=== PATIENT | female | born 1975 | race Caucasian/White ===

== ENCOUNTER → 2023-09-02 17:21 | Outpatient (REF) | payer OTHER, SELFPAY | LOC: MRI 3T 17:21 | PROVIDERS: ATTENDING PHYSICIAN Family Medicine | DX: R16.0 Hepatomegaly, not elsewhere classified (principal) | CPT/HCPCS: 74183; A9575 ==

== ENCOUNTER 2023-12-29 06:34 | Day surgery (SDC) | payer OTHER, SELFPAY ==
[2023-12-29] VITALS (11 sets, daily range): BP systolic 84–157; BP diastolic 62–87; BMI 42.9
[2023-12-29] MEDS: ZOFRAN 4 MG IV (13:03)
== END 2023-12-29 14:19 | disposition home or self-care (01) ==
LOC: GI 06:34
PROVIDERS: ATTENDING PHYSICIAN Internal Medicine Gastroenterology
DX: K80.20 Calculus of gallbladder without cholecystitis without obstruction (principal); R93.3 Abnormal findings on diagnostic imaging of other parts of digestive tract; K86.9 Disease of pancreas, unspecified
CPT/HCPCS: 43262; 43264; 43237; 74330; 76000; C1769

== ENCOUNTER → 2024-06-01 16:21 | Outpatient (REF) | payer OTHER, SELFPAY | LOC: HWWDC 16:21 | PROVIDERS: ATTENDING PHYSICIAN Obstetrics & Gynecology; FAMILY PHYSICIAN Family Medicine | DX: Z12.31 Encounter for screening mammogram for malignant neoplasm of breast (principal) | CPT/HCPCS: 77063; 77067 ==

== ENCOUNTER 2024-07-09 07:56 | Inpatient (IN) | payer OTHER, SELFPAY ==
[2024-07-06 13:46] VITALS: BP 144/80
[2024-07-06 14:12] LABS: Hematocrit 26.4 % (37.0-47.0); Hemoglobin 8.5 g/dL (12.0-16.0); Mean Corp Hgb Conc. 32.2 g/dL (33.0-37.0); Mean Corpuscular Hgb 23.7 pg (27.0-31.0); Mean Corpuscular Volume 73.5 fL (81.0-99.0); Mean Platelet Volume 8.9 fL (7.4-10.4); Platelet Count 456 10^3/uL (130-400); Red Blood Cell Count 3.59 10^6/uL (4.20-5.40); Red Cell Dist. Width 17.1 % (11.5-14.5); White Blood Cell Count 10.7 10^3/uL (4.8-10.8)
[2024-07-06 14:39] LABS: % Basophils 0.4 % (0-2); % Eosinophils 0.3 % (0-6); % Immature Granulocytes 2.3 % (0-0.5); % Lymphocytes 11.4 % (20.5-51.1); % Monocytes 10.1 % (1.7-9.3); % Neutrophils 75.5 % (42.2-75.2); Absolute Immature Granulocytes 0.3 10^3/uL (0-0.05); Absolute Lymphocytes 1.2 10^3/uL (1.2-3.4); Absolute Monocytes 1.1 10^3/uL (0.1-0.6); Absolute Neutrophils 8.1 10^3/uL (1.4-6.5); Nucleated Red Blood Cells % 0 %
[2024-07-06 14:43] LABS: Troponin I < 0.012 ng/ml
[2024-07-06 14:49] LABS: ALT (SGPT) 77 U/L (0-35); AST (SGOT) 47 U/L (14-36); Albumin 3.8 g/dl (3.5-5.0); Alkaline Phosphatase 325 U/L (38-126); Blood Urea Nitrogen 32 mg/dl (7-17); Calcium 9.3 mg/dl (8.4-10.2); Carbon Dioxide 17 mmol/L (22-30); Chloride 97 mmol/L (98-107); Glucose 220 mg/dl (70-99); HCG, Serum Qualitative Screen Negative; Lipase 168 U/L (23-300); Potassium 4.9 mmol/L (3.5-5.1); Sodium 133 mmol/L (135-145); Total Bilirubin 1.3 mg/dl (0.2-1.3); Total Protein 7.6 g/dl (6.3-8.2); eGFR 39.05
--- NOTE | 2024-07-06 15:24 | ED.GENMED ---
History of Present Illness
General
Chief Complaint: Abdominal Pain
Source: patient and records
Time Seen by Provider: 07/06/24 15:04
History of Present Illness
History of Present Illness:
49-year-old female with past medical history of hypertension and known gallstones presenting to the emergency department for evaluation of right upper quadrant abdominal pain that has waxed and waned since June 17, worse last night into this
morning with diminished p.o. intake, nausea and vomiting prompting her to come to the ER today further evaluation. Patient reports that she had an MRI of her abdomen around a year or so ago, was supposed to have gallstone removed however patient
reports that the gallstone had passed and she never had any further procedures. Patient never followed up with general surgery afterwards. She denies any fevers, chills, rigors bowel changes or urinary symptoms. Patient states that the pain is
mainly to the right upper quadrant, will often times radiate towards her shoulder on the right and seems to be made worse by food consumption. She did not take anything for her symptoms prior to arrival today.
Past History
Past History
ED Past Medical History: HTN
ED Past Surgical History: Tonsilectomy
Social History
Tobacco: Non-smoker
Alcohol: None
Drug: None
Personal:
Living: with family
Review of Systems
Review of Systems
All Other Systems: ROS reviewed and negative except as documented in HPI and ROS
Phy Exam
Physical Exam
Physical Exam:
GENERAL: Alert , in no apparent distress
EYE: clear conjunctiva b/l
HEAD: NCAT
ENT: mmm.
CARDIAC: Regular rate and rhythm .
LUNGS: Clear breath sounds bilaterally, no acute respiratory distress, no wheezes/rales/rhonchi
ABDOMEN: Soft, mild right upper quadrant tenderness, no r/g, no cvat, negative Kenyon sign, no tenderness at McBurney's point
NEUROLOGICAL: Alert and oriented
SKIN: Warm and dry, skin intact.
MUSCULOSKELETAL: well perfused.
PSYCH: Normal and appropriate interaction.
Scores
Heart Failure Risk
Heart Failure Risk Score: Not Applicable
Heart Score for Chest Pain Patients
STEMI patient?: Not applicable
Withdrawal Assessment of Alcohol
Withdrawal Assessment Completed?: Not applicable
Course
Orders/Labs/Results
Orders:
Orders
07/06/24 13:50
EKG [Electrocardiogram (*1)] Urgent
Reason for Study: Abdominal Pain
07/06/24 13:51
EKG- Treatment ONCE
Test Result ONCE
07/06/24 14:03
Complete Blood Count/With Diff Urgent
Comprehensive Metabolic Panel Urgent
HCG, Serum Qualitative Screen Urgent
Lipase Urgent
Troponin I Urgent
07/06/24 15:21
0.9% Sodium Chloride 1000 ml [Nss] 1,000 ml IV BOLUS
Ondansetron Injectable [Zofran] 4 mg IV NOW STA
US Abdomen Complete/Upper Urgent
Comment:
Reason For Exam: RUQ pain, vomiting, known gallstones
07/06/24 18:03
Piperacillin/Tazo 3.375 Gram [Zosyn] 3.375 gram in 50 ml IV NOW
07/06/24 18:53
Admit/Transfer Patient As Directed
Co-Sign Provider:
Level of Care: Observation services
Assign to:: Medical/Surgical
Physician / Group: Cony Ayala
Diagnosis: cholecystitis
Reason for Hospitalization: cholecystitis
Expected length of stay greater than two midnights?: Yes
ELOS- Estimated Length of Stay in days: 3
I certify the patient meets the requirements for IP care: Yes
07/06/24 18:54
PRN Pain Medication Management As Directed
May give lesser potent ordered pain med per pt: Yes
preference::
Protocol:: Medication orders for pain may be administered in a
manner that supports deferring to patient preference
when the pt is:
- Requesting an ordered lesser potent pain medication.
Least to most potent pain medications are defined
as: acetaminophen < NSAID < tramadol < opioids
(morphine, oxycodone, hydromorphone).
- Requesting a lesser dose of the same medication IF
ORDERED.
- Requesting a less intrusive route of administration
if both routes are prescribed by the provider (PO <
IV).
07/06/24 18:55
Code Status As Directed
Resuscitation Status: Full Code
Abnormal Lab Results
07/06/24
14:03
RBC 3.59 L 10^6/uL
(4.20-5.40)
Hgb 8.5 L g/dL
(12.0-16.0)
Hct 26.4 L %
(37.0-47.0)
MCV 73.5 L fL
(81.0-99.0)
MCH 23.7 L pg
(27.0-31.0)
MCHC 32.2 L g/dL
(33.0-37.0)
RDW 17.1 H %
(11.5-14.5)
Plt Count 456 H 10^3/uL
(130-400)
Abs Immat Gran (auto) 0.3 H 10^3/uL
(0-0.05)
Absolute Neuts (auto) 8.1 H 10^3/uL
(1.4-6.5)
Absolute Monos (auto) 1.1 H 10^3/uL
(0.1-0.6)
Immature Gran % 2.3 H %
(0-0.5)
Neutrophils % 75.5 H %
(42.2-75.2)
Lymphocytes % 11.4 L %
(20.5-51.1)
Monocytes % 10.1 H %
(1.7-9.3)
Sodium 133 L mmol/L
(135-145)
Chloride 97 L mmol/L
(98-107)
Carbon Dioxide 17 L mmol/L
(22-30)
BUN 32 H mg/dl
(7-17)
Creatinine 1.6 H mg/dL
(0.6-1.0)
Glucose 220 H mg/dl
(70-99)
AST 47 H U/L
(14-36)
ALT 77 H U/L
(0-35)
Alkaline Phosphatase 325 H U/L
(38-126)
07/06/24 14:03
07/06/24 14:03
Vital Signs
Initial and Last Documented VS:
Initial Vital Signs
Temp Pulse Resp BP Pulse Ox
99.3 F 98 17 144/80 99
07/06/24 13:46 07/06/24 13:46 07/06/24 13:46 07/06/24 13:46 07/06/24 13:46
Last Documented Vital Signs
Temp Pulse Resp BP Pulse Ox
99.3 F 83 18 125/55 98
07/06/24 13:46 07/06/24 15:52 07/06/24 15:52 07/06/24 15:52 07/06/24 15:52
MDM/Problems Addressed
Differential Diagnosis Includes:
Symptomatic cholelithiasis, acute cholecystitis, choledocholithiasis, biliary colic, pancreatitis, less concern for acute appendicitis, GERD/gastritis, gastroenteritis
MDM/Problems Addressed:
49-year-old female presenting to the ER for evaluation of continued right upper quadrant abdominal pain, nausea, vomiting and diminished p.o. and has been continuous since June 17. Known history of gallstones and had a ERCP done previously but
stone had already passed, no further interventions after this. Patient states she never followed up with a general surgeon and reports she was never given information for a general surgeon. She is mildly tender within the right upper quadrant but
has a negative Kenyon sign on exam. She does not appear to be in any acute distress, hemodynamically stable. Labs were initiated on arrival which show a hemoglobin of 8.5, patient also has an acute kidney injury and mild uremia which is likely due
to dehydration from not being able to tolerate p.o. Mild LFT elevation. Will obtain ultrasound to further evaluate. Anticipating consulting with general surgery.
*Radiology
Radiology exam reviewed: radiology read reviewed
*Pulse Oximetry
Patient hypoxic: no
*Critical Care Note
Total Time (30-74mins, 75-104mins- exclusive of procedures): Not Applicable
Patient Management
Discussion with other providers: Hospitalist and Cell Feed Department Supervisor
Escalation/DeEscalation of care consider admission/obs:
Patient's ultrasound of the gallbladder was the following:
Abnormal gallbladder. Markedly abnormal. Severely distended 12 cm, with a large amount of heterogeneous echogenic intraluminal debris/complex fluid and cholelithiasis. Positive sonographic Kenyon's sign. 5 mm gallbladder wall. Pericholecystic fluid.
Consistent with cholecystitis.
I notified on-call general surgeon, Dr. Bernstein, who will see the patient in consult. Will admit to hospitalist service given patient's acute kidney injury. Will order Zosyn to cover for infectious etiology. Hospitalist team accepts for continued
evaluation and treatment.
ED Attending Note
-
Portions of this chart may have been created with voice recognition software.� Occasional wrong word or��sound alike� substitutions may have occurred due to the inherent limitations of voice recognition software.
Discharge Plan
Departure
Patient Disposition: Admit
Date of Disposition: 07/06/24
Time of Disposition: 18:09
Presentation/result/management discussed w/ accepting MD/DO: Hospitalist
Discharge Problem:
Acute cholecystitis, JO (acute kidney injury)
Interventions
Interventions:
*Risk Screen - Suicide Last Done: 07/06/24 13:50
*General Assessment Last Done: 07/06/24 13:50
*Neglect/Abuse Screening Last Done: 07/06/24 13:50
*ED COVID-19 Vaccine History Last Done: 07/06/24 13:50
RY-Larmuf-Ettilqlceh Assessment Last Done: 07/06/24 19:43
[2024-07-06] MEDS: ZOFRAN 4 MG IV ×2 (15:48→21:36)
[2024-07-06] MEDS: NSS 1000 IV ×2 (15:48→21:31)
[2024-07-06 15:50] VITALS: BMI 43.2
[2024-07-06 15:52] VITALS: BP 125/55
--- NOTE | 2024-07-06 18:13 | HPS.HSE ---
Family Physician
-
Family Physician: Long Valdovinos
Chief Complaint
-
right upper quadrant abdominal pain
History of Present Illness
Patient is a 49-year-old female with past medical history significant for essential hypertension, DM II and hx gall stones who presented to [facility] ED for evaluation of right upper quadrant abdominal pain with associated nausea and vomiting. Patient
reports symptoms have been present for 3 weeks, no real change today causing her to come in for evaluation. She reports when this happened before a few days went by and things improved, she had been hoping that would happen this time but has not had
any improvement. Patient reports chills and sweats but no recorded fevers.
Medical History
Past Medical History
Past Medical History: Reports Other
Additional Past Medical History:
essential hypertension
DM II
fatty liver
liver mass
hx gall stones
Past Surgical History: Reports Other
Additional Past Surgical History:
tonsillectomy
adenoidectomy
Social History
Tobacco: Non-smoker
Alcohol: None
Drug: None
Personal:
Living: With Family
Employment: Not Employed
Family History
Family History: Other (Mother: Alzheimer's, gallstones; Father: Pancreatic cancer; Brother: CAD w/ CABG )
Allergies / Home Medications
Allergies reflects when Allergies were last updated in [employer].
Home Medications with original date entered in [employer]
Allergy/Medication List:
Allergies
Allergy/AdvReac Type Severity Reaction Status Date / Time
No Known Allergies Allergy Unverified 07/06/24 13:47
Home Medications
metoprolol succinate 100 mg tablet,extended release 24 hr 50 mg PO DAILYPRN PRN high pulse 12/29/23
aspirin 81 mg tablet,delayed release 81 mg PO DAILY 07/06/24
cholecalciferol (vitamin D3) 125 mcg (5,000 unit) tablet (Vitamin D3) 125 mcg PO DAILY 07/06/24
losartan 100 mg-hydrochlorothiazide 25 mg tablet 1 tab PO DAILY 07/06/24
norethindrone acetate 5 mg tablet 5 mg PO DAILY 07/06/24
Review of Systems
-
History Source: Patient
Constitutional: Reports Night Sweats and Chills
EENT: Reports No Symptoms
Respiratory: Reports No Symptoms
Cardiac: Reports No Symptoms
Abdomen/GI: Reports Abdominal Pain, Nausea, Vomiting and Diarrhea
: Reports No Symptoms
Musculoskeletal: Reports No Symptoms
Skin: Reports No Symptoms
Neurological: Reports No Symptoms
Endocrine: Reports No Symptoms
Hematologic/Lymphatic: Reports No Symptoms
Psych: Reports No Symptoms
Physical Exam
Vital Signs
Vital Signs
Temp Pulse Resp BP Pulse Ox
99.3 F 83 18 125/55 98
07/06/24 13:46 07/06/24 15:52 07/06/24 15:52 07/06/24 15:52 07/06/24 15:52
Physical Exam
General: Well Developed, Well Nourished, No Apparent Distress, Conversant and Morbidly Obese
HEENT: NormoCephalic, Moist mucous membranes, Atraumatic, [place] Conjunctivae, Nose Appears Normal and Ears Appear Normal
Respiratory: Clear and Non Labored Respirations
Cardiac: S1/S2 and Regular Rhythm
Breast: Deferred by me
GI: Soft, Normal Bowel Sounds and Tender; No Organomegaly
Rectal: Deferred by Provider
Genito-urinary: Deferred by me
Musculoskeletal: No Clubbing, No Cyanosis and No Edema
Skin: Warm and IV/Catheter Site
Neuro: Awake, Alert, AO x 3 and Nonfocal/grossly intact
Psych: Calm and Intact Judgment/Insight
Laboratory Results
-
07/06/24 14:03
07/06/24 14:03
Laboratory Results
Total Bilirubin 1.3 mg/dl (0.2-1.3) 07/06/24 14:03
AST 47 U/L (14-36) H 07/06/24 14:03
ALT 77 U/L (0-35) H 07/06/24 14:03
Alkaline Phosphatase 325 U/L (38-126) H 07/06/24 14:03
Troponin I < 0.012 ng/ml 07/06/24 14:03
Lipase 168 U/L (23-300) 07/06/24 14:03
Data Reviewed
-
Ultrasound: Report Reviewed by me (Abd: Abnormal gallbladder. Markedly abnormal. Severely distended 12 cm, with a large amount of heterogeneous echogenic intraluminal debris/complex fluid and cholelithiasis. Positive sonographic Kenyon's sign. 5 mm
gallbladder wall. Pericholecystic fluid. Consistent with cholecystitis. No bile duct )
Medical Tests (Nuc Med, Echo, EKG etc): Report Reviewed by me (EKG: NORMAL SINUS RHYTHM)
Lab Data: Labs Reviewed by me (BUN 32, Creat 1.6, AST 47, ALT 77. Alk Phos 325)
Impression/Plan
-
IMPRESSION/PLAN:
#cholecystitis
#hx gall stones
AST 47, ALT 77, Alk Phos 325
Abd US: Abnormal gallbladder. Markedly abnormal. Severely distended 12 cm, with a large amount of heterogeneous echogenic intraluminal debris/complex fluid and cholelithiasis.
Positive sonographic Kenyon's sign. 5 mm gallbladder wall. Pericholecystic fluid. Consistent with cholecystitis.
No bile duct dilatation.
Hepatomegaly.
- Admit to med/surg
- IVF
- Consult Surgery
#acute kidney injury likely 2/2 nausea and vomiting
BUN 32, Creat 1.6
- IVF
- monitor BMP
#essential hypertension
- continue losartan with parameters
- hold HCTZ
#DM II
Code status: full code
DVT prophylaxis: SCDs
[2024-07-06] MEDS: ZOSYN 50 IV ×2 (18:39→23:49)
--- NOTE | 2024-07-06 19:25 | W.PN.UPDATE ---
Update Note
Progress Note Update
This is an addendum to H&P written by Abigail Estrada on 07/06/2024. Patient seen examined independently with [employer].
49-year-old female past medical history of hypertension, iron deficiency anemia, cholelithiasis, type 2 diabetes not on medication presenting with right upper quadrant abdominal pain, vomiting and chills since 3 weeks ago.
She stopped taking antihypertensive medications few days ago due to blood pressure 100 systolic.
Vital signs normal.
Hemoglobin 8.5.
Creatinine 1.6. Bicarb of 17.
Abdominal ultrasound shows abnormal gallbladder, severely distended 12 cm, with large amount of heterogeneous echogenic luminal debris/complex fluid and cholelithiasis, positive sonographic Kenyon sign, 5 mm gallbladder wall, pericholecystic fluid
consistent with cholecystitis.
Patient also with JO and acidosis.
N.p.o., IV fluids, Zosyn. Hold hydrochlorothiazide, restart losartan with parameters. General surgery consulted.
Check hemoglobin A1c, insulin sliding scale.
--- NOTE | 2024-07-06 20:24 | CON.GS ---
Consultation
-
Date/Time Consultation Requested: 07/06/24 @18:02
Date/Time Consultation Performed: 07/16/24 @18:20
Requesting Provider: Skip Elaine PA-C
Performing Provider: Vladimir Bernstein MD
Reason for Consultation: Acute cholecystitis
Medical History
-
Chief Complaint: Abdominal pain
History of Present Illness:
49-year-old female with know gallstones who presents to the ED with RUQ pain for the past 3 weeks. The pain is sharp and radiates to her right shoulder. Eating exacerbates the pain. The pain worsened last night and was associated with nausea and
vomiting. No fevers or chills. No prior abdominal surgery.
History of choledocholithiasis s/p ERCP with the removal of sludge by Dr. Holly on 12/29/23. She was advised to have her gallbladder removed but never followed-up.
Past Medical History
Past Medical History: HTN, NIDDM and Other (gallstones/choledocholithiasis)
Past Surgical History: Tonsilectomy
Social History
Tobacco: Non-Smoker
Alcohol: None
Drug: None
Personal:
Living: With Family
Employment: Not Employed
Family History
Family History: Reviewed & Not Pertinent
Allergies / Home Medications
Allergy/AdvReac Type Severity Reaction Status Date / Time
No Known Allergies Allergy Unverified 07/06/24 13:47
�Medication �Instructions �Recorded �Confirmed �Type
metoprolol succinate 100 mg 50 mg PO DAILYPRN PRN high pulse 12/29/23 07/06/24 History
tablet,extended release 24 hr
aspirin 81 mg tablet,delayed 81 mg PO DAILY 07/06/24 07/06/24 History
release
cholecalciferol (vitamin D3) 125 125 mcg PO DAILY 07/06/24 07/06/24 History
mcg (5,000 unit) tablet (Vitamin
D3)
losartan 100 1 tab PO DAILY 07/06/24 07/06/24 History
mg-hydrochlorothiazide 25 mg tablet
norethindrone acetate 5 mg tablet 5 mg PO DAILY 07/06/24 07/06/24 History
Review of Systems
-
History Source: Patient
All other systems: Negative unless noted
A 10 point review of systems was completed, and was negative except as per HPI.
Physical Exam
Vital Signs
Temp Pulse Resp BP Pulse Ox
99.3 F 83 18 125/55 98
07/06/24 13:46 07/06/24 15:52 07/06/24 15:52 07/06/24 15:52 07/06/24 15:52
07/05/24 07/06/24 07/07/24
06:59 06:59 06:59
Actual Weight 107 kg
Body Mass Index (BMI) 43.2
Lab Results
07/06/24 14:03
07/06/24 14:03
WBC 10.7 10^3/uL (4.8-10.8) 07/06/24 14:03
Hgb 8.5 g/dL (12.0-16.0) L 07/06/24 14:03
Hct 26.4 % (37.0-47.0) L 07/06/24 14:03
Plt Count 456 10^3/uL (130-400) H 07/06/24 14:03
Abs Immat Gran (auto) 0.3 10^3/uL (0-0.05) H 07/06/24 14:03
Neutrophils % 75.5 % (42.2-75.2) H 07/06/24 14:03
Physical Exam
General: Well Developed, Well Nourished and No Apparent Distress
HEENT: Anicteric
Respiratory: Clear
Cardiac: Regular Rhythm
GI: Soft, Tender (tender in RUQ; palpable gallbladder) and Obese
Musculoskeletal: No Edema
Neuro: Awake and Alert
Data Reviewed
-
Ultrasound: Image Personally Visualized and interpreted, Report Reviewed by me, Discussed with Patient and Discussed with Family
Labs: Labs Reviewed by me, Discussed with Patient and Discussed with Family
Assessment / Plan
-
Acute cholecystitis.
Afebrile, VSS. WBC normal. Hgb low at 8.5g/dL. LFT's with normal bilirubin and slightly elevated AST, ALT and alk phos. BUN 32, Creat 1.6, CO2 17.
Ultrasound with a distended gallbladder (12cm), 5mm gallbladder wall and pericholecystic fluid.
I reviewed the treatment options with the patient and her , including nonoperative management, cholecystectomy, or percutaneous tube decompression. We discussed the risks and benefits of each and she prefers to have the gallbladder removed.
We discussed open, laparoscopic and robotic surgery. Risks of surgery include, but are not limited to bleeding, infection, hernias, adhesions, injury to other structures, DVT, cardiopulmonary complications, and the risks of anesthesia. I also
explained that the symptoms can persist following surgery. I reviewed the typical recovery both in and out of the hospital, as well as the functional results. �I also discussed the differences in open, laparoscopic and robotic surgery.� All
questions answered. I clearly explained that her risks of surgery are higher to her the acute nature of her condition and he body habitus. The plan is for a minimally invasive cholecystectomy (robotic if available) tomorrow. She needs to be
hydrated. Antibiotics to be ordered and she will be kept NPO. �Her anemia will need to be worked up and it is possible she is transfused.
[2024-07-06 20:38] VITALS: BP 117/69
[2024-07-06 21:06] VITALS: BP 121/73; BMI 43.3
--- NOTE | 2024-07-06 21:56 | PTCARENOTE ---
20:50 pt rec'vd from ER, family at the bedside. Pt aaox3, able to ambulate to scale, IVF hung infusing via L ac as ordered, pt oriented to unit.
[2024-07-06] MEDS: MORPHINE SULFATE 2 MG IV (22:26)
[2024-07-06 23:24] VITALS: BP 106/51
[2024-07-07] VITALS (14 sets, daily range): BP systolic 100–129; BP diastolic 44–80
[2024-07-07 00:01] LABS: Glucose - Point of Care 145 mg/dl (70-99)
[2024-07-07] MEDS: ZOSYN 50 IV ×3 (05:56→18:01)
[2024-07-07] MEDS: MORPHINE SULFATE 2 MG IV (05:56)
[2024-07-07 06:18] LABS: Glucose - Point of Care 166 mg/dl (70-99)
[2024-07-07 07:40] LABS: Hematocrit 23.5 % (37.0-47.0); Hemoglobin 7.4 g/dL (12.0-16.0); Mean Corp Hgb Conc. 31.5 g/dL (33.0-37.0); Mean Corpuscular Hgb 23.8 pg (27.0-31.0); Mean Corpuscular Volume 75.6 fL (81.0-99.0); Mean Platelet Volume 9.5 fL (7.4-10.4); Platelet Count 417 10^3/uL (130-400); Red Blood Cell Count 3.11 10^6/uL (4.20-5.40); Red Cell Dist. Width 17.5 % (11.5-14.5); White Blood Cell Count 9.2 10^3/uL (4.8-10.8)
--- NOTE | 2024-07-07 07:50 | PTCARENOTE ---
pt transported to OR holding area at 0750 via bed. pt tearful and emotional this am. emotional support and reassurance provided. voided small amount prior to transfer. mesh pants and lo pad in place for current heavy menses. OR nurse aware.
[2024-07-07 08:01] LABS: Blood Urea Nitrogen 37 mg/dl (7-17); Calcium 8.6 mg/dl (8.4-10.2); Carbon Dioxide 19 mmol/L (22-30); Chloride 101 mmol/L (98-107); Estimated Creatinine Clearance 29 ml/min; Glucose 155 mg/dl (70-99); Potassium 4.7 mmol/L (3.5-5.1); Sodium 138 mmol/L (135-145); eGFR 20.84
[2024-07-07] MEDS: NOVOLOG FLEXPEN-LOW RESISTANCE SC ×2 (08:09→12:08)
--- NOTE | 2024-07-07 08:35 | W.PN.HOSP.TC ---
Today's Communication/Plan
-
see A/P
Assessment / Plan
Assessment / Plan
49-year-old female past medical history of hypertension, iron deficiency anemia, cholelithiasis, type 2 diabetes not on medication; presented with right upper quadrant abdominal pain, vomiting and chills for 3 weeks ago.
She stopped taking antihypertensive medications few days ago due to blood pressure 100 systolic.
Abdominal ultrasound shows abnormal gallbladder, severely distended 12 cm, with large amount of heterogeneous echogenic luminal debris/complex fluid and cholelithiasis, positive sonographic Kenyon sign, 5 mm gallbladder wall, pericholecystic fluid
consistent with cholecystitis.
A/P:
# Acute gallstone cholecystitis
# hx gall stones
# Elevated LFT due to above
Abd US report as above
GS on board, placed cholecystomy tube 07/07
per GS, one unit PRBC given during OR
NPO until lifted by surgery
Cont empiric Zosyn
Follow LFT
pt placed on 2L NC following OR, I do not think she has hypoxia, wean O2 as tolerated
# acute kidney injury likely prerenal 2/2 nausea and vomiting
Creat 1.6 -> 2.7, unknown baseline
Cont IVF
monitor BMP
# Essential hypertension
Holding losartan and HCTZ until SCr improves
use IV hydralazine PRN
# DM II
Check hemoglobin A1c,
insulin sliding scale.
Code status: full code
DVT prophylaxis: SCDs
DW GS
DW at bedside
total time 51 min
Anticipated Discharge: > 48 hours
Subjective/Interval History
-
Date of Service: July 07, 2024
Objective Data
-
Labs:
Laboratory Results
07/07/24
05:49
WBC 9.2
Hgb 7.4 L
Hct 23.5 L
Plt Count 417 H
Sodium 138
Potassium 4.7
Chloride 101
Carbon Dioxide 19 L
BUN 37 H
Creatinine 2.7 H
Glucose 155 H
Calcium 8.6
Vital Signs:
Vital Signs
Temp Pulse Resp BP Pulse Ox
37.9 C 92 18 102/44 97
07/07/24 07:39 07/07/24 07:39 07/07/24 07:39 07/07/24 07:39 07/07/24 07:40
I&O
07/06/24 07/07/24 07/08/24
06:59 06:59 06:59
Intake Total 1340 / 1340
Balance 1340 / 1340
Review of Systems
-
Unable to obtain full review of systems at this time due to: Acuity
Physical Exam
-
General: Well Developed, Well Nourished, Comfortable and Morbidly Obese
HEENT: Normocephalic, Atraumatic, Nose Appears Normal, Ears Appear Normal and Oxygen (2L NC)
Respiratory: Clear to Auscultation and Non Labored Respirations; Negative Accessory Resp Muscle Use
Cardiac: Regular Rhythm and S1/S2
GI: Soft, Nontender, Nondistended, Normal Bowel Sounds and Other (cholecystostomy tube )
Skin: Warm and Dry
Neuro: Awake and Alert
Psych: Calm
Data Reviewed
-
Ultrasound: Report Reviewed by me
Labs: Labs Reviewed by me
[2024-07-07 09:58] LABS: Glycohemoglobin (HgbA1c) 10.2 % (4.0-5.6)
--- NOTE | 2024-07-07 10:22 | CM ---
Reviewed the chart notes and spoke with the patient's spouse at the bedside. Patient in OR. The patient resides with her spouse in a two story home with two steps to enter. The spouse reports no DME/VN/SNF in the past. Spouse confirmed pharmacy
choice is the [facility]. CM continues to be available to patient/family and is monitoring medical plan for needs at discharge.
Plan: Discharge plans will depend on the patient's progress.
[2024-07-07 11:16] LABS: Glucose - Point of Care 221 mg/dl (70-99)
--- NOTE | 2024-07-07 11:16 | W.IMMPOSTOP ---
Addendum entered and electronically signed by Zaid Bernstein MD 07/07/24 11:24:
The gallbladder was not removed.
Original Note:
Surgical Immed Post Op Note
-
Primary Surgeon: Vladimir Bernstein MD
Badger Distiller Operator: BATSHEVA Paz
Pre-op Diagnosis: Acute cholecystitis
Post-op Diagnosis: Same
Procedure Performed: Robotic cholecystomy tube
Anesthesia Type: GET
Specimen / Cultures: Gallbladder cultures and gallbladder
Estimated Blood Loss: 20cc
Complications: None
Operative Findings: Severe cholecystitis precluding a safe resection
22 Fr Adler cholecystostomy tube
Purulent bile
Patient's updated.
[2024-07-07] MEDS: NOVOLOG vial 2 UNITS SC (11:26)
--- NOTE | 2024-07-07 12:11 | PTCARENOTE ---
pt arrived back to room 2109 from PACU at 1200 via bed. pt drowsy but arousable, family at bedside. RUQ biliary drain patent with bloody output to gravity drainage. dressing clean and dry at site. lap sites across abdomen X [employer] SERVICE TECHNICIAN w/surgical adhesive
present. lo pad in place, due to void. IVF restarted. VS: 97.7-98-14-128/71, 96% on 2L NC. ice chips at bedside. care ongoing.
[2024-07-07] MEDS: DILAUDID 0.5 MG IV (16:05)
[2024-07-07] MEDS: NSS 1000 IV (18:05)
[2024-07-07 18:07] LABS: Glucose - Point of Care 210 mg/dl (70-99)
[2024-07-07] MEDS: NOVOLOG FLEXPEN-LOW RESISTANCE 2 UNITS SC (18:17)
[2024-07-07] MEDS: MYLICON 80 MG PO (20:05)
[2024-07-07] MEDS: DILAUDID 1 MG IV (21:05)
[2024-07-07] MEDS: HEPARIN 5000 UNITS SC (21:06)
[2024-07-07] MEDS: NSS IV (21:52)
[2024-07-07] MEDS: VITAMIN D3 (cholecalciferol) PO (21:52)
[2024-07-07] MEDS: ASPIR LOW (ENTERIC COATED) PO (21:52)
[2024-07-08] MEDS: ZOSYN 50 IV ×4 (00:07→18:06)
[2024-07-08 00:28] LABS: Glucose - Point of Care 229 mg/dl (70-99)
[2024-07-08] MEDS: NSS 1000 IV ×2 (04:26→11:14)
[2024-07-08] MEDS: DILAUDID 1 MG IV (04:27)
[2024-07-08 04:31] VITALS: BP 132/72
[2024-07-08] MEDS: HEPARIN 5000 UNITS SC ×2 (05:38→16:18)
[2024-07-08 05:49] LABS: Glucose - Point of Care 180 mg/dl (70-99)
[2024-07-08 07:24] VITALS: BP 101/57
[2024-07-08 07:57] LABS: Hematocrit 28.4 % (37.0-47.0); Mean Corp Hgb Conc. 31.7 g/dL (33.0-37.0); Mean Corpuscular Hgb 24.7 pg (27.0-31.0); Mean Platelet Volume 9.2 fL (7.4-10.4); Platelet Count 416 10^3/uL (130-400); Red Blood Cell Count 3.64 10^6/uL (4.20-5.40); Red Cell Dist. Width 17.5 % (11.5-14.5); White Blood Cell Count 10.1 10^3/uL (4.8-10.8)
[2024-07-08 08:13] LABS: ALT (SGPT) 49 U/L (0-35); AST (SGOT) 26 U/L (14-36); Albumin 2.9 g/dl (3.5-5.0); Alkaline Phosphatase 310 U/L (38-126); Blood Urea Nitrogen 45 mg/dl (7-17); Calcium 7.9 mg/dl (8.4-10.2); Carbon Dioxide 15 mmol/L (22-30); Chloride 99 mmol/L (98-107); Estimated Creatinine Clearance 15 ml/min; Glucose 163 mg/dl (70-99); Magnesium 1.3 mg/dl (1.6-2.3); Potassium 5.2 mmol/L (3.5-5.1); Sodium 134 mmol/L (135-145); Total Bilirubin 2.2 mg/dl (0.2-1.3); Total Protein 6.1 g/dl (6.3-8.2); eGFR 9.49
[2024-07-08 08:19] LABS: Glucose - Point of Care 153 mg/dl (70-99)
[2024-07-08 08:57] VITALS: BP 122/51
[2024-07-08] MEDS: ASPIR LOW (ENTERIC COATED) 81 MG PO (09:03)
[2024-07-08] MEDS: VITAMIN D3 (cholecalciferol) 125 MCG PO (09:03)
[2024-07-08] MEDS: NOVOLOG FLEXPEN-LOW RESISTANCE 1 UNITS SC ×3 (09:04→18:06)
--- NOTE | 2024-07-08 09:11 | W.CON.NEPH ---
Consultation
-
Date/Time Consultation Requested: 07/08/242051
Date/Time Consultation Performed: 07/08/24 1145
Requesting Provider: Scarlett Camacho
Performing Provider: Marilu Florence
Reason for Consultation: JO
Medical History
-
Chief Complaint: abd pain
History of Present Illness:
49-year-old female with past medical history significant for essential hypertension on Losartan and HCTZ, DM II not on meds and hx gall stones who presented to ED for evaluation of right upper quadrant abdominal pain with associated nausea and
vomiting on 07/06. She noted to have acute cholecystitis and had cholecystostomy tube placement on 07/07 laparoscopically and unable to remove gallbladder due to severe inflammation and noted to have purulent bile. Her cr was at 1.6 on admit and
yesterday at 2.6 and today at 5.2(last cr 0.7, with UA alb3+ in 07/2023 - [facility]). Potassium at 5.2, worsening metabolic acidosis 15 on NS IVF. She currently on clear liquid diet.
No noted fever, c/o abd distension and pain, not passing flatus. No n/v. No CP or sob. She does notices decrease in UOP. No dysuria. Reports not aware of DM before.
Past Medical History
essential hypertension
DM II
fatty liver
hx gall stones, /choledocholithiasis ERCP 12/2023
Morbid obesity
Past Surgical History: Other (tonsillectomy adenoidectomy)
Social History
Tobacco: Non-Smoker
Alcohol: None
Drug: None
Personal:
Living: With Family
Employment: Not Employed
Family History
Mother: Alzheimer's, gallstones; Father: Pancreatic cancer; Brother: CAD w/ CABG
brother with kidney stone
Family History: Not Pertinent
Allergies / Home Medications
Allergy/AdvReac Type Severity Reaction Status Date / Time
No Known Allergies Allergy Unverified 07/06/24 13:47
�Medication �Instructions �Recorded �Confirmed �Type
metoprolol succinate 100 mg 50 mg PO DAILYPRN PRN high pulse 12/29/23 07/06/24 History
tablet,extended release 24 hr
aspirin 81 mg tablet,delayed 81 mg PO DAILY High Cholesterol 07/06/24 07/06/24 History
release
cholecalciferol (vitamin D3) 125 125 mcg PO DAILY Supplement 07/06/24 07/06/24 History
mcg (5,000 unit) tablet (Vitamin
D3)
losartan 100 1 tab PO DAILY Blood Pressure 07/06/24 07/06/24 History
mg-hydrochlorothiazide 25 mg tablet
norethindrone acetate 5 mg tablet 5 mg PO DAILY Hormonal Agent 07/06/24 07/06/24 History
Review of Systems
-
All other systems: Negative unless noted
Physical Exam
Vital Signs
Vital Signs
Temp Pulse Resp BP Pulse Ox
99.2 F 109 19 122/51 93
07/08/24 07:24 07/08/24 07:24 07/08/24 07:24 07/08/24 08:57 07/08/24 07:24
Lab Results
WBC 10.1 10^3/uL (4.8-10.8) 07/08/24 05:46
RBC 3.64 10^6/uL (4.20-5.40) L 07/08/24 05:46
Hgb 9.0 g/dL (12.0-16.0) L D 07/08/24 05:46
Hct 28.4 % (37.0-47.0) L 07/08/24 05:46
Plt Count 416 10^3/uL (130-400) H 07/08/24 05:46
Sodium 134 mmol/L (135-145) L 07/08/24 05:46
Potassium 5.2 mmol/L (3.5-5.1) H 07/08/24 05:46
Chloride 99 mmol/L (98-107) 07/08/24 05:46
Carbon Dioxide 15 mmol/L (22-30) L 07/08/24 05:46
BUN 45 mg/dl (7-17) H 07/08/24 05:46
Creatinine 5.2 mg/dL (0.6-1.0) H* 07/08/24 05:46
eGFR 9.49 07/08/24 05:46
Glucose 163 mg/dl (70-99) H 07/08/24 05:46
Calcium 7.9 mg/dl (8.4-10.2) L 07/08/24 05:46
Albumin 2.9 g/dl (3.5-5.0) L 07/08/24 05:46
Physical Exam
General: Awake, Alert, Oriented, AOx3, No Distress and Nontoxic
HEENT: Anicteric, Conjunctivae Clear, Ear/Nose Intact and Facial Symmetry
Respiratory: Clear, Normal Excursion and Nonlabored Respirations
Cardiac: S1/S2 and Regular Rate/Rhythm
Breast: Deferred by me
Abdomen: Other (distended, mild TTP gen)
Musculoskeletal: No Cyanosis and No Edema
Skin: No Rash
Neuro: Nonfocal/Grossly Intact
Psych: Mood/afflect pleasant, Insight/judgement good and Appropriate
Data Reviewed
-
Radiology: Report Reviewed by me, Discussed with Patient and Discussed with Family
Labs: Labs Reviewed by me, Discussed with Physician, Discussed with Nurse, Discussed with Patient and Discussed with Family
Assessment/Plan
-
IMP:
JO
Acute cholecystitis
hx gall stones prior ERCP for choledocholithiasis in 12/2023
Microcytic anemia
A gap met acidosis
mild hyperkalemia
hyponatremia
hypomagnesemia
essential hypertension
DM II
Plan:
A/w abd pain with acute cholecystitis s/p Michelle tube
JO-cr baseline 0.7 in 07/2023, cr up trending from 1.6 to 5.2 in 48hrs
UOP not recorded, place velazquez
check UA and U Fena, U PCR, renal US no hydro but mild dilation of left collecting system
BP stable no hypotension
a gap met acidosis -check L acid
change IVF to bicarb
expect k to improve with correction of acidosis
replace mg
follow h/h , prn transfusion
no emergent need of HD however likely need in next 24-48hrs if cont to have worsening renal function
avoid nephrotoxins , hold ARB and HCTZ
d/w pt and family
d/e primary and nursing
[2024-07-08] MEDS: NSS 500 IV (09:29)
[2024-07-08 11:17] VITALS: BP 142/74
--- NOTE | 2024-07-08 11:17 | W.PN.GS2 ---
Today's Communication / Plan
-
Clears for comfort
Continue cholecystostomy drain
Assessment / Plan
-
49 yo female presenting with severe cholecystitis
POD #1 Robotic placement of cholecystostomy drain, cholecystectomy unable to be performed safely due to the degree of inflammation/abscess
Low grade fever preop, but has been afebrile since. Mild tachycardia. BP stable
No leukocytosis
Anemia present on admission, suspect chronic d/t heavy menses but still undergoing outpatient work up. s/p one unit pRBC's preop with good response
JO preop now worsening today, low UO
Cholecystostomy drain with purulent bilious outputs, cx pending GNR and strep veridans on preliminary cx
Ileus present
--Ok for clears for comfort, hold on dietary advancement until passing flatus
--Nephrology consulted this AM given JO. Renal US pending
--C/W IVF
--C/W IV zosyn (renally dosed) and follow cx
--Analgesics/antiemetics as needed
--C/W cholecystostomy drain to gravity drainage, will remain in place on discharge. Anticipate surgery for cholecystectomy in 6-8 weeks once inflammation has improved/resolved
Subjective Data
-
Date of Service: July 08, 2024
Patient seen and examined at bedside with Dr. Bernstein. Denies n/v. Still with abdominal pain but holding off on narcotics. Feels she has a gas bubble in her upper abdomen. Not yet passing flatus/stools. No appetite. OOB to chair.
Objective Data
-
Intake and Output
07/07/24 07/08/24 07/09/24
06:59 06:59 06:59
Intake Total 1340 / 1340 1480 / 1480 980 / 980
Output Total 525 / 525 125 / 125
Balance 1340 / 1340 955 / 955 855 / 855
Intake:
Oral fluids 240 / 240 480 / 480 480 / 480
IV fluids (Total) 1000 / 1000 900 / 900 500 / 500
normosol 100 / 100
IV piggybacks 100 / 100 100 / 100
Output:
Drain Output (Total) 525 / 525
Right Upper Abdomen 525 / 525
Urine, Voided 125 / 125
Other:
Number of approximated SMALL 1
amounts of urine
Number of approximated MODERATE 2 1
amounts of urine
Vital Signs
Temp Pulse Resp BP Pulse Ox
99.2 F 109 19 122/51 93
07/08/24 07:24 07/08/24 07:24 07/08/24 07:24 07/08/24 08:57 07/08/24 07:24
Lab Results
07/08/24 05:46
07/08/24 05:46
Calcium 7.9 mg/dl (8.4-10.2) L 07/08/24 05:46
Magnesium 1.3 mg/dl (1.6-2.3) L 07/08/24 05:46
Total Bilirubin 2.2 mg/dl (0.2-1.3) H D 07/08/24 05:46
AST 26 U/L (14-36) 07/08/24 05:46
ALT 49 U/L (0-35) H 07/08/24 05:46
Alkaline Phosphatase 310 U/L (38-126) H 07/08/24 05:46
Total Protein 6.1 g/dl (6.3-8.2) L 07/08/24 05:46
Albumin 2.9 g/dl (3.5-5.0) L 07/08/24 05:46
Physical Exam
-
NAD
ABD softly distended, mild generalized tenderness, LOSS CLAIM CLERK
Biliary drain with purulent bilious drainage
--- NOTE | 2024-07-08 11:59 | W.PN.HOSP.TC ---
Today's Communication/Plan
-
see A/P
Assessment / Plan
Assessment / Plan
49-year-old female past medical history of hypertension, iron deficiency anemia, cholelithiasis, type 2 diabetes not on medication; presented with right upper quadrant abdominal pain, vomiting and chills for 3 weeks ago.
She stopped taking antihypertensive medications few days ago due to blood pressure 100 systolic.
Abdominal ultrasound shows abnormal gallbladder, severely distended 12 cm, with large amount of heterogeneous echogenic luminal debris/complex fluid and cholelithiasis, positive sonographic Kenyon sign, 5 mm gallbladder wall, pericholecystic fluid
consistent with cholecystitis.
A/P:
# Acute gallstone cholecystitis
# hx gall stones
# Elevated LFT due to above
Abd US report as above
GS on board, placed cholecystomy tube 07/07. One unit PRBC given during OR
started clears per GI
Follow LFT
OF note, wound culture positive for Viridans strep
Cont empiric Zosyn
# acute kidney injury
Creat 1.6 -> 5.1, unknown baseline
Cont IVF
monitor BMP
Kidney bladder US not significant, noted Mild dilatation of the left renal collecting system without overt hydronephrosis.
Adler placed for close I/O per renal
Renal on board
# Essential hypertension
Holding losartan and HCTZ until SCr improves
use IV hydralazine PRN
# DM II
A1c 10%- informed pt and family that this is diabetic range
insulin sliding scale.
Code status: full code
DVT prophylaxis: SCDs
DW Renal
DW , son and daughter at bedside
total time 51 min
Anticipated Discharge: > 48 hours
Subjective/Interval History
-
Date of Service: July 08, 2024
Objective Data
-
Labs:
Laboratory Results
07/08/24
05:46
WBC 10.1
Hgb 9.0 L D
Hct 28.4 L
Plt Count 416 H
Sodium 134 L
Potassium 5.2 H
Chloride 99
Carbon Dioxide 15 L
BUN 45 H
Creatinine 5.2 H*
Glucose 163 H
Calcium 7.9 L
Total Bilirubin 2.2 H D
AST 26
ALT 49 H
Alkaline Phosphatase 310 H
Vital Signs:
Vital Signs
Temp Pulse Resp BP Pulse Ox
36.8 C 107 16 142/74 95
07/08/24 11:17 07/08/24 11:17 07/08/24 11:17 07/08/24 11:17 07/08/24 11:17
I&O
07/07/24 07/08/24 07/09/24
06:59 06:59 06:59
Intake Total 1340 / 1340 1480 / 1480 980 / 980
Output Total 525 / 525 125 / 125
Balance 1340 / 1340 955 / 955 855 / 855
Review of Systems
-
History Source: Patient
All other systems: Reviewed and negative
Physical Exam
-
General: Well Developed, Well Nourished, Comfortable and Morbidly Obese
HEENT: Normocephalic, Atraumatic, Nose Appears Normal and Ears Appear Normal; Negative Oxygen
Respiratory: Clear to Auscultation and Non Labored Respirations; Negative Accessory Resp Muscle Use
Cardiac: Regular Rhythm and S1/S2
GI: Soft, Nontender, Nondistended, Normal Bowel Sounds and Other (cholecystostomy tube )
Genito-urinary: Adler
Skin: Warm and Dry
Neuro: Awake and Alert
Psych: Calm and Intact Judgement/Insight
Data Reviewed
-
Ultrasound: Report Reviewed by me and Discussed with Patient
Labs: Labs Reviewed by me
[2024-07-08 12:05] LABS: Urine Albumin 3+ (Neg - Trace); Urine Bilirubin Negative (Negative); Urine Character Clear (Clear); Urine Color Yellow; Urine Glucose Negative (Negative); Urine Ketone Negative (Negative); Urine Leukocyte 1+ (Negative); Urine Nitrite Negative (Negative); Urine Occult Blood 4+ (Negative); Urine Specific Gravity 1.015 (<1.030); Urine Urobilinogen 1+ (Neg - 1+)
[2024-07-08 12:18] LABS: Lactic Acid 1.2 mmol/L (0.7-2.0)
[2024-07-08] MEDS: MAGNESIUM SULFATE 100 IV (12:30)
[2024-07-08 12:34] LABS: Urine Squamous Cell 16-20 /LPF (Few)
[2024-07-08 12:35] LABS: Urine Bacteria Moderate (Negative)
[2024-07-08 12:40] LABS: Glucose - Point of Care 181 mg/dl (70-99)
[2024-07-08 13:48] LABS: Protein/creatinine Ratio 0.9; Urine Protein 90 mg/dl; Urine Sodium 55 mmol/L (30-90)
[2024-07-08] MEDS: SODIUM BICARBONATE 1075 MEQ IV (16:16)
--- NOTE | 2024-07-08 17:30 | PTCARENOTE ---
patient only had 70 ml output in velazquez catheter since being placed at 1050. Dr. Bauer and Dr. Chiang made aware.
[2024-07-08 17:33] LABS: Glucose - Point of Care 188 mg/dl (70-99)
[2024-07-08 21:55] LABS: Glucose - Point of Care 159 mg/dl (70-99)
[2024-07-08 23:20] VITALS: BP 125/73
[2024-07-09] MEDS: ZOSYN 50 IV ×3 (00:08→12:39)
[2024-07-09] MEDS: HEPARIN 5000 UNITS SC ×3 (00:08→16:41)
[2024-07-09] MEDS: SODIUM BICARBONATE 1075 MEQ IV (05:04)
[2024-07-09 06:00] VITALS: BMI 42.7
[2024-07-09 07:21] LABS: Hematocrit 27.6 % (37.0-47.0); Hemoglobin 8.9 g/dL (12.0-16.0); Mean Corp Hgb Conc. 32.2 g/dL (33.0-37.0); Mean Corpuscular Hgb 24.9 pg (27.0-31.0); Mean Corpuscular Volume 77.3 fL (81.0-99.0); Mean Platelet Volume 9.4 fL (7.4-10.4); Platelet Count 413 10^3/uL (130-400); Red Blood Cell Count 3.57 10^6/uL (4.20-5.40); Red Cell Dist. Width 17.8 % (11.5-14.5); White Blood Cell Count 13.3 10^3/uL (4.8-10.8)
[2024-07-09 07:35] VITALS: BP 132/76
[2024-07-09 08:27] LABS: ALT (SGPT) 30 U/L (0-35); AST (SGOT) 17 U/L (14-36); Albumin 2.7 g/dl (3.5-5.0); Alkaline Phosphatase 233 U/L (38-126); Blood Urea Nitrogen 50 mg/dl (7-17); Calcium 8.3 mg/dl (8.4-10.2); Carbon Dioxide 14 mmol/L (22-30); Chloride 99 mmol/L (98-107); Estimated Creatinine Clearance 11 ml/min; Glucose 135 mg/dl (70-99); Magnesium 2.5 mg/dl (1.6-2.3); Potassium 4.7 mmol/L (3.5-5.1); Sodium 134 mmol/L (135-145); Total Bilirubin 2.3 mg/dl (0.2-1.3); Total Protein 5.7 g/dl (6.3-8.2); eGFR 6.53
[2024-07-09 08:43] LABS: Glucose - Point of Care 149 mg/dl (70-99)
--- NOTE | 2024-07-09 09:06 | W.PN.CRS1 ---
Today's Communication / Plan
-
As below
Assessment/Plan
-
Patient is a 49-year-old female with PMH of HTN, FLD, elevated BMI, DM, gallstones s/p ERCP 12/2023 (underwent sphincterotomy and sludge was swept from the CBD; lost to follow-up) presents for RUQ abdominal pain for 3 weeks. The pain worsened 1 day
prior to admission and she started vomiting. WBC 10.7. CR 1.6. T. bili 1.3 alk phos 325. RUQ ultrasound showed distended gallbladder with sludge and cholelithiasis, positive Kenyon sign with gallbladder wall thickening and pericholecystic fluid,
consistent with acute cholecystitis.
POD 2 robotic cholecystostomy tube (severe inflammation precluded safe cholecystectomy)
AF VSS
WBC 13.3 from 10.1, Hb 8.9 from 9.0, Cr 7.1 from 5.2, UOP 480
� Severe cholecystitis s/p cholecystostomy tube
�Continue clears and IV fluids
�Pain control with Tylenol and Dilaudid as needed
�JAI drain to bulb suction
�Continue IV Zosyn
�JO, appreciate renal
� Recommend PT/OT; OOB, encourage IS
� Continue DVT PPx with subQ heparin
� Appreciate hospitalist
Subjective Data
Subjective Data
Date of Service: July 09, 2024
Denies nausea or vomiting. Tolerating clears, but states she has no appetite. She states her pain is controlled but her states that her patient is not controlled. Nurse says that patient was offered pain medicine this morning and declined.
No flatus or BMs. + Adler
Patient is not out of bed, requires nursing assistance to move.
Objective Data
-
Vital Signs
Temp Pulse Resp BP Pulse Ox
98.4 F 102 20 132/76 95
07/09/24 07:35 07/09/24 07:35 07/09/24 07:35 07/09/24 07:35 07/09/24 07:35
Intake & Output
07/08/24 07/09/24 07/10/24
06:59 06:59 06:59
Intake Total 1480 / 1480 4200 / 4200
Output Total 525 / 525 570 / 570
Balance 955 / 955 3630 / 3630
Intake:
Oral fluids 480 / 480 1620 / 1620
IV fluids (Total) 900 / 900 2380 / 2380
normosol 100 / 100
IV piggybacks 100 / 100 200 / 200
Output:
Drain Output (Total) 525 / 525 125 / 125
Right Upper Abdomen 525 / 525 125 / 125
Urine, Adler 320 / 320
Urine, Voided 125 / 125
Other:
Number of approximated SMALL 1
amounts of urine
Number of approximated MODERATE 1 1
amounts of urine
Lab Results
07/09/24 06:16
07/09/24 06:16
Physical Exam
-
General: No Acute Distress and AOx3
Abdomen: Soft, Distended (Protuberant, not tympanitic), Tender (Moderately tender in the RUQ, no rebound or guarding) and Other (Operative drain with thick julien fluid in the tubing)
Skin: Warm and Dry
Wound: No Signs of Infection and No Skin Erythema
[2024-07-09] MEDS: NOVOLOG FLEXPEN-LOW RESISTANCE SC ×2 (09:07→12:00)
[2024-07-09] MEDS: VITAMIN D3 (cholecalciferol) PO ×2 (09:08)
[2024-07-09] MEDS: ASPIR LOW (ENTERIC COATED) 81 MG PO (09:08)
--- NOTE | 2024-07-09 10:03 | W.PN.NEPH.PH ---
Today's Communication / Plan
-
HD today
Assessment/Plan
-
IMP:
JO
Acute cholecystitis
hx gall stones prior ERCP for choledocholithiasis in 12/2023
Microcytic anemia
A gap met acidosis
mild hyperkalemia
hyponatremia
hypomagnesemia
essential hypertension
DM II
Morbid obesity
Plan:
A/w abd pain with acute cholecystitis s/p Michelle tube
JO-cr baseline 0.7 in 07/2023, cr up trending 7.1, oliguric
UA UTI sample, U PCR 900mg g/ of cr, Fena >2
renal US no hydro but mild dilation of left collecting system
BP stable no hypotension
a gap met acidosis -normal L acid
no clear etiology of JO , serologies sent
may need K biopsy when stabilized, hold ASA if possible
she is now with mild sob, will stop IVF
give one amp of bicarb
detailed discussion with pt and at bedside
will start on HD , both agreed
IR consulted to place temp HD catheter
follow h/h , prn transfusion
avoid nephrotoxins , hold ARB and HCTZ
d/w pt and family
d/w primary and nursing
-
-
Date of Service: July 09, 2024
CC / HPI / ROS
-
Chief Complaint:
JO
History of Present Illness:
cr up at 7.1, oliguric with velazquez
no fever, hb stable 8.9
k normal, bicarb low still at 14 despite bicarb IVF
Review of Systems:
no BM
feels sob, no cp
abd pain same
Labs
-
Labs:
WBC 13.3 10^3/uL (4.8-10.8) H 04/21/25 06:16
RBC 3.57 10^6/uL (4.20-5.40) L 07/09/24 06:16
Hgb 8.9 g/dL (12.0-16.0) L 07/09/24 06:16
Hct 27.6 % (37.0-47.0) L 07/09/24 06:16
Plt Count 413 10^3/uL (130-400) H 07/09/24 06:16
Sodium 134 mmol/L (135-145) L 07/09/24 06:16
Potassium 4.7 mmol/L (3.5-5.1) 07/09/24 06:16
Chloride 99 mmol/L (98-107) 07/09/24 06:16
Carbon Dioxide 14 mmol/L (22-30) L* 07/09/24 06:16
BUN 50 mg/dl (7-17) H 07/09/24 06:16
Creatinine 7.1 mg/dL (0.6-1.0) H* 07/09/24 06:16
eGFR 6.53 07/09/24 06:16
Glucose 135 mg/dl (70-99) H 07/09/24 06:16
Calcium 8.3 mg/dl (8.4-10.2) L 07/09/24 06:16
Albumin 2.7 g/dl (3.5-5.0) L 07/09/24 06:16
Physical Exam
-
Vital Signs:
Vital Signs
Temp Pulse Resp BP Pulse Ox
98.4 F 102 20 132/76 95
07/09/24 07:35 07/09/24 07:35 07/09/24 07:35 07/09/24 07:35 07/09/24 07:35
Cardiovascular:: Regular rate and rhythm
Respiratory:: Bilateral: Coarse
Lung Excursion:: Normal
Abdomen:: Distended, Soft and Tender
Bowel Sounds:: None
Extremity Edema:: None: Bilateral: (trace)
Velazquez Catheter: Yes
[2024-07-09 11:03] LABS: Creatine Phosphokinase 22 U/L (30-135)
[2024-07-09] MEDS: SODIUM BICARBONATE 50 MEQ IV (11:15)
[2024-07-09 11:57] LABS: Glucose - Point of Care 129 mg/dl (70-99)
--- NOTE | 2024-07-09 12:36 | CM ---
CM reviewed medical records. Plan for discharge to home with no needs.
PLAN: Home no needs.
[2024-07-09] MEDS: DILAUDID 0.5 MG IV (12:43)
--- NOTE | 2024-07-09 12:46 | W.PN.HOSP.TC ---
Today's Communication/Plan
-
see A/P
Assessment / Plan
Assessment / Plan
49-year-old female past medical history of hypertension, iron deficiency anemia, cholelithiasis, type 2 diabetes not on medication; presented with right upper quadrant abdominal pain, vomiting and chills for 3 weeks ago.
She stopped taking antihypertensive medications few days ago due to blood pressure 100 systolic.
Abdominal ultrasound shows abnormal gallbladder, severely distended 12 cm, with large amount of heterogeneous echogenic luminal debris/complex fluid and cholelithiasis, positive sonographic Kenyon sign, 5 mm gallbladder wall, pericholecystic fluid
consistent with cholecystitis.
A/P:
# Acute gallstone cholecystitis
# hx gall stones
# Elevated LFT due to above, resolved
Abd US report as above
GS on board, placed cholecystomy tube 07/07. One unit PRBC given during OR
started clears per GI
LFT normalized
OF note, wound culture growing Viridans strep
Cont empiric Zosyn
ID CS to follow along
# acute kidney injury and kidney failure
Creat 1.6 -> 7.1, unknown baseline
Holding further IVF as pt becoming oliguric
monitor BMP
Kidney bladder US not significant, noted Mild dilatation of the left renal collecting system without overt hydronephrosis.
Adler placed for close I/O per renal
Renal on board , plan to start HD 07/09
# Essential hypertension
Holding losartan and HCTZ
use IV hydralazine PRN
# DM II
A1c 10%- informed pt and family that this is diabetic range
insulin sliding scale.
Code status: full code
DVT prophylaxis: SCDs
DW Renal
DW
total time 51 min
Anticipated Discharge: > 48 hours
Subjective/Interval History
-
Date of Service: July 09, 2024
Objective Data
-
Labs:
Laboratory Results
07/09/24
06:16
WBC 13.3 H
Hgb 8.9 L
Hct 27.6 L
Plt Count 413 H
Sodium 134 L
Potassium 4.7
Chloride 99
Carbon Dioxide 14 L*
BUN 50 H
Creatinine 7.1 H*
Glucose 135 H
Calcium 8.3 L
Total Bilirubin 2.3 H
AST 17
ALT 30
Alkaline Phosphatase 233 H
Vital Signs:
Vital Signs
Temp Pulse Resp BP Pulse Ox
36.9 C 102 20 132/76 95
07/09/24 07:35 07/09/24 07:35 07/09/24 07:35 07/09/24 07:35 07/09/24 07:35
I&O
07/08/24 07/09/24 07/10/24
06:59 06:59 06:59
Intake Total 1480 / 1480 4200 / 4200
Output Total 525 / 525 570 / 570
Balance 955 / 955 3630 / 3630
Review of Systems
-
History Source: Patient
All other systems: Reviewed and negative
Physical Exam
-
General: Well Developed, Well Nourished, Comfortable and Morbidly Obese
HEENT: Normocephalic, Atraumatic, Nose Appears Normal and Ears Appear Normal; Negative Oxygen
Respiratory: Clear to Auscultation and Non Labored Respirations; Negative Accessory Resp Muscle Use
Cardiac: Regular Rhythm and S1/S2
GI: Soft, Nontender, Nondistended, Normal Bowel Sounds and Other (cholecystostomy tube )
Genito-urinary: Adler
Skin: Warm and Dry
Neuro: Awake and Alert
Psych: Calm and Intact Judgement/Insight
Data Reviewed
-
Ultrasound: Report Reviewed by me and Discussed with Patient
Labs: Labs Reviewed by me
--- NOTE | 2024-07-09 13:05 | CON.ID ---
Consultation
-
Date/Time Consultation Requested: July 09, 2024 1250
Date/Time Consultation Performed: July 09, 2024 1300
Requesting Provider: Dr. Tri Bauer
Performing Provider: Dr. Samanta Landers
Reason for Consultation: Cholecystitis
Chief Complaint / Past History
Chief Complaint
Abdominal pain
History of Present Illness
49 year old female with hx HTN, cholelithiasis, choledocholithiasis/ERCP 12/2023 who presented to the hospital on 07/06/24 for abdominal pain, weakness. She initially developed RUQ pain x 4 days, followed by persistent weakness, poor appetite, low
BP. + chills, no fever. She then developed intractable N/V and therefore came to ED. Pt in JO, LFT's elevated. Admission US showed severely distended GB with stones, debris, cholecystitis. On 07/07 she was taken to OR for robotic lap michelle which
was aborted due to findings of severely inflamed and distended GB, unsafe to remove. Instead she underwent robotic cholecystostomy tube placement with purulent bile output. She is currently on Zosyn. In the meantime, JO continues to worsen, will
start HD today. Today, has nausea. No BM yet. Continues to have abd tenderness post-op. No history of renal issues.
Past History
Additional Past Medical History:
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
HTN
HLD
GERD
Fatty liver
Hepatosplenomegaly
Anal fissure
Choledocholithiasis s/p ERCP (12/2023)
Class III obesity
Additional Past Surgical History:
Tonsillectomy/adenoidectomy
Allergy History:
No Known Allergies Allergy (Unverified 07/06/24 13:47)
Medications Reviewed: Yes
Current Antibiotics:
Zosyn d4
Social History
Tobacco: Non-Smoker
Alcohol: None
Drug: None
Personal:
Living: With Family
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
Family History
Family History: Not Pertinent
Review of Systems
Review of Systems
General: Chills and Change in Appetite; Negative Fever
HEENT: Negative Sinus Problems, Headache or Pharyngitis
Cardiovascular: Negative Chest Pain or Dyspnea
Respiratory: Negative Dyspnea or Cough
Gasteroenterology: Nausea; Negative Diarrhea
Genital / Urological: Negative Dysuria or Flank Pain
Endocrine: Weakness
Skin / Hair / Nails: Negative Rash
All systems: All other systems were reviewed and were negative
Vital Signs
Temp Pulse Resp BP Pulse Ox
98.4 F 102 20 132/76 95
07/09/24 07:35 07/09/24 07:35 07/09/24 07:35 07/09/24 07:35 07/09/24 07:35
Physical Exam
Physical Exam
Constitutional: Acutely Ill
Eyes: No Conjunctival Hemorrhage and Sclera Anicteric
Cardiovascular: Regular Rate and S1/S2
Pulmonary: Clear
Gastrointestinal: Soft, Tender (mild), Decreased Bowel Sounds and Other (Michelle tube with black bile)
Genito-Urinary: Negative CVA Tenderness
Extremities: Negative Edema
Neurological: AO x 3
Lines: HD Cath (RCW no erythema)
Lab / Diagnostic Study Results
07/09/24 06:16
07/09/24 06:16
Abs Immat Gran (auto) 0.3 10^3/uL (0-0.05) H 07/06/24 14:03
Absolute Neuts (auto) 8.1 10^3/uL (1.4-6.5) H 07/06/24 14:03
Absolute Lymphs (auto) 1.2 10^3/uL (1.2-3.4) 07/06/24 14:03
Absolute Monos (auto) 1.1 10^3/uL (0.1-0.6) H 07/06/24 14:03
Absolute Basos (auto) 0.0 10^3/uL (0-0.2) 07/06/24 14:03
Immature Gran % 2.3 % (0-0.5) H 07/06/24 14:03
Neutrophils % 75.5 % (42.2-75.2) H 07/06/24 14:03
Lymphocytes % 11.4 % (20.5-51.1) L 07/06/24 14:03
Monocytes % 10.1 % (1.7-9.3) H 07/06/24 14:03
Eosinophils % 0.3 % (0-6) 07/06/24 14:03
Basophils % 0.4 % (0-2) 07/06/24 14:03
Lactic Acid 1.2 mmol/L (0.7-2.0) 07/08/24 11:50
Urine WBC 11-15 /HPF (0-5) A 07/08/24 11:45
Ur Squamous Epith Cells 16-20 /LPF (Few) 07/08/24 11:45
Microbiology Results
Micro:
07/07/24 09:40 Wound Culture - Preliminary
Gallbladder Viridans Streptococcus Group
Gram Stain - Preliminary
07/07/24 09:40 Anaerobic Culture - Preliminary
Gallbladder Culture pending. Anaerobic cultures are examined after 3
days incubation. Additional information to follow.
07/08/24 Renal US: Mild dilatation of the left renal collecting system without overt hydronephrosis.
07/06/24 Abd US: Abnormal gallbladder. Markedly abnormal. Severely distended 12 cm, with a large amount of heterogeneous echogenic intraluminal debris/complex fluid and cholelithiasis. Positive sonographic Kenyon's sign. 5 mm gallbladder wall.
Pericholecystic fluid. Consistent with cholecystitis. No bile duct dilatation.
Assessment / Plan
# Severe cholecystitis
# Leukocytosis
# JO continues to progress, for HD
- 07/07 s/p robotic cholecystostomy tube placement as michelle deemed unsafe
- Bile gram stain, many GNR, Few GPC; Cx Viridans streptococcus
- DC Zosyn
-Deescalate to ceftriaxone 1gIV q24 and metronidazole 500mg q8.
- Trend wbc.
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
HTN
HLD
GERD
Fatty liver
Hepatosplenomegaly
Anal fissure
Choledocholithiasis s/p ERCP (12/2023)
Class III obesity
[2024-07-09 13:10] VITALS: BP 155/90; BP_SYST 96
[2024-07-09 13:57] VITALS: BP 156/89
[2024-07-09 15:59] VITALS: BP 159/80
[2024-07-09 16:39] LABS: Complement C3 153 mg/dl (88-165)
[2024-07-09] MEDS: STERILE WATER FOR INJECTION 10 ML IV (16:41)
[2024-07-09] MEDS: ROCEPHIN 1000 MG IV (16:42)
[2024-07-09] MEDS: HEPARIN 500 UNITS IV ×2 (17:23→18:48)
[2024-07-09] MEDS: MANNITOL 25% 12.5 GRAMS IV ×2 (17:23→18:49)
[2024-07-09 17:25] LABS: Glucose - Point of Care 152 mg/dl (70-99)
[2024-07-09 17:53] LABS: Body Fluid for Eosinophils No Eosinophils seen
--- NOTE | 2024-07-09 18:01 | W.PN.NEPH.HD ---
Assessment
-
pt seen during HD
vitals stable
CVC functions fine
limited UF
remains NPO, start gentle IVF with d5NS
HD again tomorrow
Progress Note - Hemodialysis
-
Date of Service: July 09, 2024
Duration: 2 hours
Potassium Bath: 3
Calcium Bath: 2.5
Opti-Dialyzer: 160
Ultrafiltration: EDW (0.5kg)
Blood Flow: 200
Dialysate Flow: 600
Heparin: yesx2
EPO: no
[2024-07-09] MEDS: HEPARIN 2000 UNITS INTRACATH (19:15)
[2024-07-09] MEDS: NOVOLOG FLEXPEN-LOW RESISTANCE 1 UNITS SC (19:40)
[2024-07-09] MEDS: D5/0.9% SODIUM CHLORIDE 1000 IV (20:06)
[2024-07-09 20:23] LABS: Hepatitis B Surface Antigen Negative (Negative)
[2024-07-09 20:52] LABS: Hepatitis B Surface Antibody Negative; Hepatitis C Antibody Negative (Negative)
[2024-07-09] MEDS: FLAGYL 500 MG 100 IV (22:05)
[2024-07-09 23:15] VITALS: BP 153/88
[2024-07-10] MEDS: HEPARIN 5000 UNITS SC ×3 (00:24→16:57)
[2024-07-10] MEDS: DILAUDID 0.5 MG IV ×2 (00:24→17:07)
[2024-07-10 00:34] LABS: Glucose - Point of Care 144 mg/dl (70-99)
[2024-07-10 06:00] VITALS: BMI 44.1
[2024-07-10] MEDS: FLAGYL 500 MG 100 IV ×3 (06:12→21:55)
[2024-07-10 07:15] LABS: Glucose - Point of Care 140 mg/dl (70-99)
[2024-07-10 07:20] VITALS: BP 197/96
[2024-07-10 07:23] LABS: Hematocrit 27.2 % (37.0-47.0); Hemoglobin 8.7 g/dL (12.0-16.0); Mean Corpuscular Hgb 24.6 pg (27.0-31.0); Mean Corpuscular Volume 76.8 fL (81.0-99.0); Mean Platelet Volume 9.3 fL (7.4-10.4); Platelet Count 438 10^3/uL (130-400); Red Blood Cell Count 3.54 10^6/uL (4.20-5.40); Red Cell Dist. Width 17.9 % (11.5-14.5); White Blood Cell Count 15.7 10^3/uL (4.8-10.8)
[2024-07-10 07:25] LABS: Blood Urea Nitrogen 42 mg/dl (7-17); Calcium 8.5 mg/dl (8.4-10.2); Carbon Dioxide 22 mmol/L (22-30); Chloride 98 mmol/L (98-107); Estimated Creatinine Clearance 14 ml/min; Glucose 146 mg/dl (70-99); Iron 53 ug/dl (37-170); Magnesium 2.2 mg/dl (1.6-2.3); Potassium 4.5 mmol/L (3.5-5.1); Sodium 135 mmol/L (135-145); eGFR 8.87
[2024-07-10 07:32] LABS: Percent Saturation 31 % (20-50); Total Iron Binding Capacity 170 ug/dl (265-497)
[2024-07-10 08:25] LABS: Absolute Neutrophils -Man Diff 10.9 10^3/uL (1.4-6.5); Band Neutrophils 6 % (0-3); Lymphocytes 23 % (20-51); Monocytes 2 % (2-9); Myelocytes 5 % (-); Segmented Neutrophils 64 % (42-75)
[2024-07-10 08:26] LABS: Normal RBC Morphology Yes; Platelets Checked Yes; Total Cells Counted 100
--- NOTE | 2024-07-10 08:34 | W.PN.NEPH.HD ---
Assessment
-
Patient seen on HD
sbp 170
u/f set to even: patient is non oliguric
serologies pending
HD via temp catheter
HD again tomorrow
patient with clears but intake poor
Progress Note - Hemodialysis
-
Date of Service: July 10, 2024
Duration: 45 minutes and 2 hours
Potassium Bath: 3
Calcium Bath: 2.5
Opti-Dialyzer: 160
Ultrafiltration: Other (even)
Blood Flow: 400
Dialysate Flow: 600
Heparin: 500 times two
EPO: none
[2024-07-10] MEDS: VITAMIN D3 (cholecalciferol) 125 MCG PO (08:35)
[2024-07-10] MEDS: NOVOLOG FLEXPEN-LOW RESISTANCE SC ×3 (08:41→18:03)
[2024-07-10] MEDS: HEPARIN 500 UNITS IV ×2 (09:19→09:20)
[2024-07-10] MEDS: MANNITOL 25% 12.5 GRAMS IV (09:19)
--- NOTE | 2024-07-10 10:17 | W.PN.CRS1 ---
Today's Communication / Plan
-
continue jr tube
abdominal xrays
Assessment/Plan
-
Patient is a 49-year-old female with PMH of HTN, FLD, elevated BMI, DM, gallstones s/p ERCP 12/2023 (underwent sphincterotomy and sludge was swept from the CBD; lost to follow-up) presents for RUQ abdominal pain for 3 weeks. The pain worsened 1 day
prior to admission and she started vomiting. WBC 10.7. CR 1.6. T. bili 1.3 alk phos 325. RUQ ultrasound showed distended gallbladder with sludge and cholelithiasis, positive Kenyon sign with gallbladder wall thickening and pericholecystic fluid,
consistent with acute cholecystitis.
POD 3 robotic cholecystostomy tube (severe inflammation precluded safe cholecystectomy)
AF VSS
WBC 15.7 (13.3), Hb 8.7 from 8.9, Cr 5.5 (7.1)
07/09- HD started
� Severe cholecystitis s/p cholecystostomy tube
�Continue clears and IV fluids
�Pain control with Tylenol and Dilaudid as needed
�JAI drain to bulb suction
�Continue IV abx. ID following.
-Abdominal xrays
�JO, appreciate renal. Getting dialysis again today.
� Recommend PT/OT; OOB, encourage IS
� Continue DVT PPx with subQ heparin
� Appreciate hospitalist
Subjective Data
Procedure
07/07/24- Robotic cholecystomy tube
Subjective Data
Date of Service: July 10, 2024
Patient states she is not eating that much. She has been burping quite a lot. She is less distended than yesterday and her pain is better controlled.
Objective Data
-
Vital Signs
Temp Pulse Resp BP Pulse Ox
98.4 F 98 16 197/96 94
07/10/24 07:20 07/10/24 07:20 07/10/24 07:20 07/10/24 07:20 07/10/24 07:20
Intake & Output
07/09/24 07/10/24 07/11/24
06:59 06:59 06:59
Intake Total 4200 / 4200 1520 / 1520
Output Total 570 / 570 950 / 950
Balance 3630 / 3630 570 / 570
Intake:
Oral fluids 1620 / 1620 600 / 600
IV fluids (Total) 2380 / 2380 720 / 720
IV piggybacks 200 / 200 200 / 200
Output:
Drain Output (Total) 125 / 125 250 / 250
Right Upper Abdomen 125 / 125 250 / 250
Urine, Adler 320 / 320
Urine, Voided 125 / 125 700 / 700
Other:
Number of approximated MODERATE 1
amounts of urine
Lab Results
07/10/24 05:46
07/10/24 05:46
Physical Exam
-
General: No Acute Distress and AOx3
Abdomen: Distended (improved), Non Tender and Other (jr tube in place with bilious output)
Skin: Warm and Dry
[2024-07-10] MEDS: HEPARIN 2000 UNITS INTRACATH (10:34)
[2024-07-10] MEDS: MANNITOL 25% IV (10:34)
--- NOTE | 2024-07-10 11:09 | W.PN.HOSP.TC ---
Today's Communication/Plan
-
see A/P
Assessment / Plan
Assessment / Plan
49-year-old female past medical history of hypertension, iron deficiency anemia, cholelithiasis, type 2 diabetes not on medication; presented with right upper quadrant abdominal pain, vomiting and chills for 3 weeks ago.
She stopped taking antihypertensive medications few days ago due to blood pressure 100 systolic.
Abdominal ultrasound shows abnormal gallbladder, severely distended 12 cm, with large amount of heterogeneous echogenic luminal debris/complex fluid and cholelithiasis, positive sonographic Kenyon sign, 5 mm gallbladder wall, pericholecystic fluid
consistent with cholecystitis.
A/P:
# Acute gallstone cholecystitis, Severe cholecystitis
# hx gall stones
# Elevated LFT due to above, resolved
Abd US report as above
GS on board, placed cholecystomy tube 07/07. One unit PRBC given during OR
Clears per GI
Pt c/o N/V 07/10, Check AXR 07/10
Of note, LFT normalized
Of note, wound culture growing Viridans strep
Zosyn -> ceftriaxone/Flagyl
appreciate ID input
# acute kidney injury and kidney failure
Creat 1.6 -> 7.1, unknown baseline.
Pt was started with HD 07/09
monitor BMP
Of note, Kidney bladder US not significant, noted Mild dilatation of the left renal collecting system without overt hydronephrosis.
Adler placed for close I/O per renal
Renal on board
# Essential hypertension
Holding losartan and HCTZ
use IV hydralazine PRN for SBP > 160
# DM II
A1c 10%- informed pt and family that this is diabetic range
insulin sliding scale.
Code status: full code
DVT prophylaxis: SCDs
Anticipated Discharge: > 48 hours
Subjective/Interval History
-
Date of Service: July 10, 2024
Objective Data
-
Labs:
Laboratory Results
07/10/24
05:46
WBC 15.7 H
Hgb 8.7 L
Hct 27.2 L
Plt Count 438 H
Sodium 135
Potassium 4.5
Chloride 98
Carbon Dioxide 22
BUN 42 H
Creatinine 5.5 H*
Glucose 146 H
Calcium 8.5
Vital Signs:
Vital Signs
Temp Pulse Resp BP Pulse Ox
36.9 C 98 16 197/96 94
07/10/24 07:20 07/10/24 07:20 07/10/24 07:20 07/10/24 07:20 07/10/24 07:20
I&O
07/09/24 07/10/24 07/11/24
06:59 06:59 06:59
Intake Total 4200 / 4200 1520 / 1520
Output Total 570 / 570 950 / 950
Balance 3630 / 3630 570 / 570
Review of Systems
-
History Source: Patient
All other systems: Reviewed and negative
Physical Exam
-
General: Well Developed, Well Nourished, Comfortable, Appears Chronically Ill and Morbidly Obese
HEENT: Normocephalic, Atraumatic, Nose Appears Normal and Ears Appear Normal; Negative Oxygen
Respiratory: Clear to Auscultation and Non Labored Respirations; Negative Accessory Resp Muscle Use
Cardiac: Regular Rhythm and S1/S2
GI: Soft, Nontender, Nondistended, Normal Bowel Sounds and Other (cholecystostomy tube )
Genito-urinary: Adler
Skin: Warm and Dry
Neuro: Awake and Alert
Psych: Calm and Intact Judgement/Insight
Data Reviewed
-
Ultrasound: Report Reviewed by me and Discussed with Patient
Labs: Labs Reviewed by me
[2024-07-10 11:47] LABS: Glucose - Point of Care 152 mg/dl (70-99)
--- NOTE | 2024-07-10 12:15 | CM ---
CM following re: discharge planning.
Pt's is POD 3 robotic cholecystostomy tube (severe inflammation precluded safe cholecystectomy), continue supportive care.
Reviewed pt's chart, met with pt during HD treatment session. Per plastic technician, today is day 2 of HD. Pt went to tears responding to a possibility she might need HD treatment. Emotional support offered and provided. Per plastic technician there is no
confirmation yet whether or not pt will need permanent HD treatment.
D/C plan: uncertain at this time and will depend on pt's progress.
CM will follow with discharge plan updates as hospitalization progresses
--- NOTE | 2024-07-10 13:31 | W.PN.ID1 ---
Date of Service
Date of Service: July 10, 2024
Today's Communication
Continue ceftriaxone, metronidazole.
Assessment / Plan
# Severe cholecystitis
# Leukocytosis - trended up
# JO, HD started 07/09
- 07/07 s/p robotic cholecystostomy tube placement as jr deemed unsafe
- Bile gram stain, many GNR, few GPC; Cx Viridans streptococcus
- Continue ceftriaxone 1gIV q24 and metronidazole 500mg q8.
- Trend wbc.
- For AXR, per colrectal
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
HTN
HLD
GERD
Fatty liver
Hepatosplenomegaly
Anal fissure
Choledocholithiasis s/p ERCP (12/2023)
Class III obesity
Chief Complaint
-: Leukocytosis and Other (Cholecystitis)
Subjective / Review of Systems
+ nausea, emesis x 1
Abd pain slightly better.
No BM yet.
Feels weak.
Vital Signs / Physical Exam
Vital Signs
Vital Signs
Temp Pulse Resp BP Pulse Ox
98.4 F 98 16 197/96 94
07/10/24 07:20 07/10/24 07:20 07/10/24 07:20 07/10/24 07:20 07/10/24 07:20
Physical Exam
Constitutional: Acutely Ill
Eyes: Sclera Anicteric
Cardiovascular: Regular Rate and S1/S2
Pulmonary: Clear (anteriorly)
Gastrointestinal: Soft, Non Tender, Distended and Decreased Bowel Sounds
Genito-Urinary: Adler and Clear Urine (dark)
Extremities: Negative Edema
Neurological: AO x 3
Objective Data
Lab Data
Lab Results
07/10/24 05:46
07/10/24 05:46
Estimated Creat Clear 14 ml/min 07/10/24 05:46
Lactic Acid 1.2 mmol/L (0.7-2.0) 07/08/24 11:50
Total Bilirubin 2.3 mg/dl (0.2-1.3) H 07/09/24 06:16
AST 17 U/L (14-36) 07/09/24 06:16
ALT 30 U/L (0-35) 07/09/24 06:16
Alkaline Phosphatase 233 U/L (38-126) H 07/09/24 06:16
Most recent labs reviewed.
Micro Results:
07/07/24 09:40 Wound Culture - Preliminary
Gallbladder Viridans Streptococcus Group
Gram Stain - Preliminary
07/07/24 09:40 Anaerobic Culture - Preliminary
Gallbladder Culture pending. Anaerobic cultures are examined after 3
days incubation. Additional information to follow.
07/08/24 Renal US: Mild dilatation of the left renal collecting system without overt hydronephrosis.
07/06/24 Abd US: Abnormal gallbladder. Markedly abnormal. Severely distended 12 cm, with a large amount of heterogeneous echogenic intraluminal debris/complex fluid and cholelithiasis. Positive sonographic Kenyon's sign. 5 mm gallbladder wall.
Pericholecystic fluid. Consistent with cholecystitis. No bile duct dilatation.
--- NOTE | 2024-07-10 14:42 | W.PN.UPDATE ---
Update Note
Progress Note Update
Abdominal xrays shows 'SEVERE DIFFUSE SMALL BOWEL DISTENTION which is most likely an adynamic ileus. A distal small bowel obstruction is a less likely alternative diagnostic possibility.' Given this finding, as well as distention. I communicated
this with RN, who informed me that the patient vomited twice, about an hour prior to this note. Will place NGT.
[2024-07-10 15:20] VITALS: BP 160/97
[2024-07-10] MEDS: ROCEPHIN 1000 MG IV (16:58)
[2024-07-10] MEDS: STERILE WATER FOR INJECTION 10 ML IV (16:58)
[2024-07-10 17:12] LABS: Glucose - Point of Care 205 mg/dl (70-99)
[2024-07-10] MEDS: D5/0.9% SODIUM CHLORIDE 1000 IV (17:15)
[2024-07-10 21:46] LABS: Glucose - Point of Care 151 mg/dl (70-99)
[2024-07-10 23:34] VITALS: BP 157/93
[2024-07-11] MEDS: HEPARIN 5000 UNITS SC ×4 (00:21→23:09)
[2024-07-11] MEDS: FLAGYL 500 MG 100 IV ×3 (05:14→23:08)
--- NOTE | 2024-07-11 06:01 | PTCARENOTE ---
pt has indwelling velazquez to be pulled today at 6a however this will be her third day of Dialysis and her creat is still elevated at 5.5 with output of 250ml josé, would you like me to leave velazquez cath in for accurate I&O ? SBAR Dr Chiang maintain
velazquez in place to follow up with am instrumentation fitter.
[2024-07-11 06:46] LABS: Hematocrit 28.4 % (37.0-47.0); Hemoglobin 8.9 g/dL (12.0-16.0); Mean Corp Hgb Conc. 31.3 g/dL (33.0-37.0); Mean Corpuscular Hgb 24.3 pg (27.0-31.0); Mean Corpuscular Volume 77.4 fL (81.0-99.0); Mean Platelet Volume 8.7 fL (7.4-10.4); Platelet Count 357 10^3/uL (130-400); Red Blood Cell Count 3.67 10^6/uL (4.20-5.40); Red Cell Dist. Width 17.9 % (11.5-14.5); White Blood Cell Count 12.4 10^3/uL (4.8-10.8)
[2024-07-11 06:49] LABS: Blood Urea Nitrogen 37 mg/dl (7-17); Calcium 8.4 mg/dl (8.4-10.2); Carbon Dioxide 26 mmol/L (22-30); Chloride 101 mmol/L (98-107); Estimated Creatinine Clearance 22 ml/min; Glucose 161 mg/dl (70-99); Magnesium 1.9 mg/dl (1.6-2.3); Potassium 4.2 mmol/L (3.5-5.1); Sodium 138 mmol/L (135-145); eGFR 14.76
--- NOTE | 2024-07-11 07:16 | PTCARENOTE ---
pt refuse wt
[2024-07-11] MEDS: VITAMIN D3 (cholecalciferol) PO (07:27)
[2024-07-11 07:30] VITALS: BP 165/93
[2024-07-11 07:57] LABS: Absolute Neutrophils -Man Diff 9.4 10^3/uL (1.4-6.5); Band Neutrophils 2 % (0-3); Lymphocytes 15 % (20-51); Metamyelocytes 4 % (-); Monocytes 1 % (2-9); Myelocytes 4 % (-); Platelets Checked Yes; Segmented Neutrophils 74 % (42-75)
[2024-07-11 07:58] LABS: Anisocytosis Slight; Hypochromasia Slight; Normal RBC Morphology No; Total Cells Counted 100
--- NOTE | 2024-07-11 08:56 | W.PN.CRS1 ---
Today's Communication / Plan
-
As below
Assessment/Plan
-
49-year-old female with PMH of HTN, FLD, elevated BMI, DM, gallstones s/p ERCP 12/2023 (underwent sphincterotomy and sludge was swept from the CBD; lost to follow-up) presents for RUQ abdominal pain for 3 weeks. The pain worsened 1 day prior to
admission and she started vomiting. WBC 10.7. CR 1.6. T. bili 1.3 alk phos 325. RUQ ultrasound showed distended gallbladder with sludge and cholelithiasis, positive Kenyon sign with gallbladder wall thickening and pericholecystic fluid,
consistent with acute cholecystitis.
POD 4 robotic cholecystostomy tube (severe inflammation precluded safe cholecystectomy)
AF VSS
WBC 12.4 from 15.7, Hb stable, Cr 3.6 (s/p HD), UOP 700 for 24 hours
� Severe cholecystitis s/p cholecystostomy tube
�Continue n.p.o. with NGT; Cepacol as needed for throat irritation; follow-up KUB for NGT placement
�Pain control with Tylenol and Dilaudid as needed
�JAI drain to bulb suction
�Continue IV ceftriaxone/Flagyl, appreciate ID
�JO, appreciate renal; s/p HD
� Recommend PT/OT; OOB, encourage IS
� Continue DVT PPx with subQ heparin
� Appreciate hospitalist
Subjective Data
Procedure
07/07/24- Robotic cholecystomy tube
Subjective Data
Date of Service: July 11, 2024
Yesterday, patient vomited and NGT placed. Denies nausea this a.m. States that she started passing flatus last night. No BMs yet.
Pain has improved somewhat and is controlled.
+ Adler
Objective Data
-
Vital Signs
Temp Pulse Resp BP Pulse Ox
98.2 F 99 22 165/93 95
07/11/24 07:30 07/11/24 07:30 07/11/24 07:30 07/11/24 07:30 07/11/24 07:30
Intake & Output
07/10/24 07/11/24 07/12/24
06:59 06:59 06:59
Intake Total 1520 / 1520 920 / 920 90 / 90
Output Total 950 / 950 1100 / 1100 110 / 110
Balance 570 / 570 -180 / -180 -20 / -20
Intake:
Oral fluids 600 / 600 0 / 0
IV fluids (Total) 720 / 720 720 / 720
IV piggybacks 200 / 200 200 / 200
Amount instilled into GI Tube (
Total)
[place] Sump 90 /
Output:
Drain Output (Total) 250 / 250 400 / 400
Right Upper Abdomen 250 / 250 400 / 400
Gastrointestinal tube output ( 110 / 110
Total)
[place] Sump 110 / 110
Urine, Adler 700 / 700
Urine, Voided 700 / 700
Lab Results
07/11/24 05:41
07/11/24 05:41
Physical Exam
-
General: No Acute Distress and AOx3
Abdomen: Soft, Distended (Mildly distended with tympany), Tender (Mildly tender in the RUQ, improved from 1 day), No Guarding, No Rebound and Other (RUQ drain-400 mL bilious)
Skin: Warm and Dry
[2024-07-11 10:08] LABS: Glucose - Point of Care 147 mg/dl (70-99)
[2024-07-11] MEDS: NOVOLOG FLEXPEN-LOW RESISTANCE SC ×3 (10:20→18:02)
[2024-07-11] MEDS: D5/0.9% SODIUM CHLORIDE 1000 IV (12:17)
--- NOTE | 2024-07-11 13:21 | W.PN.HOSP.TC ---
Today's Communication/Plan
-
see A/P
Assessment / Plan
Assessment / Plan
49-year-old female past medical history of hypertension, iron deficiency anemia, cholelithiasis, type 2 diabetes not on medication; presented with right upper quadrant abdominal pain, vomiting and chills for 3 weeks ago.
She stopped taking antihypertensive medications few days ago due to blood pressure 100 systolic.
Abdominal ultrasound shows abnormal gallbladder, severely distended 12 cm, with large amount of heterogeneous echogenic luminal debris/complex fluid and cholelithiasis, positive sonographic Kenyon sign, 5 mm gallbladder wall, pericholecystic fluid
consistent with cholecystitis.
A/P:
# Acute gallstone cholecystitis, Severe cholecystitis
# hx gall stones
# Elevated LFT due to above, resolved
Abd US report as above
GS on board, placed cholecystomy tube 07/07. One unit PRBC given during OR
Clears per GI
Pt c/o N/V 07/10, AXR 07/10 showed persistent gaseous distended loops of bowel throughout the abdomen, overall similar appearance to prior and which may represent adynamic ileus.
Made NPO and NGT placed 07/10 by surgery. NGT management per surgery.
Of note, LFT normalized
Of note, wound culture growing Viridans strep
Zosyn -> ceftriaxone/Flagyl per ID
appreciate ID input
# acute kidney injury and kidney failure
Creat 1.6 -> peaked at 7.1, unknown baseline and pt was started with HD 07/09
monitor BMP
Of note, Kidney bladder US not significant, noted Mild dilatation of the left renal collecting system without overt hydronephrosis.
Adler placed for close I/O per renal
Renal on board
# Essential hypertension
Holding losartan and HCTZ
use IV hydralazine PRN for SBP > 160
# DM II
A1c 10%- informed pt and family that this is diabetic range
insulin sliding scale.
Code status: full code
DVT prophylaxis: SCDs
DW RN
Anticipated Discharge: > 48 hours
Subjective/Interval History
-
Date of Service: July 11, 2024
Objective Data
-
Labs:
Laboratory Results
07/11/24
05:41
WBC 12.4 H
Hgb 8.9 L
Hct 28.4 L
Plt Count 357
Sodium 138
Potassium 4.2
Chloride 101
Carbon Dioxide 26
BUN 37 H
Creatinine 3.6 H
Glucose 161 H
Calcium 8.4
Vital Signs:
Vital Signs
Temp Pulse Resp BP Pulse Ox
36.8 C 99 22 165/93 95
07/11/24 07:30 07/11/24 07:30 07/11/24 07:30 07/11/24 07:30 07/11/24 07:30
I&O
07/10/24 07/11/24 07/12/24
06:59 06:59 06:59
Intake Total 1520 / 1520 920 / 920 90 / 90
Output Total 950 / 950 1100 / 1100 110 / 110
Balance 570 / 570 -180 / -180 -20 / -20
Review of Systems
-
History Source: Patient
All other systems: Reviewed and negative
Physical Exam
-
General: Well Developed, Well Nourished, Comfortable, Appears Chronically Ill and Morbidly Obese
HEENT: Normocephalic, Atraumatic, Nose Appears Normal and Ears Appear Normal; Negative Oxygen
Respiratory: Clear to Auscultation and Non Labored Respirations; Negative Accessory Resp Muscle Use
Cardiac: Regular Rhythm and S1/S2
GI: Soft, Nontender, Nondistended, Normal Bowel Sounds and Other (cholecystostomy tube , NGT placed )
Genito-urinary: Adler
Skin: Warm and Dry
Neuro: Awake and Alert
Psych: Calm and Intact Judgement/Insight
Data Reviewed
-
Ultrasound: Report Reviewed by me and Discussed with Patient
Labs: Labs Reviewed by me
[2024-07-11 13:42] LABS: Glucose - Point of Care 180 mg/dl (70-99)
--- NOTE | 2024-07-11 14:11 | W.PN.ID1 ---
Date of Service
Date of Service: July 11, 2024
Today's Communication
Continue ceftriaxone and metrondiazole.
Assessment / Plan
# Severe cholecystitis
# Leukocytosis - trending down
# JO, HD started 07/09
# Acute Ileus
- 07/07 s/p robotic cholecystostomy tube placement as jr deemed unsafe
- Bile gram stain, many GNR, few GPC; Cx Viridans streptococcus
- Continue ceftriaxone 1gIV q24 and metronidazole 500mg q8 (d5 abx)
- Trend wbc.
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
HTN
HLD
GERD
Fatty liver
Hepatosplenomegaly
Anal fissure
Choledocholithiasis s/p ERCP (12/2023)
Class III obesity
Chief Complaint
-: Leukocytosis and Other (Cholecystitis)
Subjective / Review of Systems
Vomited last night. NGT place. Nausea better.
No BM yet.
Vital Signs / Physical Exam
Vital Signs
Vital Signs
Temp Pulse Resp BP Pulse Ox
98.2 F 99 22 165/93 95
07/11/24 07:30 07/11/24 07:30 07/11/24 07:30 07/11/24 07:30 07/11/24 07:30
Physical Exam
Constitutional: Acutely Ill
Eyes: Sclera Anicteric
Cardiovascular: Regular Rate and S1/S2
Pulmonary: Clear (anteriorly)
Gastrointestinal: Soft, Non Tender, Distended, Decreased Bowel Sounds and Other (Jr tube draining bile.)
Genito-Urinary: Adler and Clear Urine (dark)
Extremities: Negative Edema
Neurological: AO x 3
Objective Data
Lab Data
Lab Results
07/11/24 05:41
07/11/24 05:41
Estimated Creat Clear 22 ml/min 07/11/24 05:41
Lactic Acid 1.2 mmol/L (0.7-2.0) 07/08/24 11:50
Total Bilirubin 2.3 mg/dl (0.2-1.3) H 07/09/24 06:16
AST 17 U/L (14-36) 07/09/24 06:16
ALT 30 U/L (0-35) 07/09/24 06:16
Alkaline Phosphatase 233 U/L (38-126) H 07/09/24 06:16
Most recent labs reviewed.
Micro Results:
07/07/24 09:40 Anaerobic Culture - Preliminary
Gallbladder Culture pending. Anaerobic cultures are examined after 3
days incubation. Additional information to follow.
07/07/24 09:40 Wound Culture - Preliminary
Gallbladder Viridans Streptococcus Group
Gram Stain - Preliminary
07/11/24 AXR: There is persistent gaseous distended loops of bowel throughout the abdomen, overall similar appearance to prior and which may represent adynamic ileus.
07/08/24 Renal US: Mild dilatation of the left renal collecting system without overt hydronephrosis.
07/06/24 Abd US: Abnormal gallbladder. Markedly abnormal. Severely distended 12 cm, with a large amount of heterogeneous echogenic intraluminal debris/complex fluid and cholelithiasis. Positive sonographic Kenyon's sign. 5 mm gallbladder wall.
Pericholecystic fluid. Consistent with cholecystitis. No bile duct dilatation.
--- NOTE | 2024-07-11 15:00 | W.PN.NEPH.PH ---
Today's Communication / Plan
-
Dialysis tomorrow
Assessment/Plan
-
IMP:
JO
Acute cholecystitis
hx gall stones prior ERCP for choledocholithiasis in 12/2023
Microcytic anemia
A gap met acidosis
mild hyperkalemia
hyponatremia
hypomagnesemia
essential hypertension
DM II
Morbid obesity
Plan:
A/w abd pain with acute cholecystitis s/p Michelle tube
JO-cr baseline 0.7 in 07/2023, cr up trending 7.1, oliguric
UA UTI sample, U PCR 900mg g/ of cr, Fena >2
renal US no hydro but mild dilation of left collecting system
BP stable no hypotension
no clear etiology of JO , serologies sent
may need K biopsy when stabilized, hold ASA if possible
Dialysis initiated 07/09 with second treatment 07/10
temp HD catheter placed 07/09
hold ARB and HCTZ
Patient is nonoliguric with Velazquez catheter
Third dialysis treatment tomorrow/see orders
Monitoring for recovery
d/w pt and family
-
-
Date of Service: July 11, 2024
CC / HPI / ROS
-
Chief Complaint:
JO
History of Present Illness:
Severe cholecystitis
cr up at 7.1 peaked, nonoliguric with velazquez
Review of Systems:
no BM
no cp
abd pain same
Labs
-
Labs:
WBC 12.4 10^3/uL (4.8-10.8) H 07/11/24 05:41
RBC 3.67 10^6/uL (4.20-5.40) L 07/11/24 05:41
Hgb 8.9 g/dL (12.0-16.0) L 07/11/24 05:41
Hct 28.4 % (37.0-47.0) L 07/11/24 05:41
Plt Count 357 10^3/uL (130-400) 07/11/24 05:41
Sodium 138 mmol/L (135-145) 07/11/24 05:41
Potassium 4.2 mmol/L (3.5-5.1) 07/11/24 05:41
Chloride 101 mmol/L (98-107) 07/11/24 05:41
Carbon Dioxide 26 mmol/L (22-30) 07/11/24 05:41
BUN 37 mg/dl (7-17) H 07/11/24 05:41
Creatinine 3.6 mg/dL (0.6-1.0) H 07/11/24 05:41
eGFR 14.76 07/11/24 05:41
Glucose 161 mg/dl (70-99) H 07/11/24 05:41
Calcium 8.4 mg/dl (8.4-10.2) 07/11/24 05:41
Albumin 2.7 g/dl (3.5-5.0) L 07/09/24 06:16
Physical Exam
-
Vital Signs:
Vital Signs
Temp Pulse Resp BP Pulse Ox
98.2 F 99 22 165/93 95
07/11/24 07:30 07/11/24 07:30 07/11/24 07:30 07/11/24 07:30 07/11/24 07:30
Cardiovascular:: Regular rate and rhythm
Respiratory:: Bilateral: Coarse
Lung Excursion:: Normal
Abdomen:: Distended, Soft and Tender
Bowel Sounds:: None
Extremity Edema:: None: Bilateral: (trace)
Velazquez Catheter: Yes
[2024-07-11 15:30] VITALS: BP 160/95
--- NOTE | 2024-07-11 16:09 | CM ---
Patient chart reviewed
Pt's is POD 3 robotic cholecystostomy tube (severe inflammation precluded safe cholecystectomy)
CM attempted to visit-sleepling
NGT placed 07/10
Third dialysis treatment tomorrow
Monitoring for recovery
PLAN: uncertain at this time and will depend on pt's progress.
CM will follow with discharge plan updates as hospitalization progresses
[2024-07-11] MEDS: STERILE WATER FOR INJECTION 10 ML IV (16:55)
[2024-07-11] MEDS: ROCEPHIN 1000 MG IV (16:55)
[2024-07-11] MEDS: ANESTHETIC LOZENGE 1 LOZENGE PO (17:23)
[2024-07-11 18:01] LABS: Glucose - Point of Care 141 mg/dl (70-99)
[2024-07-11 20:04] LABS: ANA, IgG Reflex to HEp-2 None Detected (None Detected)
[2024-07-11 22:00] LABS: Glucose - Point of Care 158 mg/dl (70-99)
[2024-07-11 23:00] VITALS: BP 178/108
[2024-07-11] MEDS: APRESOLINE 10 MG IV (23:07)
[2024-07-12 01:25] VITALS: BP 152/88
[2024-07-12 01:41] LABS: Myeloperoxidase Antibody 0 AU/mL (0-19); Serine Protease-3, IgG 0 AU/mL (0-19)
--- NOTE | 2024-07-12 03:30 | DOWNTIME ---
There was a [facility] Client Laminating Machine Feeder Downtime on 07/12/2024 from 0200 to 07/13/2023 at 0318 . Downtime documentation of patient's care, including medication administrations, has been reconciled in the electronic record per guidelines. Refer to the
patient's paper chart under the miscellaneous tab to see printed paper medication records and downtime forms.
[2024-07-12 06:00] VITALS: BMI 44.0
[2024-07-12] MEDS: FLAGYL 500 MG 100 IV ×3 (06:14→22:03)
[2024-07-12 07:13] LABS: Glucose - Point of Care 133 mg/dl (70-99)
[2024-07-12 07:15] VITALS: BP 152/88
[2024-07-12 07:48] VITALS: BMI 44.0
[2024-07-12] MEDS: NOVOLOG FLEXPEN-LOW RESISTANCE SC ×3 (08:31→17:22)
[2024-07-12 08:34] LABS: Hemoglobin 8.4 g/dL (12.0-16.0); Mean Corp Hgb Conc. 31.1 g/dL (33.0-37.0); Mean Corpuscular Hgb 24.3 pg (27.0-31.0); Platelet Count 315 10^3/uL (130-400); Red Blood Cell Count 3.46 10^6/uL (4.20-5.40); Red Cell Dist. Width 17.9 % (11.5-14.5); White Blood Cell Count 12.8 10^3/uL (4.8-10.8)
[2024-07-12] MEDS: RETACRIT 10000 UNITS IV (08:39)
[2024-07-12 09:50] LABS: Absolute Neutrophils -Man Diff 9.3 10^3/uL (1.4-6.5); Anisocytosis Slight; Band Neutrophils 4 % (0-3); Hypochromasia 1+; Lymphocytes 17 % (20-51); Metamyelocytes 3 % (-); Monocytes 2 % (2-9); Myelocytes 5 % (-); Normal RBC Morphology No; Platelets Checked Yes; Segmented Neutrophils 69 % (42-75); Total Cells Counted 100
[2024-07-12 10:20] LABS: Blood Urea Nitrogen 43 mg/dl (7-17); Calcium 8.9 mg/dl (8.4-10.2); Carbon Dioxide 26 mmol/L (22-30); Chloride 105 mmol/L (98-107); Estimated Creatinine Clearance 26 ml/min; Glucose 153 mg/dl (70-99); Magnesium 1.7 mg/dl (1.6-2.3); Potassium 3.7 mmol/L (3.5-5.1); Sodium 142 mmol/L (135-145); eGFR 18.36
--- NOTE | 2024-07-12 10:25 | CM ---
Reviewed the chart notes and spoke with the patient and her daughter at the bedside. The patient is with NGT and is currently on third HD treatment at bedside. CM continues to be available to patient/family and is monitoring medical plan for needs
at discharge.
Plan: Discharge plans will depend on the patient's progress.
[2024-07-12] MEDS: HEPARIN 5000 UNITS SC ×2 (11:31→20:33)
[2024-07-12] MEDS: VITAMIN D3 (cholecalciferol) PO (11:34)
--- NOTE | 2024-07-12 12:10 | W.PN.CRS1 ---
Today's Communication / Plan
-
NG tube clamping trial
Assessment/Plan
-
49-year-old female with PMH of HTN, FLD, elevated BMI, DM, gallstones s/p ERCP 12/2023 (underwent sphincterotomy and sludge was swept from the CBD; lost to follow-up) presents for RUQ abdominal pain for 3 weeks. The pain worsened 1 day prior to
admission and she started vomiting. WBC 10.7. CR 1.6. T. bili 1.3 alk phos 325. RUQ ultrasound showed distended gallbladder with sludge and cholelithiasis, positive Kenyon sign with gallbladder wall thickening and pericholecystic fluid,
consistent with acute cholecystitis.
POD 5 robotic cholecystostomy tube (severe inflammation precluded safe cholecystectomy)
AF VSS
WBC 12. 8 from 12.4, Hb 8.4 Cr 3.6 (s/p HD), UOP 700 for 24 hours
� Severe cholecystitis s/p cholecystostomy tube
� NG tube clamping trial. Of discontinued remain NPO with chips and sips.
�Pain control with Tylenol and Dilaudid as needed
�JAI drain to bulb suction
�Continue IV ceftriaxone/Flagyl, appreciate ID
�JO, appreciate renal; s/p HD
� Recommend PT/OT; OOB, encourage IS
� Continue DVT PPx with subQ heparin
� Appreciate hospitalist
Subjective Data
Procedure
07/07/24- Robotic cholecystomy tube
Subjective Data
Date of Service: July 12, 2024
Patient states she is feeling better today. She has less distention. She has no pain. She is having bowel movements overnight now. She has not had flatus today. She overall states she feels a lot better. The NG tube is bothering her.
Objective Data
-
Vital Signs
Temp Pulse Resp BP Pulse Ox
98.1 F 81 17 152/88 94
07/12/24 07:15 07/12/24 07:15 07/12/24 07:15 07/12/24 07:15 07/12/24 07:15
Intake & Output
07/11/24 07/12/24 07/13/24
06:59 06:59 06:59
Intake Total 920 / 920 150 / 150
Output Total 1100 / 1100 2850 / 2850
Balance -180 / -180 -2700 / -2700
Intake:
Oral fluids 0 / 0
IV fluids (Total) 720 / 720
IV piggybacks 200 / 200
Amount instilled into GI Tube ( 150 / 150
Total)
[place] Sump 150 / 150
Output:
Drain Output (Total) 400 / 400 650 / 650
Right Upper Abdomen 400 / 400 650 / 650
Gastrointestinal tube output ( 150 / 150
Total)
[place] Sump 150 / 150
Urine, Adler 700 / 700 2049
Lab Results
07/12/24 07:43
07/12/24 07:43
Physical Exam
-
General: No Acute Distress and AOx3
Abdomen: Soft, Distended (Improved, mild), Non Tender and Other (Ricardo drain with bilious output)
Skin: Warm and Dry
--- NOTE | 2024-07-12 12:20 | W.PN.NEPH.HD ---
Assessment
-
Tolerated hemodialysis ultrafiltration 1 L.
Showing signs of recovery
Anticipate that she will not need dialysis through the weekend
Progress Note - Hemodialysis
-
Date of Service: July 12, 2024
Duration: 45 minutes and 2 hours
Potassium Bath: 3
Calcium Bath: 2.5
Opti-Dialyzer: 160
Ultrafiltration: Other (even)
Blood Flow: 400
Dialysate Flow: 600
Heparin: 500 times two
EPO: none
--- NOTE | 2024-07-12 13:09 | W.PN.HOSP.TC ---
Today's Communication/Plan
-
see A/P
HD today
Assessment / Plan
Assessment / Plan
49-year-old female past medical history of hypertension, iron deficiency anemia, cholelithiasis, type 2 diabetes not on medication; presented with right upper quadrant abdominal pain, vomiting and chills for 3 weeks ago.
She stopped taking antihypertensive medications few days ago due to blood pressure 100 systolic.
Abdominal ultrasound shows abnormal gallbladder, severely distended 12 cm, with large amount of heterogeneous echogenic luminal debris/complex fluid and cholelithiasis, positive sonographic Kenyon sign, 5 mm gallbladder wall, pericholecystic fluid
consistent with cholecystitis.
A/P:
# Acute gallstone cholecystitis, Severe cholecystitis
# hx gall stones
# Elevated LFT due to above, resolved
Abd US report as above
GS on board, placed cholecystomy tube 07/07. One unit PRBC given during OR
Clears per GI
Pt c/o N/V 07/10, AXR 07/10 showed persistent gaseous distended loops of bowel throughout the abdomen, overall similar appearance to prior and which may represent adynamic ileus.
s/p NGT, removed 07/12
Of note, LFT normalized
Of note, wound culture growing Viridans strep
Zosyn -> ceftriaxone/Flagyl per ID
appreciate ID input
# acute kidney injury and kidney failure
Creat 1.6 -> peaked at 7.1, unknown baseline and pt was started with HD 07/09
monitor BMP
Of note, Kidney bladder US not significant, noted Mild dilatation of the left renal collecting system without overt hydronephrosis.
Adler placed for close I/O per renal
Renal on board
# Essential hypertension
Holding losartan and HCTZ
use IV hydralazine PRN for SBP > 160
# DM II
A1c 10%- informed pt and family that this is diabetic range
insulin sliding scale.
Code status: full code
DVT prophylaxis: SCDs
DW and daughter at bedside
Anticipated Discharge: > 48 hours
Subjective/Interval History
-
Date of Service: July 12, 2024
Objective Data
-
Labs:
Laboratory Results
07/12/24
07:43
WBC 12.8 H
Hgb 8.4 L
Hct 27.0 L
Plt Count 315
Sodium 142
Potassium 3.7
Chloride 105
Carbon Dioxide 26
BUN 43 H
Creatinine 3.0 H
Glucose 153 H
Calcium 8.9
Vital Signs:
Vital Signs
Temp Pulse Resp BP Pulse Ox
36.7 C 81 17 152/88 94
07/12/24 07:15 07/12/24 07:15 07/12/24 07:15 07/12/24 07:15 07/12/24 07:15
I&O
07/11/24 07/12/24 07/13/24
06:59 06:59 06:59
Intake Total 920 / 920 150 / 150
Output Total 1100 / 1100 2850 / 2850
Balance -180 / -180 -2700 / -2700
Review of Systems
-
History Source: Patient
All other systems: Reviewed and negative
Physical Exam
-
General: Well Developed, Well Nourished, Comfortable, Appears Chronically Ill and Morbidly Obese
HEENT: Normocephalic, Atraumatic, Nose Appears Normal and Ears Appear Normal; Negative Oxygen
Respiratory: Clear to Auscultation and Non Labored Respirations; Negative Accessory Resp Muscle Use
Cardiac: Regular Rhythm and S1/S2
GI: Soft, Nontender, Nondistended, Normal Bowel Sounds and Other (cholecystostomy tube )
Genito-urinary: Adler
Skin: Warm and Dry
Neuro: Awake and Alert
Psych: Calm and Intact Judgement/Insight
Data Reviewed
-
Ultrasound: Report Reviewed by me and Discussed with Patient
Labs: Labs Reviewed by me
[2024-07-12 13:25] LABS: Glucose - Point of Care 132 mg/dl (70-99)
--- NOTE | 2024-07-12 15:10 | W.PN.ID1 ---
Date of Service
Date of Service: July 12, 2024
Today's Communication
Continue ceftriaxone and metronidazole.
Assessment / Plan
# Severe cholecystitis
# Leukocytosis - trending down
# JO, HD started 07/09
# Acute Ileus
- 07/07 s/p robotic cholecystostomy tube placement as jr deemed unsafe
- Bile gram stain, many GNR, few GPC; Cx Viridans streptococcus, Prevotella
- Continue ceftriaxone 1gIV q24 and metronidazole 500mg q8 (d6 abx)
- Trend wbc.
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
HTN
HLD
GERD
Fatty liver
Hepatosplenomegaly
Anal fissure
Choledocholithiasis s/p ERCP (12/2023)
Class III obesity
Chief Complaint
-: Leukocytosis and Other (Cholecystitis)
Subjective / Review of Systems
Abd discomfort better.
Vital Signs / Physical Exam
Vital Signs
Vital Signs
Temp Pulse Resp BP Pulse Ox
98.1 F 81 17 152/88 94
07/12/24 07:15 07/12/24 07:15 07/12/24 07:15 07/12/24 07:15 07/12/24 07:15
Physical Exam
Constitutional: Comfortable
Head: Other (NGT in place)
Eyes: Sclera Anicteric
Cardiovascular: Regular Rate and S1/S2
Pulmonary: Clear (anteriorly)
Gastrointestinal: Soft, Non Tender, Distended, Decreased Bowel Sounds and Other (Jr tube draining bile.)
Genito-Urinary: Adler and Clear Urine (dark)
Extremities: Negative Edema
Neurological: AO x 3
Objective Data
Lab Data
Lab Results
07/12/24 07:43
07/12/24 07:43
Estimated Creat Clear 26 ml/min 07/12/24 07:43
Lactic Acid 1.2 mmol/L (0.7-2.0) 07/08/24 11:50
Total Bilirubin 2.3 mg/dl (0.2-1.3) H 07/09/24 06:16
AST 17 U/L (14-36) 07/09/24 06:16
ALT 30 U/L (0-35) 07/09/24 06:16
Alkaline Phosphatase 233 U/L (38-126) H 07/09/24 06:16
Most recent labs reviewed.
Micro Results:
07/07/24 09:40 Wound Culture - Final
Gallbladder Viridans Streptococcus Group
Gram Stain - Final
07/07/24 09:40 Anaerobic Culture - Final
Gallbladder Prevotella species
07/11/24 AXR: There is persistent gaseous distended loops of bowel throughout the abdomen, overall similar appearance to prior and which may represent adynamic ileus.
07/08/24 Renal US: Mild dilatation of the left renal collecting system without overt hydronephrosis.
07/06/24 Abd US: Abnormal gallbladder. Markedly abnormal. Severely distended 12 cm, with a large amount of heterogeneous echogenic intraluminal debris/complex fluid and cholelithiasis. Positive sonographic Kenyon's sign. 5 mm gallbladder wall.
Pericholecystic fluid. Consistent with cholecystitis. No bile duct dilatation.
[2024-07-12 15:47] VITALS: BP 172/91
[2024-07-12] MEDS: APRESOLINE 10 MG IV (15:50)
[2024-07-12 17:00] VITALS: BP 158/86
[2024-07-12] MEDS: TYLENOL 650 MG PO (17:10)
[2024-07-12] MEDS: STERILE WATER FOR INJECTION 10 ML IV (17:11)
[2024-07-12] MEDS: ROCEPHIN 1000 MG IV (17:14)
[2024-07-12 17:18] LABS: Glucose - Point of Care 149 mg/dl (70-99)
[2024-07-12] MEDS: ZOFRAN 4 MG IV (20:33)
[2024-07-12 21:50] LABS: Glucose - Point of Care 149 mg/dl (70-99)
[2024-07-12 23:15] VITALS: BP 169/93
[2024-07-13] MEDS: HEPARIN 5000 UNITS SC ×3 (04:57→21:31)
[2024-07-13 06:00] VITALS: BMI 45.1
[2024-07-13] MEDS: FLAGYL 500 MG 100 IV ×3 (06:15→21:30)
[2024-07-13 07:05] LABS: Glucose - Point of Care 107 mg/dl (70-99)
[2024-07-13 07:22] VITALS: BP 172/90
[2024-07-13 08:02] LABS: Blood Urea Nitrogen 22 mg/dl (7-17); Calcium 8.3 mg/dl (8.4-10.2); Carbon Dioxide 27 mmol/L (22-30); Chloride 103 mmol/L (98-107); Estimated Creatinine Clearance 50 ml/min; Glucose 111 mg/dl (70-99); Potassium 3.9 mmol/L (3.5-5.1); Sodium 138 mmol/L (135-145); eGFR 39.05
[2024-07-13 08:06] LABS: Hematocrit 28.4 % (37.0-47.0); Hemoglobin 8.8 g/dL (12.0-16.0); Mean Corpuscular Hgb 24.4 pg (27.0-31.0); Mean Corpuscular Volume 78.9 fL (81.0-99.0); Mean Platelet Volume 9.3 fL (7.4-10.4); Platelet Count 276 10^3/uL (130-400); Red Cell Dist. Width 17.8 % (11.5-14.5); White Blood Cell Count 13.1 10^3/uL (4.8-10.8)
[2024-07-13 08:24] LABS: Absolute Neutrophils -Man Diff 9.1 10^3/uL (1.4-6.5); Band Neutrophils 3 % (0-3); Eosinophils 1 % (0-6); Lymphocytes 22 % (20-51); Monocytes 3 % (2-9); Segmented Neutrophils 67 % (42-75)
[2024-07-13 08:25] LABS: Anisocytosis 1+; Hypochromasia Slight; Metamyelocytes 3 % (-); Myelocytes 1 % (-); Normal RBC Morphology No; Platelets Checked Yes; Total Cells Counted 100
--- NOTE | 2024-07-13 08:57 | W.PN.NEPH.PH ---
Today's Communication / Plan
-
follow bmp
Evaluate for dialysis tomorrow based on creatinine results obtained
Assessment/Plan
-
IMP:
JO
Acute cholecystitis
hx gall stones prior ERCP for choledocholithiasis in 12/2023
Microcytic anemia
A gap met acidosis
mild hyperkalemia
hyponatremia
hypomagnesemia
essential hypertension
DM II
Morbid obesity
Plan:
A/w abd pain with acute cholecystitis s/p Michelle tube
JO-cr baseline 0.7 in 07/2023, cr up trending 7.1, oliguric
UA UTI sample, U PCR 900mg g/ of cr, Fena >2
renal US no hydro but mild dilation of left collecting system
BP stable no hypotension
no clear etiology of JO , serologies sent
may need K biopsy when stabilized, hold ASA if possible
Dialysis initiated 07/09 with second treatment 07/10
Creatinine down to 1.6 today after dialysis yesterday
We will follow-up with basic metabolic panel in a.m. and evaluate for dialysis or possible withdrawal of dialysis if kidney function continues to improve
-
-
Date of Service: July 13, 2024
CC / HPI / ROS
-
Chief Complaint:
JO
History of Present Illness:
Severe cholecystitis
cr up at 7.1 peaked, nonoliguric with velazquez
Creatinine down to 1.6 following second dialysis treatment yesterday
Review of Systems:
no cp
abd pain same
Nonoliguric via Velazquez
Labs
-
Labs:
WBC 13.1 10^3/uL (4.8-10.8) H 07/13/24 07:13
RBC 3.60 10^6/uL (4.20-5.40) L 07/13/24 07:13
Hgb 8.8 g/dL (12.0-16.0) L 07/13/24 07:13
Hct 28.4 % (37.0-47.0) L 07/13/24 07:13
Plt Count 276 10^3/uL (130-400) 07/13/24 07:13
Sodium 138 mmol/L (135-145) 07/13/24 07:13
Potassium 3.9 mmol/L (3.5-5.1) 07/13/24 07:13
Chloride 103 mmol/L (98-107) 07/13/24 07:13
Carbon Dioxide 27 mmol/L (22-30) 07/13/24 07:13
BUN 22 mg/dl (7-17) H 07/13/24 07:13
Creatinine 1.6 mg/dL (0.6-1.0) H 07/13/24 07:13
eGFR 39.05 07/13/24 07:13
Glucose 111 mg/dl (70-99) H 07/13/24 07:13
Calcium 8.3 mg/dl (8.4-10.2) L 07/13/24 07:13
Albumin 2.7 g/dl (3.5-5.0) L 07/09/24 06:16
Physical Exam
-
Vital Signs:
Vital Signs
Temp Pulse Resp BP Pulse Ox
98.3 F 80 16 172/90 96
07/13/24 07:22 07/13/24 07:22 07/13/24 07:22 07/13/24 07:22 07/13/24 07:22
Cardiovascular:: Regular rate and rhythm
Respiratory:: Bilateral: Coarse
Lung Excursion:: Normal
Abdomen:: Distended, Soft and Tender
Bowel Sounds:: None
Extremity Edema:: None: Bilateral: (trace)
Velazquez Catheter: Yes
[2024-07-13] MEDS: NOVOLOG FLEXPEN-LOW RESISTANCE SC ×3 (09:01→17:27)
[2024-07-13] MEDS: VITAMIN D3 (cholecalciferol) 125 MCG PO (09:51)
[2024-07-13] MEDS: APRESOLINE 10 MG IV ×2 (09:52→23:27)
--- NOTE | 2024-07-13 11:31 | W.PN.CRS1 ---
Today's Communication / Plan
-
as below
Assessment/Plan
-
49-year-old female with PMH of HTN, FLD, elevated BMI, DM, gallstones s/p ERCP 12/2023 (underwent sphincterotomy and sludge was swept from the CBD; lost to follow-up) presents for RUQ abdominal pain for 3 weeks. The pain worsened 1 day prior to
admission and she started vomiting. WBC 10.7. CR 1.6. T. bili 1.3 alk phos 325. RUQ ultrasound showed distended gallbladder with sludge and cholelithiasis, positive Kenyon sign with gallbladder wall thickening and pericholecystic fluid,
consistent with acute cholecystitis.
POD 6 robotic cholecystostomy tube (severe inflammation precluded safe cholecystectomy)
AF VSS
WBC 13.1 from 12.8, Hb 8.8 from 8.4, Cr 1.6 from 3.0
� Severe cholecystitis s/p cholecystostomy tube
� Advance to clears
�Pain control with Tylenol and Dilaudid as needed
�JAI drain to bulb suction
�Continue IV ceftriaxone/Flagyl, appreciate ID
�JO, appreciate renal; s/p HD, kidney function seems to be improving
� Recommend PT/OT; OOB, encourage IS
� Continue DVT PPx with subQ heparin
� Appreciate hospitalist
Subjective Data
Procedure
07/07/24- Robotic cholecystomy tube
Subjective Data
Date of Service: July 13, 2024
Objective Data
-
Vital Signs
Temp Pulse Resp BP Pulse Ox
98.3 F 80 16 172/90 96
07/13/24 07:22 07/13/24 09:52 07/13/24 07:22 07/13/24 09:52 07/13/24 07:22
Intake & Output
07/12/24 07/13/24 07/14/24
06:59 06:59 06:59
Intake Total 150 / 150 820 / 820
Output Total 2850 / 2850 525 / 525 1000 / 1000
Balance -2700 / -2700 295 / 295 -1000 / -1000
Intake:
IV fluids (Total) 720 / 720
IV piggybacks 100 / 100
Amount instilled into GI Tube ( 150 / 150
Total)
[place] Sump 150 / 150
Output:
Drain Output (Total) 650 / 650 125 / 125 200 / 200
Right Upper Abdomen 650 / 650 125 / 125 200 / 200
Gastrointestinal tube output ( 150 / 150 225 / 225
Total)
[place] Sump 150 / 150 225 / 225
Urine, Adler 2049 175 / 175 800 / 800
Other:
Number of unmeasured liquid
stools
Rectum 1
Lab Results
07/13/24 07:13
07/13/24 07:13
--- NOTE | 2024-07-13 11:33 | CM ---
Reviewed the chart notes and spoke with the patient and her daughter at the bedside. CM continues to be available to patient/family and is monitoring medical plan for needs at discharge.
Plan: Discharge plans will depend on the patient's progress.
[2024-07-13 11:45] LABS: Glucose - Point of Care 112 mg/dl (70-99)
--- NOTE | 2024-07-13 13:25 | W.PN.HOSP.TC ---
Addendum entered and electronically signed by Long Olson MD 07/13/24 13:36:
Pt having GERD symptoms, will add oral Protonix
Original Note:
Today's Communication/Plan
-
follow labs
cautiously advance diet
Assessment / Plan
Assessment / Plan
49-year-old female past medical history of hypertension, iron deficiency anemia, cholelithiasis, type 2 diabetes not on medication; presented with right upper quadrant abdominal pain, vomiting and chills for 3 weeks ago.
She stopped taking antihypertensive medications few days ago due to blood pressure 100 systolic.
Abdominal ultrasound shows abnormal gallbladder, severely distended 12 cm, with large amount of heterogeneous echogenic luminal debris/complex fluid and cholelithiasis, positive sonographic Kenyon sign, 5 mm gallbladder wall, pericholecystic fluid
consistent with cholecystitis.
A/P:
# Acute gallstone cholecystitis, Severe cholecystitis
# hx gall stones
# Elevated LFT due to above, resolved
Abd US report as above
GS on board, placed cholecystomy tube 07/07. One unit PRBC given during OR
Clears per GI, started 07/13
Pt c/o N/V 07/10, AXR 07/10 showed persistent gaseous distended loops of bowel throughout the abdomen, overall similar appearance to prior and which may represent adynamic ileus.
s/p NGT, removed 07/12
Of note, LFT normalized
Of note, wound culture growing Viridans strep
Zosyn -> ceftriaxone/Flagyl per ID
appreciate ID input
# acute kidney injury and kidney failure
Creat 1.6 -> peaked at 7.1, unknown baseline and pt was started with HD 07/09 -->5.5-->3.0-->1.6
monitor BMP
Of note, Kidney bladder US not significant, noted Mild dilatation of the left renal collecting system without overt hydronephrosis.
Adler placed for close I/O per renal
Renal on board
# Essential hypertension
Holding losartan and HCTZ
use IV hydralazine PRN for SBP > 160
# DM II
A1c 10.2%- informed pt and family that this is diabetic range
insulin sliding scale.
Code status: full code
DVT prophylaxis: SCDs
Anticipated Discharge: > 48 hours
Subjective/Interval History
-
Date of Service: July 13, 2024
In good spirits
Objective Data
-
Labs:
Laboratory Results
07/13/24
07:13
WBC 13.1 H
Hgb 8.8 L
Hct 28.4 L
Plt Count 276
Sodium 138
Potassium 3.9
Chloride 103
Carbon Dioxide 27
BUN 22 H
Creatinine 1.6 H
Glucose 111 H
Calcium 8.3 L
Vital Signs:
Vital Signs
Temp Pulse Resp BP Pulse Ox
98.3 F 80 16 172/90 96
07/13/24 07:22 07/13/24 09:52 07/13/24 07:22 07/13/24 09:52 07/13/24 07:22
I&O
07/12/24 07/13/24 07/14/24
06:59 06:59 06:59
Intake Total 150 / 150 820 / 820
Output Total 2850 / 2850 525 / 525 1000 / 1000
Balance -2700 / -2700 295 / 295 -1000 / -1000
Review of Systems
-
History Source: Patient and Coordinated Provider
Constitutional: Denies Fever
EENT: Reports No Symptoms Reported
Respiratory: Reports No Symptoms
Cardiac: Reports No Symptoms
Abdomen/GI: Reports Abdominal Pain (significantly reduced)
Musculoskeletal: Reports No Symptoms
Physical Exam
-
General: Well Developed, Well Nourished and No Apparent Distress
HEENT: Normocephalic, Atraumatic and Moist Mucous Membranes
Respiratory: Clear to Auscultation; Negative Wheezes, Rales or Rhonchi
Cardiac: Regular Rhythm and S1/S2
GI: Soft, Nontender, Nondistended, Normal Bowel Sounds and Other (cholecystostomy tube )
Musculoskeletal: No Clubbing, No Cyanosis and No Edema
Skin: Warm and Dry
Neuro: Awake, Alert and Oriented
[2024-07-13] MEDS: TUMS EX (EXTRA STRENGTH) CHEWABLE TABLET 600 MG PO (13:34)
[2024-07-13] MEDS: PROTONIX 40 MG PO (14:29)
--- NOTE | 2024-07-13 15:08 | W.PN.ID1 ---
Date of Service
Date of Service: July 13, 2024
Today's Communication
Continue abx's.
Assessment / Plan
# Severe cholecystitis
# Leukocytosis - stable
# JO, HD started 07/09
# Acute Ileus
- 07/07 s/p robotic cholecystostomy tube placement as jr deemed unsafe
- Bile gram stain, many GNR, few GPC; Cx Viridans streptococcus, Prevotella
- Continue ceftriaxone 1gIV q24 and metronidazole 500mg q8 (d7 abx)
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
HTN
HLD
GERD
Fatty liver
Hepatosplenomegaly
Anal fissure
Choledocholithiasis s/p ERCP (12/2023)
Class III obesity
Chief Complaint
-: Leukocytosis and Other (Cholecystitis)
Subjective / Review of Systems
NGT out. No new complaints.
Vital Signs / Physical Exam
Vital Signs
Vital Signs
Temp Pulse Resp BP Pulse Ox
98.3 F 80 16 172/90 96
07/13/24 07:22 07/13/24 09:52 07/13/24 07:22 07/13/24 09:52 07/13/24 07:22
Physical Exam
Constitutional: Comfortable
Eyes: Sclera Anicteric
Cardiovascular: Regular Rate and S1/S2
Pulmonary: Clear (anteriorly)
Gastrointestinal: Soft, Non Tender, Non Distended and Other (Jr tube draining bile.)
Genito-Urinary: Adler and Clear Urine (dark)
Extremities: Negative Edema
Neurological: AO x 3
Objective Data
Lab Data
Lab Results
07/13/24 07:13
07/13/24 07:13
Estimated Creat Clear 50 ml/min 07/13/24 07:13
Lactic Acid 1.2 mmol/L (0.7-2.0) 07/08/24 11:50
Total Bilirubin 2.3 mg/dl (0.2-1.3) H 07/09/24 06:16
AST 17 U/L (14-36) 07/09/24 06:16
ALT 30 U/L (0-35) 07/09/24 06:16
Alkaline Phosphatase 233 U/L (38-126) H 07/09/24 06:16
Most recent labs reviewed.
Micro Results:
07/07/24 09:40 Wound Culture - Final
Gallbladder Viridans Streptococcus Group
Gram Stain - Final
07/07/24 09:40 Anaerobic Culture - Final
Gallbladder Prevotella species
07/11/24 AXR: There is persistent gaseous distended loops of bowel throughout the abdomen, overall similar appearance to prior and which may represent adynamic ileus.
07/08/24 Renal US: Mild dilatation of the left renal collecting system without overt hydronephrosis.
07/06/24 Abd US: Abnormal gallbladder. Markedly abnormal. Severely distended 12 cm, with a large amount of heterogeneous echogenic intraluminal debris/complex fluid and cholelithiasis. Positive sonographic Kenyon's sign. 5 mm gallbladder wall.
Pericholecystic fluid. Consistent with cholecystitis. No bile duct dilatation.
--- NOTE | 2024-07-13 15:11 | VATNOTE ---
Dependent swelling noted in pt's R hand, hand elevated and heat applied. Pt states IV in wrist is sore, removed. Will continue to monitor.
[2024-07-13 15:15] VITALS: BP 160/80
[2024-07-13 17:25] LABS: Glucose - Point of Care 98 mg/dl (70-99)
[2024-07-13] MEDS: STERILE WATER FOR INJECTION 10 ML IV (18:26)
[2024-07-13] MEDS: ROCEPHIN 1000 MG IV (18:26)
[2024-07-13 21:52] LABS: Glucose - Point of Care 106 mg/dl (70-99)
[2024-07-13] MEDS: ZOFRAN 4 MG IV (23:25)
[2024-07-13 23:26] VITALS: BP 167/84
[2024-07-14 00:45] VITALS: BP 157/73
[2024-07-14] MEDS: HEPARIN 5000 UNITS SC ×3 (04:59→21:00)
[2024-07-14 06:00] VITALS: BMI 42.6
[2024-07-14] MEDS: FLAGYL 500 MG 100 IV (06:13)
[2024-07-14 06:17] LABS: Hematocrit 28.1 % (37.0-47.0); Mean Corpuscular Hgb 24.7 pg (27.0-31.0); Mean Corpuscular Volume 77.2 fL (81.0-99.0); Mean Platelet Volume 9.1 fL (7.4-10.4); Platelet Count 279 10^3/uL (130-400); Red Blood Cell Count 3.64 10^6/uL (4.20-5.40); Red Cell Dist. Width 17.6 % (11.5-14.5); White Blood Cell Count 11.3 10^3/uL (4.8-10.8)
[2024-07-14 06:32] LABS: ALT (SGPT) 29 U/L (0-35); AST (SGOT) 36 U/L (14-36); Alkaline Phosphatase 339 U/L (38-126); Blood Urea Nitrogen 24 mg/dl (7-17); Calcium 8.7 mg/dl (8.4-10.2); Carbon Dioxide 24 mmol/L (22-30); Chloride 102 mmol/L (98-107); Direct Bilirubin 0.5 mg/dl (0.0-0.4); Estimated Creatinine Clearance 51 ml/min; Glucose 110 mg/dl (70-99); Potassium 3.6 mmol/L (3.5-5.1); Sodium 139 mmol/L (135-145); Total Bilirubin 0.8 mg/dl (0.2-1.3); Total Protein 6.1 g/dl (6.3-8.2); eGFR 42.19
[2024-07-14 07:29] LABS: Absolute Neutrophils -Man Diff 8.4 10^3/uL (1.4-6.5); Anisocytosis Slight; Band Neutrophils 4 % (0-3); Lymphocytes 21 % (20-51); Metamyelocytes 3 % (-); Myelocytes 1 % (-); Normal RBC Morphology No; Platelets Checked Yes; Segmented Neutrophils 71 % (42-75)
[2024-07-14 07:30] LABS: Total Cells Counted 100
[2024-07-14 07:55] VITALS: BP 177/88
[2024-07-14 08:19] LABS: Glucose - Point of Care 104 mg/dl (70-99)
[2024-07-14] MEDS: PROTONIX 40 MG PO (08:20)
[2024-07-14] MEDS: NOVOLOG FLEXPEN-LOW RESISTANCE SC ×3 (08:21→18:09)
[2024-07-14] MEDS: VITAMIN D3 (cholecalciferol) 125 MCG PO (08:21)
[2024-07-14] MEDS: APRESOLINE 10 MG IV (08:22)
--- NOTE | 2024-07-14 10:09 | W.PN.GS2 ---
Addendum entered and electronically signed by Jin Hooper MD 07/14/24 11:57:
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
Patient's at bedside.
Tolerating clear liquid diet. States her appetite is returning.
Mild residual incisional pain.
Ambulating easier.
Past some loose stools yesterday, passing flatus
AFVSS
NAD AAO x 3 sitting in chair at bedside
ABD: Soft, obese, mild tenderness to palpation in incision sites which have glue dressings.
Percutaneous cholecystostomy tube with bilious output
Velazquez catheter in place
A/P: POD #7 status post RAL abandon cholecystectomy with subsequent intraoperative placement of cholecystostomy drain
Ileus symptoms improving
Start full liquid diet
Maintain cholecystostomy tube until interval cholecystectomy which would likely be deferred on for some time given severity of operative findings
Antibiotics per ID recommendations
Original Note:
Today's Communication / Plan
-
Full liquids as tolerated
Assessment / Plan
-
49 yo female presenting with severe cholecystitis
POD #7 Robotic placement of cholecystostomy drain, cholecystectomy unable to be performed safely due to the degree of inflammation/abscess
ARF being followed by nephrology, HD started this admission. Oliguric initially but now with good UO. Cr improved after HD.
Ileus now resolving, passing stools/flatus
Leukocytosis trending down, h/h stable (s/p one unit preop, h/o chronic iron deficiency anemia)
--Advance to FLD
--Analgesics as needed
--Continue with cholecystostomy tube to gravity drain. Will remain in place upon d/c.
--ABX as per ID
--Velazquez as per nephrology
--VTE ppx with sq heparin and scds
Subjective Data
-
Date of Service: July 14, 2024
Patient seen and examined at bedside with Dr. Hooper. Denies n/v. Feeling much better overall. Some pain to drain site but otherwise no pain. OOB to chair. Passed some stools yesterday. Passing flatus today. Tolerating clears.
Objective Data
-
Intake and Output
07/13/24 07/14/24 07/15/24
06:59 06:59 06:59
Intake Total 820 / 820
Output Total 525 / 525 4000 / 4000
Balance 295 / 295 -4000 / -4000
Intake:
IV fluids (Total) 720 / 720
IV piggybacks 100 / 100
Output:
Emesis 100 / 100
Drain Output (Total) 125 / 125 700 / 700
Right Upper Abdomen 125 / 125 700 / 700
Gastrointestinal tube output ( 225 / 225
Total)
[place] Sump 225 / 225
Urine, Velazquez 175 / 175 3200 / 3200
Other:
Number of unmeasured liquid
stools
Rectum 1
Vital Signs
Temp Pulse Resp BP Pulse Ox
98.5 F 75 16 177/88 94
07/14/24 07:55 07/14/24 07:55 07/14/24 07:55 07/14/24 08:22 07/14/24 08:32
Lab Results
07/14/24 05:38
07/14/24 05:38
Calcium 8.7 mg/dl (8.4-10.2) 07/14/24 05:38
Magnesium 1.7 mg/dl (1.6-2.3) 07/12/24 07:43
Total Bilirubin 0.8 mg/dl (0.2-1.3) 07/14/24 05:38
Direct Bilirubin 0.5 mg/dl (0.0-0.4) H 07/14/24 05:38
AST 36 U/L (14-36) 07/14/24 05:38
ALT 29 U/L (0-35) 07/14/24 05:38
Alkaline Phosphatase 339 U/L (38-126) H 07/14/24 05:38
Total Protein 6.1 g/dl (6.3-8.2) L 07/14/24 05:38
Albumin 3.0 g/dl (3.5-5.0) L 07/14/24 05:38
Physical Exam
-
NAD
ABD soft, obese, nd, expected incisional tenderness
Cholecystostomy drain with bilious output
Velazquez with light josé urine
Patient has a velazquez catheter: Yes
--- NOTE | 2024-07-14 11:12 | W.PN.NEPH.PH ---
Today's Communication / Plan
-
Acute kidney injury continues to improve
No dialysis today
Follow-up BMP in a.m.
Assessment/Plan
-
IMP:
JO
Acute cholecystitis
hx gall stones prior ERCP for choledocholithiasis in 12/2023
Microcytic anemia
A gap met acidosis
mild hyperkalemia
hyponatremia
hypomagnesemia
essential hypertension
DM II
Morbid obesity
Plan:
A/w abd pain with acute cholecystitis s/p Michelle tube
JO-cr baseline 0.7 in 07/2023, cr up trending 7.1, oliguric
UA UTI sample, U PCR 900mg g/ of cr, Fena >2
renal US no hydro but mild dilation of left collecting system
BP stable no hypotension
no clear etiology of JO , serologies sent
may need K biopsy when stabilized, hold ASA if possible
Dialysis initiated 07/09 with second treatment 07/10
Creatinine down to 1.5 today after dialysis
We will follow-up with basic metabolic panel in a.m. and evaluate for dialysis or possible withdrawal of dialysis if kidney function continues to improve
-
-
Date of Service: July 14, 2024
CC / HPI / ROS
-
Chief Complaint:
JO
History of Present Illness:
Severe cholecystitis
cr up at 7.1 peaked, nonoliguric with velazquez
Creatinine down to 1.5 following second dialysis treatment
Review of Systems:
Full liquid diet advanced
no cp
abd pain less
Nonoliguric via Velazquez
Labs
-
Labs:
WBC 11.3 10^3/uL (4.8-10.8) H 07/14/24 05:38
RBC 3.64 10^6/uL (4.20-5.40) L 07/14/24 05:38
Hgb 9.0 g/dL (12.0-16.0) L 07/14/24 05:38
Hct 28.1 % (37.0-47.0) L 07/14/24 05:38
Plt Count 279 10^3/uL (130-400) 07/14/24 05:38
Sodium 139 mmol/L (135-145) 07/14/24 05:38
Potassium 3.6 mmol/L (3.5-5.1) 07/14/24 05:38
Chloride 102 mmol/L (98-107) 07/14/24 05:38
Carbon Dioxide 24 mmol/L (22-30) 07/14/24 05:38
BUN 24 mg/dl (7-17) H 07/14/24 05:38
Creatinine 1.5 mg/dL (0.6-1.0) H 07/14/24 05:38
eGFR 42.19 07/14/24 05:38
Glucose 110 mg/dl (70-99) H 07/14/24 05:38
Calcium 8.7 mg/dl (8.4-10.2) 07/14/24 05:38
Albumin 3.0 g/dl (3.5-5.0) L 07/14/24 05:38
Physical Exam
-
Vital Signs:
Vital Signs
Temp Pulse Resp BP Pulse Ox
98.5 F 75 16 177/88 94
07/14/24 07:55 07/14/24 07:55 07/14/24 07:55 07/14/24 08:22 07/14/24 08:32
Cardiovascular:: Regular rate and rhythm
Respiratory:: Bilateral: Coarse
Lung Excursion:: Normal
Abdomen:: Distended, Soft and Tender
Bowel Sounds:: None
Extremity Edema:: None: Bilateral: (trace)
Velazquez Catheter: Yes
--- NOTE | 2024-07-14 11:30 | W.PN.ID1 ---
Date of Service
Date of Service: July 14, 2024
Today's Communication
Transition ceftriaxone 1gIV q24 and metronidazole 500mg q8 (d8 abx) to Augmentin 875mg po bid till 07/20.
Assessment / Plan
# Severe cholecystitis
# Leukocytosis - stable
# JO -improving.
# Acute Ileus - resolving
- 07/07 s/p robotic cholecystostomy tube placement as jr deemed unsafe
- Bile gram stain, many GNR, few GPC; Cx Viridans streptococcus, Prevotella
- Transition ceftriaxone 1gIV q24 and metronidazole 500mg q8 (d8 abx) to Augmentin 875mg po bid till 07/20.
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
HTN
HLD
GERD
Fatty liver
Hepatosplenomegaly
Anal fissure
Choledocholithiasis s/p ERCP (12/2023)
Class III obesity
Chief Complaint
-: Leukocytosis and Other (Cholecystitis)
Subjective / Review of Systems
Tolerated jell-o.
Vital Signs / Physical Exam
Vital Signs
Vital Signs
Temp Pulse Resp BP Pulse Ox
98.5 F 75 16 177/88 94
07/14/24 07:55 07/14/24 07:55 07/14/24 07:55 07/14/24 08:22 07/14/24 08:32
Physical Exam
Constitutional: Comfortable
Eyes: Sclera Anicteric
Cardiovascular: Regular Rate and S1/S2
Pulmonary: Clear (anteriorly)
Gastrointestinal: Soft, Non Tender, Non Distended and Other (Jr tube draining bile.)
Genito-Urinary: Adler and Clear Urine (dark)
Extremities: Negative Edema
Neurological: AO x 3
Objective Data
Lab Data
Lab Results
07/14/24 05:38
07/14/24 05:38
Estimated Creat Clear 51 ml/min 07/14/24 05:38
Lactic Acid 1.2 mmol/L (0.7-2.0) 07/08/24 11:50
Total Bilirubin 0.8 mg/dl (0.2-1.3) 07/14/24 05:38
AST 36 U/L (14-36) 07/14/24 05:38
ALT 29 U/L (0-35) 07/14/24 05:38
Alkaline Phosphatase 339 U/L (38-126) H 07/14/24 05:38
Most recent labs reviewed.
Micro Results:
07/07/24 09:40 Wound Culture - Final
Gallbladder Viridans Streptococcus Group
Gram Stain - Final
07/07/24 09:40 Anaerobic Culture - Final
Gallbladder Prevotella species
07/11/24 AXR: There is persistent gaseous distended loops of bowel throughout the abdomen, overall similar appearance to prior and which may represent adynamic ileus.
07/08/24 Renal US: Mild dilatation of the left renal collecting system without overt hydronephrosis.
07/06/24 Abd US: Abnormal gallbladder. Markedly abnormal. Severely distended 12 cm, with a large amount of heterogeneous echogenic intraluminal debris/complex fluid and cholelithiasis. Positive sonographic Kenyon's sign. 5 mm gallbladder wall.
Pericholecystic fluid. Consistent with cholecystitis. No bile duct dilatation.
--- NOTE | 2024-07-14 11:38 | W.PN.HOSP.TC ---
Today's Communication/Plan
-
start Procardia now
Assessment / Plan
Assessment / Plan
49-year-old female past medical history of hypertension, iron deficiency anemia, cholelithiasis, type 2 diabetes not on medication; presented with right upper quadrant abdominal pain, vomiting and chills for 3 weeks ago.
She stopped taking antihypertensive medications few days ago due to blood pressure 100 systolic. BP now 177/88, discussed with Dr. Larios, he does not want pt to resume Losartan, prefers Procardia XL 30 bid, will order
Reviewed situation with , dgt, son in room
Abdominal ultrasound shows abnormal gallbladder, severely distended 12 cm, with large amount of heterogeneous echogenic luminal debris/complex fluid and cholelithiasis, positive sonographic Kenyon sign, 5 mm gallbladder wall, pericholecystic fluid
consistent with cholecystitis.
A/P:
# Acute gallstone cholecystitis, Severe cholecystitis
# hx gall stones
# Elevated LFT due to above, resolved
Abd US report as above
GS on board, placed cholecystomy tube 07/07. One unit PRBC given during OR
Clears per GI, started 07/13, now Full Liquids, advance as per Surgery
Pt c/o N/V 07/10, AXR 07/10 showed persistent gaseous distended loops of bowel throughout the abdomen, overall similar appearance to prior and which may represent adynamic ileus.
s/p NGT, removed 07/12
Of note, LFT normalized
Of note, wound culture growing Viridans strep
Zosyn -> ceftriaxone/Flagyl-->Augmentin 875 bid until 07/20 as per ID
appreciate ID input
# acute kidney injury and kidney failure
Creat 1.6 -> peaked at 7.1, unknown baseline and pt was started with HD 07/09 -->5.5-->3.0-->1.6-->1.5
monitor BMP
Of note, Kidney bladder US not significant, noted Mild dilatation of the left renal collecting system without overt hydronephrosis.
Adler placed for close I/O per renal
Renal on board
# Essential hypertension
Holding losartan and HCTZ
use IV hydralazine PRN for SBP > 160
add Procardia XL 30 mg bid, call placed and discussed with nursing, she is not to resume Losartan at this time
# DM II
A1c 10.2%- informed pt and family that this is diabetic range
insulin sliding scale.
Code status: full code
DVT prophylaxis: SCDs
Anticipated Discharge: > 48 hours
Subjective/Interval History
-
Date of Service: July 14, 2024
Generally feeling better, passing some flatus, but not yet passing stool
Objective Data
-
Labs:
Laboratory Results
07/14/24
05:38
WBC 11.3 H
Hgb 9.0 L
Hct 28.1 L
Plt Count 279
Sodium 139
Potassium 3.6
Chloride 102
Carbon Dioxide 24
BUN 24 H
Creatinine 1.5 H
Glucose 110 H
Calcium 8.7
Total Bilirubin 0.8
AST 36
ALT 29
Alkaline Phosphatase 339 H
Vital Signs:
Vital Signs
Temp Pulse Resp BP Pulse Ox
98.5 F 75 16 177/88 94
07/14/24 07:55 07/14/24 07:55 07/14/24 07:55 07/14/24 08:22 07/14/24 08:32
I&O
07/13/24 07/14/24 07/15/24
06:59 06:59 06:59
Intake Total 820 / 820
Output Total 525 / 525 4000 / 4000
Balance 295 / 295 -4000 / -4000
Review of Systems
-
History Source: Patient, Family ( and 2 children present) and Coordinated Provider
Constitutional: Denies Fever
EENT: Reports No Symptoms Reported
Respiratory: Reports No Symptoms
Cardiac: Reports No Symptoms
Abdomen/GI: Reports Abdominal Pain (significantly reduced)
Musculoskeletal: Reports No Symptoms
Physical Exam
-
General: Well Developed, Well Nourished and No Apparent Distress
HEENT: Normocephalic, Atraumatic and Moist Mucous Membranes
Respiratory: Clear to Auscultation; Negative Wheezes, Rales or Rhonchi
Cardiac: Regular Rhythm and S1/S2
GI: Soft, Nontender, Nondistended, Normal Bowel Sounds (present but slightly diminished) and Other (cholecystostomy tube )
Musculoskeletal: No Clubbing, No Cyanosis and No Edema
Skin: Warm and Dry
Neuro: Awake, Alert and Oriented
[2024-07-14 12:24] LABS: Glucose - Point of Care 111 mg/dl (70-99)
[2024-07-14] MEDS: AUGMENTIN 875 MG/125 MG 1 TABLET PO ×2 (12:35→21:00)
[2024-07-14] MEDS: PROCARDIA XL (EXTENDED RELEASE) 30 MG PO ×2 (12:35→21:00)
--- NOTE | 2024-07-14 12:45 | VATNOTE ---
Per pt, R hand swelling and pain improved. Will continue to monitor.
[2024-07-14 15:05] VITALS: BP 141/82
[2024-07-14 17:37] LABS: Glucose - Point of Care 108 mg/dl (70-99)
[2024-07-14 21:48] LABS: Glucose - Point of Care 159 mg/dl (70-99)
[2024-07-14 23:53] VITALS: BP 131/66
[2024-07-15] MEDS: HEPARIN 5000 UNITS SC ×3 (04:51→21:04)
[2024-07-15 05:06] VITALS: BMI 42.2
[2024-07-15 06:37] LABS: Hematocrit 31.2 % (37.0-47.0); Mean Corp Hgb Conc. 32.1 g/dL (33.0-37.0); Mean Corpuscular Hgb 24.8 pg (27.0-31.0); Mean Corpuscular Volume 77.2 fL (81.0-99.0); Mean Platelet Volume 9.5 fL (7.4-10.4); Platelet Count 287 10^3/uL (130-400); Red Blood Cell Count 4.04 10^6/uL (4.20-5.40); Red Cell Dist. Width 18.5 % (11.5-14.5); White Blood Cell Count 14.4 10^3/uL (4.8-10.8)
[2024-07-15 07:15] VITALS: BP 151/86
[2024-07-15 07:15] LABS: ALT (SGPT) 23 U/L (0-35); AST (SGOT) 26 U/L (14-36); Alkaline Phosphatase 305 U/L (38-126); Blood Urea Nitrogen 21 mg/dl (7-17); Calcium 8.5 mg/dl (8.4-10.2); Carbon Dioxide 22 mmol/L (22-30); Chloride 101 mmol/L (98-107); Estimated Creatinine Clearance 59 ml/min; Glucose 120 mg/dl (70-99); Potassium 3.8 mmol/L (3.5-5.1); Sodium 137 mmol/L (135-145); Total Protein 6.1 g/dl (6.3-8.2)
[2024-07-15 08:04] LABS: Glucose - Point of Care 102 mg/dl (70-99)
[2024-07-15] MEDS: NOVOLOG FLEXPEN-LOW RESISTANCE SC ×3 (08:06→17:25)
[2024-07-15] MEDS: PROCARDIA XL (EXTENDED RELEASE) 30 MG PO ×2 (08:06→21:00)
[2024-07-15] MEDS: AUGMENTIN 875 MG/125 MG 1 TABLET PO ×2 (08:07→21:04)
[2024-07-15] MEDS: VITAMIN D3 (cholecalciferol) PO (08:08)
[2024-07-15] MEDS: PROTONIX PO (08:08)
--- NOTE | 2024-07-15 09:03 | VATNOTE ---
VAT rounds: swelling in R hand has resolved. Pt without complaints.
--- NOTE | 2024-07-15 10:03 | W.PN.NEPH.PH ---
Today's Communication / Plan
-
Remove dialysis catheter
BMP in morning
Maintain Velazquez catheter
diet advancing
Assessment/Plan
-
IMP:
OJ
Acute cholecystitis
hx gall stones prior ERCP for choledocholithiasis in 12/2023
Microcytic anemia
A gap met acidosis
mild hyperkalemia
hyponatremia
hypomagnesemia
essential hypertension
DM II
Morbid obesity
Plan:
A/w abd pain with acute cholecystitis s/p Michelle tube
JO-cr baseline 0.7 in 07/2023, cr up trending 7.1, oliguric
UA UTI sample, U PCR 900mg g/ of cr, Fena >2
renal US no hydro but mild dilation of left collecting system
BP stable no hypotension
no clear etiology of JO in setting of choleycystitis
Dialysis initiated 07/09 with second treatment 07/10
Creatinine down to 1.3 today after last dialysis on
I will discontinue temporary dialysis catheter today
I would like to keep Velazquez catheter 1 more day which was discussed with surgery
-
-
Date of Service: July 15, 2024
CC / HPI / ROS
-
Chief Complaint:
JO
History of Present Illness:
Severe cholecystitis
cr up at 7.1 peaked, nonoliguric with velazquez
Creatinine down to 1.3 following second dialysis treatment
Review of Systems:
Diet advanced
no cp
abd pain less
Nonoliguric via Velazquez
Labs
-
Labs:
WBC 14.4 10^3/uL (4.8-10.8) H 07/15/24 05:21
RBC 4.04 10^6/uL (4.20-5.40) L 07/15/24 05:21
Hgb 10.0 g/dL (12.0-16.0) L 07/15/24 05:21
Hct 31.2 % (37.0-47.0) L 07/15/24 05:21
Plt Count 287 10^3/uL (130-400) 07/15/24 05:21
Sodium 137 mmol/L (135-145) 07/15/24 05:21
Potassium 3.8 mmol/L (3.5-5.1) 07/15/24 05:21
Chloride 101 mmol/L (98-107) 07/15/24 05:21
Carbon Dioxide 22 mmol/L (22-30) 07/15/24 05:21
BUN 21 mg/dl (7-17) H 07/15/24 05:21
Creatinine 1.3 mg/dL (0.6-1.0) H 07/15/24 05:21
eGFR 50.10 07/15/24 05:21
Glucose 120 mg/dl (70-99) H 07/15/24 05:21
Calcium 8.5 mg/dl (8.4-10.2) 07/15/24 05:21
Albumin 3.0 g/dl (3.5-5.0) L 07/15/24 05:21
Physical Exam
-
Vital Signs:
Vital Signs
Temp Pulse Resp BP Pulse Ox
98.4 F 87 18 157/86 96
07/15/24 07:15 07/15/24 07:15 07/15/24 07:15 07/15/24 08:06 07/15/24 07:15
--- NOTE | 2024-07-15 10:22 | W.PN.ID1 ---
Date of Service
Date of Service: July 15, 2024
Today's Communication
- Continue Augmentin 875mg po bid till 07/20.
Assessment / Plan
# Severe cholecystitis
# Leukocytosis - stable
# JO -improving.
# Acute Ileus - resolving
- 07/07 s/p robotic cholecystostomy tube placement as jr deemed unsafe
- Bile gram stain, many GNR, few GPC; Cx Viridans streptococcus, Prevotella
- s/p ceftriaxone 1gIV q24 and metronidazole 500mg q8 x 7d
- Continue Augmentin 875mg po bid till 07/20.
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
HTN
HLD
GERD
Fatty liver
Hepatosplenomegaly
Anal fissure
Choledocholithiasis s/p ERCP (12/2023)
Class III obesity
Chief Complaint
-: Leukocytosis and Other (Cholecystitis)
Subjective / Review of Systems
Tolerating Augmentin.
Vital Signs / Physical Exam
Vital Signs
Vital Signs
Temp Pulse Resp BP Pulse Ox
98.4 F 87 18 157/86 96
07/15/24 07:15 07/15/24 07:15 07/15/24 07:15 07/15/24 08:06 07/15/24 07:15
Physical Exam
Constitutional: No Acute Distress and Comfortable
Cardiovascular: Regular Rate and S1/S2
Pulmonary: Clear
Gastrointestinal: Soft, Non Tender, Non Distended and Other (jr tube with bile)
Genito-Urinary: Adler and Clear Urine
Neurological: AO x 3
Objective Data
Lab Data
Lab Results
07/15/24 05:21
07/15/24 05:21
Estimated Creat Clear 59 ml/min 07/15/24 05:21
Lactic Acid 1.2 mmol/L (0.7-2.0) 07/08/24 11:50
Total Bilirubin 1.0 mg/dl (0.2-1.3) 07/15/24 05:21
AST 26 U/L (14-36) 07/15/24 05:21
ALT 23 U/L (0-35) 07/15/24 05:21
Alkaline Phosphatase 305 U/L (38-126) H 07/15/24 05:21
Most recent labs reviewed.
Micro Results:
07/07/24 09:40 Wound Culture - Final
Gallbladder Viridans Streptococcus Group
Gram Stain - Final
07/07/24 09:40 Anaerobic Culture - Final
Gallbladder Prevotella species
07/11/24 AXR: There is persistent gaseous distended loops of bowel throughout the abdomen, overall similar appearance to prior and which may represent adynamic ileus.
07/08/24 Renal US: Mild dilatation of the left renal collecting system without overt hydronephrosis.
07/06/24 Abd US: Abnormal gallbladder. Markedly abnormal. Severely distended 12 cm, with a large amount of heterogeneous echogenic intraluminal debris/complex fluid and cholelithiasis. Positive sonographic Kenyon's sign. 5 mm gallbladder wall.
Pericholecystic fluid. Consistent with cholecystitis. No bile duct dilatation.
--- NOTE | 2024-07-15 10:26 | W.PN.GS2 ---
Addendum entered and electronically signed by Jin Hooper MD 07/15/24 10:51:
Patient seen and examined with surgical CORRESPONDENCE REPRESENTATIVE.
Patient reports continued significant clinical improvement. Tolerated full liquids well. Occasional cramps of right sided abdominal pain overnight but they promptly subsided.
No nausea or vomiting and appetite returning.
AFVSS
NAD AAO x 3
ABD: Soft, obese, mild tenderness palpation around percutaneous drain site.
A/P: POD #8 status post RAL cholecystostomy tube placement for severe cholecystitis prohibiting cholecystectomy
Overall appears to be doing well with returning GI function
Given operative findings, mild persistent leukocytosis would recommend obtaining a postoperative CT abdomen/pelvis imaging to assess anatomy postoperatively prior to discharge -ordered for tomorrow a.m.
Cholecystostomy tube to remain in place for the foreseeable future anticipating interval cholecystectomy will likely be deferred on for a few months to allow for healing surgical/medical optimization.
Original Note:
Today's Communication / Plan
-
Advance to LFD
CT in AM
Assessment / Plan
-
49 yo female presenting with severe cholecystitis
POD #8 Robotic placement of cholecystostomy drain, cholecystectomy unable to be performed safely due to the degree of inflammation/abscess
Renal function continues to improve, last HD was on 07/12
New dx DM this admit with A1c of 10.2
Ileus resolving, passing stools/flatus
WBC is trending up, h/h stable, Bili nl
--Advance to LFD
--Analgesics as needed
--Continue with cholecystostomy tube to gravity drain. Will remain in place upon d/c for minimum of 6-8 weeks
--ABX as per ID
--Velazquez as per nephrology
--Appreciate hospitalist
--Will plan CT imaging in AM or abd/pelvis
--VTE ppx with sq heparin and scds
General surgery to follow
Subjective Data
-
Date of Service: July 15, 2024
Patient seen and examined at bedside with Dr. Hooper. Denies n/v. Tolerating liquids. Passing flatus. Denies pain.
Objective Data
-
Intake and Output
07/14/24 07/15/24 07/16/24
06:59 06:59 06:59
Intake Total 2019
Output Total 4000 / 4000 2200 / 2200
Balance -4000 / -4000 -180 / -180
Intake:
Oral fluids 2019
Output:
Emesis 100 / 100
Drain Output (Total) 700 / 700 300 / 300
Right Upper Abdomen 700 / 700 300 / 300
Urine, Velazquez 3200 / 3200 1900 / 1900
Vital Signs
Temp Pulse Resp BP Pulse Ox
98.4 F 87 18 157/86 96
07/15/24 07:15 07/15/24 07:15 07/15/24 07:15 07/15/24 08:06 07/15/24 07:15
Lab Results
07/15/24 05:21
07/15/24 05:21
Calcium 8.5 mg/dl (8.4-10.2) 07/15/24 05:21
Magnesium 1.7 mg/dl (1.6-2.3) 07/12/24 07:43
Total Bilirubin 1.0 mg/dl (0.2-1.3) 07/15/24 05:21
Direct Bilirubin 0.5 mg/dl (0.0-0.4) H 07/14/24 05:38
AST 26 U/L (14-36) 07/15/24 05:21
ALT 23 U/L (0-35) 07/15/24 05:21
Alkaline Phosphatase 305 U/L (38-126) H 07/15/24 05:21
Total Protein 6.1 g/dl (6.3-8.2) L 07/15/24 05:21
Albumin 3.0 g/dl (3.5-5.0) L 07/15/24 05:21
Physical Exam
-
NAD
ABD soft, obese, nd, expected incisional tenderness
Cholecystostomy drain with bilious output
Velazquez with light straw colored urine
Patient has a velazquez catheter: Yes
Patient has a central line: Yes (for HD)
[2024-07-15 12:05] LABS: Glucose - Point of Care 174 mg/dl (70-99)
[2024-07-15] MEDS: NON-FORMULARY ITEM 1 UNIT PO (13:51)
--- NOTE | 2024-07-15 15:24 | W.PN.HOSP.TC ---
Today's Communication/Plan
-
CT scan of abd/pelvis in AM
potential DC Adler tomorrow
Follow WBC
Assessment / Plan
Assessment / Plan
49-year-old female past medical history of hypertension, iron deficiency anemia, cholelithiasis, type 2 diabetes not on medication; presented with right upper quadrant abdominal pain, vomiting and chills for 3 weeks ago.
She stopped taking antihypertensive medications few days ago due to blood pressure 100 systolic. BP now 177/88, discussed with Dr. Larios, he does not want pt to resume Losartan, prefers Procardia XL 30 bid, will order
Reviewed situation with , dgt, son in room
Abdominal ultrasound shows abnormal gallbladder, severely distended 12 cm, with large amount of heterogeneous echogenic luminal debris/complex fluid and cholelithiasis, positive sonographic Kenyon sign, 5 mm gallbladder wall, pericholecystic fluid
consistent with cholecystitis.
A/P:
# Acute gallstone cholecystitis, Severe cholecystitis
# hx gall stones
# Elevated LFT due to above, resolved
Abd US report as above
GS on board, placed cholecystomy tube 07/07. One unit PRBC given during OR
Clears per GI, started 07/13, then Full Liquids, just started on low fat 07/15 and is tolerating
Pt c/o N/V 07/10, AXR 07/10 showed persistent gaseous distended loops of bowel throughout the abdomen, overall similar appearance to prior and which may represent adynamic ileus.
s/p NGT, removed 07/12
Of note, LFT normalized
Of note, wound culture growing Viridans strep
Zosyn -> ceftriaxone/Flagyl-->Augmentin 875 bid until 07/20 as per ID
appreciate ID input
WBC 12.8-->13.1-->11.3-->14.4
# acute kidney injury and kidney failure
Creat 1.6 -> peaked at 7.1, unknown baseline and pt was started with HD 07/09 -->5.5-->3.0-->1.6-->1.5-->1.3
dialysis catheter just removed
monitor BMP
Of note, Kidney bladder US not significant, noted Mild dilatation of the left renal collecting system without overt hydronephrosis.
Adler placed for close I/O per renal, potentially to be dc tomorrow
Renal on board
# Essential hypertension
Holding losartan and HCTZ
use IV hydralazine PRN for SBP > 160
add Procardia XL 30 mg bid, call placed and discussed with nursing, she is not to resume Losartan at this time
157 currently
# DM II
A1c 10.2%- informed pt and family that this is diabetic range
insulin sliding scale. Glu well controlled with sugars in the 108-159 range
Code status: full code
DVT prophylaxis: SCDs
Anticipated Discharge: 24 - 48 hours
Subjective/Interval History
-
Date of Service: July 15, 2024
Generally feeling better, tolerating diet, which is to be advanced as of tomorrow
Objective Data
-
Labs:
Laboratory Results
07/15/24
05:21
WBC 14.4 H
Hgb 10.0 L
Hct 31.2 L
Plt Count 287
Sodium 137
Potassium 3.8
Chloride 101
Carbon Dioxide 22
BUN 21 H
Creatinine 1.3 H
Glucose 120 H
Calcium 8.5
Total Bilirubin 1.0
AST 26
ALT 23
Alkaline Phosphatase 305 H
Vital Signs:
Vital Signs
Temp Pulse Resp BP Pulse Ox
98.4 F 87 18 157/86 96
07/15/24 07:15 07/15/24 07:15 07/15/24 07:15 07/15/24 08:06 07/15/24 07:15
I&O
07/14/24 07/15/24 07/16/24
06:59 06:59 06:59
Intake Total 2019
Output Total 4000 / 4000 2200 / 2200
Balance -4000 / -4000 -180 / -180
Review of Systems
-
History Source: Patient and Family ( at bedside)
Constitutional: Denies Fever
EENT: Reports No Symptoms Reported
Respiratory: Reports No Symptoms
Cardiac: Reports No Symptoms
Abdomen/GI: Reports Abdominal Pain (better)
Neuro: Reports No Symptoms
Physical Exam
-
General: Well Developed, Well Nourished and No Apparent Distress
HEENT: Normocephalic, Atraumatic and Moist Mucous Membranes
Respiratory: Clear to Auscultation; Negative Wheezes, Rales or Rhonchi
Cardiac: Regular Rhythm and S1/S2
GI: Soft, Nontender, Nondistended, Normal Bowel Sounds (significantly more active) and Other (cholecystostomy tube )
Musculoskeletal: No Clubbing, No Cyanosis and No Edema
Skin: Warm and Dry
Neuro: Awake, Alert and Oriented
[2024-07-15 15:25] VITALS: BP 138/64
[2024-07-15 17:17] LABS: Glucose - Point of Care 158 mg/dl (70-99)
[2024-07-15 22:38] LABS: Glucose - Point of Care 134 mg/dl (70-99)
[2024-07-15 23:08] VITALS: BP 165/96
[2024-07-15] MEDS: APRESOLINE 10 MG IV (23:22)
[2024-07-16 00:30] VITALS: BP 141/73
[2024-07-16] MEDS: HEPARIN 5000 UNITS SC ×3 (05:00→20:06)
[2024-07-16] MEDS: OMNIPAQUE 50 ML PO (05:59)
[2024-07-16 06:00] VITALS: BMI 41.9
--- NOTE | 2024-07-16 07:35 | W.PN.HOSP.TC ---
Today's Communication/Plan
-
CT scan of abd/pel with oral contrast
telehealth nurse educator consult
Assessment / Plan
Assessment / Plan
49-year-old female past medical history of hypertension, iron deficiency anemia, cholelithiasis, type 2 diabetes not on medication; presented with right upper quadrant abdominal pain, vomiting and chills for 3 weeks ago.
She stopped taking antihypertensive medications few days ago due to blood pressure 100 systolic. BP now 177/88, discussed with Dr. Larios, he does not want pt to resume Losartan, prefers Procardia XL 30 bid, will order
Reviewed situation with , dgt, son in room
Abdominal ultrasound shows abnormal gallbladder, severely distended 12 cm, with large amount of heterogeneous echogenic luminal debris/complex fluid and cholelithiasis, positive sonographic Kenyon sign, 5 mm gallbladder wall, pericholecystic fluid
consistent with cholecystitis.
A/P:
# Acute gallstone cholecystitis, Severe cholecystitis
# hx gall stones
# Elevated LFT due to above, resolved
Abd US report as above
GS on board, placed cholecystomy tube 07/07. One unit PRBC given during OR
Clears per GI, started 07/13, then Full Liquids, just started on low fat 07/15 and is tolerating
Pt c/o N/V 07/10, AXR 07/10 showed persistent gaseous distended loops of bowel throughout the abdomen, overall similar appearance to prior and which may represent adynamic ileus.
s/p NGT, removed 07/12
Of note, LFT normalized
Of note, wound culture growing Viridans strep
Zosyn -> ceftriaxone/Flagyl-->Augmentin 875 bid until 07/20 as per ID
appreciate ID input
WBC 12.8-->13.1-->11.3-->14.[address] scan with oral contrast today
labs today pending
passing flatus, no stool
# acute kidney injury and kidney failure
Creat 1.6 -> peaked at 7.1, unknown baseline and pt was started with HD 07/09 -->5.5-->3.0-->1.6-->1.5-->1.3
dialysis catheter removed
monitor BMP
Of note, Kidney bladder US not significant, noted Mild dilatation of the left renal collecting system without overt hydronephrosis.
Adler placed for close I/O per renal, potentially to be dc in near future
Renal on board
# Essential hypertension
Holding losartan and HCTZ
use IV hydralazine PRN for SBP > 160
add Procardia XL 30 mg bid, as per Dr. Larios
141 currently
# DM II
A1c 10.2%- informed pt and family that this is diabetic range
insulin sliding scale. Glu well controlled with sugars in the 108-159 range
Will request input from diabetic WRITER [employer], Shelly Somers. Pt prefers not starting insulin, would avoid Metformin due to GI issues, consider Bebeto, but would like input from MANAGER BUSINESS INFORMATION and will need close follow up
Code status: full code
DVT prophylaxis: SCDs
Anticipated Discharge: 24 - 48 hours
Subjective/Interval History
-
Date of Service: July 16, 2024
Minimal abd pain, remains tender, passing flatus, no stool
Objective Data
-
Labs:
Laboratory Results
07/16/24
06:00
WBC Pending
Hgb Pending
Hct Pending
Plt Count Pending
Sodium Pending
Potassium Pending
Chloride Pending
Carbon Dioxide Pending
BUN Pending
Creatinine Pending
Glucose Pending
Calcium Pending
Vital Signs:
Vital Signs
Temp Pulse Resp BP Pulse Ox
99.6 F 89 16 141/73 95
07/15/24 23:08 07/15/24 23:22 07/15/24 23:08 07/16/24 00:30 07/15/24 23:08
I&O
07/15/24 07/16/24 07/17/24
06:59 06:59 06:59
Intake Total 2019 880 / 880
Output Total 2199 1625 / 1625
Balance -180 / -180 -745 / -745
Review of Systems
-
History Source: Patient and Family ( at bedside)
Constitutional: Denies Fever
EENT: Reports No Symptoms Reported
Respiratory: Reports No Symptoms
Cardiac: Reports No Symptoms
Abdomen/GI: Reports Abdominal Pain (better) and Constipated (only passing flatus)
Neuro: Reports No Symptoms
Physical Exam
-
General: Well Developed, Well Nourished and No Apparent Distress
HEENT: Normocephalic, Atraumatic and Moist Mucous Membranes
Respiratory: Clear to Auscultation; Negative Wheezes, Rales or Rhonchi
Cardiac: Regular Rhythm and S1/S2
GI: Soft, Normal Bowel Sounds (active), Tender (minimally), Distended (slightly distended) and Other (cholecystostomy tube )
Musculoskeletal: No Clubbing, No Cyanosis and No Edema
Skin: Warm and Dry
Neuro: Awake, Alert and Oriented
--- NOTE | 2024-07-16 07:52 | W.PN.GS2 ---
Addendum entered and electronically signed by Warner Casillas MD 07/16/24 10:19:
I saw and examined the patient independently.
The resident's documentation was reviewed and I agree with the note, assessment and plan except where noted below.
Comment: This is a 49-year-old female who presented with acute cholecystitis now POD #9 status post robotic cholecystotomy and placement of a cholecystostomy tube. Clinically stable, however white count still rising. JO improving. CT scan
reviewed, some residual fat stranding/inflammation noted around the gallbladder but no undrained collection. Interestingly there is also some inflammation in the left paracolic gutter but no evidence of diverticulitis and the patient is not tender
on exam there.
No acute surgical intervention warranted at this time. Continue biliary drain to gravity, will plan for outpatient follow-up in 3 weeks and surgery in 2 to 3 months.
Drain teaching.
General surgery will follow peripherally, please call with any questions or concerns.
Original Note:
Today's Communication / Plan
-
Cont. LRD
PO augment
F/u with general surgery as OP
Primary team appreciated
Assessment / Plan
-
49 yo female presenting with severe cholecystitis s/p robotic placement of cholecystostomy drain, cholecystectomy unable to be performed safely due to the degree of inflammation/abscess POD#9
AFVSS
Renal function continues to improve, last HD was on 07/12
New dx DM this admit with A1c of 10.2
Ileus resolving, passing stools/flatus
WBC is trending up, h/h stable
Plan:
--Doing well on LRD
--Analgesics as needed
--Continue with cholecystostomy tube to gravity drain. Will remain in place upon d/c for minimum of 6-8 weeks
--Transitioned to PO Augmentin day 3
--Velazquez as per nephrology
--Appreciate hospitalist
--CT from this am looks good with no abscess formation, still significant inflammation around drain, but properly placed
--F/u outpatient with Dr. Hooper and Dr. Casillas
--VTE ppx with sq heparin and scds
Subjective Data
-
Date of Service: July 16, 2024
Feeling overall well. No N/V on low residue diet and continued to pass gas/have bowel movement. Does complain of 2 episodes of sharp left sided ab pain that subsided quickly.
Objective Data
-
Intake and Output
07/15/24 07/16/24 07/17/24
06:59 06:59 06:59
Intake Total 2019 880 / 880
Output Total 2200 / 2200 1625 / 1625
Balance -180 / -180 -745 / -745
Intake:
Oral fluids 2019 880 / 880
Output:
Drain Output (Total) 300 / 300 125 / 125
Right Upper Abdomen 300 / 300 125 / 125
Urine, Velazquez 1900 / 1900 1500 / 1500
Vital Signs
Temp Pulse Resp BP Pulse Ox
99.6 F 89 16 141/73 95
07/15/24 23:08 07/15/24 23:22 07/15/24 23:08 07/16/24 00:30 07/15/24 23:08
Calcium 8.5 mg/dl (8.4-10.2) 07/15/24 05:21
Magnesium 1.7 mg/dl (1.6-2.3) 07/12/24 07:43
Total Bilirubin 1.0 mg/dl (0.2-1.3) 07/15/24 05:21
Direct Bilirubin 0.5 mg/dl (0.0-0.4) H 07/14/24 05:38
AST 26 U/L (14-36) 07/15/24 05:21
ALT 23 U/L (0-35) 07/15/24 05:21
Alkaline Phosphatase 305 U/L (38-126) H 07/15/24 05:21
Total Protein 6.1 g/dl (6.3-8.2) L 07/15/24 05:21
Albumin 3.0 g/dl (3.5-5.0) L 07/15/24 05:21
Physical Exam
-
NAD
Ab obese, soft, distended, but nontender
No signs of infx around percutaneous drain
200 ml non-purulent bilious drainage
Patient has a velazquez catheter: Yes
--- NOTE | 2024-07-16 08:41 | PN.DE.MGMTRT ---
Insulin Management
- -
07/16/2024: Diabetes Management Consult
49 year old female admitted 07/06 for RUQ abdominal pain, vomiting and chills for 3 weeks ago due to Acute gallstone cholecystitis.
PMH: HTN, PANTERA, cholelithiasis, T2DM, not on medication.
Pt awake, alert, oriented, resting in bed, offers no complaints, and dtr at bedside. states he is diabetic as well.
Pt states that her elevated blood glucose is due to being acutely ill and that she does not have diabetes.
Discussed current A1C of 10.2% and correlation of long standing T2DM that appears to be uncontrolled regardless of the acute illness with acute jr.
Reviewed target A1C of <6.5% and target blood sugar range of 80 to 130 for optimal glucose control to promote healing.
Also discussed limited options with oral diabetes agents due to JO. Cr is 1.3, eGFR 50.10
Pt has been started on a low fat diet, tho has no appetite and is not eating much.
Her current blood glucose is in range premeal 102 to 174, HS was 134, FBG 108 tis AM.
Notified pt that her blood sugar will likely trend up once her appetite improves and her food intake is at baseline.
Will cont low corrective insulin for now. Will cont to follow and adjust regimen if necessary.
Will order Diabetes Education. Diabetes RN Educator will see pt for monitor and insulin instructions
Diabetes History
- -
Type of Diabetes: 2 requiring insulin
Pre-Admission Diabetes Regimen
Lab Results
Hemoglobin A1c 10.2 % (4.0-5.6) H 07/07/24 05:49
Insulin Pump Settings
IP Diabetes Regimen
07/15/24 07/15/24 07/15/24
12:04 17:16 22:34
POC Glucose 174 H 158 H 134 H
Meal type: Dinner
Meal type: Lunch
Meal type: Breakfast
Amount consumed: 90%
Amount consumed: 85%
Amount consumed: 100%
Patient Education
[2024-07-16] MEDS: NON-FORMULARY ITEM 1 UNIT PO (08:56)
[2024-07-16] MEDS: AUGMENTIN 875 MG/125 MG 1 TABLET PO (08:56)
[2024-07-16] MEDS: PROCARDIA XL (EXTENDED RELEASE) 30 MG PO ×2 (08:56→20:06)
[2024-07-16] MEDS: VITAMIN D3 (cholecalciferol) PO (08:56)
[2024-07-16 09:05] LABS: Hematocrit 31.9 % (37.0-47.0); Hemoglobin 10.5 g/dL (12.0-16.0); Mean Corp Hgb Conc. 32.9 g/dL (33.0-37.0); Mean Corpuscular Hgb 24.9 pg (27.0-31.0); Mean Corpuscular Volume 75.6 fL (81.0-99.0); Mean Platelet Volume 9.2 fL (7.4-10.4); Platelet Count 279 10^3/uL (130-400); Red Blood Cell Count 4.22 10^6/uL (4.20-5.40); Red Cell Dist. Width 18.8 % (11.5-14.5); White Blood Cell Count 17.3 10^3/uL (4.8-10.8)
[2024-07-16 09:05] LABS: Glucose - Point of Care 108 mg/dl (70-99)
[2024-07-16] MEDS: NOVOLOG FLEXPEN-LOW RESISTANCE SC ×2 (09:05→13:08)
[2024-07-16 10:00] VITALS: BP 161/89
[2024-07-16 10:51] LABS: Estimated Creatinine Clearance 69 ml/min; eGFR > 60.00
[2024-07-16 11:02] LABS: Blood Urea Nitrogen 15 mg/dl (7-17); Calcium 8.4 mg/dl (8.4-10.2); Carbon Dioxide 21 mmol/L (22-30); Chloride 100 mmol/L (98-107); Glucose 135 mg/dl (70-99); Potassium 3.6 mmol/L (3.5-5.1); Sodium 133 mmol/L (135-145)
--- NOTE | 2024-07-16 11:08 | W.PN.ID1 ---
Date of Service
Date of Service: July 16, 2024
Today's Communication
replace Augmentin with cefdinir 300mg po bid and metronidazole 500mg po bid.
Assessment / Plan
# Severe cholecystitis
# Leukocytosis - trending up
# JO -resolving
# Acute Ileus - resolving
- 07/07 s/p robotic cholecystostomy tube placement as jr deemed unsafe
- Bile gram stain, many GNR, few GPC; Cx Viridans streptococcus, Prevotella
- 07/[address] a/p result pending
- s/p ceftriaxone 1gIV q24 and metronidazole 500mg q8 x 7d
- replace Augmentin with cefdinir 300mg po bid and metronidazole 500mg po bid.
# Conditions [facility]
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
HTN
HLD
GERD
Fatty liver
Hepatosplenomegaly
Anal fissure
Choledocholithiasis s/p ERCP (12/2023)
Class III obesity
Chief Complaint
-: Leukocytosis and Other (Cholecystitis)
Subjective / Review of Systems
Tolerating diet. + BM once a day. No abd pain.
Vital Signs / Physical Exam
Vital Signs
Vital Signs
Temp Pulse Resp BP Pulse Ox
99.2 F 96 18 161/89 94
07/16/24 10:00 07/16/24 10:00 07/16/24 10:00 07/16/24 10:00 07/16/24 10:00
Physical Exam
Constitutional: No Acute Distress and Comfortable
Cardiovascular: Regular Rate and S1/S2
Pulmonary: Clear
Gastrointestinal: Soft, Non Tender, Non Distended and Decreased Bowel Sounds
Genito-Urinary: Adler and Clear Urine
Neurological: AO x 3
Objective Data
Lab Data
Lab Results
07/16/24 08:51
07/16/24 10:11
Estimated Creat Clear 69 ml/min 07/16/24 10:11
Lactic Acid 1.2 mmol/L (0.7-2.0) 07/08/24 11:50
Total Bilirubin 1.0 mg/dl (0.2-1.3) 07/15/24 05:21
AST 26 U/L (14-36) 07/15/24 05:21
ALT 23 U/L (0-35) 07/15/24 05:21
Alkaline Phosphatase 305 U/L (38-126) H 07/15/24 05:21
Most recent labs reviewed.
Micro Results:
07/07/24 09:40 Wound Culture - Final
Gallbladder Viridans Streptococcus Group
Gram Stain - Final
07/07/24 09:40 Anaerobic Culture - Final
Gallbladder Prevotella species
07/11/24 AXR: There is persistent gaseous distended loops of bowel throughout the abdomen, overall similar appearance to prior and which may represent adynamic ileus.
07/08/24 Renal US: Mild dilatation of the left renal collecting system without overt hydronephrosis.
07/06/24 Abd US: Abnormal gallbladder. Markedly abnormal. Severely distended 12 cm, with a large amount of heterogeneous echogenic intraluminal debris/complex fluid and cholelithiasis. Positive sonographic Kenyon's sign. 5 mm gallbladder wall.
Pericholecystic fluid. Consistent with cholecystitis. No bile duct dilatation.
[2024-07-16] MEDS: FLAGYL 500 MG PO ×2 (11:23→20:03)
[2024-07-16] MEDS: OMNICEF 300 MG PO ×2 (11:23→20:03)
--- NOTE | 2024-07-16 12:00 | W.PN.NEPH.PH ---
Today's Communication / Plan
-
follow BMP
Assessment/Plan
-
IMP:
JO
Acute cholecystitis
hx gall stones prior ERCP for choledocholithiasis in 12/2023
Microcytic anemia
A gap met acidosis
mild hyperkalemia
hyponatremia
hypomagnesemia
essential hypertension
DM II
Morbid obesity
hyponatremia
Plan:
A/w abd pain with acute cholecystitis s/p Michelle tube
follow BMP
hyponatremia likely from increased po liquids on liquid diet restarted yesterday
-
-
Date of Service: July 16, 2024
CC / HPI / ROS
-
Chief Complaint:
JO
History of Present Illness:
Severe cholecystitis
cr up at 7.1 peaked, nonoliguric with velazquez
Creatinine down to 1.1
Na 133 lower
Review of Systems:
Diet advanced
no cp
Nonoliguric via Velazquez
Labs
-
Labs:
WBC 17.3 10^3/uL (4.8-10.8) H 07/16/24 08:51
RBC 4.22 10^6/uL (4.20-5.40) 07/16/24 08:51
Hgb 10.5 g/dL (12.0-16.0) L 07/16/24 08:51
Hct 31.9 % (37.0-47.0) L 07/16/24 08:51
Plt Count 279 10^3/uL (130-400) 07/16/24 08:51
Sodium 133 mmol/L (135-145) L 07/16/24 10:11
Potassium 3.6 mmol/L (3.5-5.1) 07/16/24 10:11
Chloride 100 mmol/L (98-107) 04/28/25 10:11
Carbon Dioxide 21 mmol/L (22-30) L 07/16/24 10:11
BUN 15 mg/dl (7-17) 07/16/24 10:11
Creatinine 1.1 mg/dL (0.6-1.0) H 07/16/24 10:11
eGFR > 60.00 07/16/24 10:11
Glucose 135 mg/dl (70-99) H 07/16/24 10:11
Calcium 8.4 mg/dl (8.4-10.2) 07/16/24 10:11
Albumin 3.0 g/dl (3.5-5.0) L 07/15/24 05:21
Physical Exam
-
Vital Signs:
Vital Signs
Temp Pulse Resp BP Pulse Ox
99.2 F 96 18 161/89 94
07/16/24 10:00 07/16/24 10:00 07/16/24 10:00 07/16/24 10:00 07/16/24 10:00
Cardiovascular:: Regular rate and rhythm
Respiratory:: Bilateral: CTA
Lung Excursion:: Normal
Abdomen:: Nontender and Soft
Bowel Sounds:: Normal
Extremity Edema:: None: Bilateral:
[2024-07-16 12:46] LABS: Glucose - Point of Care 107 mg/dl (70-99)
--- NOTE | 2024-07-16 12:47 | CM ---
CM reviewed medical records. Plan for discharge to home when medically ready. CM will continue to follow as needed.
PLAN: home no needs
--- NOTE | 2024-07-16 13:07 | PTCARENOTE ---
07/16/2024 DIABETES EDUCATION
I met with Ebony, her and daughter to review diabetes management. She states she is newly diagnosed with diabetes and that 2 years ago her PCP told her she was pre-diabetic. I educated her that in 10/2022 her HbA1c was 8.6% which is
diagnostic of Diabetes. She states that she was not on any medications but her PCP prescribed Rybelsus for weight loss. Due to lack of insurance coverage, this medication was denied and she never took it.
I educated on physiology of T2D, its progressive nature and potential for end organ damage; It's important to manage with medications, monitoring BG, nutrition, activity, and sleep. Discussed normal target glucose ranges and a monitoring schedule
preprandial AM and 2 hours postprandial any meal.
I reinforced signs of hyperglycemia, hypoglycemia and hypoglycemia protocol, DKA and sick day plan. She denies any symptoms of hypoglycemia but has intermittent neuropathy in hands and feet. BS parameters and recommended HbA1c goals, written
material provided.
I educated and demonstrated use of the Contour Next glucometer. She declined glucometer repeat test, started tearing up stating she has been through so much and the hospital saved her life. Her provided repeat demonstration of glucometer,
random BS 134 mg/dL. We reviewed her glucose since being in patient, majority between 100-135 mg/dL. Provided her with a Contour Next sample kit and told her we will order test strips and lancets.
Encouraged patient to follow up with his PCP for post d/c appointment and to monitor medication and blood glucose levels. Provided list of endocrinologists if desired, to contact insurance company to verify in network status. Requested
prescription sent to pharmacy for test strips and lancets for back up SMBG. Information provided on the outpatient DSME program. Patient verbalized understanding.
[2024-07-16 15:30] VITALS: BP 141/73
[2024-07-16 17:51] LABS: Glucose - Point of Care 161 mg/dl (70-99)
[2024-07-16] MEDS: NOVOLOG FLEXPEN-LOW RESISTANCE 1 UNITS SC (17:58)
[2024-07-16] MEDS: TYLENOL 650 MG PO (20:06)
[2024-07-16 23:18] LABS: Glucose - Point of Care 128 mg/dl (70-99)
[2024-07-16 23:25] VITALS: BP 162/80
[2024-07-16 23:30] VITALS: BP 154/74
[2024-07-17] MEDS: HEPARIN 5000 UNITS SC ×3 (05:29→21:00)
[2024-07-17 06:00] VITALS: BMI 41.8
[2024-07-17 07:15] VITALS: BP 139/66
--- NOTE | 2024-07-17 07:26 | PN.DE.MGMTRT ---
Insulin Management
- -
07/17/2024: Diabetes Management Follow up
49 year old female admitted 07/06 for RUQ abdominal pain, vomiting and chills for 3 weeks ago due to Acute gallstone cholecystitis.
PMH: HTN, PANTREA, cholelithiasis, T2DM, not on medication. Pt states that her elevated blood glucose is due to being acutely ill and that she does not have diabetes. Discussed current A1C of 10.2% and correlation of long standing T2DM that appears to
be uncontrolled regardless of the acute illness with acute jr. Reviewed target A1C of <6.5% and target blood sugar range of 80 to 130 for optimal glucose control to promote healing.
Pt awake, alert, oriented, resting in bed, offers no complaints, and dtr at bedside, very supportive.
Now POD#10 s/p robotic placement of cholecystostomy drain, cholecystectomy unable to be performed safely due to the degree of inflammation/abscess.
Pt was started on a low fat diet and is tolerating well. JO resolved. Cr 1.3-->1.1, eGFR>60 today.
Her current blood glucose is stable and in range, 07/16 premeal was 107 to 161, HS 128, FBG 129 this AM.
Will start Januvia 50 mg daily. Notified pt that her blood sugar will likely trend up once her appetite improves and her food intake is at baseline.
Will cont low corrective insulin and adjust regimen if necessary.
digital performance analyst will see pt today for monitor instructions.
Diabetes History
- -
Type of Diabetes: 2
Pre-Admission Diabetes Regimen
07/16/24 07/16/24
08:51 10:11
Creatinine Cancelled 1.1 H
Lab Results
Hemoglobin A1c 10.2 % (4.0-5.6) H 07/07/24 05:49
Insulin Pump Settings
IP Diabetes Regimen
07/16/24 07/16/24 07/16/24
08:51 09:03 10:11
Glucose Cancelled 135 H
POC Glucose 108 H
07/16/24 07/16/24 07/16/24
12:42 17:50 23:16
Glucose
POC Glucose 107 H 161 H 128 H
Meal type: Dinner
Meal type: Lunch
Amount consumed: 80%
Amount consumed: 50%
Patient Education
[2024-07-17 07:33] LABS: % Basophils 0.3 % (0-2); % Eosinophils 0.6 % (0-6); % Lymphocytes 13.3 % (20.5-51.1); % Monocytes 5.5 % (1.7-9.3); % Neutrophils 76.3 % (42.2-75.2); Absolute Basophils 0.1 10^3/uL (0-0.2); Absolute Eosinophils 0.1 10^3/uL (0-0.7); Absolute Immature Granulocytes 0.6 10^3/uL (0-0.05); Absolute Lymphocytes 2.1 10^3/uL (1.2-3.4); Absolute Monocytes 0.9 10^3/uL (0.1-0.6); Absolute Neutrophils 12.1 10^3/uL (1.4-6.5); Hematocrit 29.8 % (37.0-47.0); Hemoglobin 9.6 g/dL (12.0-16.0); Mean Corp Hgb Conc. 32.2 g/dL (33.0-37.0); Mean Corpuscular Hgb 24.8 pg (27.0-31.0); Mean Platelet Volume 9.6 fL (7.4-10.4); Nucleated Red Blood Cells % 0.1 %; Platelet Count 257 10^3/uL (130-400); Red Blood Cell Count 3.87 10^6/uL (4.20-5.40); Red Cell Dist. Width 18.7 % (11.5-14.5); White Blood Cell Count 15.8 10^3/uL (4.8-10.8)
[2024-07-17 07:52] LABS: Glucose - Point of Care 122 mg/dl (70-99)
[2024-07-17 08:04] LABS: ALT (SGPT) 17 U/L (0-35); AST (SGOT) 20 U/L (14-36); Alkaline Phosphatase 274 U/L (38-126); Blood Urea Nitrogen 15 mg/dl (7-17); Calcium 8.7 mg/dl (8.4-10.2); Carbon Dioxide 22 mmol/L (22-30); Chloride 103 mmol/L (98-107); Estimated Creatinine Clearance 69 ml/min; Glucose 129 mg/dl (70-99); Potassium 3.9 mmol/L (3.5-5.1); Sodium 135 mmol/L (135-145); Total Bilirubin 0.7 mg/dl (0.2-1.3); Total Protein 6.1 g/dl (6.3-8.2); eGFR > 60.00
[2024-07-17] MEDS: PROCARDIA XL (EXTENDED RELEASE) 30 MG PO ×2 (08:44→21:00)
[2024-07-17] MEDS: NON-FORMULARY ITEM 1 UNIT PO ×2 (08:44→15:06)
[2024-07-17] MEDS: OMNICEF 300 MG PO ×2 (08:44→21:00)
[2024-07-17] MEDS: FLAGYL 500 MG PO ×2 (08:44→21:00)
[2024-07-17] MEDS: VITAMIN D3 (cholecalciferol) 125 MCG PO (08:44)
--- NOTE | 2024-07-17 08:46 | W.PN.GS2 ---
Today's Communication / Plan
-
-- No changes from surgical perspective
Assessment / Plan
-
49 yo female presenting with cholecystitis
POD#10 s/p robotic placement of cholecystostomy drain, cholecystectomy unable to be performed safely due to the degree of inflammation/abscess
CT Abd/Pelvis (07/16/2024): Continued mild inflammation around the GB, no clear abscess formation (though Radiologist questions small hepatic component), still significant inflammation around drain, but properly placed, mild paracolic fluid
AFVSS
Renal function continues to improve, last HD was on 07/12
New dx DM this admit with A1c of 10.2
Ileus resolving, passing stools/flatus
WBC no trending down, h/h stable
Fluctuating WBC likely related to continued inflammation/infection around her gallbladder with possible intermittent leakage around entry site. CT scan imaging does not demonstrate any undrained fluid collections that would be amenable to IR
intervention. No role for surgical intervention at this time as this would be particularly difficult 10 days out from her most recent operation. Recommend continued medical management with antibiotics. UA ordered given persistent Velazquez and to
rule out alterative causes for her WBC. Further CT scan imaging pending the trend in her WBC. Clinically she appears well.
Plan:
--LRD
--Continue with cholecystostomy tube to gravity drain. Will remain in place upon d/c for minimum of 6-8 weeks
--Abx: ID on board: transitioned back to IV Cefepime and Flagyl
--Velazquez as per Nephrology
--Appreciate Hospitalist
--F/u outpatient with Dr. Hooper and Dr. Casillas
--DVT: SQH, SCDs
Subjective Data
-
Date of Service: July 17, 2024
No complaints. Denies worsening abdominal pain. No nausea or vomiting. No fevers.
Objective Data
-
Intake and Output
07/16/24 07/17/24 07/18/24
06:59 06:59 06:59
Intake Total 880 / 880 560 / 560
Output Total 1625 / 1625 2049
Balance -745 / -745 -1490 / -1490
Intake:
Oral fluids 880 / 880 560 / 560
Output:
Drain Output (Total) 125 / 125 450 / 450
Right Upper Abdomen 125 / 125 450 / 450
Urine, Velazquez 1500 / 1500 1600 / 1600
Vital Signs
Temp Pulse Resp BP Pulse Ox
99.8 F 89 15 139/66 95
07/17/24 07:15 07/17/24 07:15 07/17/24 07:15 07/17/24 07:15 07/17/24 07:15
Lab Results
07/17/24 07:07
07/17/24 07:07
Calcium 8.7 mg/dl (8.4-10.2) 07/17/24 07:07
Magnesium 1.7 mg/dl (1.6-2.3) 07/12/24 07:43
Total Bilirubin 0.7 mg/dl (0.2-1.3) 07/17/24 07:07
Direct Bilirubin 0.5 mg/dl (0.0-0.4) H 07/14/24 05:38
AST 20 U/L (14-36) 07/17/24 07:07
ALT 17 U/L (0-35) 07/17/24 07:07
Alkaline Phosphatase 274 U/L (38-126) H 07/17/24 07:07
Total Protein 6.1 g/dl (6.3-8.2) L 07/17/24 07:07
Albumin 3.0 g/dl (3.5-5.0) L 07/17/24 07:07
Physical Exam
-
Gen: NAD
Abd: soft, obese, minimal tenderness around jr tube, ND, no diffuse peritonitis, jr tube draining bile
Patient has a velazquez catheter: Yes
Patient has a central line: No
[2024-07-17] MEDS: NOVOLOG FLEXPEN-LOW RESISTANCE SC ×3 (08:47→17:39)
--- NOTE | 2024-07-17 09:54 | W.PN.NEPH.PH ---
Today's Communication / Plan
-
voiding trial
Assessment/Plan
-
IMP:
JO
Acute cholecystitis
hx gall stones prior ERCP for choledocholithiasis in 12/2023
Microcytic anemia
A gap met acidosis
mild hyperkalemia
hyponatremia
hypomagnesemia
essential hypertension
DM II
Morbid obesity
hyponatremia
Plan:
Voiding trial
Follow BMP
-
-
Date of Service: July 17, 2024
CC / HPI / ROS
-
Chief Complaint:
JO
History of Present Illness:
Severe cholecystitis
JO/Cr down to 1.1
Na up to 135
Hgb lower 9.6
BP stable
Review of Systems:
Diet advanced, tolerated regular
no cp
Nonoliguric via Adler
Labs
-
Labs:
WBC 15.8 10^3/uL (4.8-10.8) H 07/17/24 07:07
RBC 3.87 10^6/uL (4.20-5.40) L 07/17/24 07:07
Hgb 9.6 g/dL (12.0-16.0) L 07/17/24 07:07
Hct 29.8 % (37.0-47.0) L 07/17/24 07:07
Plt Count 257 10^3/uL (130-400) 07/17/24 07:07
Sodium 135 mmol/L (135-145) 07/17/24 07:07
Potassium 3.9 mmol/L (3.5-5.1) 07/17/24 07:07
Chloride 103 mmol/L (98-107) 07/17/24 07:07
Carbon Dioxide 22 mmol/L (22-30) 07/17/24 07:07
BUN 15 mg/dl (7-17) 07/17/24 07:07
Creatinine 1.1 mg/dL (0.6-1.0) H 07/17/24 07:07
eGFR > 60.00 07/17/24 07:07
Glucose 129 mg/dl (70-99) H 07/17/24 07:07
Calcium 8.7 mg/dl (8.4-10.2) 07/17/24 07:07
Albumin 3.0 g/dl (3.5-5.0) L 07/17/24 07:07
Physical Exam
-
Vital Signs:
Vital Signs
Temp Pulse Resp BP Pulse Ox
99.8 F 89 15 139/66 95
07/17/24 07:15 07/17/24 07:15 07/17/24 07:15 07/17/24 07:15 07/17/24 07:15
Cardiovascular:: Regular rate and rhythm
Respiratory:: Bilateral: CTA
Lung Excursion:: Normal
Abdomen:: Nontender and Soft
Bowel Sounds:: Normal
Extremity Edema:: None: Bilateral:
[2024-07-17] MEDS: JANUVIA 50 MG PO (11:56)
--- NOTE | 2024-07-17 11:58 | W.PN.ID1 ---
Date of Service
Date of Service: July 17, 2024
Today's Communication
- Continue cefdinir 300mg po bid and metronidazole 500mg po bid through 07/22/24.
Assessment / Plan
# Severe cholecystitis
# Leukocytosis - improved today
# JO -resolving
# Acute Ileus - resolving
- 07/07 s/p robotic cholecystostomy tube placement as jr deemed unsafe
- Bile gram stain, many GNR, few GPC; Cx Viridans streptococcus, Prevotella
- s/p ceftriaxone 1gIV q24 and metronidazole 500mg q8 x 7d
- Continue cefdinir 300mg po bid and metronidazole 500mg po bid through 07/22/24.
# Conditions [employer]
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
HTN
HLD
GERD
Fatty liver
Hepatosplenomegaly
Anal fissure
Choledocholithiasis s/p ERCP (12/2023)
Class III obesity
Chief Complaint
-: Leukocytosis and Other (Cholecystitis)
Subjective / Review of Systems
Feels much improved today. Metronidazole tastes nasty but tolerable.
Vital Signs / Physical Exam
Vital Signs
Vital Signs
Temp Pulse Resp BP Pulse Ox
99.8 F 89 15 139/66 95
07/17/24 07:15 07/17/24 07:15 07/17/24 07:15 07/17/24 07:15 07/17/24 07:15
Physical Exam
Constitutional: No Acute Distress and Comfortable
Cardiovascular: Regular Rate and S1/S2
Pulmonary: Clear
Gastrointestinal: Soft, Non Tender, Non Distended and Decreased Bowel Sounds
Neurological: AO x 3
Objective Data
Lab Data
Lab Results
07/17/24 07:07
07/17/24 07:07
Estimated Creat Clear 69 ml/min 07/17/24 07:07
Lactic Acid 1.2 mmol/L (0.7-2.0) 07/08/24 11:50
Total Bilirubin 0.7 mg/dl (0.2-1.3) 07/17/24 07:07
AST 20 U/L (14-36) 07/17/24 07:07
ALT 17 U/L (0-35) 07/17/24 07:07
Alkaline Phosphatase 274 U/L (38-126) H 07/17/24 07:07
Most recent labs reviewed.
Micro Results:
07/07/24 09:40 Wound Culture - Final
Gallbladder Viridans Streptococcus Group
Gram Stain - Final
07/07/24 09:40 Anaerobic Culture - Final
Gallbladder Prevotella species
07/11/24 AXR: There is persistent gaseous distended loops of bowel throughout the abdomen, overall similar appearance to prior and which may represent adynamic ileus.
07/08/24 Renal US: Mild dilatation of the left renal collecting system without overt hydronephrosis.
07/06/24 Abd US: Abnormal gallbladder. Markedly abnormal. Severely distended 12 cm, with a large amount of heterogeneous echogenic intraluminal debris/complex fluid and cholelithiasis. Positive sonographic Kenyon's sign. 5 mm gallbladder wall.
Pericholecystic fluid. Consistent with cholecystitis. No bile duct dilatation.
[2024-07-17 12:24] LABS: Glucose - Point of Care 118 mg/dl (70-99)
--- NOTE | 2024-07-17 12:39 | W.PN.HOSP.TC ---
Today's Communication/Plan
-
follow WBC
Bebeto started, hopefully stop SSI and accuchecks in near future
timing of dc will be depending on WBC and input from surgery
Assessment / Plan
Assessment / Plan
49-year-old female past medical history of hypertension, iron deficiency anemia, cholelithiasis, type 2 diabetes not on medication; presented with right upper quadrant abdominal pain, vomiting and chills for 3 weeks [employer]IR[employer].
She stopped taking antihypertensive medications few days ago due to blood pressure 100 systolic. BP now 177/88, discussed with Dr. Larios, he does not want pt to resume Losartan, prefers Procardia XL 30 bid, and ordered
Reviewed situation with , dgt, son in room
Abdominal ultrasound shows abnormal gallbladder, severely distended 12 cm, with large amount of heterogeneous echogenic luminal debris/complex fluid and cholelithiasis, positive sonographic Kenyon sign, 5 mm gallbladder wall, pericholecystic fluid
consistent with cholecystitis.
A/P:
# Acute gallstone cholecystitis, Severe cholecystitis
# hx gall stones
# Elevated LFT due to above, resolved
GS on board, placed cholecystomy tube 07/07. One unit PRBC given during OR
started on low fat 07/15 and is tolerating
Pt c/o N/V 07/10, AXR 07/10 showed persistent gaseous distended loops of bowel throughout the abdomen, overall similar appearance to prior and which may represent adynamic ileus.
s/p NGT, removed 07/12
Of note, LFT normalized
Of note, wound culture growing Viridans strep
Zosyn -> ceftriaxone/Flagyl-->Cefdinir 300 mg bid and Flagyl 500 mg bid through 07/22
appreciate ID input
WBC 12.8-->13.1-->11.3-->14.4-->17.3-->15.[address] scan 07/16 with oral contrast: Postoperative day #9 for cholecystectomy with percutaneous cholecystostomy tube placement. Associated moderate heterogeneous fluid and air in the gallbladder fossa raising concern for infection or hemorrhagic
biloma not excluded.
Probable edematous change in the adjacent liver. Intrahepatic abscess not completely excluded. Limited evaluation without IV contrast.
Findings suggesting mild inflammation in the right upper quadrant.
Mild fluid in the paracolic gutter bilaterally and moderate heterogeneous fluid in the pelvis. Infection and hemorrhagic products not excluded. Probably from the above process. An acute process involving the uterus or bladder cannot be excluded.
Moderate diffuse bladder wall thickening. This can be seen with cystitis or bladder outlet obstruction. Findings due to limited distention cannot be excluded.
Moderate air in the bladder probably due to recent instrumentation. Adler catheter present. Infection cannot be excluded.
Hepatomegaly. Stable.
# acute kidney injury and kidney failure
Creat 1.6 -> peaked at 7.1, unknown baseline and pt was started with HD 07/09 -->5.5-->3.0-dialysis stopped->1.6-->1.5-->1.3-->1.1
dialysis catheter removed, voiding trial ordered by nephro
monitor BMP
Of note, Kidney bladder US not significant, noted Mild dilatation of the left renal collecting system without overt hydronephrosis.
Renal on board
# Essential hypertension
Holding losartan and HCTZ
use IV hydralazine PRN for SBP > 160
add Procardia XL 30 mg bid, as per Dr. Larios
139/66 currently
# DM II
A1c 10.2%- informed pt and family that this is diabetic range. Januvia 50 mg daily ordered by PAULINA Somers
insulin sliding scale. Glu well controlled with sugars in the 108-159 range
Code status: full code
DVT prophylaxis: SCDs
Anticipated Discharge: 24 - 48 hours
Subjective/Interval History
-
Date of Service: July 17, 2024
Generally feels better
Objective Data
-
Labs:
Laboratory Results
07/17/24
07:07
WBC 15.8 H
Hgb 9.6 L
Hct 29.8 L
Plt Count 257
Sodium 135
Potassium 3.9
Chloride 103
Carbon Dioxide 22
BUN 15
Creatinine 1.1 H
Glucose 129 H
Calcium 8.7
Total Bilirubin 0.7
AST 20
ALT 17
Alkaline Phosphatase 274 H
Vital Signs:
Vital Signs
Temp Pulse Resp BP Pulse Ox
99.8 F 89 15 139/66 95
07/17/24 07:15 07/17/24 07:15 07/17/24 07:15 07/17/24 07:15 07/17/24 07:15
I&O
07/16/24 07/17/24 07/18/24
06:59 06:59 06:59
Intake Total 880 / 880 560 / 560 1160 / 1160
Output Total 1625 / 1625 2049 / 2049
Balance -745 / -745 -1490 / -1490 1160 / 1160
Review of Systems
-
History Source: Patient and Family ( at bedside)
Constitutional: Denies Fever
EENT: Reports No Symptoms Reported
Respiratory: Reports No Symptoms
Cardiac: Reports No Symptoms
Abdomen/GI: Reports Abdominal Pain (better, minimal in area of incision) and Constipated (only passing flatus)
Neuro: Reports No Symptoms
Physical Exam
-
General: Well Developed, Well Nourished and No Apparent Distress
HEENT: Normocephalic, Atraumatic and Moist Mucous Membranes
Respiratory: Clear to Auscultation; Negative Wheezes, Rales or Rhonchi
Cardiac: Regular Rhythm and S1/S2
GI: Soft, Normal Bowel Sounds (active), Tender (minimally), Distended (slightly distended) and Other (cholecystostomy tube )
Musculoskeletal: No Clubbing, No Cyanosis and No Edema
Skin: Warm and Dry
Neuro: Awake, Alert and Oriented
[2024-07-17 15:10] VITALS: BP 135/80
[2024-07-17 16:24] LABS: Urine Albumin 3+ (Neg - Trace); Urine Bilirubin Negative (Negative); Urine Character Cloudy (Clear); Urine Color Yellow; Urine Glucose Negative (Negative); Urine Ketone Negative (Negative); Urine Leukocyte 3+ (Negative); Urine Nitrite Negative (Negative); Urine Occult Blood 4+ (Negative); Urine Urobilinogen Negative (Neg - 1+)
[2024-07-17 16:33] LABS: Urine Squamous Cell 26-30 /LPF (Few)
[2024-07-17 16:37] LABS: Urine Bacteria Many (Negative); Urine White Cell 90-100 /HPF (0-5)
[2024-07-17 17:36] LABS: Glucose - Point of Care 118 mg/dl (70-99)
[2024-07-17 21:37] LABS: Glucose - Point of Care 162 mg/dl (70-99)
[2024-07-17 23:12] VITALS: BP 139/78
[2024-07-18] MEDS: HEPARIN 5000 UNITS SC ×3 (03:01→20:58)
[2024-07-18 05:35] VITALS: BMI 42.0
[2024-07-18 07:20] LABS: % Basophils 0.4 % (0-2); % Eosinophils 0.7 % (0-6); % Immature Granulocytes 3.1 % (0-0.5); % Lymphocytes 15.8 % (20.5-51.1); % Monocytes 5.9 % (1.7-9.3); % Neutrophils 74.1 % (42.2-75.2); Absolute Basophils 0.1 10^3/uL (0-0.2); Absolute Eosinophils 0.1 10^3/uL (0-0.7); Absolute Immature Granulocytes 0.5 10^3/uL (0-0.05); Absolute Lymphocytes 2.4 10^3/uL (1.2-3.4); Absolute Monocytes 0.9 10^3/uL (0.1-0.6); Absolute Neutrophils 11.1 10^3/uL (1.4-6.5); Hematocrit 28.9 % (37.0-47.0); Hemoglobin 9.2 g/dL (12.0-16.0); Mean Corp Hgb Conc. 31.8 g/dL (33.0-37.0); Mean Corpuscular Hgb 24.8 pg (27.0-31.0); Mean Corpuscular Volume 77.9 fL (81.0-99.0); Mean Platelet Volume 10.2 fL (7.4-10.4); Nucleated Red Blood Cells % 0 %; Platelet Count 277 10^3/uL (130-400); Red Blood Cell Count 3.71 10^6/uL (4.20-5.40); Red Cell Dist. Width 18.7 % (11.5-14.5)
[2024-07-18 07:25] VITALS: BP 128/68
[2024-07-18 07:44] LABS: Blood Urea Nitrogen 16 mg/dl (7-17); Calcium 8.7 mg/dl (8.4-10.2); Carbon Dioxide 21 mmol/L (22-30); Chloride 104 mmol/L (98-107); Estimated Creatinine Clearance 76 ml/min; Glucose 135 mg/dl (70-99); Sodium 136 mmol/L (135-145); eGFR > 60.00
--- NOTE | 2024-07-18 07:51 | PN.DE.MGMTRT ---
Insulin Management
- -
07/18/2024: Diabetes Management Follow up
49 year old female admitted 07/06 for RUQ abdominal pain, vomiting and chills for 3 weeks ago due to Acute gallstone cholecystitis.
PMH: HTN, PANTERA, cholelithiasis, T2DM, not on medication. Pt states that her elevated blood glucose is due to being acutely ill and that she does not have diabetes. Discussed current A1C of 10.2% and correlation of long standing T2DM that appears to
be uncontrolled regardless of the acute illness with acute jr. Reviewed target A1C of <6.5% and target blood sugar range of 80 to 130 for optimal glucose control to promote healing.
Pt awake, alert, oriented, resting in bed, offers no complaints, and dtr at bedside, very supportive.
Now POD #11 s/p robotic placement of cholecystostomy drain, cholecystectomy unable to be performed safely due to the degree of inflammation/abscess.
Pt was started on a low fat diet and is tolerating well. JO resolved. Cr 1.3-->1.0, eGFR>60 today.
Januvia 50mg daily was started yesterday. Glucose stable and in range, 118 to 122, HS 162, FBG 135 V this AM.
Will make no changes to current regimen: Januvia 50 mg daily and low corrective insulin with meals, will adjust regimen if necessary.
Pt was seen by microcomputer technician for monitor instructions.
Meds at discharge: Januvia 50mg daily
Diabetes History
- -
Type of Diabetes: 2
Pre-Admission Diabetes Regimen
07/17/24 07/18/24
07:07 06:04
Creatinine 1.1 H 1.0
Lab Results
Hemoglobin A1c 10.2 % (4.0-5.6) H 07/07/24 05:49
Insulin Pump Settings
IP Diabetes Regimen
07/17/24 07/17/24 07/17/24
07:07 07:51 12:22
Glucose 129 H
POC Glucose 122 H 118 H
07/17/24 07/17/24 07/18/24
17:35 21:35 06:04
Glucose 135 H
POC Glucose 118 H 162 H
Meal type: Lunch
Meal type: Breakfast
Amount consumed: 75%
Amount consumed: 90%
Patient Education
[2024-07-18] MEDS: FLAGYL 500 MG PO ×2 (08:37→20:58)
[2024-07-18] MEDS: OMNICEF 300 MG PO ×2 (08:37→20:58)
[2024-07-18] MEDS: PROCARDIA XL (EXTENDED RELEASE) 30 MG PO ×2 (08:37→21:00)
[2024-07-18] MEDS: JANUVIA 50 MG PO (08:37)
[2024-07-18] MEDS: NON-FORMULARY ITEM 1 UNIT PO ×2 (08:38)
[2024-07-18] MEDS: VITAMIN D3 (cholecalciferol) PO (08:41)
[2024-07-18 08:57] LABS: Glucose - Point of Care 118 mg/dl (70-99)
[2024-07-18] MEDS: NOVOLOG FLEXPEN-LOW RESISTANCE SC ×3 (09:06→18:11)
--- NOTE | 2024-07-18 10:08 | W.PN.NEPH.PH ---
Today's Communication / Plan
-
sign off
Assessment/Plan
-
IMP:
JO
Acute cholecystitis
hx gall stones prior ERCP for choledocholithiasis in 12/2023
Microcytic anemia
A gap met acidosis
mild hyperkalemia
hyponatremia
hypomagnesemia
essential hypertension
DM II
Morbid obesity
hyponatremia
Plan:
JO resolved
Patient can be restarted on losartan hydrochlorothiazide at discharge for hypertension manage (bp controlled)
We can continue Procardia for now until discharge
we will sign off
-
-
Date of Service: July 18, 2024
CC / HPI / ROS
-
Chief Complaint:
JO
History of Present Illness:
Severe cholecystitis
JO/Cr down to 1
Na up to 136
Hgb lower 9.6
BP stable
Review of Systems:
Diet advanced, tolerated regular
no cp
Nonoliguric
velazquez out
Labs
-
Labs:
WBC 15.0 10^3/uL (4.8-10.8) H 07/18/24 06:04
RBC 3.71 10^6/uL (4.20-5.40) L 07/18/24 06:04
Hgb 9.2 g/dL (12.0-16.0) L 07/18/24 06:04
Hct 28.9 % (37.0-47.0) L 07/18/24 06:04
Plt Count 277 10^3/uL (130-400) 07/18/24 06:04
Sodium 136 mmol/L (135-145) 07/18/24 06:04
Potassium 4.0 mmol/L (3.5-5.1) 07/18/24 06:04
Chloride 104 mmol/L (98-107) 07/18/24 06:04
Carbon Dioxide 21 mmol/L (22-30) L 07/18/24 06:04
BUN 16 mg/dl (7-17) 07/18/24 06:04
Creatinine 1.0 mg/dL (0.6-1.0) 07/18/24 06:04
eGFR > 60.00 07/18/24 06:04
Glucose 135 mg/dl (70-99) H 07/18/24 06:04
Calcium 8.7 mg/dl (8.4-10.2) 07/18/24 06:04
Albumin 3.0 g/dl (3.5-5.0) L 07/17/24 07:07
Physical Exam
-
Vital Signs:
Vital Signs
Temp Pulse Resp BP Pulse Ox
98.2 F 81 16 128/68 100
07/18/24 07:25 07/18/24 07:25 07/18/24 07:25 07/18/24 08:37 07/18/24 08:30
--- NOTE | 2024-07-18 10:37 | W.PN.ID1 ---
Date of Service
Date of Service: July 18, 2024
Today's Communication
Continue cefdinir, metronidazole.
One dose of fluconazole.
Assessment / Plan
# Severe cholecystitis
# Leukocytosis - improved today
# JO -resolving
# Acute Ileus - resolved
- 07/07 s/p robotic cholecystostomy tube placement as jr deemed unsafe
- Bile gram stain, many GNR, few GPC; Cx Viridans streptococcus, Prevotella
- s/p ceftriaxone 1gIV q24 and metronidazole 500mg q8 x 7d
- Continue cefdinir 300mg po bid and metronidazole 500mg po bid through 07/22/24.
# Probable Miguelina vaginitis
- Ordered one dose of fluconazole 150mg
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
HTN
HLD
GERD
Fatty liver
Hepatosplenomegaly
Anal fissure
Choledocholithiasis s/p ERCP (12/2023)
Class III obesity
Chief Complaint
-: Leukocytosis and Other (Cholecystitis)
Subjective / Review of Systems
c/o vulva being sore. No dysuria.
Vital Signs / Physical Exam
Vital Signs
Vital Signs
Temp Pulse Resp BP Pulse Ox
98.2 F 81 16 128/68 100
07/18/24 07:25 07/18/24 07:25 07/18/24 07:25 07/18/24 08:37 07/18/24 08:30
Physical Exam
Constitutional: No Acute Distress
Eyes: No Conjunctival Hemorrhage and Sclera Anicteric
Cardiovascular: Regular Rate and S1/S2
Pulmonary: Clear
Gastrointestinal: Soft, Non Tender, Non Distended and Other (Jr tube: bile)
Genito-Urinary: Other (External labia: inflamed redness and dry, no drainage)
Extremities: Negative Edema
Objective Data
Lab Data
Lab Results
07/18/24 06:04
07/18/24 06:04
Estimated Creat Clear 76 ml/min 07/18/24 06:04
Lactic Acid 1.2 mmol/L (0.7-2.0) 07/08/24 11:50
Total Bilirubin 0.7 mg/dl (0.2-1.3) 07/17/24 07:07
AST 20 U/L (14-36) 07/17/24 07:07
ALT 17 U/L (0-35) 07/17/24 07:07
Alkaline Phosphatase 274 U/L (38-126) H 07/17/24 07:07
Most recent labs reviewed.
Micro Results:
07/17/24 15:50 Urine Culture - Pending
Urine
07/07/24 09:40 Wound Culture - Final
Gallbladder Viridans Streptococcus Group
Gram Stain - Final
07/07/24 09:40 Anaerobic Culture - Final
Gallbladder Prevotella species
07/11/24 AXR: There is persistent gaseous distended loops of bowel throughout the abdomen, overall similar appearance to prior and which may represent adynamic ileus.
07/08/24 Renal US: Mild dilatation of the left renal collecting system without overt hydronephrosis.
07/06/24 Abd US: Abnormal gallbladder. Markedly abnormal. Severely distended 12 cm, with a large amount of heterogeneous echogenic intraluminal debris/complex fluid and cholelithiasis. Positive sonographic Kenyon's sign. 5 mm gallbladder wall.
Pericholecystic fluid. Consistent with cholecystitis. No bile duct dilatation.
Care Review
Plan reviewed with: Physician (Dr. Olson)
[2024-07-18] MEDS: DIFLUCAN 150 MG PO (10:41)
--- NOTE | 2024-07-18 11:07 | W.PN.GS2 ---
Addendum entered and electronically signed by Zaid Quinn MD 07/18/24 11:32:
I saw and examined the patient.
The resident's note was reviewed and I agree with the note.
Comment: Improving. Suspect UTI. Ab exam approp, drain with thin julien fluid as expected. No changes from surgical perspective. UTI mgmt per Hosptalist
Original Note:
Today's Communication / Plan
-
Continue management per primary team
Follow up with surgery as OP
Assessment / Plan
-
49 yo female presenting with cholecystitis
POD#11 s/p robotic placement of cholecystostomy drain, cholecystectomy unable to be performed safely due to the degree of inflammation/abscess
CT Abd/Pelvis (07/16/2024): Continued mild inflammation around the GB, no clear abscess formation (though Radiologist questions small hepatic component), still significant inflammation around drain, but properly placed, mild paracolic fluid
AFVSS
Renal function continues to improve now wnl, last HD was on 07/12
New dx DM this admit with A1c of 10.2
Ileus resolving, passing stools/flatus
WBC now trending down, h/h stable
Fluctuating WBC likely related to continued inflammation/infection around her gallbladder with possible intermittent leakage around entry site vs UTI. As pt has been on antibiotics culture unlikely to grow exact specimen but on antibiotics.
Clinically appears well.
Plan:
--LRD
--Continue with cholecystostomy tube to gravity drain. Will remain in place upon d/c for minimum of 6-8 weeks
--Abx: ID on board: transitioned back to PO metronidazole and cefdinir
--Adler discontinued per nephro
--Appreciate Hospitalist
--F/u outpatient with Dr. Hooper and Dr. Casillas
--DVT: SQH, SCDs
Subjective Data
-
Date of Service: July 18, 2024
Overall feeling better than previous. No N/V, tolerating diet well.
Objective Data
-
Intake and Output
07/17/24 07/18/24 07/19/24
06:59 06:59 06:59
Intake Total 560 / 560 2199 / 2199
Output Total 2049 1425 / 1425
Balance -1490 / -1490 775 / 775
Intake:
Oral fluids 560 / 560 2199 / 0
IV fluids (Total) 0 / 0
IV piggybacks 0 / 0
Output:
Drain Output (Total) 450 / 450 125 / 125
Right Upper Abdomen 450 / 450 125 / 125
Urine, Adler 1600 / 1600 400 / 400
Urine, Voided 900 / 900
Other:
Number of approximated MODERATE 1
amounts of urine
Vital Signs
Temp Pulse Resp BP Pulse Ox
98.2 F 81 16 128/68 100
07/18/24 07:25 07/18/24 07:25 07/18/24 07:25 07/18/24 08:37 07/18/24 08:30
Lab Results
07/18/24 06:04
07/18/24 06:04
Calcium 8.7 mg/dl (8.4-10.2) 07/18/24 06:04
Magnesium 1.7 mg/dl (1.6-2.3) 07/12/24 07:43
Total Bilirubin 0.7 mg/dl (0.2-1.3) 07/17/24 07:07
Direct Bilirubin 0.5 mg/dl (0.0-0.4) H 07/14/24 05:38
AST 20 U/L (14-36) 07/17/24 07:07
ALT 17 U/L (0-35) 07/17/24 07:07
Alkaline Phosphatase 274 U/L (38-126) H 07/17/24 07:07
Total Protein 6.1 g/dl (6.3-8.2) L 07/17/24 07:07
Albumin 3.0 g/dl (3.5-5.0) L 07/17/24 07:07
Physical Exam
-
NAD
Ab distended, soft and improved from prior. No tenderness
Drain present in RUQ, no pus, erythema, signs of infx.
[2024-07-18 13:20] LABS: Glucose - Point of Care 109 mg/dl (70-99)
--- NOTE | 2024-07-18 14:23 | CM ---
CM following re: discharge planning.
Reviewed pt's chart, met with pt.
Pt is POD#11 s/p robotic placement of cholecystostomy drain, cholecystectomy unable to be performed safely due to the degree of inflammation/abscess, continue supportive care.
Per chart review, pt has been improved significantly, nephrology signed off.
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
D/c plan: home with anticipated no needs. to transport at discharge.
CM will follow with discharge plan updates as hospitalization progresses.
[2024-07-18 15:48] VITALS: BP 118/71
--- NOTE | 2024-07-18 16:46 | W.PN.HOSP.TC ---
Today's Communication/Plan
-
CBC in AM
Assessment / Plan
Assessment / Plan
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
She stopped taking antihypertensive medications few days ago due to blood pressure 100 systolic. BP now 177/88, discussed with Dr. Larios, he does not want pt to resume Losartan, prefers Procardia XL 30 bid, and ordered
Input from miracle Norman to resume Losartan/HCTZ at time of dc
Reviewed situation with
Abdominal ultrasound shows abnormal gallbladder, severely distended 12 cm, with large amount of heterogeneous echogenic luminal debris/complex fluid and cholelithiasis, positive sonographic Kenyon sign, 5 mm gallbladder wall, pericholecystic fluid
consistent with cholecystitis.
A/P:
# Acute gallstone cholecystitis, Severe cholecystitis
# hx gall stones
# Elevated LFT due to above, resolved
GS on board, placed cholecystomy tube 07/07. One unit PRBC given during OR
started on low fat 07/15 and is tolerating
Pt c/o N/V 07/10, AXR 07/10 showed persistent gaseous distended loops of bowel throughout the abdomen, overall similar appearance to prior and which may represent adynamic ileus.
s/p NGT, removed 07/12
Of note, LFT normalized
Of note, wound culture growing Viridans strep
Zosyn -> ceftriaxone/Flagyl-->Cefdinir 300 mg bid and Flagyl 500 mg bid through 07/22
appreciate ID input
WBC 12.8-->13.1-->11.3-->14.4-->17.3-->15.8-->15.[address] scan 07/16 with oral contrast: Postoperative day #9 for cholecystectomy with percutaneous cholecystostomy tube placement. Associated moderate heterogeneous fluid and air in the gallbladder fossa raising concern for infection or hemorrhagic
biloma not excluded.
Probable edematous change in the adjacent liver. Intrahepatic abscess not completely excluded. Limited evaluation without IV contrast.
Findings suggesting mild inflammation in the right upper quadrant.
Mild fluid in the paracolic gutter bilaterally and moderate heterogeneous fluid in the pelvis. Infection and hemorrhagic products not excluded. Probably from the above process. An acute process involving the uterus or bladder cannot be excluded.
Moderate diffuse bladder wall thickening. This can be seen with cystitis or bladder outlet obstruction. Findings due to limited distention cannot be excluded.
Moderate air in the bladder probably due to recent instrumentation. Adler catheter present. Infection cannot be excluded.
Hepatomegaly. Stable.
# acute kidney injury and kidney failure
Creat 1.6 -> peaked at 7.1, unknown baseline and pt was started with HD 07/09 -->5.5-->3.0-dialysis stopped->1.6-->1.5-->1.3-->1.1-->1.0
dialysis catheter removed, voiding trial ordered by nephro
monitor BMP
Of note, Kidney bladder US not significant, noted Mild dilatation of the left renal collecting system without overt hydronephrosis.
# Essential hypertension
Holding losartan and HCTZ
use IV hydralazine PRN for SBP > 160
add Procardia XL 30 mg bid, as per Dr. Larios
118/71 currently
Ur cx mixed yanni
# DM II
A1c 10.2%- informed pt and family that this is diabetic range. Januvia 50 mg daily ordered by PAULINA Somers
insulin sliding scale. Glu well controlled with sugars in the 108-159 range
Code status: full code
DVT prophylaxis: SCDs
recheck CBC in AM, potential dc pending repeat CBC
Anticipated Discharge: Within 24 hours
Subjective/Interval History
-
Date of Service: July 18, 2024
Generally feeling better
Objective Data
-
Labs:
Laboratory Results
07/18/24
06:04
WBC 15.0 H
Hgb 9.2 L
Hct 28.9 L
Plt Count 277
Sodium 136
Potassium 4.0
Chloride 104
Carbon Dioxide 21 L
BUN 16
Creatinine 1.0
Glucose 135 H
Calcium 8.7
Vital Signs:
Vital Signs
Temp Pulse Resp BP Pulse Ox
98.6 F 103 18 118/71 96
07/18/24 15:48 07/18/24 15:48 07/18/24 15:48 07/18/24 15:48 07/18/24 15:48
I&O
07/17/24 07/18/24 07/19/24
06:59 06:59 06:59
Intake Total 560 / 560 2200 / 2200
Output Total 2049 / 2049 1425 / 1425
Balance -1490 / -1490 775 / 775
Review of Systems
-
History Source: Patient and Family ( at bedside)
Constitutional: Denies Fever
EENT: Reports No Symptoms Reported
Respiratory: Reports No Symptoms
Cardiac: Reports No Symptoms
Abdomen/GI: Reports Abdominal Pain (better, minimal in area of incision); Denies Constipated (resolved, passing stool)
Neuro: Reports No Symptoms
Physical Exam
-
General: Well Developed, Well Nourished and No Apparent Distress
HEENT: Normocephalic, Atraumatic and Moist Mucous Membranes
Respiratory: Clear to Auscultation; Negative Wheezes, Rales or Rhonchi
Cardiac: Regular Rhythm and S1/S2
GI: Soft, Normal Bowel Sounds (active), Tender (minimally), Distended (slightly distended) and Other (cholecystostomy tube )
Musculoskeletal: No Clubbing, No Cyanosis and No Edema
Skin: Warm and Dry
Neuro: Awake, Alert and Oriented
[2024-07-18 18:05] LABS: Glucose - Point of Care 135 mg/dl (70-99)
[2024-07-18 22:00] LABS: Glucose - Point of Care 137 mg/dl (70-99)
[2024-07-18 23:00] VITALS: BP 143/86
[2024-07-19] MEDS: HEPARIN 5000 UNITS SC (04:53)
[2024-07-19 05:09] VITALS: BMI 41.9
[2024-07-19 07:20] VITALS: BP 125/67
--- NOTE | 2024-07-19 07:25 | W.PN.GS2 ---
Addendum entered and electronically signed by Israel Molina MD 07/19/24 08:55:
Patient seen and examined.
No complaints. Denies worsening abdominal pain. No nausea or vomiting. Afebrile.
Gen: NAD
Abd: soft, mild tenderness around jr tube, no diffuse pain, obese
49 yo female presenting with cholecystitis
POD#12 s/p robotic placement of cholecystostomy drain, cholecystectomy unable to be performed safely due to the degree of inflammation/abscess
AFVSS
Renal function continues to improve now wnl, last HD was on 07/12
New dx DM this admit with A1c of 10.2
WBC downtrending. Discharge today okay from surgical standpoint.
Plan:
--Low fat diet
--Abx: ID on board: transitioned back to PO metronidazole and cefdinir through 07/22/24
--Continue with cholecystostomy tube to gravity drain. Will remain in place upon d/c for minimum of 6-8 weeks
--F/u outpatient within 2 weeks
Original Note:
Today's Communication / Plan
-
Okay for discharge from surgical standpoint. Follow up with surgery as OP after discharge. Continue cefdinir 300mg po bid and metronidazole 500mg po bid through 07/22/24.
Assessment / Plan
-
49 yo female presenting with cholecystitis
POD#12 s/p robotic placement of cholecystostomy drain, cholecystectomy unable to be performed safely due to the degree of inflammation/abscess
AFVSS
Renal function continues to improve now wnl, last HD was on 07/12
New dx DM this admit with A1c of 10.2
WBC downtrending. Discharge today okay from surgical standpoint.
Plan:
--Low fat diet
--Continue with cholecystostomy tube to gravity drain. Will remain in place upon d/c for minimum of 6-8 weeks
--Abx: ID on board: transitioned back to PO metronidazole and cefdinir through 07/22/24
--Adler discontinued per nephro
--Appreciate Hospitalist
--F/u outpatient with Dr. Hooper and Dr. Casillas within 2 weeks
--DVT: SQH, SCDs
Subjective Data
-
Date of Service: July 19, 2024
No complaints overnight. No N/V. Sleepy as she was just waking up.
Objective Data
-
Intake and Output
07/18/24 07/19/24 07/20/24
06:59 06:59 06:59
Intake Total 2200 / 2200 1280 / 1280
Output Total 1425 / 1425 125 / 125
Balance 775 / 775 1155 / 1155
Intake:
Oral fluids 2200 / 2200 1280 / 1280
IV fluids (Total) 0 / 0
IV piggybacks 0 / 0
Output:
Drain Output (Total) 125 / 125 125 / 125
Right Upper Abdomen 125 / 125 125 / 125
Urine, Adler 400 / 400
Urine, Voided 900 / 900
Other:
Number of approximated MODERATE 1 2
amounts of urine
Vital Signs
Temp Pulse Resp BP Pulse Ox
98.9 F 98 18 143/86 96
07/18/24 23:00 07/18/24 23:00 07/18/24 23:00 07/18/24 23:00 07/18/24 23:00
Lab Results
07/18/24 06:04
Calcium 8.7 mg/dl (8.4-10.2) 07/18/24 06:04
Magnesium 1.7 mg/dl (1.6-2.3) 07/12/24 07:43
Total Bilirubin 0.7 mg/dl (0.2-1.3) 07/17/24 07:07
Direct Bilirubin 0.5 mg/dl (0.0-0.4) H 07/14/24 05:38
AST 20 U/L (14-36) 07/17/24 07:07
ALT 17 U/L (0-35) 07/17/24 07:07
Alkaline Phosphatase 274 U/L (38-126) H 07/17/24 07:07
Total Protein 6.1 g/dl (6.3-8.2) L 07/17/24 07:07
Albumin 3.0 g/dl (3.5-5.0) L 07/17/24 07:07
Physical Exam
-
NAD
Ab soft, nontender except around surgical incision points, slight distension
Surgical incision points healing well, Drain sight no infx, bilious liquid in drain bag, no pus.
[2024-07-19 07:28] LABS: % Basophils 0.7 % (0-2); % Eosinophils 1.1 % (0-6); % Immature Granulocytes 2.3 % (0-0.5); % Lymphocytes 20.6 % (20.5-51.1); % Monocytes 5.5 % (1.7-9.3); % Neutrophils 69.8 % (42.2-75.2); Absolute Basophils 0.1 10^3/uL (0-0.2); Absolute Eosinophils 0.1 10^3/uL (0-0.7); Absolute Immature Granulocytes 0.3 10^3/uL (0-0.05); Absolute Lymphocytes 2.5 10^3/uL (1.2-3.4); Absolute Monocytes 0.7 10^3/uL (0.1-0.6); Absolute Neutrophils 8.6 10^3/uL (1.4-6.5); Hematocrit 28.1 % (37.0-47.0); Hemoglobin 9.3 g/dL (12.0-16.0); Mean Corp Hgb Conc. 33.1 g/dL (33.0-37.0); Mean Corpuscular Volume 75.5 fL (81.0-99.0); Nucleated Red Blood Cells % 0 %; Red Blood Cell Count 3.72 10^6/uL (4.20-5.40); Red Cell Dist. Width 19.5 % (11.5-14.5); White Blood Cell Count 12.3 10^3/uL (4.8-10.8)
--- NOTE | 2024-07-19 08:10 | PN.DE.MGMTRT ---
Insulin Management
- -
07/19/2024: Diabetes Management Follow up
49 year old female admitted 07/06 for RUQ abdominal pain, vomiting and chills for 3 weeks ago due to Acute gallstone cholecystitis.
PMH: HTN, PANTERA, cholelithiasis, T2DM, not on medication. Pt states that her elevated blood glucose is due to being acutely ill and that she does not have diabetes. Discussed current A1C of 10.2% and correlation of long standing T2DM that appears to
be uncontrolled regardless of the acute illness with acute jr. Reviewed target A1C of <6.5% and target blood sugar range of 80 to 130 for optimal glucose control to promote healing.
Pt awake, alert, oriented, resting in bed, offers no complaints, and dtr at bedside, very supportive.
Now POD #12 s/p robotic placement of cholecystostomy drain, cholecystectomy unable to be performed safely due to the degree of inflammation/abscess.
Pt was started on a low fat diet and is tolerating well. JO resolved. Cr 1.3-->1.0, eGFR>60 today.
Januvia 50mg daily was started 07/17. Glucose stable and in range, 109 to 135, HS 137, FBG 135 this AM.
Will make no changes to current regimen: Januvia 50 mg daily and low corrective insulin with meals, will adjust regimen if necessary.
Pt was seen by morgue attendant for monitor instructions.
Meds at discharge: Januvia 50mg daily
Diabetes History
- -
Type of Diabetes: 2
Pre-Admission Diabetes Regimen
Lab Results
Hemoglobin A1c 10.2 % (4.0-5.6) H 07/07/24 05:49
Insulin Pump Settings
IP Diabetes Regimen
07/18/24 07/18/24 07/18/24
08:55 13:18 17:58
POC Glucose 118 H 109 H 135 H
07/18/24
21:58
POC Glucose 137 H
Meal type: Dinner
Meal type: Lunch
Amount consumed: 80%
Amount consumed: 100%
Patient Education
--- NOTE | 2024-07-19 09:06 | W.PN.HOSP.TC ---
Today's Communication/Plan
-
dc to home
Assessment / Plan
Assessment / Plan
49-year-old female past medical history of hypertension, iron deficiency anemia, cholelithiasis, type 2 diabetes not on medication; presented with right upper quadrant abdominal pain, vomiting and chills for 3 weeks [employer].
She stopped taking antihypertensive medications few days ago due to blood pressure 100 systolic. BP now 177/88, discussed with Dr. Larios, he does not want pt to resume Losartan, prefers Procardia XL 30 bid, and ordered
Input from miracle Norman to resume Losartan/HCTZ at time of dc
Reviewed situation with
Abdominal ultrasound shows abnormal gallbladder, severely distended 12 cm, with large amount of heterogeneous echogenic luminal debris/complex fluid and cholelithiasis, positive sonographic Kenyon sign, 5 mm gallbladder wall, pericholecystic fluid
consistent with cholecystitis.
A/P:
# Acute gallstone cholecystitis, Severe cholecystitis
# hx gall stones
# Elevated LFT due to above, resolved
GS on board, placed cholecystomy tube 07/07. One unit PRBC given during OR
started on low fat 07/15 and is tolerating
Pt c/o N/V 07/10, AXR 07/10 showed persistent gaseous distended loops of bowel throughout the abdomen, overall similar appearance to prior and which may represent adynamic ileus.
s/p NGT, removed 07/12
Of note, LFT normalized
Of note, wound culture growing Viridans strep
Zosyn -> ceftriaxone/Flagyl-->Cefdinir 300 mg bid and Flagyl 500 mg bid through 07/22
appreciate ID input
WBC 12.8-->13.1-->11.3-->14.4-->17.3-->15.8-->15.0-->12.[address] scan 07/16 with oral contrast: Postoperative day #9 for cholecystectomy with percutaneous cholecystostomy tube placement. Associated moderate heterogeneous fluid and air in the gallbladder fossa raising concern for infection or hemorrhagic
biloma not excluded.
Probable edematous change in the adjacent liver. Intrahepatic abscess not completely excluded. Limited evaluation without IV contrast.
Findings suggesting mild inflammation in the right upper quadrant.
Mild fluid in the paracolic gutter bilaterally and moderate heterogeneous fluid in the pelvis. Infection and hemorrhagic products not excluded. Probably from the above process. An acute process involving the uterus or bladder cannot be excluded.
Moderate diffuse bladder wall thickening. This can be seen with cystitis or bladder outlet obstruction. Findings due to limited distention cannot be excluded.
Moderate air in the bladder probably due to recent instrumentation. Adler catheter present. Infection cannot be excluded.
Hepatomegaly. Stable.
# acute kidney injury and kidney failure
Creat 1.6 -> peaked at 7.1, unknown baseline and pt was started with HD 07/09 -->5.5-->3.0-dialysis stopped->1.6-->1.5-->1.3-->1.1-->1.0
dialysis catheter removed, voiding trial ordered by nephro
monitor BMP
Of note, Kidney bladder US not significant, noted Mild dilatation of the left renal collecting system without overt hydronephrosis.
# Essential hypertension
Holding losartan and HCTZ
use IV hydralazine PRN for SBP > 160
add Procardia XL 30 mg bid, as per Dr. Larios
118/71 currently
Ur cx mixed yanni
# DM II
A1c 10.2%- informed pt and family that this is diabetic range. Januvia 50 mg daily ordered by PAULINA Somers
insulin sliding scale. Glu well controlled with sugars in the 108-159 range
Code status: full code
DVT prophylaxis: SCDs
doing well, will dc now
see dictated note
More than 30 minutes spent in discharge including
Final examination of the patient
Summarizing hospital stay
Instructions for continuing care to all relevant caregivers
Preparation of discharge records, prescriptions, and referral forms
Total time spent (in minutes): 45
Anticipated Discharge: Today
Subjective/Interval History
-
Date of Service: July 19, 2024
Feels well and is looking forward to going home
Objective Data
-
Labs:
Laboratory Results
07/19/24
06:06
WBC 12.3 H
Hgb 9.3 L
Hct 28.1 L
Plt Count
Vital Signs:
Vital Signs
Temp Pulse Resp BP Pulse Ox
99.3 F 87 18 125/67 95
07/19/24 07:20 07/19/24 07:20 07/19/24 07:20 07/19/24 07:20 07/19/24 07:20
I&O
07/18/24 07/19/24 07/20/24
06:59 06:59 06:59
Intake Total 2200 / 2200 1280 / 1280
Output Total 1425 / 1425 125 / 125
Balance 775 / 775 1155 / 1155
Review of Systems
-
History Source: Patient and Family ( at bedside)
Constitutional: Denies Fever
EENT: Reports No Symptoms Reported
Respiratory: Reports No Symptoms
Cardiac: Reports No Symptoms
Abdomen/GI: Reports Abdominal Pain (better, minimal in area of incision); Denies Constipated (resolved, passing stool)
Neuro: Reports No Symptoms
Physical Exam
-
General: Well Developed, Well Nourished and No Apparent Distress
HEENT: Normocephalic, Atraumatic and Moist Mucous Membranes
Respiratory: Clear to Auscultation; Negative Wheezes, Rales or Rhonchi
Cardiac: Regular Rhythm and S1/S2
GI: Soft, Normal Bowel Sounds (active), Tender (minimally), Distended (slightly distended) and Other (cholecystostomy tube )
Musculoskeletal: No Clubbing, No Cyanosis and No Edema
Skin: Warm and Dry
Neuro: Awake, Alert and Oriented
[2024-07-19 09:20] LABS: Glucose - Point of Care 106 mg/dl (70-99)
--- NOTE | 2024-07-19 09:25 | CM ---
CM following for discharge planning.
D/c plan: home with no d/c planning needs. Pt to follow up with PCP as an outpatient.
to transport at discharge.
--- NOTE | 2024-07-19 10:00 | W.PN.ID1 ---
Date of Service
Date of Service: July 19, 2024
Today's Communication
Continue cefdinir 300mg po bid and metronidazole 500mg po bid through 07/22/24.
OK for DC home today.
Assessment / Plan
# Severe cholecystitis
# Leukocytosis - improving
# JO -resolving
# Acute Ileus - resolved
- 07/07 s/p robotic cholecystostomy tube placement as jr deemed unsafe
- Bile gram stain, many GNR, few GPC; Cx Viridans streptococcus, Prevotella
- s/p ceftriaxone 1gIV q24 and metronidazole 500mg q8 x 7d
- Continue cefdinir 300mg po bid and metronidazole 500mg po bid through 07/22/24.
# Possible Miguelina vaginitis
- s/p one dose of fluconazole 150mg
# Conditions [employer]
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
HTN
HLD
GERD
Fatty liver
Hepatosplenomegaly
Anal fissure
Choledocholithiasis s/p ERCP (12/2023)
Class III obesity
Chief Complaint
-: Leukocytosis and Other (Cholecystitis)
Subjective / Review of Systems
feels well. vaginal area still sore.
Vital Signs / Physical Exam
Vital Signs
Vital Signs
Temp Pulse Resp BP Pulse Ox
99.3 F 87 18 125/67 95
07/19/24 07:20 07/19/24 07:20 07/19/24 07:20 07/19/24 07:20 07/19/24 07:20
Physical Exam
Constitutional: No Acute Distress and Comfortable
Eyes: No Conjunctival Hemorrhage and Sclera Anicteric
Cardiovascular: Regular Rate and S1/S2
Pulmonary: Clear
Gastrointestinal: Soft, Non Tender, Non Distended and Other (Jr tube: bile)
Genito-Urinary: Other
Extremities: Negative Edema
Neurological: AO x 3
Objective Data
Lab Data
Lab Results
07/19/24 06:06
07/18/24 06:04
Estimated Creat Clear 76 ml/min 07/18/24 06:04
Lactic Acid 1.2 mmol/L (0.7-2.0) 07/08/24 11:50
Total Bilirubin 0.7 mg/dl (0.2-1.3) 07/17/24 07:07
AST 20 U/L (14-36) 07/17/24 07:07
ALT 17 U/L (0-35) 07/17/24 07:07
Alkaline Phosphatase 274 U/L (38-126) H 07/17/24 07:07
Most recent labs reviewed.
Micro Results:
07/17/24 15:50 Urine Culture - Final
Urine
07/07/24 09:40 Wound Culture - Final
Gallbladder Viridans Streptococcus Group
Gram Stain - Final
07/07/24 09:40 Anaerobic Culture - Final
Gallbladder Prevotella species
07/11/24 AXR: There is persistent gaseous distended loops of bowel throughout the abdomen, overall similar appearance to prior and which may represent adynamic ileus.
07/08/24 Renal US: Mild dilatation of the left renal collecting system without overt hydronephrosis.
07/06/24 Abd US: Abnormal gallbladder. Markedly abnormal. Severely distended 12 cm, with a large amount of heterogeneous echogenic intraluminal debris/complex fluid and cholelithiasis. Positive sonographic Kenyon's sign. 5 mm gallbladder wall.
Pericholecystic fluid. Consistent with cholecystitis. No bile duct dilatation.
Care Review
Plan reviewed with: Physician (Dr. Olson)
[2024-07-19] MEDS: NOVOLOG FLEXPEN-LOW RESISTANCE SC ×2 (10:57→12:36)
[2024-07-19] MEDS: VITAMIN D3 (cholecalciferol) 125 MCG PO (10:58)
[2024-07-19] MEDS: FLAGYL 500 MG PO (10:58)
[2024-07-19] MEDS: JANUVIA 50 MG PO (10:58)
[2024-07-19] MEDS: PROCARDIA XL (EXTENDED RELEASE) 30 MG PO (10:58)
[2024-07-19] MEDS: NON-FORMULARY ITEM 1 UNIT PO ×2 (10:59→11:00)
[2024-07-19] MEDS: OMNICEF 300 MG PO (10:59)
[2024-07-19 11:47] VITALS: BP 129/68
[2024-07-19 12:21] LABS: Glucose - Point of Care 101 mg/dl (70-99)
--- NOTE | 2024-07-19 13:21 | W.DS.TRANS ---
DC Summary - Skilled Nursing Professional
-
Discharge Instructions:
Discharge Diagnosis/Procedures Cholecystitis
Diet Low Fat,Diabetic, Carb Controlled
Activity No strenuous activity
Driving Restrictions Not until seen by your Dr
Bathing Restrictions OK to Shower
Blood Work CBC, CMP in 1 week
Instructions:
Stand-Alone Forms:
Changes to Home Medications: Yes
Discharge Medications:
DC Medications w/original date entered in [employer]
metoprolol succinate 100 mg tablet,extended release 24 hr 50 mg PO DAILYPRN PRN high pulse 12/29/23
cholecalciferol (vitamin D3) 125 mcg (5,000 unit) tablet (Vitamin D3) 125 mcg PO DAILY Supplement 07/06/24
losartan 100 mg-hydrochlorothiazide 25 mg tablet 1 tab PO DAILY Blood Pressure 07/06/24
norethindrone acetate 5 mg tablet 5 mg PO DAILY Hormonal Agent 07/06/24
blood sugar diagnostic (Contour Next Test Strips) #60 ea 07/17/24
lancets (Microlet Lancet) #60 ea 07/17/24
cefdinir 300 mg capsule 300 mg PO BID #8 caps 07/19/24
metronidazole 500 mg tablet 500 mg PO BID #8 tabs 07/19/24
nifedipine 30 mg tablet,extended release 30 mg PO DAILY #30 tabs 07/19/24
polyethylene glycol 3350 17 gram oral powder packet 17 g PO DAILYPRN PRN constipation #14 ea 07/19/24
sitagliptin phosphate 50 mg tablet (Januvia) 50 mg PO DAILY #30 tabs 07/19/24
Home Medication Changes
Cefdinir and Flagyl added for 8 more doses
Januvia started
Procardia XL added to prior BP meds
Pending Results: No
--- NOTE | 2024-07-19 14:16 | PTCARENOTE ---
Removed pt's IV, reviewed dc paperwork. changed drainage bag to leg bag, educated on same. Instructed on emptying. all questions answered. transport to take pt to waiting car
== END 2024-07-19 14:20 | disposition home or self-care (01) | DRG 409 ==
LOC: 2 SOUTH 07:56
PROVIDERS: Internal Medicine; Internal Medicine Nephrology; Nurse Practitioner Family; Radiology Vascular & Interventional Radiology; Registered Nurse; Specialist; Surgery; ADMITTING PHYSICIAN Hospitalist; ATTENDING PHYSICIAN Internal Medicine; CONSULT PHYSICIAN Internal Medicine; CONSULT PHYSICIAN Internal Medicine Infectious Disease; EMERGENCY PHYSICIAN Emergency Medicine; FAMILY PHYSICIAN Family Medicine; OTHER PHYSICIAN Surgery
PROC: 30233N1 Transfusion of Nonautologous Red Blood Cells into Peripheral Vein, Percutaneous Approach (ICD-10-PCS; 2024-07-07)
PROC: 05HM33Z Insertion of Infusion Device into Right Internal Jugular Vein, Percutaneous Approach (ICD-10-PCS; 2024-07-09)
PROC: 5A1D70Z Performance of Urinary Filtration, Intermittent, Less than 6 Hours Per Day (ICD-10-PCS; 2024-07-09)
PROC: B5131ZA Fluoroscopy of Right Jugular Veins using Low Osmolar Contrast, Guidance (ICD-10-PCS; 2024-07-09)
PROC: 0F9440Z Drainage of Gallbladder with Drainage Device, Percutaneous Endoscopic Approach (ICD-10-PCS; 2024-07-09)
DX: K80.00 Calculus of gallbladder with acute cholecystitis without obstruction (principal); E87.1 Hypo-osmolality and hyponatremia; E87.20 Acidosis, unspecified; N17.9 Acute kidney failure, unspecified; Z68.41 Body mass index [BMI] 40.0-44.9, adult; E11.65 Type 2 diabetes mellitus with hyperglycemia; E66.813 Obesity, class 3; I10 Essential (primary) hypertension; K76.0 Fatty (change of) liver, not elsewhere classified; Z80.0 Family history of malignant neoplasm of digestive organs; Z82.0 Family history of epilepsy and other diseases of the nervous system; Z82.49 Family history of ischemic heart disease and other diseases of the circulatory system; Z79.82 Long term (current) use of aspirin; Z99.2 Dependence on renal dialysis; E87.5 Hyperkalemia; E83.42 Hypomagnesemia; K21.9 Gastro-esophageal reflux disease without esophagitis; E78.00 Pure hypercholesterolemia, unspecified; B37.31 Acute candidiasis of vulva and vagina
CPT/HCPCS: 36556; 74018; 74176; 76700; 76770; 76937; 77001; 80048; 80053; 81003; 81015; 81099; 82248; 82550; 82570; 82728; 82962; 83036; 83516; 83540; 83550; 83605; 83690; 83735; 84156; 84300; 84484; 84703; 85025; 85027; 86038; 86160; 86706; 86803; 86850; 86900; 86901; 86920; 87070; 87075; 87076; 87086; 87185; 87205; 87340; 93005; 96361; 96365; 96375; 99285; C1752; G0257; J7030; P9016; P9047; Q5106

== ENCOUNTER 2024-07-23 21:00 | Inpatient (IN) | payer SELFPAY ==
[2024-07-23] VITALS (25 sets, daily range): BP systolic 50–240; BP diastolic 30–220; BMI 43.0; BMI 42.5
[2024-07-23 14:15] LABS: % Basophils 0.2 % (0-2); % Eosinophils 0.1 % (0-6); % Immature Granulocytes 1.7 % (0-0.5); % Lymphocytes 6.5 % (20.5-51.1); % Monocytes 6.7 % (1.7-9.3); % Neutrophils 84.8 % (42.2-75.2); Absolute Immature Granulocytes 0.3 10^3/uL (0-0.05); Absolute Lymphocytes 1.1 10^3/uL (1.2-3.4); Absolute Monocytes 1.1 10^3/uL (0.1-0.6); Absolute Neutrophils 13.7 10^3/uL (1.4-6.5); Hematocrit 25.7 % (37.0-47.0); Hemoglobin 8.5 g/dL (12.0-16.0); Mean Corp Hgb Conc. 33.1 g/dL (33.0-37.0); Mean Corpuscular Hgb 25.2 pg (27.0-31.0); Mean Corpuscular Volume 76.3 fL (81.0-99.0); Mean Platelet Volume 9.5 fL (7.4-10.4); Nucleated Red Blood Cells % 0 %; Platelet Count 417 10^3/uL (130-400); Red Blood Cell Count 3.37 10^6/uL (4.20-5.40); Red Cell Dist. Width 19.5 % (11.5-14.5); White Blood Cell Count 16.2 10^3/uL (4.8-10.8)
[2024-07-23 14:26] LABS: ALT (SGPT) 12 U/L (0-35); AST (SGOT) 20 U/L (14-36); Albumin 3.1 g/dl (3.5-5.0); Alkaline Phosphatase 172 U/L (38-126); Blood Urea Nitrogen 12 mg/dl (7-17); Carbon Dioxide 19 mmol/L (22-30); Chloride 99 mmol/L (98-107); Glucose 143 mg/dl (70-99); Lipase 425 U/L (23-300); Potassium 4.3 mmol/L (3.5-5.1); Sodium 130 mmol/L (135-145); Total Bilirubin 0.9 mg/dl (0.2-1.3); Total Protein 6.4 g/dl (6.3-8.2); eGFR > 60.00
[2024-07-23] MEDS: TYLENOL 1000 MG PO (16:40)
[2024-07-23] MEDS: NSS 500 IV (16:55)
[2024-07-23 17:19] LABS: Lactic Acid 0.9 mmol/L (0.7-2.0)
[2024-07-23 17:25] LABS: COVID-19 Antigen Negative (Negative)
[2024-07-23 17:29] LABS: NT-proBNP 545 pg/ml
--- NOTE | 2024-07-23 17:38 | ED.GENMED ---
History of Present Illness
<Effie Funk PA-C - Last Filed: 07/23/24 23:12>
General
Chief Complaint: Fever
Source: patient and family
Exam Limitations: none
Time Seen by Provider: 07/23/24 16:03
Nursing documentation reviewed up to this point in time: agreed with
History of Present Illness
History of Present Illness:
49 y/o F
h/o acute cholecystitis admitted 07/09 with course complicated by JO requring dialysis, newly diagnosed DM, and requiring perc jr tube due to severely inflamed gb
here with rigors
discharged home on 07/19
pt had cefdinir and flagyl doses on discharge that she completed
she has had slightly less output in the perc jr tube today she thinks
she chronically has enlarged abdomen but feels it has been more distended since the surgery; she had concerns for ileus post op but never progressed to bowel obstruction and pt doesn't feel that it is worse, she is passing gas and not vomiting and
able to eat
but she reyna shad significant shaking chills intermittently since yesterday
mild cough
the chills are intense
she has not had a fever that she knows of, she checks herself when she is shaking
pt also has been sob but fees worse today
she has not had neck stiffness, ams, chest pain, abodminal pain, voimting, urinary sypmtoms
Past History
<Effie Funk PA-C - Last Filed: 07/23/24 23:12>
Past History
ED Past Medical History: HTN and Other (cholecystitis)
ED Past Surgical History: Tonsilectomy
Social History
Tobacco: Non-smoker
Alcohol: None
Drug: None
Personal:
Living: with family
Review of Systems
<Effie Funk PA-C - Last Filed: 07/23/24 23:12>
Review of Systems
Allergies reviewed?: Yes
All Other Systems: Not applicable
Phy Exam
<Effie Funk PA-C - Last Filed: 07/23/24 23:12>
Physical Exam
Physical Exam:
GENERAL: Alert , chronically ill apeparing, pale, tachypneic
EYE: pupils equal and reactive
NECK: Supple
ENT: o/p clr, dry mouth
CARDIAC: Regular rate and rhythm .
LUNGS: Clear breath sounds bilaterally, no acute respiratory distress, no wheezes/rales/rhonchi +TACHYPNEIC
ABDOMEN:OBESE, SOFT, NONTENDER
DRAIN HAS BILIOUS OUTPUT
NO ERYTHEMA OR FIRMNESS
NO SIGNIFICANT TEDNERNESS;
NEUROLOGICAL: Alert and oriented, no focal neuro deficits
SKIN: Warm and dry, skin intact.
MUSCULOSKELETAL: No edema, well perfused. neg ney's sign
PSYCH: Normal and appropriate interaction.
Sepsis
<Effie Funk PA-C - Last Filed: 07/23/24 23:12>
Sepsis Screening
Sepsis Assessment: Sepsis
Sepsis Screen
Sepsis Screen: Sepsis
Date: 07/23/24
Time: 18:00
Course
<Effie Funk PA-C - Last Filed: 07/23/24 23:12>
Orders/Labs/Results
Orders:
Orders
07/23/24 14:02
Complete Blood Count/With Diff Urgent
Comprehensive Metabolic Panel Urgent
Lipase Urgent
07/23/24 16:31
0.9% Sodium Chloride 500 ml [Nss] 500 ml IV BOLUS
Acetaminophen [Tylenol] 1,000 mg PO NOW STA
CR Chest - 2 Views Urgent
Comment:
Reason For Exam: fever, sepsis
07/23/24 16:38
COVID-19 Antigen Urgent
Source: Nasal Swab
Lactic Acid Urgent
NT-proBNP Urgent
Blood Culture Q30M
MELINA Source: Blood/Venous
Specimen Description:
Influenza A+B Rapid Molecular Urgent
MELINA Source: Nasal Swab
Specimen Description:
07/23/24 16:46
CT Abd/Pel (IV only)-DH only Urgent
Comment:
Reason For Exam: fever, perc jr tube
07/23/24 16:56
Blood Culture Q30M
MELINA Source: Blood/Venous
Specimen Description:
07/23/24 18:28
Piperacillin/Tazo 3.375 Gram [Zosyn] 3.375 gram in 50 ml IV NOW
07/23/24 18:46
CT Chest W/o Iv Contrast Urgent
Comment:
Reason For Exam: L pleurla effusion
07/23/24 19:49
0.9% Sodium Chloride 1000 ml [Nss] 1,000 ml IV BOLUS
07/23/24 20:08
NORepinephrine 4 MG/250 ML [Levophed] 4 mg in 250 ml .ROUTE .STK-MED
07/23/24 20:18
Admit/Transfer Patient As Directed
Co-Sign Provider:
Level of Care: Inpatient admission
Assign to:: ICU
Physician / Group: Pedro Penaloza
Diagnosis: sepsis, pneumonia, pelvic abscess
Reason for Hospitalization: sepsis, pneumonia, pelvic abscess
Expected length of stay greater than two midnights?: Yes
ELOS- Estimated Length of Stay in days: 3
I certify the patient meets the requirements for IP care: Yes
07/23/24 20:19
PRN Pain Medication Management As Directed
May give lesser potent ordered pain med per pt: Yes
preference::
Protocol:: Medication orders for pain may be administered in a
manner that supports deferring to patient preference
when the pt is:
- Requesting an ordered lesser potent pain medication.
Least to most potent pain medications are defined
as: acetaminophen < NSAID < tramadol < opioids
(morphine, oxycodone, hydromorphone).
- Requesting a lesser dose of the same medication IF
ORDERED.
- Requesting a less intrusive route of administration
if both routes are prescribed by the provider (PO <
IV).
07/23/24 20:21
Code Status As Directed
Resuscitation Status: Full Code
Acetaminophen 1000MG/100Ml [Ofirmev] 1,000 mg in 100 ml .ROUTE .STK-MED
07/23/24 20:22
Acetaminophen 1000MG/100Ml [Ofirmev] 1,000 mg IV NOW STA
07/23/24 20:27
NORepinephrine 4 MG/250 ML [Levophed] 4 mg IV NOW STA
07/23/24 20:28
Adler Placement- Treatment ONCE
Reason for insertion: I&O's Critical Care
CR Chest Portable - 1 View Urgent
Comment:
Reason For Exam: acute sob
Reason Study Needs to be Portable: Patient Unstable
07/23/24 20:31
PRN Pain Medication Management As Directed
May give lesser potent ordered pain med per pt: Yes
preference::
Protocol:: Medication orders for pain may be administered in a
manner that supports deferring to patient preference
when the pt is:
- Requesting an ordered lesser potent pain medication.
Least to most potent pain medications are defined
as: acetaminophen < NSAID < tramadol < opioids
(morphine, oxycodone, hydromorphone).
- Requesting a lesser dose of the same medication IF
ORDERED.
- Requesting a less intrusive route of administration
if both routes are prescribed by the provider (PO <
IV).
07/23/24 20:40
0.9% Sodium Chloride 1000 ml [Nss] 1,000 ml IV BOLUS
07/23/24 22:05
0.9% Sodium Chloride 1000 ml [Nss] 1,000 ml IV 100 mls/hr
Acetaminophen [Tylenol] 650 mg PO Q4HPRN PRN
Ipratropium/Albuterol Sulfate [Duoneb] 3 ml INH R Q4HPRN PRN
NORepinephrine 4 MG/250 ML [Levophed] 4 mg in 250 ml IV PER PROTOCOL
Initial dose in mcg/min, then titrate:: 2
Titrate to keep:: MAP > 65 mmHg
Titrate by mcg/min:: 1-2 mcg/min
Frequency of titrations (minutes):: 5
Maximum dose in ICU in mcg/min:: 30
Maximum dose in IMU in mcg/min:: 8
Maximum dose in IVU in mcg/min:: 4
Begin to taper infusion when:: Remained at goal for 4hrs
Taper by mcg/min:: 1-2 mcg/min
Frequency of taper (minutes) if patient maintains goal:: 30
Taper to off?: Yes
If infusion off & no longer maintaining goal:: Contact Provider
07/23/24 22:05
Electrocardiogram (*1) Urgent
Reason for Study: Other
Other Reason for Exam: baseline ICU
Comment: upon arrival to ICU (if not done in ED or in last 24 hours)
Consult Surgery [SURGICAL CONSULT] Routine
Consulting Provider: Israel Molina
Was physician already notified: Yes
Reason for consult: Intra-Abdominal Abscesses, Sepsis
IRAD CONSULT Routine
Consulting Provider: Jin Hoffman
Was physician already notified: Yes
Procedure being ordered, including laterality if applicable: pelvic abscesses drainage
Acknowledgement that appropriate orders are entered: N/A
Console Attendant Consult Urgent
Consulting Provider: Ness Collins
Was physician already notified: Yes
Complete Blood Count/With Diff Urgent
Comment: upon arrival to ICU (if not done in ED or in last 24 hours)
Comprehensive Metabolic Panel Urgent
Comment: upon arrival to ICU (if not done in ED or in last 24 hours)
Magnesium Urgent
Comment: upon arrival to ICU (if not done in ED or in last 24 hours)
Phosphorus Urgent
Comment: upon arrival to ICU (if not done in ED or in last 24 hours)
Protime/PTT Urgent
Comment: upon arrival to ICU (if not done in ED or in last 24 hours)
Legionella Urinary Antigen Routine
MELINA Source: Urine
Specimen Description:
Respiratory Culture/Gram Stain Urgent
MELINA Source: Sputum
Specimen Description:
Strep pneumoniae Antigen Routine
MELINA Source: Urine
Specimen Description:
Bedside Glucose Monitoring-ONCE As Directed
Comment: upon arrival to ICU
Drains As Directed
Type: Cholecystostomy
To gravity: Yes
Adler Catheter [Catheter- Indwelling] As Directed
Reason for insertion: I&O's Critical Care
Assess insertion reason daily.Remove if no longer applicable: Yes
Intake/ Output As Directed
Frequency: Per unit guidelines
Notify MD As Directed
Notify physician if: While in ICU level of care:
glucose greater than or equal to 180 mg/dL once, contact provider to initiate Critical
Care Glycemic Protocol Target Range 140-180 mg/dL.
Vital Signs As Directed
Frequency: Per unit guidelines
Weight As Directed
Frequency: Once
Comment: on admission
Rx Incentive Spirometry [RESP] Routine
Frequency: q1h while awake
DX Deep Vein Thrombosis Video Routine
07/24/24 02:00
Piperacillin/Tazo 3.375 Gram [Zosyn] 3.375 gram in 50 ml IV Q6H
07/24/24 Breakfast
NPO
Allow oral meds: Yes
Allow clear liquids: 4hrs prior to procedure
Comment: may have unrestricted clear liquid up to 4 hrs prior to scheduled procedure
Basic Metabolic Panel IN AM
Complete Blood Count/No Diff IN AM
07/24/24 08:00
Lactobac/Bifidobac [Visbiome] 1 cap PO DAILY
07/24/24 18:00
Enoxaparin Sodium [Lovenox] 40 mg SC QPM
Abnormal Lab Results
07/23/24
14:02
WBC 16.2 H 10^3/uL
(4.8-10.8)
RBC 3.37 L 10^6/uL
(4.20-5.40)
Hgb 8.5 L g/dL
(12.0-16.0)
Hct 25.7 L %
(37.0-47.0)
MCV 76.3 L fL
(81.0-99.0)
MCH 25.2 L pg
(27.0-31.0)
RDW 19.5 H %
(11.5-14.5)
Plt Count 417 H D 10^3/uL
(130-400)
Abs Immat Gran (auto) 0.3 H 10^3/uL
(0-0.05)
Absolute Neuts (auto) 13.7 H 10^3/uL
(1.4-6.5)
Absolute Lymphs (auto) 1.1 L 10^3/uL
(1.2-3.4)
Absolute Monos (auto) 1.1 H 10^3/uL
(0.1-0.6)
Immature Gran % 1.7 H %
(0-0.5)
Neutrophils % 84.8 H %
(42.2-75.2)
Lymphocytes % 6.5 L %
(20.5-51.1)
Sodium 130 L mmol/L
(135-145)
Carbon Dioxide 19 L mmol/L
(22-30)
Glucose 143 H mg/dl
(70-99)
Alkaline Phosphatase 172 H U/L
(38-126)
Albumin 3.1 L g/dl
(3.5-5.0)
Lipase 425 H U/L
(23-300)
07/23/24 14:02
07/23/24 14:02
Vital Signs
Initial and Last Documented VS:
Initial Vital Signs
Temp Pulse Resp BP Pulse Ox
37.1 C 113 18 131/78 95
07/23/24 13:53 07/23/24 13:53 07/23/24 13:53 07/23/24 13:53 07/23/24 13:53
Last Documented Vital Signs
Temp Pulse Resp BP Pulse Ox
39.6 C H 146 56 120/69 94
07/23/24 20:31 07/23/24 20:40 07/23/24 20:40 07/23/24 20:40 07/23/24 20:40
<Lisette Adler MD - Last Filed: 07/23/24 20:37>
Orders/Labs/Results
Orders:
Orders
07/23/24 14:02
Complete Blood Count/With Diff Urgent
Comprehensive Metabolic Panel Urgent
Lipase Urgent
07/23/24 16:31
0.9% Sodium Chloride 500 ml [Nss] 500 ml IV BOLUS
Acetaminophen [Tylenol] 1,000 mg PO NOW STA
CR Chest - 2 Views Urgent
Comment:
Reason For Exam: fever, sepsis
07/23/24 16:38
COVID-19 Antigen Urgent
Source: Nasal Swab
Lactic Acid Urgent
NT-proBNP Urgent
Blood Culture Q30M
EMLINA Source: Blood/Venous
Specimen Description:
Influenza A+B Rapid Molecular Urgent
MELINA Source: Nasal Swab
Specimen Description:
07/23/24 16:46
CT Abd/Pel (IV only)-DH only Urgent
Comment:
Reason For Exam: fever, perc jr tube
07/23/24 16:56
Blood Culture Q30M
MELINA Source: Blood/Venous
Specimen Description:
07/23/24 18:28
Piperacillin/Tazo 3.375 Gram [Zosyn] 3.375 gram in 50 ml IV NOW
07/23/24 18:46
CT Chest W/o Iv Contrast Urgent
Comment:
Reason For Exam: L pleurla effusion
07/23/24 19:49
0.9% Sodium Chloride 1000 ml [Nss] 1,000 ml IV BOLUS
07/23/24 20:08
NORepinephrine 4 MG/250 ML [Levophed] 4 mg in 250 ml .ROUTE .STK-MED
07/23/24 20:18
Admit/Transfer Patient As Directed
Co-Sign Provider:
Level of Care: Inpatient admission
Assign to:: ICU
Physician / Group: Pedro Penaloza
Diagnosis: sepsis, pneumonia, pelvic abscess
Reason for Hospitalization: sepsis, pneumonia, pelvic abscess
Expected length of stay greater than two midnights?: Yes
ELOS- Estimated Length of Stay in days: 3
I certify the patient meets the requirements for IP care: Yes
07/23/24 20:19
PRN Pain Medication Management As Directed
May give lesser potent ordered pain med per pt: Yes
preference::
Protocol:: Medication orders for pain may be administered in a
manner that supports deferring to patient preference
when the pt is:
- Requesting an ordered lesser potent pain medication.
Least to most potent pain medications are defined
as: acetaminophen < NSAID < tramadol < opioids
(morphine, oxycodone, hydromorphone).
- Requesting a lesser dose of the same medication IF
ORDERED.
- Requesting a less intrusive route of administration
if both routes are prescribed by the provider (PO <
IV).
07/23/24 20:21
Code Status As Directed
Resuscitation Status: Full Code
Acetaminophen 1000MG/100Ml [Ofirmev] 1,000 mg in 100 ml .ROUTE .STK-MED
07/23/24 20:22
Acetaminophen 1000MG/100Ml [Ofirmev] 1,000 mg IV NOW STA
07/23/24 20:27
NORepinephrine 4 MG/250 ML [Levophed] 4 mg IV NOW STA
07/23/24 20:28
Adler Placement- Treatment ONCE
Reason for insertion: I&O's Critical Care
CR Chest Portable - 1 View Urgent
Comment:
Reason For Exam: acute sob
Reason Study Needs to be Portable: Patient Unstable
07/23/24 20:31
PRN Pain Medication Management As Directed
May give lesser potent ordered pain med per pt: Yes
preference::
Protocol:: Medication orders for pain may be administered in a
manner that supports deferring to patient preference
when the pt is:
- Requesting an ordered lesser potent pain medication.
Least to most potent pain medications are defined
as: acetaminophen < NSAID < tramadol < opioids
(morphine, oxycodone, hydromorphone).
- Requesting a lesser dose of the same medication IF
ORDERED.
- Requesting a less intrusive route of administration
if both routes are prescribed by the provider (PO <
IV).
07/23/24 20:40
0.9% Sodium Chloride 1000 ml [Nss] 1,000 ml IV BOLUS
07/23/24 22:05
0.9% Sodium Chloride 1000 ml [Nss] 1,000 ml IV 100 mls/hr
Acetaminophen [Tylenol] 650 mg PO Q4HPRN PRN
Ipratropium/Albuterol Sulfate [Duoneb] 3 ml INH R Q4HPRN PRN
NORepinephrine 4 MG/250 ML [Levophed] 4 mg in 250 ml IV PER PROTOCOL
Initial dose in mcg/min, then titrate:: 2
Titrate to keep:: MAP > 65 mmHg
Titrate by mcg/min:: 1-2 mcg/min
Frequency of titrations (minutes):: 5
Maximum dose in ICU in mcg/min:: 30
Maximum dose in IMU in mcg/min:: 8
Maximum dose in IVU in mcg/min:: 4
Begin to taper infusion when:: Remained at goal for 4hrs
Taper by mcg/min:: 1-2 mcg/min
Frequency of taper (minutes) if patient maintains goal:: 30
Taper to off?: Yes
If infusion off & no longer maintaining goal:: Contact Provider
07/23/24 22:05
Electrocardiogram (*1) Urgent
Reason for Study: Other
Other Reason for Exam: baseline ICU
Comment: upon arrival to ICU (if not done in ED or in last 24 hours)
Consult Surgery [SURGICAL CONSULT] Routine
Consulting Provider: Israel Molina
Was physician already notified: Yes
Reason for consult: Intra-Abdominal Abscesses, Sepsis
IRAD CONSULT Routine
Consulting Provider: Jin Hoffman
Was physician already notified: Yes
Procedure being ordered, including laterality if applicable: pelvic abscesses drainage
Acknowledgement that appropriate orders are entered: N/A
Console Attendant Consult Urgent
Consulting Provider: Ness Collins
Was physician already notified: Yes
Complete Blood Count/With Diff Urgent
Comment: upon arrival to ICU (if not done in ED or in last 24 hours)
Comprehensive Metabolic Panel Urgent
Comment: upon arrival to ICU (if not done in ED or in last 24 hours)
Magnesium Urgent
Comment: upon arrival to ICU (if not done in ED or in last 24 hours)
Phosphorus Urgent
Comment: upon arrival to ICU (if not done in ED or in last 24 hours)
Protime/PTT Urgent
Comment: upon arrival to ICU (if not done in ED or in last 24 hours)
Legionella Urinary Antigen Routine
MELINA Source: Urine
Specimen Description:
Respiratory Culture/Gram Stain Urgent
MELINA Source: Sputum
Specimen Description:
Strep pneumoniae Antigen Routine
MELINA Source: Urine
Specimen Description:
Bedside Glucose Monitoring-ONCE As Directed
Comment: upon arrival to ICU
Drains As Directed
Type: Cholecystostomy
To gravity: Yes
Adler Catheter [Catheter- Indwelling] As Directed
Reason for insertion: I&O's Critical Care
Assess insertion reason daily.Remove if no longer applicable: Yes
Intake/ Output As Directed
Frequency: Per unit guidelines
Notify MD As Directed
Notify physician if: While in ICU level of care:
glucose greater than or equal to 180 mg/dL once, contact provider to initiate Critical
Care Glycemic Protocol Target Range 140-180 mg/dL.
Vital Signs As Directed
Frequency: Per unit guidelines
Weight As Directed
Frequency: Once
Comment: on admission
Rx Incentive Spirometry [RESP] Routine
Frequency: q1h while awake
DX Deep Vein Thrombosis Video Routine
07/24/24 02:00
Piperacillin/Tazo 3.375 Gram [Zosyn] 3.375 gram in 50 ml IV Q6H
07/24/24 Breakfast
NPO
Allow oral meds: Yes
Allow clear liquids: 4hrs prior to procedure
Comment: may have unrestricted clear liquid up to 4 hrs prior to scheduled procedure
Basic Metabolic Panel IN AM
Complete Blood Count/No Diff IN AM
07/24/24 08:00
Lactobac/Bifidobac [Visbiome] 1 cap PO DAILY
07/24/24 18:00
Enoxaparin Sodium [Lovenox] 40 mg SC QPM
Abnormal Lab Results
07/23/24
14:02
WBC 16.2 H 10^3/uL
(4.8-10.8)
RBC 3.37 L 10^6/uL
(4.20-5.40)
Hgb 8.5 L g/dL
(12.0-16.0)
Hct 25.7 L %
(37.0-47.0)
MCV 76.3 L fL
(81.0-99.0)
MCH 25.2 L pg
(27.0-31.0)
RDW 19.5 H %
(11.5-14.5)
Plt Count 417 H D 10^3/uL
(130-400)
Abs Immat Gran (auto) 0.3 H 10^3/uL
(0-0.05)
Absolute Neuts (auto) 13.7 H 10^3/uL
(1.4-6.5)
Absolute Lymphs (auto) 1.1 L 10^3/uL
(1.2-3.4)
Absolute Monos (auto) 1.1 H 10^3/uL
(0.1-0.6)
Immature Gran % 1.7 H %
(0-0.5)
Neutrophils % 84.8 H %
(42.2-75.2)
Lymphocytes % 6.5 L %
(20.5-51.1)
Sodium 130 L mmol/L
(135-145)
Carbon Dioxide 19 L mmol/L
(22-30)
Glucose 143 H mg/dl
(70-99)
Alkaline Phosphatase 172 H U/L
(38-126)
Albumin 3.1 L g/dl
(3.5-5.0)
Lipase 425 H U/L
(23-300)
07/23/24 14:02
07/23/24 14:02
Vital Signs
Initial and Last Documented VS:
Initial Vital Signs
Temp Pulse Resp BP Pulse Ox
37.1 C 113 18 131/78 95
07/23/24 13:53 07/23/24 13:53 07/23/24 13:53 07/23/24 13:53 07/23/24 13:53
Last Documented Vital Signs
Temp Pulse Resp BP Pulse Ox
39.6 C H 146 56 120/69 94
07/23/24 20:31 07/23/24 20:40 07/23/24 20:40 07/23/24 20:40 07/23/24 20:40
<Effie Funk PA-C - Last Filed: 07/23/24 23:12>
MDM/Problems Addressed
Differential Diagnosis Includes:
sepsis, bacteremia, abdscess, pneumonia
MDM/Problems Addressed:
49 y/o F admitted for lengthy time for acute jr requiring perc jr tube, had JO requiring dialysis, kidneys recovered; with rigors/chills at home since yesterday
tachypneic, mild cough
no inc in abdominal pain or distension which is chronic
febrile, leukocytosis, normal bp, tachypneic, not requiring o2
moderate L pleural effusion vs pna
i spoke with dr. mann who wanted ct a/p with contrast injected through the perc tube which i was able to directly assist with after speaking with dr camara from radiology and dr hoffman from IR
CT C/A/P shwos pleural effusion/vs pna LLL
as well as 2 intraabdominal abscesses
but the perc jr tube seems to have resolved the blockage and swelling of the gb
pt seen by dr mann in the ED
pt was tachy 120s, temp was 100.5 at the time she was kiley ramírez
plan was IV zosyn, fluids and IR to drain tomorrow
pt became quickly rigourous acutey decompensated
requiring o2 4L, brief IV levophed due to hypotension 80s/50s , but pt was quickly taken off levo; and she was febril 103.5
likely the cause of her rigors was the rapid rise in temp
pt had already been given zosyn
she was given IVF
lactate normal
repeat cxr indep reviewed, no CHF;
admit changed to ICU
surgeon notified of her status change
<Effie Funk PA-C - Last Filed: 07/23/24 23:12>
*Critical Care Note
Total Time (30-74mins, 75-104mins- exclusive of procedures): Not Applicable
ED Attending Note
<Effie Funk PA-C - Last Filed: 07/23/24 23:12>
-
Portions of this chart may have been created with voice recognition software.� Occasional wrong word or��sound alike� substitutions may have occurred due to the inherent limitations of voice recognition software.
<Lisette Adler MD - Last Filed: 07/23/24 20:37>
ED Attending Note
Patient seen and examined by attending physician: Yes
I performed the substantive portion of visit, reviewed & personally made and approve the management plan that is documented in note by myself or MESFIN.: Yes
ED Attending Note:
49 yr old female presents with recent cholecystitis/abscess, perc drain in place, noted to have fever and decreased uo. Here, pt noted to be septic. Surgery and IR consutled, plan is rescucitate and drain when clinically sdtable, i.e. in AM. Pt
did have episode of rigors, fever, brief hypotension....second IV placed, IVF times 2 wide open, apap IV, etc. Dr Penaloza also at bedside.
Discharge Plan
Departure
Patient Disposition: Admit
Date of Disposition: 07/23/24
Time of Disposition: 18:52
Admit to: Med/Surg
Presentation/result/management discussed w/ accepting MD/DO: Hospitalist
Condition: Fair
Covid-19: Not Applicable
Discharge Problem:
Sepsis, Pneumonia, Pleural effusion, Cholecystitis, Septic shock
Interventions
Interventions:
*Risk Screen - Suicide Last Done: 07/23/24 22:12
*General Assessment Last Done: 07/23/24 13:56
*Neglect/Abuse Screening Last Done: 07/23/24 13:56
*ED- Fall Risk Assessment Last Done: 07/23/24 15:04
*ED COVID-19 Vaccine History Last Done: 07/23/24 22:12
*Nursing Disposition Last Done: 07/23/24 22:15
ED- Neurological Assessment Last Done: 07/23/24 15:04
ED-Skin Assessment Last Done: 07/23/24 15:04
Discharge Date and Time
Discharge Date/Time: 07/23/24 22:36
[2024-07-23] MEDS: ZOSYN 50 IV (19:01)
--- NOTE | 2024-07-23 19:19 | HPS.HSE ---
Addendum entered and electronically signed by Pedro Penaloza DO 07/23/24 21:40:
Patient seen and examined independently. Agree with findings and plan as set forth by PAULINA Mauro with changes noted below.
Note that significant clinical changes occurred between MACHINE STAKER visit and my own.
Patient is a 49y F with PMH significant for HTN, DM-II and recent hospital admission for acute cholecystitis. Patient underwent robotic placement of cholecystostomy tube on 07/07. She was treated with IV abx. Her hospital stay was complicated by
the development of JO requiring temporary hemodialysis. Patient was discharged to home on 07/19 on cefdinir and metronidazole. This course completed on 07/22.
Patient returned to the ED on 07/23 complaining of shaking chills / fevers. She denies any abdominal pain, N/V, etc. Michelle tube has been draining appropriately.
ED evaluation revealed SIRS / sepsis and CT findings consistent with dense L base pneumonia and 2-3 intra-abdominal abscesses.
During her time in the ED, patient developed episode of shaking rigors, tachypnea, tachycardia. Her BP was labile ranging from 80s to 200s systolic.
Patient will be admitted to the ICU for further evaluation and treatment.
She was seen in the ED by Surgery and IR and then plan is for abscess drainage in IR in the AM.
Ass:
Acute Cholecystitis s/p Michelle Tube
Intra-Abdominal Abscesses (R paracolic, pelvic +/- L paracolic)
Septic Shock secondary to the above
Hyponatremia
Chronic Microcytic Anemia
DM-II
Morbid Obesity due to excess calories
Plan:
Admit to ICU for further evaluation and treatment.
Continue michelle drainage.
IV abx with Zosyn pending culture data / abscess drainage.
Surgery and IR consulted - for IR abscess drainage in AM.
Supportive care including IVFs +/- pressors to ensure adequate perfusion.
Antipyretics, symptom control.
[employer] evaluation for additional recommendations.
Hold PO medications acutely.
Follow H&H and would have low threshold for transfusion if hypotensive, etc (consent in chart).
Follow glucose and cover with SSI as needed.
Original Note:
Family Physician
-
Family Physician: NOT KNOW UNKNOWN - PT DOES
Chief Complaint
-
rigors/chills
History of Present Illness
Patient is a 49-year-old female with past medical history significant for essential hypertension, DM II and hx gall stones who presented to [facility] ED for evaluation of rigors and chills that started yesterday. Patient recently discharged following
complicated hospitalization 07/06/2024 - 07/19/2024 with acute cholecystitis. Patient discharged on Cefdinir and Metronidazole and completed yesterday. Patient reports since going home she has had increased shortness of breath and over past 24-hours
has had chills and rigors. She reports mild nausea with no emesis and loose stools. Patient denies any fever, cough, chest pain, constipation or urinary symptoms.
Medical History
Past Medical History
Past Medical History: Reports Other
Additional Past Medical History:
essential hypertension
DM II
fatty liver
liver mass
hx gall stones
Past Surgical History: Reports Other
Additional Past Surgical History:
tonsillectomy
adenoidectomy
Social History
Tobacco: Non-smoker
Alcohol: None
Drug: None
Personal:
Living: With Family
Employment: Not Employed
Family History
Family History: Other (Mother: Alzheimer's, gallstones; Father: Pancreatic cancer; Brother: CAD w/ CABG )
Allergies / Home Medications
Allergies reflects when Allergies were last updated in [facility].
Home Medications with original date entered in [facility]
Allergy/Medication List:
Allergies
Allergy/AdvReac Type Severity Reaction Status Date / Time
No Known Allergies Allergy Verified 07/23/24 13:54
Home Medications
metoprolol succinate 100 mg tablet,extended release 24 hr 50 mg PO DAILYPRN PRN high pulse 12/29/23
cholecalciferol (vitamin D3) 125 mcg (5,000 unit) tablet (Vitamin D3) 125 mcg PO DAILY Supplement 07/06/24
losartan 100 mg-hydrochlorothiazide 25 mg tablet 1 tab PO DAILY Blood Pressure 07/06/24
norethindrone acetate 5 mg tablet 5 mg PO DIRECTED Hormonal Agent 07/06/24
nifedipine 30 mg tablet,extended release 30 mg PO DAILY #30 tabs 07/19/24
polyethylene glycol 3350 17 gram oral powder packet 17 g PO DAILYPRN PRN constipation #14 ea 07/19/24
sitagliptin phosphate 50 mg tablet (Januvia) 50 mg PO DAILY #30 tabs 07/19/24
esomeprazole magnesium 20 mg capsule,delayed release (Nexium) 20 mg PO DAILY 07/23/24
Review of Systems
-
History Source: Patient
Constitutional: Reports Fatigue, Night Sweats and Chills
Respiratory: Reports Trouble Breathing (shortness of breath )
Abdomen/GI: Reports Nausea
Physical Exam
Vital Signs
Vital Signs
Temp Pulse Resp BP Pulse Ox
99.3 F 126 30 133/65 95
07/23/24 19:10 07/23/24 19:10 07/23/24 19:10 07/23/24 18:00 07/23/24 19:10
Physical Exam
General: Well Developed, Well Nourished, Conversant, Fever and Morbidly Obese
HEENT: NormoCephalic, Moist mucous membranes, Atraumatic, [place] Conjunctivae, Nose Appears Normal and Ears Appear Normal
Respiratory: Clear, Decreased Breath Sounds and Other (tachypneic )
Cardiac: S1/S2, Regular Rhythm and Tachycardia
Breast: Deferred by me
GI: Soft, Non Tender, Non Distended and Normal Bowel Sounds (hypoactive x4 quads ); No Organomegaly
Rectal: Deferred by Provider
Genito-urinary: Deferred by me
Musculoskeletal: No Clubbing and No Cyanosis
Skin: Warm, IV/Catheter Site and Other (RUQ biliary drain with )
Neuro: Awake, Alert, AO x 3 and Nonfocal/grossly intact
Psych: Calm
Laboratory Results
-
07/23/24 14:02
07/23/24 14:02
Laboratory Results
Lactic Acid 0.9 mmol/L (0.7-2.0) 07/23/24 16:38
Total Bilirubin 0.9 mg/dl (0.2-1.3) 07/23/24 14:02
AST 20 U/L (14-36) 07/23/24 14:02
ALT 12 U/L (0-35) 07/23/24 14:02
Alkaline Phosphatase 172 U/L (38-126) H 07/23/24 14:02
Lipase 425 U/L (23-300) H 07/23/24 14:02
Data Reviewed
-
Diagnostic Radiology: Report Reviewed by me (CXR: Confluent increased opacity involving the left lower lung/hemithorax, likely a combination of pneumonia/atelectasis and associated pleural fluid. This appears to have increased compared to CT
examination of July 16, 2024.)
CT Scan: Report Reviewed by me (see reports )
Lab Data: Labs Reviewed by me (WBC 16.2, hgb 8.5, hct 25.7, Neut 84.8, Na+130, )
Impression/Plan
-
IMPRESSION/PLAN:
#sepsis likely 2/2 pneumonia
chills, rigors, increased shortness of breath for 24 hours
WBC 16.2, Neut 84.8
CXR: Confluent increased opacity involving the left lower lung/hemithorax, likely a combination of pneumonia/atelectasis and associated pleural fluid. This appears to have increased
compared to CT examination of July 16, 2024.
Abd/Pel CT: 1. 7.7 cm ABSCESS in the RIGHT PARACOLIC GUTTER.
2. 7.6 cm PELVIC ABSCESS posterior to the uterus.
3. Moderate ascites in the left paracolic gutter.
4. Severe irregular gallbladder wall thickening and surrounding inflammation consistent with ACUTE CHOLECYSTITIS.
5. Percutaneous cholecystostomy tube in position.
6. Moderate hepatosplenomegaly.
7. Moderate diffuse hepatic steatosis.
8. Mild intrahepatic biliary dilatation.
9. Severe wall thickening in the gastric antrum and duodenal bulb which could be reactive secondary to acute cholecystitis or inflammatory from peptic ulcer disease.
10. MODERATE LEFT LOWER LOBE PNEUMONIA.
11. Small left parapneumonic pleural effusion.
12. Mild cardiomegaly.
13. Grade 1 anterolisthesis of L5 on S1 secondary to bilateral L5 pars interarticularis spondylolysis.
Chest CT: 1. MODERATE SIZE LEFT LOWER LOBE AIRSPACE CONSOLIDATION (probably LEFT LOWER LOBE PNEUMONIA and less likely atelectasis).
2. Small left parapneumonic pleural effusion.
3. Moderate chronic atelectasis and scarring in the posterior basilar right lower lobe.
4. Mild mediastinal lymphadenopathy.
5. Mild cardiomegaly.
Influenza: negative
Covid: negative
- Admit to ICU
- start probiotic
- IV Zosyn
- supportive care
- repeat labs and CXR
#pelvic abscesses
Abd/Pel CT: 1. 7.7 cm ABSCESS in the RIGHT PARACOLIC GUTTER.
2. 7.6 cm PELVIC ABSCESS posterior to the uterus.
- Consult IR
- NPO after midnight
#hyponatremia
Na+130
- IVF
- monitor BMP
#essential hypertension
- continue losartan-HCTZ, metoprolol and nifedipine with hold parameters
#DM II
- continue Januvia
- AccuCheck AC & HS
- SSI
Code status: full code
DVT Prophylaxis: Lovenox sq
[2024-07-23] MEDS: NSS 1000 IV ×3 (19:55→23:01)
--- NOTE | 2024-07-23 20:06 | CON.GS ---
Consultation
-
Date/Time Consultation Requested: 07/23/2024 5 PM
Date/Time Consultation Performed: 07/23/2024 7 PM
Requesting Provider: ED
Performing Provider: Dr. Casillas
Reason for Consultation: Sepsis
Medical History
-
Chief Complaint: Chills and rigors
History of Present Illness:
This is a 49-year-old female who presents with chills and rigors. She is well-known to the surgical service and underwent a robotic cholecystostomy tube placement by Dr. Bernstein on 07/07/2024 for acute on chronic cholecystitis in the setting of known
choledocholithiasis status post ERCP in December 2023. She had a protracted hospital course with ileus but ultimately discharged home with oral antibiotics on 07/19. Since then she has not improved significantly and over the past few days has had
worsening fevers and chills with no significant abdominal pain or abdominal symptoms. At my request to the ED obtained a CT abdomen pelvis with oral contrast pushed through the cholecystostomy tube. This demonstrated a well-positioned tube as well
as patent cystic duct as contrast reaches the duodenum. She does have collections in the right paracolic gutter and across the pelvis which may be communicating with each other.
Past Medical History
Past Medical History: Other (Hypertension, cholelithiasis, choledocholithiasis, JO, morbid obesity (BMI 43))
Past Surgical History: Other (ERCP 01/11, robotic aborted cholecystectomy, cholecystostomy tube 07/07/2024)
Social History
Tobacco: Non-Smoker
Alcohol: None
Drug: None
Personal:
Living: With Family
Family History
Family History: Reviewed & Not Pertinent
Allergies / Home Medications
Allergy/AdvReac Type Severity Reaction Status Date / Time
No Known Allergies Allergy Verified 07/23/24 13:54
�Medication �Instructions �Recorded �Confirmed �Type
metoprolol succinate 100 mg 50 mg PO DAILYPRN PRN high pulse 12/29/23 07/23/24 History
tablet,extended release 24 hr
cholecalciferol (vitamin D3) 125 125 mcg PO DAILY Supplement 07/06/24 07/23/24 History
mcg (5,000 unit) tablet (Vitamin
D3)
losartan 100 1 tab PO DAILY Blood Pressure 07/06/24 07/23/24 History
mg-hydrochlorothiazide 25 mg tablet
norethindrone acetate 5 mg tablet 5 mg PO DIRECTED Hormonal Agent 07/06/24 07/23/24 History
nifedipine 30 mg tablet,extended 30 mg PO DAILY #30 tabs 07/19/24 07/23/24 Rx
release
polyethylene glycol 3350 17 gram 17 g PO DAILYPRN PRN constipation 07/19/24 07/23/24 Rx
oral powder packet #14 ea
sitagliptin phosphate 50 mg tablet 50 mg PO DAILY #30 tabs 07/19/24 07/23/24 Rx
(Januvia)
esomeprazole magnesium 20 mg 20 mg PO DAILY 07/23/24 07/23/24 History
capsule,delayed release (Nexium)
Review of Systems
-
All other systems: Negative unless noted
A 10 point review of systems was completed, and was negative except as per HPI.
Physical Exam
Vital Signs
Temp Pulse Resp BP Pulse Ox
100.5 F H 119 51 133/65 96
07/23/24 19:57 07/23/24 19:45 07/23/24 19:45 07/23/24 18:00 07/23/24 19:45
07/22/24 07/23/24 07/24/24
06:59 06:59 06:59
Actual Weight 106.6 kg
Body Mass Index (BMI) 43.0
Lab Results
07/23/24 14:02
07/23/24 14:02
WBC 16.2 10^3/uL (4.8-10.8) H 07/23/24 14:02
Hgb 8.5 g/dL (12.0-16.0) L 07/23/24 14:02
Hct 25.7 % (37.0-47.0) L 07/23/24 14:02
Plt Count 417 10^3/uL (130-400) H D 07/23/24 14:02
Abs Immat Gran (auto) 0.3 10^3/uL (0-0.05) H 07/23/24 14:02
Neutrophils % 84.8 % (42.2-75.2) H 07/23/24 14:02
Physical Exam
General: Well Developed, Fever, Chills and Other (Looks unwell)
HEENT: Normocephalic
Respiratory: Other (Mild labored respirations)
GI: Soft, Non Tender and Obese
Data Reviewed
-
CT Scan: Image Personally Visualized and interpreted, Report Reviewed by me, Discussed with Physician, Discussed with Patient and Discussed with Family
Labs: Labs Reviewed by me, Discussed with Physician and Discussed with Patient
Total Time Spent with Patient (in minutes): 15
Assessment / Plan
-
This is a 49-year-old female with a history of choledocholithiasis status post ERCP who presented with acute on chronic cholecystitis and underwent an aborted robotic cholecystectomy and placement of a cholecystostomy tube on 07/07/24 here with
sepsis.
Broad-spectrum antibiotics, IV fluids.
N.p.o. at midnight.
IR consulted for percutaneous drainage of her collections.
General surgery will follow
[2024-07-23] MEDS: LEVOPHED 4 MG IV (20:12)
[2024-07-23] MEDS: OFIRMEV 1000 MG IV (20:22)
[2024-07-23 22:14] LABS: Glucose - Point of Care 166 mg/dl (70-99)
[2024-07-23 23:01] LABS: B.E. -7.8 mmol/L; O2 Saturation % 99.1 % (94-98); PCO2 25 mmHg (32-35); PO2 113 mmHg (83-108); pH 7.41 (7.35-7.45)
[2024-07-23 23:03] LABS: HCO3 15.8 mmol/L (21-28)
[2024-07-23] MEDS: TYLENOL 650 MG PO (23:19)
[2024-07-24] VITALS (92 sets, daily range): BP systolic 103–156; BP diastolic 68–99; BMI 42.5
[2024-07-24] MEDS: SODIUM BICARBONATE 1150 MEQ IV (00:22)
[2024-07-24] MEDS: NOVOLOG FLEXPEN-MODERATE RESISTANCE 1 UNITS SC (00:39)
[2024-07-24 00:50] LABS: APTT 27.9 Sec (23.4-35.0); INR 1.55; PT 18.8 Sec (11.4-14.6)
[2024-07-24 00:59] LABS: Glucose - Point of Care 159 mg/dl (70-99)
[2024-07-24 01:01] LABS: % Basophils 0.2 % (0-2); % Eosinophils 0.1 % (0-6); % Immature Granulocytes 2.3 % (0-0.5); % Lymphocytes 3.2 % (20.5-51.1); % Monocytes 1.5 % (1.7-9.3); % Neutrophils 92.7 % (42.2-75.2); Absolute Immature Granulocytes 0.3 10^3/uL (0-0.05); Absolute Lymphocytes 0.4 10^3/uL (1.2-3.4); Absolute Monocytes 0.2 10^3/uL (0.1-0.6); Absolute Neutrophils 12.4 10^3/uL (1.4-6.5); Hematocrit 24.3 % (37.0-47.0); Hemoglobin 7.8 g/dL (12.0-16.0); Mean Corp Hgb Conc. 32.1 g/dL (33.0-37.0); Mean Corpuscular Hgb 25.2 pg (27.0-31.0); Mean Corpuscular Volume 78.4 fL (81.0-99.0); Nucleated Red Blood Cells % 0 %; Platelet Count 381 10^3/uL (130-400); Red Cell Dist. Width 19.7 % (11.5-14.5); White Blood Cell Count 13.3 10^3/uL (4.8-10.8)
[2024-07-24 01:06] LABS: ALT (SGPT) 12 U/L (0-35); AST (SGOT) 21 U/L (14-36); Albumin 2.7 g/dl (3.5-5.0); Alkaline Phosphatase 172 U/L (38-126); Blood Urea Nitrogen 13 mg/dl (7-17); Calcium 8.4 mg/dl (8.4-10.2); Carbon Dioxide 17 mmol/L (22-30); Chloride 102 mmol/L (98-107); Estimated Creatinine Clearance 77 ml/min; Glucose 155 mg/dl (70-99); Magnesium 1.3 mg/dl (1.6-2.3); Phosphorus 3.5 mg/dl (2.5-4.5); Potassium 3.9 mmol/L (3.5-5.1); Sodium 133 mmol/L (135-145); Total Bilirubin 0.7 mg/dl (0.2-1.3); Total Protein 5.6 g/dl (6.3-8.2); eGFR > 60.00
[2024-07-24] MEDS: ZOSYN 50 IV ×4 (01:26→20:02)
[2024-07-24] MEDS: MAGNESIUM SULFATE 50 IV ×2 (02:54→06:25)
[2024-07-24 04:58] LABS: Venous Blood Gas B.E. -4.9 mmol/L (-4 to +4); Venous Blood Gas HCO3 20.6 mmol/L (22-27); Venous Blood Gas O2 Sat % 98.7 %; Venous Blood Gas pCO2 39 mmHg (35-48); Venous Blood Gas pH 7.33 (7.32-7.43); Venous Blood Gas pO2 151 mmHg (30-50)
[2024-07-24 05:14] LABS: Hematocrit 23.6 % (37.0-47.0); Hemoglobin 7.6 g/dL (12.0-16.0); Mean Corp Hgb Conc. 32.2 g/dL (33.0-37.0); Mean Corpuscular Hgb 24.9 pg (27.0-31.0); Mean Corpuscular Volume 77.4 fL (81.0-99.0); Mean Platelet Volume 10.4 fL (7.4-10.4); Platelet Count 372 10^3/uL (130-400); Red Blood Cell Count 3.05 10^6/uL (4.20-5.40); Red Cell Dist. Width 19.5 % (11.5-14.5); White Blood Cell Count 10.6 10^3/uL (4.8-10.8)
[2024-07-24 05:33] LABS: Blood Urea Nitrogen 13 mg/dl (7-17); Calcium 8.4 mg/dl (8.4-10.2); Carbon Dioxide 21 mmol/L (22-30); Chloride 103 mmol/L (98-107); Estimated Creatinine Clearance 85 ml/min; Glucose 141 mg/dl (70-99); Magnesium 1.7 mg/dl (1.6-2.3); Sodium 134 mmol/L (135-145); eGFR > 60.00
--- NOTE | 2024-07-24 06:00 | PTCARENOTE ---
received pt from ER, patient is 49y/o female recently discharged from this hosp 07/19/24 after placement of cholecystostomy tube. pt went home on abx, however returned with fever, malaise, SOB, tachycardia, hypotension requiring pressors in the ER.
CT scan showed patent tube, however pt has pelvic abscess and lower pneumonia. pt placed on 6 lm nc and was continually tachypneic with RR of >40 now requiring HHF at 40/50 -
patient currently NSS, stable BP, pressors off, RR 18, and resting comfortably with no c/o pain.
patient has 2 PIV, and a midline was placed as we were loosing access r/t patient being extremely diaphoretic.
Patient has large round firm abdomen, with choley tube on RLQ, draining green thick fluid without issue.
surgical sites BRYCE and closed with Dermabond patient is newly diagnosed with DMII, nutrition consult requested for education, q6 hr BG monitoring with frequent labs.
[place] intact and patent for josé urine. No further needs at this time, will continue to watch/assess. .
--- NOTE | 2024-07-24 06:15 | PTCARENOTE ---
patient prefers to lay on her Left side as she experinces pain when she lays on the right because that is where the drain is, patient refusing to turn, education offered for skin integrity, patient comfortable as is
[2024-07-24] MEDS: NOVOLOG FLEXPEN-MODERATE RESISTANCE SC ×3 (06:21→17:26)
[2024-07-24] MEDS: VISBIOME PO (07:49)
--- NOTE | 2024-07-24 08:00 | PTCARENOTE ---
Received patient from night court magistrate. patient is pleasant and cooperative, yet still anxious, states she feels much better. She remains on high flow oxygen 40L at 50%. Patient does become tachypneic with any movement. prefers to lay on her left
side and requires assistance to roll. is able to subtly shift her weight. She is sinus tach to sinus rhythm on monitor, has some trace edema. Patient's abdomen is obese and distended. Perc drain to right middle abdomen with green, purulent
drainage collecting. Patient states she has a 1:10 pain in abdomen. She does have a velazquez catheter. Patient is receiving mag repletion and bicarb gtt infusing into right midline catheter, will review orders. patient able to make needs known and
call higgins within reach.
[2024-07-24] MEDS: SODIUM BICARBONATE IV (09:26)
[2024-07-24] MEDS: TYLENOL 650 MG PO ×3 (09:31→21:44)
--- NOTE | 2024-07-24 11:23 | W.PN.GS2 ---
Today's Communication / Plan
-
-- IR drainage of abdominal fluid collections/abscesses
-- NPO, IVF
-- Abx: Zosyn
Assessment / Plan
-
Patient is a 49 yo F p/w sepsis likely secondary to bile leakage from the gallbladder seeding the peritoneal cavity
Febrile, tachycardic, BP okay
Labs notable for a normalized WBC, stable anemia, hyponatremia, normal bilirubin and LFTs, mildly elevated ALP
Surgical drainage and management of her gallbladder at this time carries increased risks for injury to abdominal viscera and would almost certainly need to be done in an open fashion given the fact that she is 2 weeks into this evolving process.
Plan for IR drainage of intra-abdominal abscesses/fluid collections. Would also recommend and plan for a drainage around her gallbladder and potentially into the gallbladder itself to prevent recurrence; will discuss case with IR. NPO, abx,
aggressive IV fluid resuscitation given sepsis.
-- IR drainage of abdominal fluid collections/abscesses
-- NPO, IVF
-- Abx: Zosyn
Subjective Data
-
Date of Service: July 24, 2024
Feels slightly improved, less abdominal pain. Continues to have some abdominal discomfort as well as chills and sweats particularly with movement. Last febrile yesterday evening. No nausea or vomiting. Continues to pass flatus and stools.
Objective Data
-
Intake and Output
07/23/24 07/24/24 07/25/24
06:59 06:59 06:59
Intake Total 1150 / 1300 300 / 300
Output Total 900 / 975 350 / 350
Balance 250 / 325 -50 / -50
Intake:
Oral fluids 0 / 0
IV fluids (Total) 1050 / 1200 300 / 300
Sterile Water For Injection 1050 / 1200 300 / 300
1000 ml 1,000 ml @ 150 mls/hr
IV .[id number] MANISH with Sodium
Bicarbonate 150 Meq Rx#:
[id number]
IV piggybacks 100 / 100
Output:
Drain Output (Total) 150 / 150
Right Middle Abdomen Biliary 150 / 150
Urine, Velazquez 750 / 825 350 / 350
Vital Signs
Temp Pulse Resp BP Pulse Ox
98.2 F 112 28 134/82 98
07/24/24 08:00 07/24/24 11:00 07/24/24 11:00 07/24/24 11:00 07/24/24 11:00
Lab Results
07/24/24 04:37
07/24/24 04:37
Calcium 8.4 mg/dl (8.4-10.2) 07/24/24 04:37
Phosphorus 3.5 mg/dl (2.5-4.5) 07/24/24 00:31
Magnesium 1.7 mg/dl (1.6-2.3) 07/24/24 04:37
Total Bilirubin 0.7 mg/dl (0.2-1.3) 07/24/24 00:31
AST 21 U/L (14-36) 07/24/24 00:31
ALT 12 U/L (0-35) 07/24/24 00:31
Alkaline Phosphatase 172 U/L (38-126) H 07/24/24 00:31
Total Protein 5.6 g/dl (6.3-8.2) L 07/24/24 00:31
Albumin 2.7 g/dl (3.5-5.0) L 07/24/24 00:31
Physical Exam
-
Gen: uncomfortable diaphoretic
Abd: soft, tender on RIGHT abdomen, obese (no increased distension), peritonitis, jr tube with bilious output
Patient has a velazquez catheter: Yes
Patient has a central line: No
--- NOTE | 2024-07-24 11:29 | W.PN.HOSP.TC ---
Today's Communication/Plan
-
see outlined plan below
Assessment / Plan
Assessment / Plan
Assessment:
Acute cholecystitis diagnosed last admission
- s/p robotic placement of cholecystostomy tube on 07/07; remains
- s/p IV and oral Abx course and discharge 07/19/24
- returns to hospital for chills/fevers
Septic shock
Intra-Abdominal Abscesses (R paracolic, pelvic +/- L paracolic)
- GS and IR consulted, plan is for drainage of abscesses today
- ID consulted. Continue Empiric Zosyn; prior cultures grew out Viridans streptococcus, Prevotella
- blood cultures pending
- s/p sepsis protocol IVF
- on Levophed; wean as able
- ICU following
Elevated Lipase, reactive to intra-abdominal pathology
- no evidence of pancreatitis by imaging
L sided pneumonia vs atelectasis
Small L parapneumonic effusion
- pulm following
- continue empiric IV Zosyn
- MRSA swab pending
Hyponatremia
- improving
Metabolic acidosis
- improved with bicarb IVF
Hypomagnesemia
Essential HTN
- hold HCTZ/ARB/CCB for sepsis
Chronic Microcytic Anemia
- follow Hb, may need transfusion
DM-II
- hold Januvia
- SSI
- recent A1c: 10.2%
Morbid Obesity due to excess calories
DVT ppx: Lovenox
Code: Full
Total Critical Care Time 45 minutes. I was immediately available to the patient and staff. I personally examined, reviewed labs, diagnostic images/reports, interpretations, treatment plans, discussed patient care with other providers and family
or caregivers (if patient is unable to make decisions), entered orders as appropriate and documented the medical record.
Anticipated Discharge: > 48 hours
Subjective/Interval History
-
Date of Service: July 24, 2024
reports abdominal pain, tired
for IR drainage today
Objective Data
-
Labs:
Laboratory Results
07/24/24 07/24/24 07/24/24
00:31 04:37 06:00
WBC 13.3 H 10.6
Hgb 7.8 L 7.6 L
Hct 24.3 L 23.6 L
Plt Count 381 372
PT 18.8 H
INR 1.55
APTT 27.9
HCO3 Cancelled
Sodium 133 L 134 L
Potassium 3.9 4.0
Chloride 102 103
Carbon Dioxide 17 L 21 L
BUN 13 13
Creatinine 1.0 0.9
Glucose 155 H 141 H
Calcium 8.4 8.4
Total Bilirubin 0.7
AST 21
ALT 12
Alkaline Phosphatase 172 H
Vital Signs:
Vital Signs
Temp Pulse Resp BP Pulse Ox
98.2 F 112 28 134/82 98
07/24/24 08:00 07/24/24 11:00 07/24/24 11:00 07/24/24 11:00 07/24/24 11:00
I&O
07/23/24 07/24/24 07/25/24
06:59 06:59 06:59
Intake Total 1150 / 1300 300 / 300
Output Total 900 / 975 350 / 350
Balance 250 / 325 -50 / -50
Physical Exam
-
General: No Apparent Distress and Other (appears acutely ill)
HEENT: Normocephalic and Atraumatic
Respiratory: Decreased Breath Sounds
Cardiac: Regular Rhythm and S1/S2
GI: Tender
Genito-urinary: No Costovertebral Tender
Neuro: AO x 3
Psych: Calm
Data Reviewed
-
Critical Care Time (in minutes): 45
Labs: Labs Reviewed by me
[2024-07-24 11:54] LABS: Glucose - Point of Care 136 mg/dl (70-99)
[2024-07-24] MEDS: PROTONIX IV 40 MG IV (12:55)
[2024-07-24] MEDS: NSS (PRESERVATIVE FREE) 10 ML IV (12:55)
--- NOTE | 2024-07-24 13:04 | PTCARENOTE ---
awaiting time for IR for drain placements. continuing to administer zosyn, rechecked patient's temp as patient reported feeling flushed, 99.1 orally.
--- NOTE | 2024-07-24 13:38 | CON.INTV ---
Consultation
Consultation Request
Date/Time Consultation Requested: 07/24/2024
Date/Time Consultation Performed: 07/24/2024
Medical History
-
Chief Complaint: Sepsis
History of Present Illness:
49 year old female with a past medical history significant for hypertension, T2DM and recent robotic cholecystostomy tube placement at on 07/07/2024. During her prior admission she had acute cholecystitis complicated by severely inflamed distended
gallbladder precluding safe resection which required drain placement. She was treated with IV zosyn initially and then transitioned to ceftriaxone/metronidazole and ultimately sent out on PO cefdinir and metronidazole. She completed the course
through to 07/22/2024, however she states she continued to feel sick with intermittent hypotension to the 90s/50s. Then, on the evening of the 07/23/2024 she began spiking fevers, though she denied any n/v/d/abd pain at that time. On arrival to the ED
she was sweating, had rigors, was tachycardic, tachypneic, and hypertensive, with intermittent episodes of hypotension with the lowest being 50/30. She was given IVF boluses, started on Zosyn and Levo and brought to the ICU. She had an episode of
hypoxia and was started on highflow, but has since weaned down. CT scan was done showing a 7.6cm and 7.7cm abdominal abscesses, posterior to the uterus and in the R paracolic gutter respectively.
When examined this morning she was on 6L NC, AOx3 and off levophed.
Past Medical History
Past Medical History: HTN and NIDDM
Social History
Tobacco: Non-smoker
Drug: None
Personal:
Living: With Family
Family History
Family History: Reviewed & Not Pertinent
Allergies / Home Medications
Allergies
Allergy/AdvReac Type Severity Reaction Status Date / Time
No Known Allergies Allergy Verified 07/23/24 13:54
Home Medications
�Medication �Instructions �Recorded �Confirmed �Last Taken �Type
metoprolol succinate 100 mg 50 mg PO DAILYPRN PRN high pulse 10/10/24 05/05/25 04/17/25 History
tablet,extended release 24 hr
cholecalciferol (vitamin D3) 125 125 mcg PO DAILY Supplement 07/06/24 07/23/24 Unknown History
mcg (5,000 unit) tablet (Vitamin
D3)
losartan 100 1 tab PO DAILY Blood Pressure 07/06/24 07/23/24 07/19/24 History
mg-hydrochlorothiazide 25 mg tablet
norethindrone acetate 5 mg tablet 5 mg PO DIRECTED Hormonal Agent 07/06/24 07/23/24 Unknown History
nifedipine 30 mg tablet,extended 30 mg PO DAILY #30 tabs 07/19/24 07/23/24 Unknown Rx
release
polyethylene glycol 3350 17 gram 17 g PO DAILYPRN PRN constipation 07/19/24 07/23/24 Unknown Rx
oral powder packet #14 ea
sitagliptin phosphate 50 mg tablet 50 mg PO DAILY #30 tabs 07/19/24 07/23/24 Unknown Rx
(Januvia)
esomeprazole magnesium 20 mg 20 mg PO DAILY 07/23/24 07/23/24 Unknown History
capsule,delayed release (Nexium)
Review of Systems
-
History Source: Patient
Constitutional: Fever, Night Sweats and Chills
Respiratory: No Symptoms
Cardiac: No Symptoms
Abdomen/GI: No Symptoms
Musculoskeletal: No Symptoms
Neuro: No Symptoms
Vitals / Labs / Diagnostic Testing
Vital Signs
Temp Pulse Resp BP Pulse Ox
99.1 F 109 16 137/77 98
07/24/24 13:04 07/24/24 12:45 07/24/24 12:45 07/24/24 12:45 07/24/24 12:45
Lab Data
07/24/24 04:37
07/24/24 04:37
Laboratory Results
07/23/24 07/24/24 07/24/24
22:54 00:31 06:00
PT 18.8 H
INR 1.55
APTT 27.9
pH 7.41 Cancelled
pCO2 25 L Cancelled
pO2 113 H Cancelled
HCO3 15.8 L* Cancelled
O2 Delivery Level Cancelled
Microbiology
07/24/24 00:43 Urine Streptococcus pneumoniae Antigen (M - Final
Negative for Streptococcus pneumoniae antigen.
A negative result does not exclude infection with
Streptococcus pneumoniae. Clinical correlation is
recommended.
07/24/24 00:43 Urine Legionella Urinary Antigen - Final
Negative for Legionella pneumophila Serogroup 1 antigen.
A negative result does not rule out the possiblity of
Legionella infection due to other serogroups or species of
Legionella. Clinical correlation is recommended.
07/23/24 16:38 Nasal Swab Influenza Types A & B (CLEOPATRA) - Final
Negative for Influenza A & B, NAAT
Negative results must be combined with clinical observations
and patient history.
Nucleic Acid Amplification test (NAAT)performed on the
[employer] platform.
Diagnostic Testing:
Physical Exam
-
HEENT: Normocephalic, Anicteric and Moist Mucous Membranes
Cardiovascular: S1/S2, Regular Rhythm and Other (Tachycardia)
Respiratory: Rales and Non-Labored Respirations
GI: Soft, Distended and Tender
Neurology: AO x 3
Skin: Warm
General: Fever, Chills and Sweats
Assessment
-
49 year old female presenting with septic shock from multiple intraabdominal abscesses
#Septic Shock secondary likely secondary to intraabdominal abscesses
- Blood cultures pending
- off pressors, hemodynamically stable
- c/w IV zosyn
- drains to be placed by IRAD, surgery following
- ID consulted per primary
#Left Lower Lobe Pneumonia
- CT showing moderate LLL airspace consolidation with small left parapneumonic pleural effusion
- Urine strep/legionella negative thus far
- if producing sputum, would culture
- MRSA screen pending
- she is saturating well on 6L NC
- IV Abx as above
- c/t wean O2 as tolerated
#7.7cm Abscess in R paracolic Gutter
#7.6cm pelvic abscess
- IR & Surgery consult
- will go for drain placement
- c/w Iv Abx as above
- Obtain cultures if able
#Robotic Cholecystostomy w/ tube placement
- drain in place, no surrounding erythema, drainage or tenderness
- lap ports well healing, clean and dry. Surgical glue intact
- Draining minimal bilious fluid
#Hypertension
- holding antihypertensives at this time due to septic shock
#Type II DM
- A1C% uncontrolled from recent, 10.2%
- MDISS
- POC glucose checks 140-180s
#DVT PPx
- Lovenox 40 sc
#Code Status
- Full code
--- NOTE | 2024-07-24 14:31 | CM ---
Addendum entered by Aspen Beavers RN 07/24/24 16:26:
Spoke with KRYSTAL Reynolds; it is undetermined at this time if patient will qualify for MA, it depends on whether 's [employer] will cover her prior admission and on the amt of this hospital bill.
Addendum entered by Aspen Beavers RN 07/24/24 14:54:
Noting patient is NPO at present.
Message to Dr Morataya; patient reported she was too weak to walk at home, she may benefit from PT when less acute.
Plan watch patient's mobility and O2 needs.
Plan home.
Original Note:
Patient with Hx Acute cholecystitis s/p robotic placement of cholecystostomy tube on 07/07 with Dx Septic shock, Intra-Abdominal & Pelvic Abscesses, LLL Pneumonia. Plan IR for percutaneous drainage of collections. O2 4L. Cholecystostomy Drain.
Receiving IV Abx. Per nursing; bedrest.
Met with patient & Serzenobia with daughter present.
The patient resides with her spouse in a two story home with two steps to enter.
The patient has been assisted with ADLs and ambulation by her since her recent discharge, due to feeling weak.
She was able to get OOB to the bathroom.
Serzenobia was helping her with drain care.
No DME/VN/SNF in the past.
[facility] - [facility]arm[facility] - [facility]
CM continuing to follow for d/c needs.
Plan watch for any O2 needs at discharge.
Plan home.
--- NOTE | 2024-07-24 14:41 | PTCARENOTE ---
Took patient to IR on 4L on monitor.
[2024-07-24] MEDS: LOVENOX 40 MG SC (17:09)
--- NOTE | 2024-07-24 17:19 | W.PN.UPDATE ---
Update Note
Progress Note Update
- CT guided jr tube placed - green bilious fluid obtained.
- With patient up on her right side, fluid in the rlq shifted, indicating ascites rather than actual abscess. No drain placed in rlq.
- Did not attempt to place patient prone for pelvic drainage.
--- NOTE | 2024-07-24 17:20 | PTCARENOTE ---
Picked patient up from IR. second jr drain has been placed. fluid sent to lab by IR. MRSA PCR sent, lovenox given.
[2024-07-24 17:34] LABS: Glucose - Point of Care 117 mg/dl (70-99)
--- NOTE | 2024-07-24 20:00 | PTCARENOTE ---
Pt Aox3, c/o pain on left side of abdomen, 06/28. PRN Tylenol given. NSR/ST on monitor, trace edema to lower extremities. Drains with green output. velazquez on place. Pt laying on left side, refusing to turn although she is capable of turning self, she
is just more comfortable on left side, education provided on skin safety.
[2024-07-25] VITALS (57 sets, daily range): BP systolic 106–171; BP diastolic 72–111; BMI 41.7
[2024-07-25 00:19] LABS: Glucose - Point of Care 123 mg/dl (70-99)
[2024-07-25] MEDS: NOVOLOG FLEXPEN-MODERATE RESISTANCE SC ×4 (00:21→16:57)
[2024-07-25] MEDS: ZOSYN 50 IV ×2 (02:02→08:19)
[2024-07-25] MEDS: TYLENOL 650 MG PO ×2 (04:20→20:05)
[2024-07-25 04:35] LABS: Hematocrit 25.8 % (37.0-47.0); Hemoglobin 8.4 g/dL (12.0-16.0); Mean Corp Hgb Conc. 32.6 g/dL (33.0-37.0); Mean Corpuscular Hgb 25.2 pg (27.0-31.0); Mean Corpuscular Volume 77.5 fL (81.0-99.0); Mean Platelet Volume 9.4 fL (7.4-10.4); Platelet Count 372 10^3/uL (130-400); Red Blood Cell Count 3.33 10^6/uL (4.20-5.40); Red Cell Dist. Width 19.9 % (11.5-14.5); White Blood Cell Count 9.5 10^3/uL (4.8-10.8)
--- NOTE | 2024-07-25 04:42 | PTCARENOTE ---
Pt c/o abd pain in upper quadrants. + bowl sounds, tender to palpitation. Drain B with alot of output, brown/ josé in color. Hemoglobin stable 8.4. Pt refused to get washed up this morning. WBC trending down.
[2024-07-25 05:00] LABS: ALT (SGPT) 11 U/L (0-35); AST (SGOT) 20 U/L (14-36); Albumin 2.7 g/dl (3.5-5.0); Alkaline Phosphatase 145 U/L (38-126); Blood Urea Nitrogen 18 mg/dl (7-17); Carbon Dioxide 23 mmol/L (22-30); Chloride 102 mmol/L (98-107); Estimated Creatinine Clearance 85 ml/min; Glucose 123 mg/dl (70-99); Lipase 220 U/L (23-300); Potassium 3.9 mmol/L (3.5-5.1); Sodium 137 mmol/L (135-145); Total Bilirubin 0.6 mg/dl (0.2-1.3); Total Protein 5.7 g/dl (6.3-8.2); eGFR > 60.00
[2024-07-25 06:32] LABS: Glucose - Point of Care 125 mg/dl (70-99)
--- NOTE | 2024-07-25 07:22 | PTCARENOTE ---
Adler pulled 6am.
[2024-07-25] MEDS: NON-FORMULARY ITEM 20 MG PO (08:19)
[2024-07-25] MEDS: VISBIOME 1 CAP PO (08:20)
[2024-07-25] MEDS: NSS (PRESERVATIVE FREE) IV (08:21)
[2024-07-25] MEDS: PROTONIX IV IV (08:21)
--- NOTE | 2024-07-25 09:05 | CON.ID ---
Addendum entered and electronically signed by Cara Orlando MD 07/25/24 12:21:
EKG in the AM
Original Note:
Consultation
-
Date/Time Consultation Requested: 07/24/24 8:39
Date/Time Consultation Performed: 07/25/24 9:27
Requesting Provider: Dr Morataya
Performing Provider: Dr Orlando
Reason for Consultation: Acute Cholecystitis s/p Michelle Tube Intra-Abdominal Abscesses
Chief Complaint / Past History
Chief Complaint
fevers and rigors
History of Present Illness
Ms Gresham is a 49 year old female with history notable for uncontrolled DM2 (a1c 10.2), class III obesity who underwent robotic plcement of cholecystostomy tube on 07/07, he course was notable for JO requiring temporary HD, bile culture notbale for
VGS and prevotella; she completed 7 days of ceftriaxone 1 gm IV q24 and metronidazole 500 mg q8h x7 days followed by another 3 days of cefdinir and metronidazole which she completed 07/22; there was concern for vaginal candidiasis and she also had one
dose of fluconazole. Then 07/23 she returned for fevers, rigors but no abdominal pain, nausea, vomiting and the cholecystostomy tube was functional.
Since arrival here she was initially febrile to 101.6, bp was initially unstable requiring pressors to norepi at 4 mcg/min now off, wbc on arrival 16 today 9.5, hgb 8.4, plt 372, L shift was present on arrival, cr 0.9 which appears to be her
baseline, lactic acid on arrival 0.9, lipase initially 425, 07/09 urine no eosinophils, blood glucose since arrival with good control, 07/23 CT a/p contrast injected through michelle tube passes through to the duodenum - patent ducts large abscesses noted
in the R paracolic gutter, posterior to the uterus, acute cholecystitis was noted, moderate consolidation of the LLL with parapneumonic effusion; 07/24 second drain placed into the gallbladder culture was sent gram stain no organisms; IR Dr Esquivel
commented that the fluid in the abdomen shifted when patient was placed on her right side - consistent with ascites rather than a consolidated abscess. Patient is currently on zosyn. ID is consulted for assistance with management.
Past History
Additional Past Medical History:
essential hypertension
DM II
fatty liver
liver mass
hx gall stones
Additional Past Surgical History:
tonsillectomy
adenoidectomy
Allergy History:
No Known Allergies Allergy (Verified 07/23/24 13:54)
Medications Reviewed: Yes
Social History
Tobacco: Non-Smoker
Alcohol: None
Drug: None
Family History
Family History: Not Pertinent
Review of Systems
Review of Systems
General: Fever and Chills
All systems: All other systems were reviewed and were negative
Vital Signs
Temp Pulse Resp BP Pulse Ox
98.4 F 98 19 139/92 99
07/25/24 07:47 07/25/24 08:30 07/25/24 08:30 07/25/24 08:30 07/25/24 08:30
Physical Exam
Physical Exam
Constitutional: No Acute Distress
Cardiovascular: Regular Rate and S1/S2; Negative Murmur or Rub
Pulmonary: Clear and Symmetric; Negative Wheezes, Rales or Rhonchi
Gastrointestinal: Soft, Non Tender, Non Distended and Normal Bowel Sounds
Skin: Warm and Dry; Negative Rash or Jaundice
Lab / Diagnostic Study Results
07/25/24 04:08
07/25/24 04:08
Abs Immat Gran (auto) 0.3 10^3/uL (0-0.05) H 07/24/24 00:31
Absolute Neuts (auto) 12.4 10^3/uL (1.4-6.5) H 07/24/24 00:31
Absolute Lymphs (auto) 0.4 10^3/uL (1.2-3.4) L 07/24/24 00:31
Absolute Monos (auto) 0.2 10^3/uL (0.1-0.6) 07/24/24 00:31
Absolute Basos (auto) 0.0 10^3/uL (0-0.2) 07/24/24 00:31
Immature Gran % 2.3 % (0-0.5) H 07/24/24 00:
Neutrophils % 92.7 % (42.2-75.2) H 07/24/24 00:
Lymphocytes % 3.2 % (20.5-51.1) L 07/24/24 00:
Monocytes % 1.5 % (1.7-9.3) L 07/24/24:
Eosinophils % 0.1 % (0-6) 07/24/24 00:31
Basophils % 0.2 % (0-2) 07/24/24 00:
PT 18.8 Sec (11.4-14.6) H 07/24/24 00:31
INR 1.55 07/24/24 00:31
Lactic Acid 0.9 mmol/L (0.7-2.0) 07/23/24 16:38
Microbiology Results
Micro:
07/24/24 17:13 Nasal Screen MRSA (PCR) - Final
Nose MRSA not detected - performed by PCR methodology.
07/24/24 16:15 Body Fluid Culture - Pending
Bile Gram Stain - Preliminary
07/23/24 16:38 Blood Culture - Preliminary
Blood/Venous No Growth in 24 hours- Final report to follow
07/23/24 16:56 Blood Culture - Preliminary
Blood/Venous No Growth in 24 hours- Final report to follow
07/24/24 00:43 Streptococcus pneumoniae Antigen (M - Final
Urine Negative for Streptococcus pneumoniae antigen.
A negative result does not exclude infection with
Streptococcus pneumoniae. Clinical correlation is
recommended.
07/24/24 00:43 Legionella Urinary Antigen - Final
Urine Negative for Legionella pneumophila Serogroup 1 antigen.
A negative result does not rule out the possiblity of
Legionella infection due to other serogroups or species of
Legionella. Clinical correlation is recommended.
07/23/24 16:38 Influenza Types A & B (CLEOPATRA) - Final
Nasal Swab Negative for Influenza A & B, NAAT
Negative results must be combined with clinical observations
and patient history.
Nucleic Acid Amplification test (NAAT)performed on the
[employer] platform.
Assessment / Plan
Multiple intraabdominal abscesses
Cholcystostomy tube placement
Recent JO requiring temporary HD
Uncontrolled Dm2 - risk factor for relapse
- recommend intensifying outpatient DM2 control which will improve neutrophil function and speed healing, would consider home insulin; this will also avoid drug drug interactions with januvia and quinolones
- blood cultures x2 no growth to date
- 07/07 bile cultures VGS and prevotella (BL neg)
- drains x2 into the gallbladder
- IR commented that no drain was placed in the peritoneal cavity because fluid was positional indicating ascites rather than organized collection; note that amount of fluid was relatively large up to 7 cm in two discrete areas
- stop zosyn start ciprofloxacin 750 mg PO qday plus metronidazole 500 mg BID x 4 weeks
- repeat cbc, cmp, esr, crp and CT a/p with IV and oral contrast - follow up in ID clinic in 4 weeks
--- NOTE | 2024-07-25 10:14 | W.PN.HOSP.TC ---
Today's Communication/Plan
-
ASSORTER consult for insulin initiation
Abd US for ascites
Echo
ID eval; IV Abx
follow GS recs
Downgrade MS
Assessment / Plan
Assessment / Plan
Assessment:
Acute cholecystitis diagnosed last admission
- s/p robotic placement of cholecystostomy tube on 07/07; remains
- s/p IV and oral Abx course and discharge 07/19/24
- returns to hospital for chills/fevers
- s/p IR guided cholecystostomy tube placed 07/24
Septic shock
Intra-Abdominal Abscesses (R paracolic, pelvic +/- L paracolic)
- s/p IR guided cholecystostomy tube placed 07/24
- GS following
- ID following. Continue Empiric Zosyn day 2; prior cultures grew out Viridans streptococcus, Prevotella
- blood cultures pending
- s/p sepsis protocol IVF
- Levophed was weaned
- ICU following
Ascites
- check Abd US and arrange paracentesis if appropriate
Elevated Lipase, reactive to intra-abdominal pathology
- no evidence of pancreatitis by imaging
L sided pneumonia vs atelectasis
Small L parapneumonic effusion
- pulm following
- continue empiric IV Zosyn
- MRSA swab negative
Hyponatremia
- improving
Metabolic acidosis
- improved with bicarb IVF
Hypomagnesemia
Essential HTN
- hold HCTZ/ARB/CCB for sepsis
Chronic Microcytic Anemia
- follow Hb, 8.4 today.
DM-II
- hold Januvia
- SSI
- recent A1c: 10.2%
- ASSORTER consulted for insulin initiation
Morbid Obesity due to excess calories
DVT ppx: Lovenox
Code: Full
Total Critical Care Time 41 minutes. I was immediately available to the patient and staff. I personally examined, reviewed labs, diagnostic images/reports, interpretations, treatment plans, discussed patient care with other providers and family or
caregivers (if patient is unable to make decisions), entered orders as appropriate and documented the medical record.
Anticipated Discharge: > 48 hours
Subjective/Interval History
-
Date of Service: July 25, 2024
s/p CT guided jr tube placed
reports abdominal distention
Objective Data
-
Labs:
Laboratory Results
07/25/24
04:08
WBC 9.5
Hgb 8.4 L
Hct 25.8 L
Plt Count 372
Sodium 137
Potassium 3.9
Chloride 102
Carbon Dioxide 23
BUN 18 H
Creatinine 0.9
Glucose 123 H
Calcium 9.0
Total Bilirubin 0.6
AST 20
ALT 11
Alkaline Phosphatase 145 H
Vital Signs:
Vital Signs
Temp Pulse Resp BP Pulse Ox
98.4 F 98 19 139/92 99
07/25/24 07:47 07/25/24 08:30 07/25/24 08:30 07/25/24 08:30 07/25/24 08:30
I&O
07/24/24 07/25/24 07/26/24
06:59 06:59 06:59
Intake Total 1150 / 1300 500 / 500 50 / 50
Output Total 900 / 975 1585 / 1585
Balance 250 / 325 -1085 / -1085 50 / 50
Physical Exam
-
General: No Apparent Distress
HEENT: Normocephalic and Atraumatic
Respiratory: Negative Wheezes
Cardiac: Regular Rhythm and S1/S2
GI: Soft and Distended
Musculoskeletal: No Edema
Neuro: AO x 3
Psych: Calm
Data Reviewed
-
Critical Care Time (in minutes): 41
Labs: Labs Reviewed by me
--- NOTE | 2024-07-25 10:44 | PTCARENOTE ---
patient now OOB to chair, CHG performed, offered toothbrush again at sink, patient declined. gown changed and now sitting in chair speaking with nurse informatics educator.
--- NOTE | 2024-07-25 11:23 | W.PN.INTV ---
Addendum entered and electronically signed by Ness Collins MD 07/25/24 17:19:
Correction: Patient's hospitalization for severe acute cholecystitis managed with cholecystostomy, complicated by renal failure requiring brief hemodialysis was in June/2024. Intraoperatively, gallbladder was noted to be severely inflamed hence
cholecystostomy was performed.
Original Note:
Today's Communication / Plan
Recommendations
Abx per ID
Echo ordered overnight, will observe results
Continues to improve clinically with reduced o2 requirements, off pressors
Agree patient can be downgraded to Med/surg
Assessment
-
49 year old female presenting with septic shock from multiple intraabdominal abscesses
#Septic Shock
- Blood cultures no growth to date
- off pressors, hemodynamically stable
- No peritoneal drain, deemed likely to be ascites rather than abscess
- Michelle drain placed, output >600cc sero-bilious fluid
- Currently on IV Zosyn
- Abx changes per ID w/ likely follow up as outpatient
#Left Lower Lobe Pneumonia
- CT showing moderate LLL airspace consolidation with small left parapneumonic pleural effusion
- Urine strep/legionella negative thus far
- if producing sputum, would culture
- MRSA screen negative
- Abx as above
- c/t wean O2 as tolerated
#7.7cm Abscess in R paracolic Gutter
#7.6cm pelvic abscess
- IR & Surgery consult
- no peritoneal drain placed -- fluid collections more likely to be ascites vs. true abscess
- c/w Abx as above
- Bile cultures sent, results pending
#Robotic Cholecystostomy w/ tube placement
- drain in place, no surrounding erythema, drainage or tenderness
- lap ports well healing, clean and dry. Surgical glue intact
- Draining minimal bilious fluid
#Hypertension
- holding antihypertensives at this time due to septic shock
- pressures stable off pressors
#Type II DM
- A1C% uncontrolled from recent, 10.2%
- MDISS
- POC glucose checks 140-180s
- diabetic nurse consult for insulin management
#DVT PPx
- Lovenox 40 sc
#Code Status
- Full code
Subjective Dataa
Subjective Data
Date of Service:
Date of Service: July 25, 2024
Subjective:
Feeling better this morning. Has some mild nausea and abdominal pain, but no sob, chest pain, fevers, chills, vomiting, diarrhea.There were no acute overnight events.
Review of Systems
GI: Abdominal Pain and Nausea
Genitourinary: Other (Иринаck)
Objective Data
Data Reviewed
Vital Signs / I&O / Oxygen:
Vital Signs
Temp Pulse Resp BP Pulse Ox
98.5 F 98 19 139/92 97
07/25/24 11:15 07/25/24 08:30 07/25/24 08:30 07/25/24 08:30 07/25/24 10:43
Intake and Output
07/24/24 07/25/24 07/26/24
06:59 06:59 06:59
Intake Total 1150 / 1300 500 / 500 50 / 50
Output Total 900 / 975 1585 / 1585
Balance 250 / 325 -1085 / -1085 50 / 50
SaO2 97
Nasal Cannula flow liters per 3.5
minute
Physical Exam
General: Comfortable
HEENT: Normocephalic and Anicteric
Cardiovascular: S1-S2 and Regular Rhythm
Respiratory: Clear and Non-Labored Respirations
GI: Soft, Distended and Normal Bowel Sounds
Neurology: AO x 3
Skin: Warm and Dry
Labs/Micro/Reports
Lab Data
07/25/24 04:08
07/25/24 04:08
Microbiology
07/24/24 17:13 Nose Nasal Screen MRSA (PCR) - Final
MRSA not detected - performed by PCR methodology.
07/24/24 16:15 Bile Gram Stain - Preliminary
07/23/24 16:38 Blood/Venous Blood Culture - Preliminary
No Growth in 24 hours- Final report to follow
07/23/24 16:56 Blood/Venous Blood Culture - Preliminary
No Growth in 24 hours- Final report to follow
07/24/24 00:43 Urine Streptococcus pneumoniae Antigen (M - Final
Negative for Streptococcus pneumoniae antigen.
A negative result does not exclude infection with
Streptococcus pneumoniae. Clinical correlation is
recommended.
07/24/24 00:43 Urine Legionella Urinary Antigen - Final
Negative for Legionella pneumophila Serogroup 1 antigen.
A negative result does not rule out the possiblity of
Legionella infection due to other serogroups or species of
Legionella. Clinical correlation is recommended.
07/23/24 16:38 Nasal Swab Influenza Types A & B (CLEOPATRA) - Final
Negative for Influenza A & B, NAAT
Negative results must be combined with clinical observations
and patient history.
Nucleic Acid Amplification test (NAAT)performed on the
[employer] platform.
[2024-07-25 12:13] LABS: Glucose - Point of Care 137 mg/dl (70-99)
[2024-07-25] MEDS: LANTUS 0.1 UNITS SC (12:23)
--- NOTE | 2024-07-25 12:46 | PN.DE.MGMTRT ---
Insulin Management
- -
07/25/2024 Diabetes Management Consult
Patient admitted 07/23 for fever, chills, recently discharged from after stay 07/09 to 07/19 for acute cholecystitis, cholecystomy tube. PMH HTN, diabetes. Recently started on Januvia 50 mg daily and given a Contour glucose monitor. States she has
been using the meter. A1C 07/07 10.2%, cr .9, eGFR > 60.
Patient is awake alert and oriented oob in chair, able to discuss diabetes care. and daughter at bedside, very supportive. Patient remains NPO. Glucose range 117 to 146.
ID has recommended starting insulin. Will start 10 units lantus now and continue moderate corrective while patient is NPO. Will add AC novolog when diet resumed. Recommend 1600 calorie diet.
Discussed with nurse.
Will follow
Diabetes Nurse Educator to instruct on insulin prep and administration
Diabetes History
- -
Type of Diabetes: 2
Pre-Admission Diabetes Regimen
07/25/24
04:08
Creatinine 0.9
Insulin Pump Settings
IP Diabetes Regimen
07/24/24 07/25/24 07/25/24
17:22 00:08 04:08
Glucose 123 H
POC Glucose 117 H 123 H
07/25/24 07/25/24
06:21 12:02
Glucose
POC Glucose 125 H 137 H
Meal type: Breakfast
Patient Education
--- NOTE | 2024-07-25 13:54 | CARDSERVLU ---
Echocardiogram with Lumason completed after protocol screening completed. Allergies verified.
Patent IV site: Left antecubital IV site clear
IV site flushed with 0.9% NaCl pre and post administration.
Diluted bolus method utilized to enhance visualization of ventricular jaeger.
Total volume given: __3__ mL
Patient tolerated all procedures well without complications.
--- NOTE | 2024-07-25 14:27 | CON.CAR ---
Addendum entered and electronically signed by Jerod Guo MD 07/25/24 15:54:
I saw and examined the patient.
The HIGHWAY TECHNICIAN or PA's note was reviewed and I agree with the note.
Comment: General: Well developed, well nourished in NAD.
Neck: Supple, no JVD, HJR, carotids +2 B/L, no bruits bilaterally.
Heart: Non displaced PMI, RRR, no murmurs, No S3, S4, no rubs.
Lungs: Clear to auscultation bilaterally, no wheeze, rhonchi, rubs bilaterally,
normal expiratory phase.
Abdomen: Normal bowel sounds, soft, non-tender, non-distended.
Extremities: No clubbing, cyanosis or edema bilaterally.
Neuro: Grossly nonfocal, awake, alert and oriented x3.
Ebony has a history of type 2 diabetes which is poorly controlled, renal sufficiency with transient hemodialysis which has resolved, cholecystitis, ascites, sepsis and shock, left-sided pneumonia, hypertension. Cardiology is consulted for an
echocardiogram ejection fraction 30 to 35% with anterior, anteroseptal, and apical akinesis.
It appears patient has had an interim MRI. And is unclear when. Will check troponin which could remain elevated for up to 2 weeks. It is possible that the reduced ejection fraction is an incidental finding as she has had diaphoresis when
shopping. In any event we will add Toprol, aspirin, Cozaar. She will need eventual cardiac catheterization to exclude CAD. However patient may need procedure for gallbladder and catheterization with stenting would involve at least 1 month of dual
antiplatelet therapy. Will continue discussed with internal medicine and surgery regarding timing of procedures. Discussed with patient and family at bedside
Original Note:
Consultation
Consultation Request
Date/Time Consultation Requested: 07/25/24
Date/Time Consultation Performed: 07/25/24
Requesting Provider: Dr. Morataya
Performing Provider: Dr. Guo
Reason for Consultation: Abnormal echo
Medical History
-
History of Present Illness:
Patient was admitted to [facility] on 07/23/2024 with acute cholecystitis and sepsis and cardiology is now consulted for an abnormal echocardiogram. Patient follows with Dr. Valdovinos and has been treated for DM 2 since 10/2022 on my review of [facility] records.
Patient had abdominal MRI 08/2023 that showed gallstones and choledocholithiasis and patient was referred to GI and saw them as a new patient 11/02/2023 and patient was recommended ERCP which was performed 12/29/2023 and showed cholelithiasis, but
normal bile duct without stone and patient had a biliary sphincterectomy. Patient was recommended to follow-up with surgeon for cholecystectomy. Patient came to [facility] ER on 07/06/2024 and was admitted with acute cholecystitis and JO. As noted
above patient had a robotic cholecystostomy tube placed and required transient HD for JO, but no need for long-term outpatient HD. Patient was discharged to home on 07/19/2024 with cholecystostomy tube in place plus antibiotics and reports that she
noticed spontaneous drainage from around the tube and returned to the ER on 07/23/2024 and was admitted with acute cholecystitis and sepsis. CT abdomen/pelvis indicated a possible pelvic abscess posterior to the uterus and moderate ascites. Patient
was seen in consultation by general surgery and it was recommended that patient have a new cholecystostomy tube placed and this was performed in IR with initial drainage and then catheter placement. General surgery feels that patient would almost
certainly need to be done in open fashion given where she is in this process and so plan is for IR drainage and antibiotics. Given ascites and echocardiogram was checked and as noted above the EF is down to 30 to 35% with new WMA suspicious for LAD
territory WMA. Patient denies CP or SOB, but reports diaphoresis more than expected with walking activity over the last 2 to 3 months. Patient was previously seen by a energy specialist out of [facility], but says that this was only for risk factor
modification and she has no previous cardiac testing. There is no FH of CAD.
[facility]:
Recent admission for acute cholecystitis, DM 2 and JO with transient HD 07/09/24 until 07/19/24
Newly diagnosed CM EF 30-35% by echo 07/25/24
Ascites
Acute cholecystitis
s/p ERCP with cholelithiasis, biliary sphincterectomy 12/28/24
s/p robotic cholecystostomy tube 07/07/24
s/p IR gallbladder drainage and catheter placement 07/24/24
h/o JO with transient HD in the setting of acute cholecystitis 06/2024
Sepsis and shock
Possible left-sided PNA
HTN
DM 2
PCP managing DM 2 since 10/2022
Past Medical History
Past Medical History: Other (in HPI)
Past Surgical History: Tonsilectomy and Other (cholecystostomy)
Social History
Tobacco: Non-Smoker
Alcohol: None
Drug: None
Personal:
Living: With Family
Family History
Family History: Other (denies FH CAD)
Allergies / Home Medications
Allergy/AdvReac Type Severity Reaction Status Date / Time
No Known Allergies Allergy Verified 07/23/24 13:54
�Medication �Instructions �Recorded �Confirmed �Type
metoprolol succinate 100 mg 50 mg PO DAILYPRN PRN high pulse 12/29/23 07/23/24 History
tablet,extended release 24 hr
cholecalciferol (vitamin D3) 125 125 mcg PO DAILY Supplement 07/06/24 07/23/24 History
mcg (5,000 unit) tablet (Vitamin
D3)
losartan 100 1 tab PO DAILY Blood Pressure 07/06/24 07/23/24 History
mg-hydrochlorothiazide 25 mg tablet
norethindrone acetate 5 mg tablet 5 mg PO DIRECTED Hormonal Agent 07/06/24 07/23/24 History
nifedipine 30 mg tablet,extended 30 mg PO DAILY #30 tabs 07/19/24 07/23/24 Rx
release
polyethylene glycol 3350 17 gram 17 g PO DAILYPRN PRN constipation 07/19/24 07/23/24 Rx
oral powder packet #14 ea
sitagliptin phosphate 50 mg tablet 50 mg PO DAILY #30 tabs 07/19/24 07/23/24 Rx
(Januvia)
esomeprazole magnesium 20 mg 20 mg PO DAILY Gastrointestinal 07/23/24 07/23/24 History
capsule,delayed release (Nexium) Issue
Review of Systems
-
History Source: Patient and Family ( bedside helping with HPI)
All other systems: Negative unless noted
Physical Exam
Vital Signs
Temp Pulse Resp BP Pulse Ox
98.5 F 108 17 142/95 97
07/25/24 11:15 07/25/24 11:26 07/25/24 11:26 07/25/24 13:00 07/25/24 10:43
GEN: NAD. AAOx3
HEENT: MMM
LUNGS: RA. Clear anterolaterally without wheeze
CV: SR/ST on tele. Reg, S1/S2, no murmur
EXT: No clubbing, cyanosis, lesions or edema B/L
NEURO: Gross non-focal
SKIN: No rash
Lab Results
07/25/24 04:08
07/25/24 04:08
Zkc-[id number] Pept 545 pg/ml 07/23/24 16:38
Impression / Plan
-
PCP: Dr. Valdovinos and the FP residency program
Card: Dr. Nathanael Jain
Impression:
Admitted with acute cholecystitis, sepsis 07/23/24
Recent admission for acute cholecystitis, DM 2 and JO with transient HD 07/09/24 until 07/19/24
Newly diagnosed CM EF 30-35% by echo 07/25/24
Ascites
Acute cholecystitis
s/p ERCP with cholelithiasis, biliary sphincterectomy 12/28/24
s/p robotic cholecystostomy tube 07/07/24
s/p IR gallbladder drainage and catheter placement 07/24/24
h/o JO with transient HD in the setting of acute cholecystitis 06/2024
Sepsis and shock
Possible left-sided PNA
HTN
DM 2
PCP managing DM 2 since 10/2022
Echo 07/25/2024: EF 30 to 35%, anteroseptal, mid septal, anterior, and apical akinesis, mild TR with PAP 45 mmHg
Plan:
-Patient was admitted to [facility] on 07/23/2024 with acute cholecystitis and sepsis and cardiology is now consulted for an abnormal echocardiogram. Patient follows with Dr. Valdovinos and has been treated for DM 2 since 10/2022 on my review of [facility] records.
Patient had abdominal MRI 08/2023 that showed gallstones and choledocholithiasis and patient was referred to GI and saw them as a new patient 11/02/2023 and patient was recommended ERCP which was performed 12/29/2023 and showed cholelithiasis, but
normal bile duct without stone and patient had a biliary sphincterectomy. Patient was recommended to follow-up with surgeon for cholecystectomy. Patient came to [facility] ER on 07/06/2024 and was admitted with acute cholecystitis and JO. As noted
above patient had a robotic cholecystostomy tube placed and required transient HD for JO, but no need for long-term outpatient HD. Patient was discharged to home on 07/19/2024 with cholecystostomy tube in place plus antibiotics and reports that she
noticed spontaneous drainage from around the tube and returned to the ER on 07/23/2024 and was admitted with acute cholecystitis and sepsis. CT abdomen/pelvis indicated a possible pelvic abscess posterior to the uterus and moderate ascites. Patient
was seen in consultation by general surgery and it was recommended that patient have a new cholecystostomy tube placed and this was performed in IR with initial drainage and then catheter placement. General surgery feels that patient would almost
certainly need to be done in open fashion given where she is in this process and so plan is for IR drainage and antibiotics. Given ascites and echocardiogram was checked and as noted above the EF is down to 30 to 35% with new WMA suspicious for LAD
territory WMA. Patient denies CP or SOB, but reports diaphoresis more than expected with walking activity over the last 2 to 3 months. Patient was previously seen by a energy specialist out of [facility], but says that this was only for risk factor
modification and she has no previous cardiac testing. There is no FH of CAD.
-ECGs reviewed by me are SR, no acute ST changes
-Echo as noted above is concerning for new ICM and possible CAD.
-Check Troponin, ordered by me
-Change from Med/Surg to tele
-Start aspirin 81 mg daily now, ordered by me
-Start Toprol XL 12.5 mg BID now and uptitrate as tolerated, ordered by me. Patient was taking Toprol XL 50 mg daily PRN with unknown parameters prior to admission
-Patient with hypotension on admission that has improved
-Start Losartan 25 mg daily, ordered by me. Patient was taking losartan/HCTZ 100/25 mg daily prior to admission
-Check CVE, ordered by me. Patient was not taking a statin prior to admission
-Talked with patient, and child in room about cardiac cath this admission and patient is agreeable.
--- NOTE | 2024-07-25 15:05 | PTCARENOTE ---
Patient just met with Dr. Guo. Reviewed results of echocardiogram. patient was told she may have had [place] and has a decreased EF, 30-35%. Does not recall any points in time where she felt chest pain, arm pain, jaw pain etc. Has been feeling
weak and was diaphoretic. [place] text to care team, ordered tele status. placed patient back on monitor. Still ok to downgrade out of ICU. Patient has had EKGs ordered, has not had any chest pain, only intermittent abdominal pain when laying on
her right side. Will call report to [phone]
--- NOTE | 2024-07-25 15:21 | W.PN.GS2 ---
Today's Communication / Plan
-
CLD, adat
Assessment / Plan
-
Patient is a 49 yo F p/w sepsis likely secondary to bile leakage from the gallbladder seeding the peritoneal cavity PPD1 s/p perc jr tube
Afebrile 24 hrs, tachycardic, BP okay
Labs notable for a normalized WBC, stable anemia, hyponatremia, normal bilirubin and LFTs, mildly elevated ALP - improving
Surgical drainage and management of her gallbladder at this time carries increased risks for injury to abdominal viscera and would almost certainly need to be done in an open fashion given the fact that she is 2 weeks into this evolving process. She
has improved with perc drain
-- Start cld, ADAT
-- Abx: Zosyn
-- DVT ppx
-- All other care as per primary team
Subjective Data
-
Date of Service: July 25, 2024
Afebrile 24 hrs, mild tachycardia, normotensive, clinically improved after perc drain, pain and tenderness improved, hungry
Objective Data
-
Intake and Output
07/24/24 07/25/24 07/26/24
06:59 06:59 06:59
Intake Total 1150 / 1300 500 / 500 50 / 50
Output Total 900 / 975 1585 / 1585 175 / 175
Balance 250 / 325 -1085 / -1085 -125 / -125
Intake:
Oral fluids 0 / 0 0 / 0
IV fluids (Total) 1050 / 1200 400 / 400 0 / 0
NSS 100 / 100 0 / 0
Sterile Water For Injection 1050 / 1200 300 / 300
1000 ml 1,000 ml @ 150 mls/hr
IV .Q7H40M MANISH with Sodium
Bicarbonate 150 Meq Rx#:
[id number]
IV piggybacks 100 / 100 100 / 100 50 / 50
Output:
Drain Output (Total) 150 / 150 535 / 535 175 / 175
Right Middle Abdomen Biliary 150 / 150 30 / 30
Right Middle Abdomen Biliary B 505 / 505 175 / 175
Placed in IR
Urine, Velazquez 750 / 825 1050 / 1050
Other:
Number of approximated MODERATE 1
amounts of urine
Vital Signs
Temp Pulse Resp BP Pulse Ox
98.5 F 115 22 171/111 97
07/25/24 11:15 07/25/24 15:03 07/25/24 15:03 07/25/24 15:03 07/25/24 10:43
Lab Results
07/25/24 04:08
07/25/24 04:08
Calcium 9.0 mg/dl (8.4-10.2) 07/25/24 04:08
Phosphorus 3.5 mg/dl (2.5-4.5) 07/24/24 00:31
Magnesium 1.7 mg/dl (1.6-2.3) 07/24/24 04:37
Total Bilirubin 0.6 mg/dl (0.2-1.3) 07/25/24 04:08
AST 20 U/L (14-36) 07/25/24 04:08
ALT 11 U/L (0-35) 07/25/24 04:08
Alkaline Phosphatase 145 U/L (38-126) H 07/25/24 04:08
Total Protein 5.7 g/dl (6.3-8.2) L 07/25/24 04:08
Albumin 2.7 g/dl (3.5-5.0) L 07/25/24 04:08
Physical Exam
-
Gen: NAD
Abd: soft, obese, mild ttp to RUQ, perc drain with clear bilious fluid, velazquez drain with scant dark fluid and sediment
Patient has a velazquez catheter: No
Patient has a central line: No
[2024-07-25 16:18] LABS: HDL Cholesterol 13 mg/dl; LDL Cholesterol, Calculated 40 mg/dl; Total Cholesterol 119 mg/dl (50-199); Triglyceride 331 mg/dl (10-149); Very Low Density Lipoprotein 66 mg/dl (0-30)
[2024-07-25 16:56] LABS: Glucose - Point of Care 123 mg/dl (70-99)
[2024-07-25] MEDS: LOW STRENGTH ASPIRIN PO (16:57)
[2024-07-25] MEDS: COZAAR PO (16:57)
[2024-07-25] MEDS: LOVENOX 40 MG SC (17:41)
[2024-07-25] MEDS: FLAGYL 500 MG PO (19:58)
[2024-07-25] MEDS: CIPRO 750 MG PO (19:58)
[2024-07-25] MEDS: TOPROL XL 12.5 MG PO (20:00)
[2024-07-25 22:49] LABS: Troponin I 0.369 ng/ml
--- NOTE | 2024-07-25 23:25 | PTCARENOTE ---
Troponin resulted at 0.369. Karime GRIMES made aware. Cardiology consult already in place.
[2024-07-26] VITALS (13 sets, daily range): BP systolic 97–134; BP diastolic 63–86
--- NOTE | 2024-07-26 07:54 | PN.DE.MGMTRT ---
Insulin Management
- -
07/26/2024 Diabetes Management Consult Follow up
Patient admitted 07/23 for fever, chills, recently discharged from after stay 07/09 to 07/19 for acute cholecystitis, cholecystomy tube. PMH HTN, diabetes. Recently started on Januvia 50 mg daily and given a Contour glucose monitor. States she has
been using the meter. A1C 07/07 10.2%, cr .9, eGFR > 60.
Patient is awake alert and oriented resting in bed, able to discuss diabetes care. Cardiology has seen patient, for cardiac cath today, EF 30 to 35%.
Has started Low residue diet, modified to include 1600 calories. Currently NPO. Glucose range 123 to 137.
ID recommended starting insulin.
10 units lantus daily started 07/25 with moderate corrective insulin. Will add 3 units novolog AC if able to tolerate diet.
TT cardiology, in agreement with starting Farxiga. Will start Farxiga 10 mg daily first dose 07/27.
Discussed with nurse.
Will follow
Diabetes Nurse Educator to instruct on insulin prep and administration
Diabetes History
- -
Type of Diabetes: 2
Pre-Admission Diabetes Regimen
Insulin Pump Settings
IP Diabetes Regimen
07/25/24 07/25/24
12:02 16:55
POC Glucose 137 H 123 H
Patient Education
[2024-07-26 08:08] LABS: Glucose - Point of Care 111 mg/dl (70-99)
[2024-07-26] MEDS: NOVOLOG FLEXPEN-MODERATE RESISTANCE SC ×3 (08:10→18:06)
[2024-07-26] MEDS: LOW STRENGTH ASPIRIN PO (08:15)
[2024-07-26] MEDS: COZAAR PO (08:15)
[2024-07-26] MEDS: TOPROL XL PO ×2 (08:15→21:00)
[2024-07-26] MEDS: FLAGYL 500 MG PO (08:26)
[2024-07-26] MEDS: NON-FORMULARY ITEM 1 UNIT PO (08:26)
[2024-07-26] MEDS: VISBIOME 1 CAP PO (08:28)
[2024-07-26] MEDS: NON-FORMULARY ITEM 20 MG PO (08:29)
[2024-07-26] MEDS: LANTUS 0.1 UNITS SC (08:29)
[2024-07-26] MEDS: CIPRO 750 MG PO (08:31)
[2024-07-26 09:18] LABS: Troponin I 0.225 ng/ml
[2024-07-26 09:19] LABS: Hemoglobin 8.6 g/dL (12.0-16.0); Mean Corp Hgb Conc. 31.9 g/dL (33.0-37.0); Mean Corpuscular Hgb 24.6 pg (27.0-31.0); Mean Corpuscular Volume 77.4 fL (81.0-99.0); Mean Platelet Volume 9.4 fL (7.4-10.4); Platelet Count 456 10^3/uL (130-400); Red Blood Cell Count 3.49 10^6/uL (4.20-5.40); Red Cell Dist. Width 19.9 % (11.5-14.5); White Blood Cell Count 12.3 10^3/uL (4.8-10.8)
[2024-07-26 09:21] LABS: Troponin I 0.231 ng/ml
[2024-07-26 09:59] LABS: ALT (SGPT) 12 U/L (0-35); AST (SGOT) 19 U/L (14-36); Albumin 3.3 g/dl (3.5-5.0); Alkaline Phosphatase 195 U/L (38-126); Blood Urea Nitrogen 19 mg/dl (7-17); Carbon Dioxide 23 mmol/L (22-30); Chloride 100 mmol/L (98-107); Estimated Creatinine Clearance 84 ml/min; Glucose 112 mg/dl (70-99); Potassium 4.2 mmol/L (3.5-5.1); Sodium 136 mmol/L (135-145); Total Bilirubin 0.5 mg/dl (0.2-1.3); Total Protein 6.4 g/dl (6.3-8.2); eGFR > 60.00
[2024-07-26] MEDS: TOPROL XL 12.5 MG PO (10:06)
[2024-07-26] MEDS: COZAAR 25 MG PO (10:06)
--- NOTE | 2024-07-26 10:25 | W.PN.HOSP.TC ---
Today's Communication/Plan
-
cardiac cath today
Assessment / Plan
Assessment / Plan
Assessment:
Acute cholecystitis diagnosed last admission
- s/p robotic placement of cholecystostomy tube on 07/07; remains
- s/p IV and oral Abx course and discharge 07/19/24
- returns to hospital for chills/fevers
- s/p IR guided cholecystostomy tube placed 07/24
Septic shock
Intra-Abdominal Abscesses (R paracolic, pelvic +/- L paracolic)
- s/p sepsis protocol IVF
- Levophed was weaned off
- s/p IR guided cholecystostomy tube placed 07/24
- GS following
- ID following. Continue ciprofloxacin 750 mg PO qday plus metronidazole 500 mg BID x 4 weeks. GB culture with GNB and Enterococcus
- blood cultures NGTD
New diagnosis acute cardiomyopathy
- Echo 07/25/2024: EF 30 to 35%, anteroseptal, mid septal, anterior, and apical akinesis, mild TR with PAP 45 mmHg
- trop peaked at .369
- continue ASA/Statin/BB/ARB
- for cardiac cath today
Recent JO with transient HD between 07/09 and 07/19
Ascites
- Abd US: low volume, not enough for tap
Elevated Lipase, reactive to intra-abdominal pathology
- no evidence of pancreatitis by imaging
L sided pneumonia vs atelectasis
Small L parapneumonic effusion
- pulm following
- continue Abx as above
- MRSA swab negative
Hyponatremia
- improving
Metabolic acidosis
- improved with bicarb IVF
Hypomagnesemia
Essential HTN
- continue ARB/BB
Chronic Microcytic Anemia
- follow Hb, 8.6 today.
DM-II
- hold Januvia
- SSI
- continue Lantus
- recent A1c: 10.2%
- REAL ESTATE ASSISTANT following
Morbid Obesity due to excess calories
DVT ppx: Lovenox
Code: Full
Anticipated Discharge: > 48 hours
Subjective/Interval History
-
Date of Service: July 26, 2024
resting comfortably
agreeable to cath today
Objective Data
-
Labs:
Laboratory Results
07/26/24
08:33
WBC 12.3 H
Hgb 8.6 L
Hct 27.0 L
Plt Count 456 H D
Sodium 136
Potassium 4.2
Chloride 100
Carbon Dioxide 23
BUN 19 H
Creatinine 0.9
Glucose 112 H
Calcium 9.0
Total Bilirubin 0.5
AST 19
ALT 12
Alkaline Phosphatase 195 H
Vital Signs:
Vital Signs
Temp Pulse Resp BP Pulse Ox
99.2 F 107 20 119/74 99
07/26/24 07:00 07/26/24 07:00 07/26/24 07:00 07/26/24 07:00 07/26/24 07:00
I&O
07/25/24 07/26/24 07/27/24
06:59 06:59 06:59
Intake Total 500 / 500 530 / 530
Output Total 1585 / 1585 255 / 255 450 / 450
Balance -1085 / -1085 275 / 275 -450 / -450
Physical Exam
-
General: No Apparent Distress
HEENT: Normocephalic and Atraumatic
Respiratory: Negative Wheezes
Cardiac: Regular Rhythm and S1/S2
GI: Soft and Nontender
Genito-urinary: No Costovertebral Tender
Neuro: AO x 3
Hematologic / Lymphatic: No Lymphadenopathy
Psych: Calm
Data Reviewed
-
Total Time Spent with Patient (in minutes): 45
Labs: Labs Reviewed by me
--- NOTE | 2024-07-26 10:54 | PN.CDI ---
CDI
- -
CDI:
Physician Documentation Request
Admit Date: 07/23/24 21:00
Dear Doctor Hood,
Patient admitted for cholecystitis.
07/24 Manufacturing Tech consult:'Left Lower Lobe Pneumonia...On 6 L Nasal canula'
07/24 PCN: 'pt placed on 6 lm nc and was continually tachypneic with RR of >40 now requiring HHF at 40/50'
07/24 PCN: 'She remains on high flow oxygen 40L at 50%. Patient does become tachypneic with any movement. prefers to lay on her left side and requires assistance to roll.'
Clarify which of the following accurately represents the patient's respiratory status:
Acute hypoxic respiratory failure
Hypoxia only
Other
Additional information for Respiratory Failure:
Recognized criteria for Respiratory Failure (Source: [facility] Jan 2013)
ABGs: (1 or more) Symptoms Please indicate type if known
1. p)2 <60 or RA SPO2 <91% on RA 1. Tachypnea, SOB, dyspnea Hypoxic
2. pCO2 50 and pH <7.35 2. Use of accessory muscles Hypercapnic
3. pO2 decrease of pCO2 increase by 3. Pallor or cyanosis Hypoxic and Hypercapnic
10 mmHg from baseline if known 4. Anxiety or restlessness Unable to determine
5. Unable to speak in full sentences
Supplemental O2 of > 40% (5LPM) Intubation is not required
Use of terms such as suspected, likely, concern for, or probable (associated with a specific diagnosis that is being evaluated, monitored, or treated as if it exists) are acceptable and can be coded in the inpatient setting, when documented at the
time of discharge.
Thank you,
Elsie Velez RN, BSN
CDI Specialist
Available via [employer] text
Please use your independent medical judgment in providing your response.
--- NOTE | 2024-07-26 11:10 | W.PN.GS2 ---
Addendum entered and electronically signed by Zaid Quinn MD 07/26/24 11:49:
I saw and examined the patient.
The Unloading Checker's note was reviewed and I agree with the note.
Comment: Continues clinical improvement. Little PO intake, denies n/v. Minimal RUQ ttp, drains approp. Cont abx. Cards planning possible cath, she is OK to start DAPT, plan is to delay cholecystectomy minimum 1 month
Original Note:
Today's Communication / Plan
-
Continue both drains
Assessment / Plan
-
Patient is a 49 yo F s/p robotic jr tube placement on 07/07/24 p/w sepsis likely secondary to bile leakage from the gallbladder seeding the peritoneal cavity PPD 2 s/p perc jr tube in IR
IR cx with Enterobacter and enterococcus species
Afebrile 24 hrs, tachycardic, BP okay
Labs notable for a mild leukocytosis, stable anemia, hyponatremia, normal bilirubin and transaminases - improving
Plan for surgery after recovered from inflammation/acute episode, anticipate in >4weeks once cleared by cardiology
Elevated troponin levels with decreased EF on 2D echo (30-35%). Cardiology following with recommendations for cardiac cath today
-- NPO for possible cardiac cath today
-- Ok to advance to LFD post procedure
-- C/W IR drain and drain placed in OR previously. Will remain in place upon D/c.
-- Abx: Zosyn
-- DVT ppx
-- All other care as per primary team
Subjective Data
-
Date of Service: July 26, 2024
Patient seen and examined at bedside with Dr. Quinn. Notes pain improved since IR drain placement. Hesitant to have cardiac cath today. Denies n/v.
Objective Data
-
Intake and Output
07/25/24 07/26/24 07/27/24
06:59 06:59 06:59
Intake Total 500 / 500 530 / 530
Output Total 1585 / 1585 255 / 255 450 / 450
Balance -1085 / -1085 275 / 275 -450 / -450
Intake:
Oral fluids 0 / 0 480 / 480
IV fluids (Total) 400 / 400 0 / 0
NSS 100 / 100 0 / 0
Sterile Water For Injection 300 / 300
1000 ml 1,000 ml @ 150 mls/hr
IV .Q7H40M MANISH with Sodium
Bicarbonate 150 Meq Rx#:
[id number]
IV piggybacks 100 / 100 50 / 50
Output:
Drain Output (Total) 535 / 535 255 / 255 450 / 450
Right Middle Abdomen Biliary 30 / 30 450 / 450
Right Middle Abdomen Biliary B 505 / 505 255 / 255
Placed in IR
Urine, Velazquez 1050 / 1050
Other:
Number of approximated MODERATE 1 1
amounts of urine
How many times incontinent 1
SMALL amount urine
How many times incontinent 1
MODERATE amount urine
Vital Signs
Temp Pulse Resp BP Pulse Ox
99.2 F 107 20 119/74 99
07/26/24 07:00 07/26/24 07:00 07/26/24 07:00 07/26/24 07:00 07/26/24 07:00
Lab Results
07/26/24 08:33
07/26/24 08:33
Calcium 9.0 mg/dl (8.4-10.2) 07/26/24 08:33
Phosphorus 3.5 mg/dl (2.5-4.5) 07/24/24 00:31
Magnesium 1.7 mg/dl (1.6-2.3) 07/24/24 04:37
Total Bilirubin 0.5 mg/dl (0.2-1.3) 07/26/24 08:33
AST 19 U/L (14-36) 07/26/24 08:33
ALT 12 U/L (0-35) 07/26/24 08:33
Alkaline Phosphatase 195 U/L (38-126) H 07/26/24 08:
Total Protein 6.4 g/dl (6.3-8.2) 07/26/24:
Albumin 3.3 g/dl (3.5-5.0) L 07/26/24 08:
Physical Exam
-
Gen: NAD
Abd: soft, obese, mild ttp to RUQ, perc drain with clear bilious fluid, velazquez cholecystostomy drain with scant dark fluid and sediment
Patient has a central line: Yes (midline)
[2024-07-26] MEDS: LOW STRENGTH ASPIRIN 324 MG PO (11:49)
[2024-07-26 12:30] LABS: Glucose - Point of Care 132 mg/dl (70-99)
--- NOTE | 2024-07-26 13:48 | W.PN.PUL3 ---
Today's Communication / Plan
-
Chest x-ray tomorrow
Continue antibiotics
Oxygen has been weaned off
Assessment
-
Patient is a pleasant female who was diagnosed with cholecystitis in 2023 but due to severe inflammation, cholecystectomy could not be performed and it was managed instead with a cholecystostomy tube. Patient also has prior history of
choledocholithiasis s/p ERCP and biliary sphincterotomy in 2023. Her hospital stay was complicated with acute kidney injury requiring brief hemodialysis in 2023. Patient was subsequently discharged home with cholecystostomy tube in place with
prolonged antibiotics. Patient completed antibiotic couple of days prior to this admission and then presented here with diaphoresis, feeling poorly. Patient had a CT performed in the emergency room which was concerning for intra-abdominal
abscesses in addition to dense left lower lobe pneumonia and small left pleural effusion. Patient was hypotensive required pressors as well as supplemental oxygen which led to admission to the ICU. Health Center Manager service was subsequently contacted
for further input.
Pulmonary following for pneumonia and parapneumonic effusion-07/26/2024.
#Left Lower Lobe Pneumonia with small left pleural effusion
- CT showing moderate LLL airspace consolidation with small left parapneumonic pleural effusion
- Urine strep/legionella negative thus far
- No cough or expectoration.
Ptosis. Afebrile.
- MRSA screen pending
- Oxygen for mentation has been weaned off.
- Abx per ID service
- repeat chest x-ray tomorrow07/27/2024.- if there is no reaccumulation then repeat imaging on as-needed basis
-
#Chronic Cholecystitis s/p Cholecystostomy with now suspected intra abdominal abscesses with hypotension.
- Responded to IVF and briefly needed pressors. Now off Levophed.
- Blood cultures, broad spectrum antibiotics. ID consult
- IR guided replacement of cholecystostomy tube. Abdominal collections were noted to be shifting with changing position, not felt to be abscess
#Newly detected Cardiomyopathy, EF 35%.
- Cardiology service consulted
- Likely will need ischemia evaluation.
Follow volume status.
DVT prophylaxis, Lovenox.
Will reevaluate tomorrow after chest x-ray.
Subjective Data
-
Date of Service:
Date of Service: July 26, 2024
Objective Data
Data Reviewed
Vital Signs / I&O / Oxygen:
Vital Signs
Temp Pulse Resp BP Pulse Ox
99.5 F 101 22 121/78 95
07/26/24 11:28 07/26/24 11:28 07/26/24 11:28 07/26/24 11:28 07/26/24 11:28
Intake and Output
07/25/24 07/26/24 07/27/24
06:59 06:59 06:59
Intake Total 500 / 500 530 / 530
Output Total 1585 / 1585 255 / 255 450 / 450
Balance -1085 / -1085 275 / 275 -450 / -450
SaO2 95
Nasal Cannula flow liters per 4
minute
Labs/Micro/Reports
Lab Data
07/26/24 08:33
07/26/24 08:33
Microbiology
07/24/24 16:15 Bile Body Fluid Culture - Final
Enterobacter cloacae
Enterococcus faecium
07/24/24 16:15 Bile Gram Stain - Final
07/23/24 16:38 Blood/Venous Blood Culture - Preliminary
No Growth in 48 hours- Final report to follow
07/23/24 16:56 Blood/Venous Blood Culture - Preliminary
No Growth in 48 hours- Final report to follow
07/24/24 17:13 Nose Nasal Screen MRSA (PCR) - Final
MRSA not detected - performed by PCR methodology.
07/24/24 00:43 Urine Streptococcus pneumoniae Antigen (M - Final
Negative for Streptococcus pneumoniae antigen.
A negative result does not exclude infection with
Streptococcus pneumoniae. Clinical correlation is
recommended.
07/24/24 00:43 Urine Legionella Urinary Antigen - Final
Negative for Legionella pneumophila Serogroup 1 antigen.
A negative result does not rule out the possiblity of
Legionella infection due to other serogroups or species of
Legionella. Clinical correlation is recommended.
07/23/24 16:38 Nasal Swab Influenza Types A & B (CLEOPATRA) - Final
Negative for Influenza A & B, NAAT
Negative results must be combined with clinical observations
and patient history.
Nucleic Acid Amplification test (NAAT)performed on the
[employer] platform.
--- NOTE | 2024-07-26 14:01 | W.PN.ID1 ---
Date of Service
Date of Service: July 26, 2024
Today's Communication
- in cardiac cath today, note rapid relapse of leukocytosis and thrombocytosis will restart zosyn may arrange outpatient iv antibiotics (OPAT) - will discuss with patient further tomorrow
- nonbillable note - patient not in the room during rounds
Assessment / Plan
Multiple intraabdominal abscesses
Cholcystostomy tube placement
Recent JO requiring temporary HD
Uncontrolled Dm2 - risk factor for relapse
- recommend intensifying outpatient DM2 control which will improve neutrophil function and speed healing, would consider home insulin; this will also avoid drug drug interactions with januvia and quinolones
- blood cultures x2 no growth to date
- 07/24 bile culture: Enterobacter and Enterococcus faecium
- asked lab to release the sensitivities on the enterococcus; Enterobacter is sensitive
- quinlones are intermediate but tetracycyline is sensitive as is linezolid
- 07/07 bile cultures VGS and prevotella (BL neg)
- drains x2 into the gallbladder
- IR commented that no drain was placed in the peritoneal cavity because fluid was positional indicating ascites rather than organized collection; note that amount of fluid was relatively large up to 7 cm in two discrete areas
- in cardiac cath today, note rapid relapse of leukocytosis and thrombocytosis will restart zosyn may arrange outpatient iv antibiotics (OPAT) - will discuss with patient further tomorrow
- nonbillable note - patient not in the room during rounds
Chief Complaint
-: Other (peritonitis, cholecystitis)
Subjective / Review of Systems
afebrile
bp stable
crrently in cardiac cath
was found to have low EF on TTE
Vital Signs / Physical Exam
Vital Signs
Vital Signs
Temp Pulse Resp BP Pulse Ox
99.5 F 101 22 121/78 95
07/26/24 11:28 07/26/24 11:28 07/26/24 11:28 07/26/24 11:28 07/26/24 11:28
Objective Data
Lab Data
Lab Results
07/26/24 08:33
07/26/24 08:33
PT 18.8 Sec (11.4-14.6) H 07/24/24 00:31
INR 1.55 07/24/24 00:31
APTT 27.9 Sec (23.4-35.0) 07/24/24 00:31
Estimated Creat Clear 84 ml/min 07/26/24 08:33
Lactic Acid 0.9 mmol/L (0.7-2.0) 07/23/24 16:38
Total Bilirubin 0.5 mg/dl (0.2-1.3) 07/26/24 08:33
AST 19 U/L (14-36) 07/26/24 08:33
ALT 12 U/L (0-35) 07/26/24 08:33
Alkaline Phosphatase 195 U/L (38-126) H 07/26/24 08:33
Most recent labs reviewed.
Fluid Cult/not urine Final 07/26/24-1206
Few Enterobacter cloacae
Few Enterococcus faecium
Organism 1 Enterobacter cloacae
Organism 2 Enterococcus faecium
E.CLOACAE ENTFCM
M.I.C. RX M.I.C. RX
--------- --- --------- ---
Amoxicillin/Potas. Clavulanate >16/8 R
Ampicillin >16 R <=2 S
Ampicillin/Sulbactam 8/4 R
Aztreonam <=4 S
Cefazolin >16 R
Cefepime <=2 S
Ceftazidime <=1 S
Ceftriaxone 2 I
Ertapenem <=0.5 S
Ciprofloxacin <=0.25 S
Gentamicin <=2 S
Gentamicin Synergy Screen <=500 S
Meropenem <=1 S
Piperacillin/Tazobactam <=8 S
Tetracycline <=4 S
Tobramycin <=2 S
Trimethoprim/Sulfamethoxazole <=2/38 S
Vancomycin 0.5 S
Micro Results:
07/24/24 16:15 Body Fluid Culture - Final
Bile Enterobacter cloacae
Enterococcus faecium
Gram Stain - Final
07/23/24 16:38 Blood Culture - Preliminary
Blood/Venous No Growth in 48 hours- Final report to follow
07/23/24 16:56 Blood Culture - Preliminary
Blood/Venous No Growth in 48 hours- Final report to follow
07/24/24 17:13 Nasal Screen MRSA (PCR) - Final
Nose MRSA not detected - performed by PCR methodology.
07/24/24 00:43 Streptococcus pneumoniae Antigen (M - Final
Urine Negative for Streptococcus pneumoniae antigen.
A negative result does not exclude infection with
Streptococcus pneumoniae. Clinical correlation is
recommended.
07/24/24 00:43 Legionella Urinary Antigen - Final
Urine Negative for Legionella pneumophila Serogroup 1 antigen.
A negative result does not rule out the possiblity of
Legionella infection due to other serogroups or species of
Legionella. Clinical correlation is recommended.
07/23/24 16:38 Influenza Types A & B (CLEOPATRA) - Final
Nasal Swab Negative for Influenza A & B, NAAT
Negative results must be combined with clinical observations
and patient history.
Nucleic Acid Amplification test (NAAT)performed on the
[employer] platform.
Care Review
Plan reviewed with: Physician (Cardiology - planned cath)
--- NOTE | 2024-07-26 14:45 | PTCARENOTE ---
Pt transport from room 416 to room 5 in cardiac cath rn prep and recovery. Pt placed on monitor. VSS. Family at bedside. Awaiting Dr Alcantara for consent.
--- NOTE | 2024-07-26 14:55 | PTCARENOTE ---
Pt's PT and DP B/L pulses are +2
--- NOTE | 2024-07-26 15:14 | CM ---
Chart reviewed. Care ongoing. MA pending at this time
Cardiac cath today, cardio following
Cont abx, ID following
Now on room air
Plan: Home, will watch for any needs
[2024-07-26 16:17] LABS: ACT-LR - POC 131 Seconds (116-155)
[2024-07-26 16:29] LABS: ACT-LR - POC 144 Seconds (116-155)
--- NOTE | 2024-07-26 16:53 | ITS.CL.CATH ---
Principal Librarian - Catheterization
Cardiac Catheterization
Procedure Report:
LEFT HEART CATHETERIZATION
Date of Procedure: July 26, 2024
Referring: Dr. Jerod Guo
PROCEDURES:
1. Left heart catheterization with coronary and single-plane left ventriculography
INDICATION: This is a 49-year-old female with a family history of premature coronary artery disease who presented to [facility] with cholecystitis. She has diabetes which was poorly controlled. An echocardiogram was obtained and notable
for an estimated ejection fraction of 30-35% with anterior, anteroseptal, and apical hypokinesis. A percutaneous cholecystostomy tube is present. She is receiving IV antibiotics. She is now referred for coronary angiography.
ACCESS: Right radial artery, 6 [place] sheath using ultrasound guidance. The left main proved difficult to cannulate from the right radial approach and arterial access was obtained in the right common femoral artery with placement of a 5 [place]
sheath.
HEMODYNAMICS : (mmHg)
AO (s/d) : 126/78
LV (s/d) : 126/14
LVEDP : 24
CORONARY FINDINGS:
DOMINANCE: Right
LEFT MAIN: Could not cannulate the left main from the right radial approach using JL3.5, JL4, [place], or AL1 diagnostic catheters. Arterial access was then obtained in the right common femoral artery with placement of a 6 Fr. arterial sheath. The
left main was easily cannulated using a 5 Fr. JL3.5 catheter. The left main was found to be angiographically normal.
LEFT ANTERIOR DESCENDING: The LAD arises normally from the left main and runs in the anterior interventricular groove. The LAD has a 30% stenosis in its midportion. The remainder of the vessel is widely patent and wraps completely around the apex
supplying a portion of the inferior wall
RAMUS: Normal
CIRCUMFLEX: The circumflex is a medium caliber nondominant vessel with only minor irregularities over its course
RIGHT CORONARY ARTERY: The right coronary artery is a large-caliber vessel that is widely patent over its course
VENTRICULOGRAPHY: Left ventriculography is performed in an CEBALLOS projection. The digital single-plane left ventricular ejection fraction is visually estimated at 40% with global hypokinesis with more prominent hypokinesis of involving the
anterolateral wall
SEDATION: 68 minutes of procedural sedation was utilized.
RADIATION SUMMARY: Fluoro Time (min): 17.7, Dose (mGy): 726, DAP (Gy.cm2) : 62.5
Closure Device: TR band for the right radial artery and manual pressure for right femoral arteriotomy given bacteremia and antibiotics
CONCLUSIONS
1. Nonobstructive coronary disease
2. Cardiomyopathy with anterolateral wall motion and normality.
RECOMMENDATIONS
1. The angiographic findings and clinical history are most suggestive of a stress associated cardiomyopathy. Would push beta-lorna as heart rate and blood pressure tolerates. I have increased Toprol-XL to 25 mg p.o. twice daily. May consider
increasing to 50 mg p.o. twice daily if heart rate and blood pressure tolerate.
2. Continue aspirin 81 mg daily
3. Repeat echocardiogram in 2 to 3 months
Copy to: Dr. Jerod Guo
[2024-07-26] MEDS: ZOSYN 100 IV ×2 (17:32→21:35)
[2024-07-26 17:45] LABS: Glucose - Point of Care 116 mg/dl (70-99)
[2024-07-26] MEDS: LOVENOX 40 MG SC (18:04)
[2024-07-26] MEDS: TYLENOL 650 MG PO (20:37)
[2024-07-26 21:27] LABS: Glucose - Point of Care 116 mg/dl (70-99)
--- NOTE | 2024-07-26 23:54 | PTCARENOTE ---
Temp at 2300 was 100.7 degrees F. Blankets removed from patient and sheet applied. There are no socks on patient. Repeat temperature was 99.7 degrees F. CARE TAKER made aware.
[2024-07-27] MEDS: TYLENOL 650 MG PO ×4 (00:40→20:09)
[2024-07-27 02:38] VITALS: BP 111/71
[2024-07-27] MEDS: ZOSYN 100 IV ×3 (04:46→21:13)
[2024-07-27 07:00] VITALS: BP 106/70
[2024-07-27 07:39] LABS: Glucose - Point of Care 152 mg/dl (70-99)
[2024-07-27 08:13] LABS: Hematocrit 23.5 % (37.0-47.0); Hemoglobin 7.7 g/dL (12.0-16.0); Mean Corp Hgb Conc. 32.8 g/dL (33.0-37.0); Mean Corpuscular Hgb 25.2 pg (27.0-31.0); Mean Corpuscular Volume 76.8 fL (81.0-99.0); Mean Platelet Volume 9.9 fL (7.4-10.4); Platelet Count 351 10^3/uL (130-400); Red Blood Cell Count 3.06 10^6/uL (4.20-5.40); Red Cell Dist. Width 19.8 % (11.5-14.5); White Blood Cell Count 9.1 10^3/uL (4.8-10.8)
[2024-07-27 08:28] LABS: ALT (SGPT) < 10 U/L (0-35); AST (SGOT) 19 U/L (14-36); Albumin 2.7 g/dl (3.5-5.0); Alkaline Phosphatase 144 U/L (38-126); Blood Urea Nitrogen 19 mg/dl (7-17); Calcium 8.5 mg/dl (8.4-10.2); Carbon Dioxide 23 mmol/L (22-30); Chloride 99 mmol/L (98-107); Estimated Creatinine Clearance 69 ml/min; Glucose 149 mg/dl (70-99); Potassium 3.9 mmol/L (3.5-5.1); Sodium 132 mmol/L (135-145); Total Bilirubin 0.6 mg/dl (0.2-1.3); Total Protein 5.5 g/dl (6.3-8.2); eGFR > 60.00
--- NOTE | 2024-07-27 08:28 | PN.DE.MGMTRT ---
Insulin Management
- -
07/27/2024: Diabetes Management Follow up
Patient admitted 07/23 for fever, chills, recently discharged from after stay 07/09 to 07/19 for acute cholecystitis, cholecystomy tube. PMH HTN, diabetes. Recently started on Januvia 50 mg daily and given a Contour glucose monitor. States she has
been using the meter. A1C 07/07 10.2%, cr .9, eGFR > 60.
Patient is awake alert and oriented resting in bed, able to discuss diabetes care. and Dtr at bedside, very supportive.
S/P Cardiac Cath yesterday, EF 30 to 35%- started on Farxiga 10mg daily
ID recommended starting insulin. 10 units Lantus daily started 07/25 with AC NovoLog and moderate corrective insulin.
Was started on Low residue diet yesterday, Glucose range 111 to 132.
Will STOP the 3 units NovoLog AC, and cont Farxiga 10 mg daily, 1st dose this morning.
Will cont to follow
Diabetes Nurse Educator provided insulin prep and administration instructions.
Diabetes History
- -
Type of Diabetes: 2 requiring insulin
Pre-Admission Diabetes Regimen
07/26/24
08:33
Creatinine 0.9
Insulin Pump Settings
IP Diabetes Regimen
07/26/24 07/26/24 07/26/24
08:33 12:23 17:42
Glucose 112 H
POC Glucose 132 H 116 H
07/26/24 07/27/24
21:26 07:38
Glucose
POC Glucose 116 H 152 H
Patient Education
--- NOTE | 2024-07-27 09:22 | W.PN.HOSP.TC ---
Today's Communication/Plan
-
continue cardiac meds; stressed importance of compliance to facilitate cardiac recovery
IV Abx per ID; possible home IV abx although patient with insurance issues - CM to discuss with patient
MRCP per GS
Assessment / Plan
Assessment / Plan
Assessment:
Acute cholecystitis diagnosed last admission
- s/p robotic placement of cholecystostomy tube on 07/07; remains
- s/p IV and oral Abx course and discharge 07/19/24
- returns to hospital for chills/fevers
- s/p IR guided cholecystostomy tube placed 07/24
Septic shock
Intra-Abdominal Abscesses (R paracolic, pelvic +/- L paracolic)
- s/p sepsis protocol IVF
- Levophed was weaned off
- s/p IR guided cholecystostomy tube placed 07/24
- GS following
- ID following. Continue Zosyn per ID. GB culture with Enterobacter and Enterococcus
- blood cultures NGTD
- MRCP pending 07/27 for increase in drainage
New diagnosis acute cardiomyopathy, stress induced most likely
- Cath 07/26: Nonobstructive coronary disease. Cardiomyopathy with anterolateral wall motion and normality.
- Echo 07/25/2024: EF 30 to 35%, anteroseptal, mid septal, anterior, and apical akinesis, mild TR with PAP 45 mmHg
- trop peaked at .369
- continue ASA/Statin/BB//SGLT2
- ARB on hold for bump in renal function
Recent JO with transient HD between 07/09 and 07/19
Ascites
- Abd US: low volume, not enough for tap
Elevated Lipase, reactive to intra-abdominal pathology
- no evidence of pancreatitis by imaging
L sided pneumonia vs atelectasis
Small L parapneumonic effusion
Acute hypoxic respiratory failure on 6L NC
- pulm following
- continue Abx as above
- MRSA swab negative
- repeat CXR with improvement
- add IS
Hyponatremia
- improving
Metabolic acidosis
- improved with bicarb IVF
Hypomagnesemia
Essential HTN
- continue ARB/BB
Chronic Microcytic Anemia
- follow Hb, 7.7 today.
DM-II
- hold Januvia
- SSI
- continue Lantus
- recent A1c: 10.2%
- SPECIAL DIET COOK following
Morbid Obesity due to excess calories
DVT ppx: Lovenox
Code: Full
Anticipated Discharge: > 48 hours
Subjective/Interval History
-
Date of Service: July 27, 2024
reports some abdominal discomfort and change in quantity of drainage of GB
Objective Data
-
Labs:
Laboratory Results
07/27/24
06:36
WBC 9.1
Hgb 7.7 L
Hct 23.5 L
Plt Count 351 D
Sodium 132 L
Potassium 3.9
Chloride 99
Carbon Dioxide 23
BUN 19 H
Creatinine 1.1 H
Glucose 149 H
Calcium 8.5
Total Bilirubin 0.6
AST 19
ALT < 10
Alkaline Phosphatase 144 H
Vital Signs:
Vital Signs
Temp Pulse Resp BP Pulse Ox
97.9 F 98 17 106/70 96
07/27/24 07:00 07/27/24 07:00 07/27/24 07:00 07/27/24 07:00 07/27/24 07:00
I&O
07/26/24 07/27/24 07/28/24
06:59 06:59 06:59
Intake Total 530 / 530 480 / 480
Output Total 255 / 255 670 / 670
Balance 275 / 275 -190 / -190
Physical Exam
-
General: No Apparent Distress
HEENT: Normocephalic and Atraumatic
Respiratory: Negative Wheezes
Cardiac: Regular Rhythm and S1/S2
GI: Soft, Nontender and Other (perc jr drains)
Genito-urinary: No Costovertebral Tender
Neuro: AO x 3
Psych: Calm
Data Reviewed
-
Total Time Spent with Patient (in minutes): 45
Labs: Labs Reviewed by me
[2024-07-27] MEDS: NON-FORMULARY ITEM 20 MG PO (10:03)
[2024-07-27] MEDS: TOPROL XL 25 MG PO (10:04)
[2024-07-27] MEDS: LOW STRENGTH ASPIRIN PO (10:05)
[2024-07-27] MEDS: FARXIGA PO (10:05)
[2024-07-27] MEDS: VISBIOME 1 CAP PO (10:05)
[2024-07-27] MEDS: LANTUS 0.1 UNITS SC (10:06)
[2024-07-27] MEDS: NOVOLOG FLEXPEN-MODERATE RESISTANCE 1 UNITS SC (10:07)
--- NOTE | 2024-07-27 10:37 | PTCARENOTE ---
07/27/2024 DIABETES EDUCATION
I met with Ebony and her to review insulin management. Ebony states she is not able to participate in a demonstration as she is not feeling well. She had cardiac catheterization yesterday.
With her , I educated and demonstrated on insulin injection technique, timing, and storage. Discussed long acting insulin; onset/peak/duration, and encouraged Kavon to administer his own injections with RN supervision while admitted. Will
revisit patient and family to reinforce insulin injection technique again.
[2024-07-27] MEDS: COZAAR PO (10:54)
--- NOTE | 2024-07-27 10:55 | W.PN.GS2 ---
Today's Communication / Plan
-
check MRCP
Assessment / Plan
-
Patient is a 49 yo F s/p robotic jr tube placement on 07/07/24
p/w sepsis likely secondary to bile leakage from the gallbladder seeding the peritoneal cavity s/p CT guided jr tube in IR on 07/24/2024
IR cx with Enterobacter and enterococcus species
Prior OR cx with Prevotella and Viridans Strep
Low grade fever of 100.7, tachycardia persists
Cardiology following for work up of CM with EF of 30-35% and now PPD #1 cardiac cath with nonobstructive coronary dz
Leukocytosis resolved. Normal bilirubin and transaminases
IR drain with high outputs, minimal outputs from cholecystostomy placed intraop
-- Given high outputs from IR drain, will check MRCP to further evaluate
-- Ok to advance to ADA diet post MRI
-- C/W IR drain and drain placed in OR previously. Will remain in place upon D/C. Follow outputs closely
-- Eventual scheduled cholecystectomy with timing TBD pending overall clinical course
-- Abx as per ID
-- DVT ppx
-- All other care as per primary team
Subjective Data
-
Date of Service: July 27, 2024
Patient seen and examined at bedside with Dr. Casillas. Feels overall better. Denies n/v. Tolerating diet. Not ambulating much. Denies pain.
Objective Data
-
Intake and Output
07/26/24 07/27/24 07/28/24
06:59 06:59 06:59
Intake Total 530 / 530 480 / 480
Output Total 255 / 255 670 / 670
Balance 275 / 275 -190 / -190
Intake:
Oral fluids 480 / 480 480 / 480
IV fluids (Total) 0 / 0
NSS 0 / 0
IV piggybacks 50 / 50
Output:
Drain Output (Total) 255 / 255 670 / 670
Right Middle Abdomen Biliary 670 / 670
Right Middle Abdomen Biliary B 255 / 255
Placed in IR
Other:
Number of approximated MODERATE 1 2
amounts of urine
How many times incontinent 1
SMALL amount urine
How many times incontinent 1
MODERATE amount urine
Vital Signs
Temp Pulse Resp BP Pulse Ox
97.9 F 98 17 106/70 96
07/27/24 07:00 07/27/24 10:04 07/27/24 07:00 07/27/24 10:04 07/27/24 07:00
Lab Results
07/27/24 06:36
07/27/24 06:36
Calcium 8.5 mg/dl (8.4-10.2) 07/27/24 06:36
Phosphorus 3.5 mg/dl (2.5-4.5) 07/24/24 00:31
Magnesium 1.7 mg/dl (1.6-2.3) 07/24/24 04:37
Total Bilirubin 0.6 mg/dl (0.2-1.3) 07/27/24 06:36
AST 19 U/L (14-36) 07/27/24 06:36
ALT < 10 U/L (0-35) 07/27/24 06:36
Alkaline Phosphatase 144 U/L (38-126) H 07/27/24 06:36
Total Protein 5.5 g/dl (6.3-8.2) L 07/27/24 06:36
Albumin 2.7 g/dl (3.5-5.0) L 07/27/24 06:36
Physical Exam
-
Gen: NAD
Abd: soft, obese, mild ttp to RUQ, perc drain with clear bilious fluid, velazquez cholecystostomy drain with scant dark fluid and sediment
Patient has a central line: Yes (midline)
[2024-07-27 11:00] VITALS: BP 131/82
--- NOTE | 2024-07-27 12:08 | W.PN.CARDCBS ---
Addendum entered and electronically signed by Esau Hair MD 07/27/24 16:39:
49-year-old woman who underwent ERCP and sphincterotomy in December 2023. She returned in June 2024 with acute cholecystitis and had robotic cholecystostomy tube placed. At that time, she had JO and sepsis, was transiently on Humira dialysis and
was discharged to home July 19 with cholecystostomy tube. Patient readmitted July 23 with cholecystitis and sepsis with possible pelvic abscess and had revision of cholecystostomy tube by interventional radiology. Echocardiogram subsequently performed
showing ejection fraction of 30 to 35%. Cardiac catheterization performed in July showed normal left main with 30% mid LAD stenosis and normal ramus, circumflex and RCA, EF 40% with global hypomost notable in the anterolateral wall
Currently she feels abdominal discomfort, scheduled for MRI but no cardiac complaints
PMH: As above, hypertension, diabetes
Current meds: Lovenox, Nexium, norethindrone, Lantus, Flagyl, losartan 25 mg daily, on hold, aspirin 81 mg daily, patient refusing, atorvastatin 40 mg a day, patient refusing, dapagliflozin, Zosyn, metoprolol ER 25 twice daily
131/82, pulse 104, lying in side, cholecystostomy tube, appears modestly uncomfortable, lungs clear, regular rate and rhythm without obvious murmurs, JVD okay, not much edema, daughter at bedside
Hemoglobin 7.7, BUN and creatinine 19 and 1.1
Plan:
Despite what is most likely Takotsubo cardiomyopathy, she seems relatively stable from a cardiac standpoint.
Blood pressure is marginal. Losartan is currently on hold. She is tachycardic.
Will continue to hold losartan. Will try to uptitrate metoprolol, switch to metoprolol tartrate 25 every 6 and then consolidate.
Ideally she would except aspirin and atorvastatin, but this is not a major issue at this time.
Anticipate that LV function will recover, she will need an outpatient echo
We will continue to follow.
Increase metoprolol
Original Note:
Today's Communication / Plan
-
Recommend ongoing medical therapy of Takotsubo CM
Continue to recommend aspirin, atorvastatin. Patient has been refusing
Losartan on hold w/ creat up to 1.1
Continue Toprol
Management of cholecystitis per ID/surgery
Impression / Plan
-
PCP: Dr. Valdovinos and the residency program
Card: Dr. Nathanael Jain
Impression:
Admitted with acute cholecystitis, sepsis 07/23/24
Recent admission for acute cholecystitis, DM 2 and JO with transient HD 07/09/24 until 07/19/24
Takotsubo CM, EF 30-35% by echo 07/25/2024
Nonobstructive CAD by cath 07/26/2024
Ascites
Acute cholecystitis
s/p ERCP with cholelithiasis, biliary sphincterectomy 12/28/24
s/p robotic cholecystostomy tube 07/07/24
s/p IR gallbladder drainage and catheter placement 07/24/24
h/o JO with transient HD in the setting of acute cholecystitis 06/2024
Sepsis and shock
Possible left-sided PNA
HTN
DM 2
PCP managing DM 2 since 10/2022
Echo 07/25/2024: EF 30 to 35%, anteroseptal, mid septal, anterior, and apical akinesis, mild TR with PAP 45 mmHg
Plan:
-Presented with rigors and chills and admitted with acute cholecystitis. Recently admitted until 07/19 as noted above w/ cholecystitis.
-Cardiology consulted due to elevated troponin which peaked at 0.369 and trended down thereafter.
-Echo 07/25 showed EF down to 30-35%, so underwent LHC for further evaluation on 07/26 and was found to have nonobstructive CAD.
-Managing as Takotsubo CM. Continue medical therapy as able. Continue Toprol now at higher dose 25mg BID.
-Also ordered losartan 25mg daily, but patient has been refusing. Now on hold due to creat bumping to 1.1.
-Recommended aspirin 81mg daily, patient has been refusing.
-LDL 40, ordered lipitor 40mg daily, patient has been refusing.
-Hgb down to 7.7. Continue to follow.
-DM [employer] following, continue tight glucose control
-Continue management of cholecystitis per ID, general surgery.
HPI: Patient was admitted to [facility] on 07/23/2024 with acute cholecystitis and sepsis and cardiology is now consulted for an abnormal echocardiogram. Patient follows with Dr. Valdovinos and has been treated for DM 2 since 10/2022 on my review of [facility] records.
Patient had abdominal MRI 08/2023 that showed gallstones and choledocholithiasis and patient was referred to GI and saw them as a new patient 11/02/2023 and patient was recommended ERCP which was performed 12/29/2023 and showed cholelithiasis, but
normal bile duct without stone and patient had a biliary sphincterectomy. Patient was recommended to follow-up with surgeon for cholecystectomy. Patient came to [facility] ER on 07/06/2024 and was admitted with acute cholecystitis and JO. As noted
above patient had a robotic cholecystostomy tube placed and required transient HD for JO, but no need for long-term outpatient HD. Patient was discharged to home on 07/19/2024 with cholecystostomy tube in place plus antibiotics and reports that she
noticed spontaneous drainage from around the tube and returned to the ER on 07/23/2024 and was admitted with acute cholecystitis and sepsis. CT abdomen/pelvis indicated a possible pelvic abscess posterior to the uterus and moderate ascites. Patient
was seen in consultation by general surgery and it was recommended that patient have a new cholecystostomy tube placed and this was performed in IR with initial drainage and then catheter placement. General surgery feels that patient would almost
certainly need to be done in open fashion given where she is in this process and so plan is for IR drainage and antibiotics. Given ascites and echocardiogram was checked and as noted above the EF is down to 30 to 35% with new WMA suspicious for LAD
territory WMA. Patient denies CP or SOB, but reports diaphoresis more than expected with walking activity over the last 2 to 3 months. Patient was previously seen by a vending mechanic out of [place], but says that this was only for risk factor
modification and she has no previous cardiac testing. There is no FH of CAD.
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
Subjective
Date of Service: July 27, 2024
No cardiac complaints. Denies chest pain, SOB.
Objective
Labs:
07/27/24 06:36
07/27/24 06:36
Labs
Hgb 7.7 g/dL (12.0-16.0) L 07/27/24 06:36
Hct 23.5 % (37.0-47.0) L 07/27/24 06:36
Plt Count 351 10^3/uL (130-400) D 07/27/24 06:36
PT 18.8 Sec (11.4-14.6) H 07/24/24 00:31
INR 1.55 07/24/24 00:31
APTT 27.9 Sec (23.4-35.0) 07/24/24 00:31
Sodium 132 mmol/L (135-145) L 07/27/24 06:36
Potassium 3.9 mmol/L (3.5-5.1) 07/27/24 06:36
BUN 19 mg/dl (7-17) H 07/27/24 06:36
Creatinine 1.1 mg/dL (0.6-1.0) H 07/27/24 06:36
Glucose 149 mg/dl (70-99) H 07/27/24 06:36
Troponins
07/25/24 07/26/24 07/26/24
22:15 08:33 08:33
Troponin I 0.369 H* 0.225 H* 0.231 H*
Vital Signs and I&O:
Vital Signs
Temp Pulse Resp BP Pulse Ox
100 F 104 19 131/82 96
07/27/24 11:00 07/27/24 11:00 07/27/24 11:00 07/27/24 11:00 07/27/24 11:00
Vital Signs
Temp Pulse Resp BP Pulse Ox
100 F 104 19 131/82 96
07/27/24 11:00 07/27/24 11:00 07/27/24 11:00 07/27/24 11:00 07/27/24 11:00
Intake & Output
07/25/24 07/26/24 07/27/24 07/28/24
06:59 06:59 06:59 06:59
Intake Total 500 / 500 530 / 530 480 / 480 480 / 480
Output Total 1585 / 1585 255 / 255 670 / 670
Balance -1085 / -1085 275 / 275 -190 / -190 480 / 480
Physical Exam
Physical Exam
GEN: Pale, no distress, awake, alert, oriented x3
HEENT: supple, anicteric, mmm
LUNGS: CTA b/l, no wheezes/rales
CV: Reg, S1/S2, no murmur
EXT: No clubbing, cyanosis, or edema
NEURO: Gross non-focal
SKIN: Warm, dry, no rash
[2024-07-27 13:18] LABS: Glucose - Point of Care 144 mg/dl (70-99)
--- NOTE | 2024-07-27 13:18 | W.PN.PUL3 ---
Today's Communication / Plan
-
Obtain left-sided ultrasound on Tuesday or over the weekend if there is concerns of worsening infection.
If on Tuesday ultrasound shows significant reaccumulation of pleural fluid then thoracentesis.
Will see again on Tuesday
Assessment
-
Patient is a pleasant female who was diagnosed with cholecystitis in 2023 but due to severe inflammation, cholecystectomy could not be performed and it was managed instead with a cholecystostomy tube. Patient also has prior history of
choledocholithiasis s/p ERCP and biliary sphincterotomy in 2023. Her hospital stay was complicated with acute kidney injury requiring brief hemodialysis in 2023. Patient was subsequently discharged home with cholecystostomy tube in place with
prolonged antibiotics. Patient completed antibiotic couple of days prior to this admission and then presented here with diaphoresis, feeling poorly. Patient had a CT performed in the emergency room which was concerning for intra-abdominal
abscesses in addition to dense left lower lobe pneumonia and small left pleural effusion. Patient was hypotensive required pressors as well as supplemental oxygen which led to admission to the ICU. Encephalographer service was subsequently contacted
for further input.
Pulmonary following for pneumonia and parapneumonic effusion-07/26/2024.
#Left Lower Lobe Pneumonia with small left pleural effusion
- CT showing moderate LLL airspace consolidation with small left parapneumonic pleural effusion
- Urine strep/legionella negative thus far
- No cough or expectoration.
No leukocytosis 07/27/2024, afebrile.
- MRSA screen pending
- Oxygen for supplementation has been weaned off.
- Abx per ID service
- repeat chest x-ray07/27/2024.-Persistent left sided opacity. Atelectasis versus pleural effusion.
As long as she remains off oxygen and responding to antibiotics we will observe.
I will obtain left-sided ultrasound of the chest on Tuesday-if there is significant pleural effusion then thoracentesis should be performed. Can perform over the weekend if there is concern for worsening infection.
-
#Chronic Cholecystitis s/p Cholecystostomy with now suspected intra abdominal abscesses with hypotension.
- Responded to IVF and briefly needed pressors. Now off Levophed.
- Blood cultures, broad spectrum antibiotics. ID following the patient.
- IR guided replacement of cholecystostomy tube. Abdominal collections were noted to be shifting with changing position, not felt to be abscess.
Surgery following-for MRCP.
#Newly detected Cardiomyopathy, EF 35%.
- Cardiology service consulted
- Likely will need ischemia evaluation.
Follow volume status.
DVT prophylaxis, Lovenox.
Will follow again on Tuesday.
Subjective Data
-
Date of Service:
Date of Service: July 27, 2024
Chief Complaint: Pulmonary Follow Up
Subjective:
No new pulmonary complaints
Remains on room air
Denies increased cough or phlegm production
Review of Systems
Cardiopulmonary: Dyspnea (None at rest)
GI: Abdominal Pain (n)
Neuro: Headache (n)
Objective Data
Data Reviewed
Vital Signs / I&O / Oxygen:
Vital Signs
Temp Pulse Resp BP Pulse Ox
100 F 104 19 131/82 96
07/27/24 11:00 07/27/24 11:00 07/27/24 11:00 07/27/24 11:00 07/27/24 11:00
Intake and Output
07/26/24 07/27/24 07/28/24
06:59 06:59 06:59
Intake Total 530 / 530 480 / 480 480 / 480
Output Total 255 / 255 670 / 670 125 / 125
Balance 275 / 275 -190 / -190 355 / 355
SaO2 96
Nasal Cannula flow liters per 4
minute
Physical Exam
General: Comfortable
HEENT: Normocephalic
Respiratory: Non-Labored Respirations
GI: Soft and Non Distended
Neurology: Awake, Oriented and No Motor Deficits
Labs/Micro/Reports
Lab Data
07/27/24 06:36
07/27/24 06:36
Microbiology
07/23/24 16:56 Blood/Venous Blood Culture - Preliminary
No Growth in 72 hours- Final report to follow
07/23/24 16:38 Blood/Venous Blood Culture - Preliminary
No Growth in 72 hours- Final report to follow
07/24/24 16:15 Bile Body Fluid Culture - Final
Enterobacter cloacae
Enterococcus faecium
07/24/24 16:15 Bile Gram Stain - Final
07/24/24 17:13 Nose Nasal Screen MRSA (PCR) - Final
MRSA not detected - performed by PCR methodology.
[2024-07-27] MEDS: NOVOLOG FLEXPEN-MODERATE RESISTANCE SC ×2 (13:35→19:27)
--- NOTE | 2024-07-27 14:41 | W.PN.ID1 ---
Date of Service
Date of Service: July 27, 2024
Today's Communication
- continue zosyn, will plan a home course of IV antibiotics
Assessment / Plan
Multiple intraabdominal abscesses
Cholcystostomy tube placement
Recent JO requiring temporary HD
Uncontrolled Dm2 - risk factor for relapse
- recommend intensifying outpatient DM2 control which will improve neutrophil function and speed healing, would consider home insulin; this will also avoid drug drug interactions with januvia and quinolones
- blood cultures x2 no growth to date
- 07/24 bile culture: Enterobacter and Enterococcus faecium
- asked lab to release the sensitivities on the enterococcus -quinolones are intermediate but tetracycyline is sensitive as is linezolid; Enterobacter is sensitive to quinolones
- 07/07 bile cultures VGS and prevotella (BL neg)
- drains x2 into the gallbladder
- IR commented that no drain was placed in the peritoneal cavity because fluid was positional indicating ascites rather than organized collection; note that amount of fluid was relatively large up to 7 cm in two discrete areas
- continue zosyn, will plan a home course of IV antibiotics
Chief Complaint
-: Other (peritonitis, cholecystitis)
Subjective / Review of Systems
febrile overnight to 100.7
bp stable
Takotsubo CM
for MRCP
Vital Signs / Physical Exam
Vital Signs
Vital Signs
Temp Pulse Resp BP Pulse Ox
100 F 104 19 131/82 96
07/27/24 11:00 07/27/24 11:00 07/27/24 11:00 07/27/24 11:00 07/27/24 11:00
Physical Exam
Constitutional: No Acute Distress
Cardiovascular: Regular Rate and S1/S2; Negative Murmur or Rub
Pulmonary: Clear and Symmetric; Negative Wheezes or Rales
Gastrointestinal: Soft, Non Tender, Non Distended and Normal Bowel Sounds
Skin: Warm and Dry; Negative Rash or Jaundice
Objective Data
Lab Data
Lab Results
07/27/24 06:36
07/27/24 06:36
PT 18.8 Sec (11.4-14.6) H 07/24/24 00:31
INR 1.55 07/24/24 00:31
APTT 27.9 Sec (23.4-35.0) 07/24/24 00:31
Estimated Creat Clear 69 ml/min 07/27/24 06:36
Lactic Acid 0.9 mmol/L (0.7-2.0) 07/23/24 16:38
Total Bilirubin 0.6 mg/dl (0.2-1.3) 07/27/24 06:36
AST 19 U/L (14-36) 07/27/24 06:36
ALT < 10 U/L (0-35) 07/27/24 06:36
Alkaline Phosphatase 144 U/L (38-126) H 07/27/24 06:36
Most recent labs reviewed.
Micro Results:
07/23/24 16:56 Blood Culture - Preliminary
Blood/Venous No Growth in 72 hours- Final report to follow
07/23/24 16:38 Blood Culture - Preliminary
Blood/Venous No Growth in 72 hours- Final report to follow
07/24/24 16:15 Body Fluid Culture - Final
Bile Enterobacter cloacae
Enterococcus faecium
Gram Stain - Final
07/24/24 17:13 Nasal Screen MRSA (PCR) - Final
Nose MRSA not detected - performed by PCR methodology.
07/24/24 00:43 Streptococcus pneumoniae Antigen (M - Final
Urine Negative for Streptococcus pneumoniae antigen.
A negative result does not exclude infection with
Streptococcus pneumoniae. Clinical correlation is
recommended.
07/24/24 00:43 Legionella Urinary Antigen - Final
Urine Negative for Legionella pneumophila Serogroup 1 antigen.
A negative result does not rule out the possiblity of
Legionella infection due to other serogroups or species of
Legionella. Clinical correlation is recommended.
07/23/24 16:38 Influenza Types A & B (CLEOPATRA) - Final
Nasal Swab Negative for Influenza A & B, NAAT
Negative results must be combined with clinical observations
and patient history.
Nucleic Acid Amplification test (NAAT)performed on the
[employer] platform.
[2024-07-27 14:54] VITALS: BMI 41.7
[2024-07-27 15:00] VITALS: BP 116/96
[2024-07-27 19:25] LABS: Glucose - Point of Care 110 mg/dl (70-99)
[2024-07-27] MEDS: ZOSYN IV (19:27)
[2024-07-27] MEDS: LOVENOX 40 MG SC (19:27)
[2024-07-27] MEDS: LOPRESSOR PO (19:28)
[2024-07-27 19:48] VITALS: BP 128/84
[2024-07-27 22:04] LABS: Glucose - Point of Care 122 mg/dl (70-99)
[2024-07-27] MEDS: LOPRESSOR 25 MG PO (23:00)
[2024-07-27 23:20] VITALS: BP 96/50
[2024-07-28] VITALS (7 sets, daily range): BP systolic 110–143; BP diastolic 70–80
[2024-07-28] MEDS: ZOSYN 100 IV ×4 (04:23→21:49)
[2024-07-28] MEDS: LOPRESSOR 25 MG PO ×2 (06:09→12:07)
[2024-07-28 07:39] LABS: Hematocrit 24.7 % (37.0-47.0); Hemoglobin 7.8 g/dL (12.0-16.0); Mean Corp Hgb Conc. 31.6 g/dL (33.0-37.0); Mean Corpuscular Hgb 24.4 pg (27.0-31.0); Mean Corpuscular Volume 77.2 fL (81.0-99.0); Mean Platelet Volume 9.9 fL (7.4-10.4); Platelet Count 409 10^3/uL (130-400); Red Cell Dist. Width 19.9 % (11.5-14.5)
[2024-07-28 07:41] LABS: Glucose - Point of Care 120 mg/dl (70-99)
[2024-07-28 08:22] LABS: ALT (SGPT) 10 U/L (0-35); AST (SGOT) 20 U/L (14-36); Alkaline Phosphatase 173 U/L (38-126); Blood Urea Nitrogen 20 mg/dl (7-17); Calcium 8.7 mg/dl (8.4-10.2); Carbon Dioxide 23 mmol/L (22-30); Chloride 101 mmol/L (98-107); Estimated Creatinine Clearance 47 ml/min; Glucose 112 mg/dl (70-99); Sodium 134 mmol/L (135-145); Total Bilirubin 0.6 mg/dl (0.2-1.3); eGFR 39.05
[2024-07-28] MEDS: NOVOLOG FLEXPEN-MODERATE RESISTANCE SC ×3 (09:04→17:05)
[2024-07-28] MEDS: VISBIOME 1 CAP PO (09:05)
[2024-07-28] MEDS: LANTUS 0.1 UNITS SC (09:07)
[2024-07-28] MEDS: FARXIGA 10 MG PO (09:07)
[2024-07-28] MEDS: LOW STRENGTH ASPIRIN 81 MG PO (09:07)
[2024-07-28] MEDS: NON-FORMULARY ITEM 20 MG PO (09:09)
--- NOTE | 2024-07-28 09:09 | CM ---
LAte note 07/28/24 Pts lost job and insurance. Spoke with Erica RICE spoke with pt and . [employer] working on getting them hospital stay discount .
Pt did not get [employer] coverage.
No coverage at this time.
Pt with 2 drains and ID deciding on home IV abx infusion.
Pt has no insurance .
PLAN Discharge planning ongoing
[2024-07-28] MEDS: NON-FORMULARY ITEM 1 UNIT PO (09:20)
--- NOTE | 2024-07-28 10:29 | W.PN.CARDCBS ---
Addendum entered and electronically signed by Esau Hair MD 07/28/24 14:30:
49-year-old woman who underwent ERCP and sphincterotomy in December 2023. She returned in June 2024 with acute cholecystitis and had robotic cholecystostomy tube placed. At that time, she had JO and sepsis, was transiently on Hemodialysis and was
discharged to home July 19 with cholecystostomy tube. Patient readmitted July 23 with cholecystitis and sepsis with possible pelvic abscess and had revision of cholecystostomy tube by interventional radiology. Echocardiogram subsequently performed
showing ejection fraction of 30 to 35%. Cardiac catheterization performed in July showed normal left main with 30% mid LAD stenosis and normal ramus, circumflex and RCA, EF 40% with global hypokinesis most notable in the anterolateral wall.
Currently, she is reluctant to accept any medications. Yesterday metoprolol was increased for tachycardia and presumptive diagnosis of Takotsubo cardiomyopathy.
Currently she feels abdominal discomfort, scheduled for MRI but no cardiac complaints
PMH: As above, hypertension, diabetes
Current medications: Lovenox, probiotic, Nexium, norethindrone, Lantus, losartan 25 mg daily on hold, aspirin 81 mg daily(refusing), atorvastatin 40 mg daily (refusing) dapagliflozin (refusing) Zosyn, metoprolol tartrate 25 every 6
110/73, pulse 96, sats 100%, 37.2, Tmax is 38.5, at bedside, daughter at bedside, no acute distress, lungs relatively clear, still relatively tachycardic, tube in place, without much edema
Hemoglobin 7.8, stable BUN and creatinine are 20 and 1.6, creatinine had been 1.1
Impression:
Admitted with acute cholecystitis, sepsis 07/23/24
Recent admission for acute cholecystitis, DM 2 and JO with transient HD 07/09/24 until 07/19/24
Takotsubo CM, EF 30-35% by echo 07/25/2024
Nonobstructive CAD by cath 07/26/2024
Ascites
Acute cholecystitis
s/p ERCP with cholelithiasis, biliary sphincterectomy 12/28/24
s/p robotic cholecystostomy tube 07/07/24
s/p IR gallbladder drainage and catheter placement 07/24/24h/o JO with transient HD in the setting of acute cholecystitis 06/2024
Sepsis and shock
Possible left-sided PNA
HTN
DM 2
PCP managing DM 2 since 10/2022
Plan:
Despite LV dysfunction, and the fact that she is reluctant to take many recommended medications, she is likely stable from a cardiac standpoint.
Creatinine has bumped, losartan and Farxiga are currently on hold. She is receiving some IV fluid.
The beckham issue is continued beta-lorna therapy, as Takotsubo is in presumably triggered by a hyperadrenergic state. At present on higher dose metoprolol her heart rate is better, though perhaps not optimal. Not increase metoprolol further as
blood pressure is marginal.
Other medications to be administered as patient will accept. Will transition metoprolol back to metoprolol ER 50 mg twice daily.
Original Note:
Today's Communication / Plan
-
Holding Cozaar and Farxiga given bump in creatinine today. Gentle IV fluid per primary service
Continue Lopressor, likely transition back to Toprol in a.m.
Follow hemoglobin
Continue postop care
Impression / Plan
-
PCP: Dr. Valdovinos and the FP residency program
Card: Dr. Nathanael Jain
Impression:
Admitted with acute cholecystitis, sepsis 07/23/24
Recent admission for acute cholecystitis, DM 2 and JO with transient HD 07/09/24 until 07/19/24
Takotsubo CM, EF 30-35% by echo 07/25/2024
Nonobstructive CAD by cath 07/26/2024
Ascites
Acute cholecystitis
s/p ERCP with cholelithiasis, biliary sphincterectomy 12/28/24
s/p robotic cholecystostomy tube 07/07/24
s/p IR gallbladder drainage and catheter placement 07/24/24
h/o JO with transient HD in the setting of acute cholecystitis 06/2024
Sepsis and shock
Possible left-sided PNA
HTN
DM 2
PCP managing DM 2 since 10/2022
Echo 07/25/2024: EF 30 to 35%, anteroseptal, mid septal, anterior, and apical akinesis, mild TR with PAP 45 mmHg
Plan:
-Presented with rigors and chills and admitted with acute cholecystitis. Recently admitted until 07/19 as noted above w/ cholecystitis.
-Cardiology consulted due to elevated troponin which peaked at 0.369.
-Echo 07/25 showed EF down to 30-35%. LHC 07/26 with nonobstructive CAD.
-Managing as Takotsubo CM. Continue medical therapy as able. Currently on lopressor 25mg Q6H. will consider transition to toprol in AM pending BP trends.
-Also ordered losartan 25mg daily and farxiga 10mg daily. Cr up to 1.6, so now on hold and receiving gentle IVF. patient does not want these medications. explained reasoning behind them however patient would just like to allow time for her heart to
heal.
-Recommended aspirin 81mg daily, patient has been refusing.
-LDL 40, ordered lipitor 40mg daily, patient has been refusing.
-Hgb stable but low at 7.8. Continue to follow.
-DM ACCOUNT RETENTION REPRESENTATIVE following, continue tight glucose control
-Continue management of cholecystitis per ID, general surgery.
-follow up with primary power equipment mechanics instructor, Dr. Jain
-discussed with patient and family at bedside
HPI: Patient was admitted to [facility] on 07/23/2024 with acute cholecystitis and sepsis and cardiology is now consulted for an abnormal echocardiogram. Patient follows with Dr. Valdovinos and has been treated for DM 2 since 10/2022 on my review of [facility] records.
Patient had abdominal MRI 08/2023 that showed gallstones and choledocholithiasis and patient was referred to GI and saw them as a new patient 11/02/2023 and patient was recommended ERCP which was performed 12/29/2023 and showed cholelithiasis, but
normal bile duct without stone and patient had a biliary sphincterectomy. Patient was recommended to follow-up with surgeon for cholecystectomy. Patient came to [facility] ER on 07/06/2024 and was admitted with acute cholecystitis and JO. As noted
above patient had a robotic cholecystostomy tube placed and required transient HD for JO, but no need for long-term outpatient HD. Patient was discharged to home on 07/19/2024 with cholecystostomy tube in place plus antibiotics and reports that she
noticed spontaneous drainage from around the tube and returned to the ER on 07/23/2024 and was admitted with acute cholecystitis and sepsis. CT abdomen/pelvis indicated a possible pelvic abscess posterior to the uterus and moderate ascites. Patient
was seen in consultation by general surgery and it was recommended that patient have a new cholecystostomy tube placed and this was performed in IR with initial drainage and then catheter placement. General surgery feels that patient would almost
certainly need to be done in open fashion given where she is in this process and so plan is for IR drainage and antibiotics. Given ascites and echocardiogram was checked and as noted above the EF is down to 30 to 35% with new WMA suspicious for LAD
territory WMA. Patient denies CP or SOB, but reports diaphoresis more than expected with walking activity over the last 2 to 3 months. Patient was previously seen by a power equipment mechanics instructor out of [facility], but says that this was only for risk factor
modification and she has no previous cardiac testing. There is no FH of CAD.
Progress Note - Investment Fund Manager
Subjective
Date of Service: July 28, 2024
Denies chest pain or shortness of breath. Reports abdominal pain is adequately controlled
Objective
Labs:
07/28/24 06:57
07/28/24 06:57
Labs
Hgb 7.8 g/dL (12.0-16.0) L 07/28/24 06:57
Hct 24.7 % (37.0-47.0) L 07/28/24 06:57
Plt Count 409 10^3/uL (130-400) H 07/28/24 06:57
PT 18.8 Sec (11.4-14.6) H 07/24/24 00:31
INR 1.55 07/24/24 00:31
APTT 27.9 Sec (23.4-35.0) 07/24/24 00:31
Sodium 134 mmol/L (135-145) L 07/28/24 06:57
Potassium 4.0 mmol/L (3.5-5.1) 07/28/24 06:57
BUN 20 mg/dl (7-17) H 07/28/24 06:57
Creatinine 1.6 mg/dL (0.6-1.0) H 07/28/24 06:57
Glucose 112 mg/dl (70-99) H 07/28/24 06:57
Troponins
07/25/24 07/26/24 07/26/24
22:15 08:33 08:33
Troponin I 0.369 H* 0.225 H* 0.231 H*
Vital Signs and I&O:
Vital Signs
Temp Pulse Resp BP Pulse Ox
99.0 F 97 18 116/80 99
07/28/24 07:28 07/28/24 07:28 07/28/24 07:28 07/28/24 07:28 07/28/24 07:28
Vital Signs
Temp Pulse Resp BP Pulse Ox
99.0 F 97 18 116/80 99
07/28/24 07:28 07/28/24 07:28 07/28/24 07:28 07/28/24 07:28 07/28/24 07:28
Intake & Output
07/26/24 07/27/24 07/28/24 07/29/24
07:59 07:59 07:59 07:59
Intake Total 530 / 530 480 / 480 800 / 800
Output Total 255 / 255 670 / 670 450 / 450
Balance 275 / 275 -190 / -190 350 / 350
Physical Exam
Physical Exam
GEN: No distress, awake, alert, oriented x3. Pale. Obese
HEENT: supple, anicteric, mmm, EOMI
LUNGS: CTA bilaterally, no wheezes/rales
CV: Reg, S1/S2, no murmur
ABD: soft, BS+, NT/ND
EXT: No cyanosis, clubbing. Trace edema of bilateral lower extremity
NEURO: Gross non-focal
SKIN: Warm, pink, dry. No rash
[2024-07-28] MEDS: NSS 1000 IV (10:42)
[2024-07-28 11:29] LABS: Glucose - Point of Care 147 mg/dl (70-99)
--- NOTE | 2024-07-28 12:12 | W.PN.HOSP.TC ---
Today's Communication/Plan
-
continue IVF
follow BMP
continue IV Abx
follow cards/GS/ID recs
Assessment / Plan
Assessment / Plan
Assessment:
Acute cholecystitis diagnosed last admission
- s/p robotic placement of cholecystostomy tube on 07/07; remains
- s/p IV and oral Abx course and discharge 07/19/24
- returns to hospital for chills/fevers
- s/p IR guided cholecystostomy tube placed 07/24
Septic shock
Intra-Abdominal Abscesses (R paracolic, pelvic +/- L paracolic)
- s/p sepsis protocol IVF
- Levophed was weaned off
- s/p IR guided cholecystostomy tube placed 07/24
- GS following
- ID following. Continue Zosyn per ID. GB culture with Enterobacter and Enterococcus
- blood cultures NGTD
- MRCP 07/27: no acute findings
New diagnosis acute cardiomyopathy, stress induced most likely
- Cath 07/26: Nonobstructive coronary disease. Cardiomyopathy with anterolateral wall motion and normality.
- Echo 07/25: EF 30 to 35%, anteroseptal, mid septal, anterior, and apical akinesis, mild TR with PAP 45 mmHg
- trop peaked at .369
- continue ASA/Statin/BB//SGLT2
- ARB on hold for bump in renal function
new JO
Recent JO with transient HD between 07/09 and 07/19
- could be related to cardiac meds or contrast from cath
- IVF
- repeat BMP - if worse tomorrow then will need to consult nephrology
Ascites
- Abd US: low volume, not enough for tap
Elevated Lipase, reactive to intra-abdominal pathology
- no evidence of pancreatitis by imaging
L sided pneumonia vs atelectasis
Small L parapneumonic effusion
Acute hypoxic respiratory failure on 6L NC
- pulm following
- continue Abx as above
- MRSA swab negative
- repeat CXR with improvement
- continue IS
Hyponatremia
- improving
Metabolic acidosis
- improved with bicarb IVF
Hypomagnesemia
Essential HTN
- continue ARB/BB
Chronic Microcytic Anemia
- follow Hb, 7.8 today.
DM-II
- hold Januvia
- SSI
- continue Lantus
- recent A1c: 10.2%
- EXTENSION FORESTER following
Morbid Obesity due to excess calories
DVT ppx: Lovenox
Code: Full
Anticipated Discharge: > 48 hours
Subjective/Interval History
-
Date of Service: July 28, 2024
resting comfortably, no complaint
Objective Data
-
Labs:
Laboratory Results
07/28/24
06:57
WBC 12.0 H
Hgb 7.8 L
Hct 24.7 L
Plt Count 409 H
Sodium 134 L
Potassium 4.0
Chloride 101
Carbon Dioxide 23
BUN 20 H
Creatinine 1.6 H
Glucose 112 H
Calcium 8.7
Total Bilirubin 0.6
AST 20
ALT 10
Alkaline Phosphatase 173 H
Vital Signs:
Vital Signs
Temp Pulse Resp BP Pulse Ox
98.9 F 96 18 110/73 100
07/28/24 10:39 07/28/24 12:07 07/28/24 10:39 07/28/24 12:07 07/28/24 10:39
I&O
07/27/24 07/28/24 07/29/24
06:59 06:59 06:59
Intake Total 480 / 480 800 / 800
Output Total 670 / 670 450 / 450
Balance -190 / -190 350 / 350
Physical Exam
-
General: No Apparent Distress
HEENT: Normocephalic and Atraumatic
Respiratory: Negative Wheezes
Cardiac: Regular Rhythm and S1/S2
GI: Soft and Nontender
Genito-urinary: No Costovertebral Tender
Musculoskeletal: No Edema
Neuro: AO x 3
Psych: Calm
Data Reviewed
-
Total Time Spent with Patient (in minutes): 41
Labs: Labs Reviewed by me
--- NOTE | 2024-07-28 13:47 | W.PN.GS2 ---
Addendum entered and electronically signed by Alberto Santillan MD 07/28/24 19:33:
I saw and examined the patient.
The ELECTRONICS REPAIR TECHNICIAN's note was reviewed and I agree with the note.
Original Note:
Today's Communication / Plan
-
continue drains
Assessment / Plan
-
Patient is a 49 yo F s/p robotic jr tube placement on 07/07/24
p/w sepsis this admission likely secondary to bile leakage from the gallbladder seeding the peritoneal cavity s/p CT guided jr tube in IR on 07/24/2024
Cardiology following for work up of CM with EF of 30-35% s/p cardiac cath with nonobstructive coronary dz
IR cx with Enterobacter and enterococcus species
Prior OR cx with Prevotella and Viridans Strep
tmax of 101.3 last noc, tachycardia improved. BP good.
Leukocytosis trending up. Normal bilirubin and transaminases
IR drain with high outputs, minimal outputs from cholecystostomy placed intraop
CR trending up, suspect secondary to contrast during CCL
MRCP with well positioned tubes, no abscess
-- Diet as per primary team
-- C/W both drains (will remain in place upon d/c). Follow outputs closely
-- Eventual scheduled cholecystectomy with timing TBD pending overall clinical course
-- Abx as per ID, anticipate home on IV abx
-- DVT ppx
-- All other care as per primary team
Subjective Data
-
Date of Service: July 28, 2024
Patient seen and examined at bedside with Dr Santillan. Denies n/v. Tolerating diet. Denies abd pain. Passing flatus, no BM for a few days.
Objective Data
-
Intake and Output
07/27/24 07/28/24 07/29/24
06:59 06:59 06:59
Intake Total 480 / 480 800 / 800
Output Total 670 / 670 450 / 450
Balance -190 / -190 350 / 350
Intake:
Oral fluids 480 / 480 600 / 600
IV piggybacks 200 / 200
Output:
Drain Output (Total) 670 / 670 250 / 250
Right Middle Abdomen Biliary 670 / 670 5 / 5
Right Middle Abdomen Biliary B 245 / 245
Placed in IR
Urine, Voided 200 / 200
Other:
Number of approximated MODERATE 2 1
amounts of urine
How many times incontinent 1
MODERATE amount urine
Vital Signs
Temp Pulse Resp BP Pulse Ox
98.9 F 96 18 110/73 100
07/28/24 10:39 07/28/24 12:07 07/28/24 10:39 07/28/24 12:07 07/28/24 10:39
Lab Results
07/28/24 06:57
07/28/24 06:57
Calcium 8.7 mg/dl (8.4-10.2) 07/28/24 06:57
Phosphorus 3.5 mg/dl (2.5-4.5) 07/24/24 00:31
Magnesium 1.7 mg/dl (1.6-2.3) 07/24/24 04:37
Total Bilirubin 0.6 mg/dl (0.2-1.3) 07/28/24 06:57
AST 20 U/L (14-36) 07/28/24 06:57
ALT 10 U/L (0-35) 07/28/24 06:57
Alkaline Phosphatase 173 U/L (38-126) H 07/28/24 06:57
Total Protein 6.0 g/dl (6.3-8.2) L 07/28/24 06:57
Albumin 3.0 g/dl (3.5-5.0) L 07/28/24 06:57
Physical Exam
-
Gen: NAD
Abd: soft, obese, mild ttp to epigastrium, IR perc drain with clear bilious fluid, velazquez cholecystostomy drain with scant dark fluid and sediment
Patient has a central line: Yes (midline)
[2024-07-28 16:10] LABS: Glucose - Point of Care 125 mg/dl (70-99)
[2024-07-28] MEDS: LOVENOX 40 MG SC (17:05)
[2024-07-28] MEDS: ZOFRAN 4 MG IV (20:31)
[2024-07-28] MEDS: TOPROL XL 50 MG PO (20:33)
[2024-07-28 21:16] LABS: Glucose - Point of Care 115 mg/dl (70-99)
[2024-07-29 03:50] VITALS: BP 141/81
[2024-07-29] MEDS: ZOSYN 100 IV ×4 (03:51→22:23)
[2024-07-29 07:26] LABS: Hematocrit 23.6 % (37.0-47.0); Hemoglobin 7.6 g/dL (12.0-16.0); Mean Corp Hgb Conc. 32.2 g/dL (33.0-37.0); Mean Corpuscular Hgb 24.7 pg (27.0-31.0); Mean Corpuscular Volume 76.6 fL (81.0-99.0); Mean Platelet Volume 9.9 fL (7.4-10.4); Platelet Count 387 10^3/uL (130-400); Red Blood Cell Count 3.08 10^6/uL (4.20-5.40); Red Cell Dist. Width 19.9 % (11.5-14.5); White Blood Cell Count 10.1 10^3/uL (4.8-10.8)
[2024-07-29 07:32] VITALS: BP 115/79
[2024-07-29 07:50] LABS: Glucose - Point of Care 150 mg/dl (70-99)
[2024-07-29 07:59] LABS: ALT (SGPT) < 10 U/L (0-35); AST (SGOT) 18 U/L (14-36); Alkaline Phosphatase 168 U/L (38-126); Blood Urea Nitrogen 19 mg/dl (7-17); Calcium 8.1 mg/dl (8.4-10.2); Carbon Dioxide 22 mmol/L (22-30); Chloride 102 mmol/L (98-107); Estimated Creatinine Clearance 45 ml/min; Glucose 111 mg/dl (70-99); Potassium 4.1 mmol/L (3.5-5.1); Sodium 136 mmol/L (135-145); Total Bilirubin 0.6 mg/dl (0.2-1.3); eGFR 36.31
[2024-07-29 08:50] LABS: Iron 51 ug/dl (37-170)
[2024-07-29 09:00] LABS: Percent Saturation 24 % (20-50); Total Iron Binding Capacity 210 ug/dl (265-497)
[2024-07-29] MEDS: NOVOLOG FLEXPEN-MODERATE RESISTANCE 1 UNITS SC (09:50)
[2024-07-29 09:51] LABS: Folate 5.2 ng/ml (2.76-20); Vitamin B12 726 pg/ml (239-931)
[2024-07-29] MEDS: NON-FORMULARY ITEM 1 UNIT PO (09:51)
[2024-07-29] MEDS: NON-FORMULARY ITEM 20 MG PO (09:53)
[2024-07-29] MEDS: LANTUS 0.1 UNITS SC (09:53)
[2024-07-29] MEDS: TOPROL XL 50 MG PO (09:54)
[2024-07-29] MEDS: VISBIOME 1 CAP PO (09:54)
[2024-07-29] MEDS: LOW STRENGTH ASPIRIN PO (09:56)
[2024-07-29 10:21] LABS: Urine Albumin 2+ (Neg - Trace); Urine Bilirubin Negative (Negative); Urine Character Slightly Cloudy (Clear); Urine Color Yellow; Urine Glucose 1+ (Negative); Urine Ketone Negative (Negative); Urine Leukocyte Negative (Negative); Urine Nitrite Negative (Negative); Urine Occult Blood 1+ (Negative); Urine Urobilinogen Negative (Neg - 1+)
[2024-07-29 10:38] LABS: Urine Squamous Cell 0-2 /LPF (Few)
[2024-07-29 10:39] LABS: Urine Bacteria Few (Negative)
[2024-07-29 10:57] VITALS: BP 120/84
[2024-07-29 11:04] LABS: Urine Sodium 46 mmol/L (30-90)
--- NOTE | 2024-07-29 11:25 | W.PN.HOSP.TC ---
Today's Communication/Plan
-
follow labs
continue IV abx
continue drain
continue diet
encourage compliance with cardiac meds
nephrology consult
Assessment / Plan
Assessment / Plan
Assessment:
Acute cholecystitis diagnosed last admission
- s/p robotic placement of cholecystostomy tube on 07/07; remains
- s/p IV and oral Abx course and discharge 07/19/24
- returns to hospital for chills/fevers
- s/p IR guided cholecystostomy tube placed 07/24
Septic shock
Intra-Abdominal Abscesses (R paracolic, pelvic +/- L paracolic)
- s/p sepsis protocol IVF
- Levophed was weaned off
- s/p IR guided cholecystostomy tube placed 07/24
- GS following
- ID following. Continue Zosyn per ID. GB culture with Enterobacter and Enterococcus
- blood cultures NGTD
- MRCP 07/27: no acute findings
New diagnosis acute cardiomyopathy, stress induced most likely
- Cath 07/26: Nonobstructive coronary disease. Cardiomyopathy with anterolateral wall motion and normality.
- Echo 07/25: EF 30 to 35%, anteroseptal, mid septal, anterior, and apical akinesis, mild TR with PAP 45 mmHg
- trop peaked at .369
- continue ASA/Statin/BB
- ARB/SGLT2 on hold for bump in renal function
new JO
Recent JO with transient HD between 07/09 and 07/19
- could be related to cardiac meds or contrast from cath
- IVF
- FENA pre-renal
- Nephrology consulted
Ascites
- Abd US: low volume, not enough for tap
Elevated Lipase, reactive to intra-abdominal pathology
- no evidence of pancreatitis by imaging
L sided pneumonia vs atelectasis
Small L parapneumonic effusion
Acute hypoxic respiratory failure on 6L NC
- pulm following
- continue Abx as above
- MRSA swab negative
- repeat CXR with improvement
- continue IS
Hyponatremia
- improving
Metabolic acidosis
- improved
Hypomagnesemia
Essential HTN
- continue ARB/BB
Chronic Microcytic Anemia, likely of chronic disease
- follow Hb, 7.6 today.
DM-II
- hold Januvia
- SSI
- continue Lantus
- recent A1c: 10.2%
- CONCAVER following
Morbid Obesity due to excess calories
DVT ppx: Lovenox
Code: Full
Anticipated Discharge: > 48 hours
Subjective/Interval History
-
Date of Service: July 29, 2024
denies any new complaints
tolerating diet, + BM
Objective Data
-
Labs:
Laboratory Results
07/29/24
06:47
WBC 10.1
Hgb 7.6 L
Hct 23.6 L
Plt Count 387
Sodium 136
Potassium 4.1
Chloride 102
Carbon Dioxide 22
BUN 19 H
Creatinine 1.7 H
Glucose 111 H
Calcium 8.1 L
Total Bilirubin 0.6
AST 18
ALT < 10
Alkaline Phosphatase 168 H
Vital Signs:
Vital Signs
Temp Pulse Resp BP Pulse Ox
98.3 F 93 18 120/84 95
07/29/24 10:57 07/29/24 10:57 07/29/24 10:57 07/29/24 10:57 07/29/24 10:57
I&O
07/28/24 07/29/24 07/30/24
06:59 06:59 06:59
Intake Total 800 / 800 2200 / 2200
Output Total 450 / 450 350 / 350
Balance 350 / 350 1849 / 1849
Physical Exam
-
General: No Apparent Distress
HEENT: Normocephalic and Atraumatic
Respiratory: Negative Wheezes
Cardiac: Regular Rhythm and S1/S2
GI: Soft, Nontender and Other (+ GB drains)
Genito-urinary: No Costovertebral Tender
Neuro: AO x 3
Psych: Calm
Data Reviewed
-
Total Time Spent with Patient (in minutes): 44
Labs: Labs Reviewed by me
[2024-07-29 11:44] LABS: Glucose - Point of Care 135 mg/dl (70-99)
--- NOTE | 2024-07-29 12:30 | W.CON.NEPH ---
Consultation
-
Date/Time Consultation Requested: 07/29/2024 11 AM
Date/Time Consultation Performed: 07/29/2024 12:30 PM
Requesting Provider: Dr. Bauer
Performing Provider: Dr. Lyons
Reason for Consultation: JO
Medical History
-
Chief Complaint: JO
History of Present Illness:
49-year-old female with hypertension on a multidrug regimen, DM II not on meds, and cholelithiasis who presented to ED last month with abdominal pain was found to have acute cholecystitis. She had a cholecystotomy tube placed at that time but had
severe acute kidney injury requiring dialysis briefly. Ultimately her renal function had recovered and she came off dialysis. She was subsequently discharged with the drain. She returns to the hospital about 1 week ago with fevers chills.
Evaluation revealed sepsis and a CT demonstrated pneumonia as well as abdominal abscesses. Drains were placed for the abscesses and she was given antibiotics. She has been improving from that standpoint. She will require eventual cholecystectomy
and evaluation disclosed worsening ejection fraction now at 30%. She underwent cardiac catheterization on 07/26/2024 with left ventriculography which showed nonobstructive coronary disease. Over the last 2 days her creatinine has now risen up to 1.7
representing acute kidney injury. She has no issues with oral intake or urine output.
Past Medical History
essential hypertension
DM II
fatty liver
hx gall stones, /choledocholithiasis ERCP 12/2023
Morbid obesity
Heart failure reduced ejection fraction 35%
Past Surgical History: Other (tonsillectomy adenoidectomy)
Social History
Tobacco: Non-Smoker
Alcohol: None
Drug: None
Personal:
Living: With Family
Employment: Not Employed
Family History
Mother: Alzheimer's, gallstones; Father: Pancreatic cancer; Brother: CAD w/ CABG
brother with kidney stone
Family History: Not Pertinent
Allergies / Home Medications
Allergy/AdvReac Type Severity Reaction Status Date / Time
No Known Allergies Allergy Verified 07/23/24 13:54
�Medication �Instructions �Recorded �Confirmed �Type
metoprolol succinate 100 mg 50 mg PO DAILYPRN PRN high pulse 12/29/23 07/23/24 History
tablet,extended release 24 hr
cholecalciferol (vitamin D3) 125 125 mcg PO DAILY Supplement 07/06/24 07/23/24 History
mcg (5,000 unit) tablet (Vitamin
D3)
losartan 100 1 tab PO DAILY Blood Pressure 07/06/24 07/23/24 History
mg-hydrochlorothiazide 25 mg tablet
norethindrone acetate 5 mg tablet 5 mg PO DIRECTED Hormonal Agent 07/06/24 07/23/24 History
nifedipine 30 mg tablet,extended 30 mg PO DAILY #30 tabs 07/19/24 07/23/24 Rx
release
polyethylene glycol 3350 17 gram 17 g PO DAILYPRN PRN constipation 07/19/24 07/23/24 Rx
oral powder packet #14 ea
sitagliptin phosphate 50 mg tablet 50 mg PO DAILY #30 tabs 07/19/24 07/23/24 Rx
(Januvia)
esomeprazole magnesium 20 mg 20 mg PO DAILY Gastrointestinal 07/23/24 07/23/24 History
capsule,delayed release (Nexium) Issue
Review of Systems
-
No chest pain or shortness of breath. Anxiety
All other systems: Negative unless noted
Physical Exam
Vital Signs
Vital Signs
Temp Pulse Resp BP Pulse Ox
98.3 F 93 18 120/84 95
07/29/24 10:57 07/29/24 10:57 07/29/24 10:57 07/29/24 10:57 07/29/24 10:57
Lab Results
WBC 10.1 10^3/uL (4.8-10.8) 07/29/24 06:47
RBC 3.08 10^6/uL (4.20-5.40) L 07/29/24 06:47
Hgb 7.6 g/dL (12.0-16.0) L 07/29/24 06:47
Hct 23.6 % (37.0-47.0) L 07/29/24 06:47
Plt Count 387 10^3/uL (130-400) 07/29/24 06:47
Sodium 136 mmol/L (135-145) 07/29/24 06:47
Potassium 4.1 mmol/L (3.5-5.1) 07/29/24 06:47
Chloride 102 mmol/L (98-107) 07/29/24 06:47
Carbon Dioxide 22 mmol/L (22-30) 07/29/24 06:47
BUN 19 mg/dl (7-17) H 07/29/24 06:47
Creatinine 1.7 mg/dL (0.6-1.0) H 07/29/24 06:47
eGFR 36.31 07/29/24 06:47
Glucose 111 mg/dl (70-99) H 07/29/24 06:47
Calcium 8.1 mg/dl (8.4-10.2) L 07/29/24 06:47
Phosphorus 3.5 mg/dl (2.5-4.5) 07/24/24 00:31
Yvz-X-Ffggpezluxz Pept 545 pg/ml 07/23/24 16:38
Albumin 3.0 g/dl (3.5-5.0) L 07/29/24 06:47
Laboratory Tests
07/18/24 07/26/24
06:04 08:33
Creatinine 1.0 0.9
Physical Exam
Patient is awake alert oriented and in no distress. Mood and affect were pleasant, insight and judgment were good. Pupils are equal round and reactive to light, extraocular movements are intact, sclera were anicteric. Hearing was normal, ears and
nose are intact. Oropharynx was clear. Neck was supple with trachea midline and no thyromegaly. Heart was regular rate and rhythm without rubs. Lower extremities with trace edema. Lungs were clear to auscultation bilaterally and with normal
excursion. Abdomen was soft, nontender, with normal active bowel sounds, and no hepatosplenomegaly. Skin was without rash and with normal turgor.
Data Reviewed
-
Radiology: Image Personally Visualized and interpreted (Chest x-ray 07/27/2024 by reading shows left lower lobe opacity)
Medical Tests (Nuc Med, Echo etc): Image Personally Visualized and interpreted (EKG on 07/26/2024 by my reading sinus tachycardia nonspecific T wave abnormality) and Report Reviewed by me (Cardiac catheterization 07/26/2024 nonobstructive coronary
disease)
Labs: Labs Reviewed by me
Old Records: Reviewed
Assessment/Plan
-
IMP:
JO
cholecystitis with cholecystotomy tube
hx gall stones prior ERCP for choledocholithiasis in 12/2023
Abdominal abscess with drainage catheters x 2
essential hypertension
DM II
Morbid obesity
Plan:
Holding losartan and HCTZ
holding Farxiga for now as well
I agree that JO is most likely mediated by contrast exposure from cardiac catheterization
I reassured the patient that medications can ultimately be restarted
Follow BMP I suspect she will plateau in the next 24 to 48 hours
[2024-07-29] MEDS: NOVOLOG FLEXPEN-MODERATE RESISTANCE SC ×2 (12:46→17:37)
--- NOTE | 2024-07-29 14:41 | W.PN.CARDCBS ---
Today's Communication / Plan
-
Increase metoprolol ER to 75 mg twice daily from 50 twice daily
Stop aspirin, atorvastatin, Farxiga at patient request
Losartan on hold, hydrochlorothiazide on hold
Anemia/JO per hospitalist/nephrology
Impression / Plan
-
PCP: Dr. Valdovinos and the residency program
Card: Dr. Nathanael Jain
Impression:
Admitted with acute cholecystitis, sepsis 07/23/24
Recent admission for acute cholecystitis, DM 2 and JO with transient HD 07/09/24 until 07/19/24
Takotsubo CM, EF 30-35% by echo 07/25/2024
Nonobstructive CAD by cath 07/26/2024
Ascites
Acute cholecystitis
s/p ERCP with cholelithiasis, biliary sphincterectomy 12/28/24
s/p robotic cholecystostomy tube 07/07/24
s/p IR gallbladder drainage and catheter placement 07/24/24
h/o JO with transient HD in the setting of acute cholecystitis 06/2024
Sepsis and shock
Possible left-sided PNA
HTN
DM 2
PCP managing DM 2 since 10/2022
Echo 07/25/2024: EF 30 to 35%, anteroseptal, mid septal, anterior, and apical akinesis, mild TR with PAP 45 mmHg
Plan:
From standpoint of presumed Takotsubo cardiomyopathy, she is likely stable. She is willing to take metoprolol, heart rate is better but still somewhat rapid on metoprolol ER 50 mg twice daily. Will increase to 75 mg twice daily.
Ideally, I would have her take aspirin, atorvastatin, Farxiga, but she is reluctant. Given that the underlying issue is Takotsubo cardiomyopathy, these medications are of secondary importance to her beta-lorna. I discontinued all of the above
which she is not taking anyway.
As she recovers, may be desirable to restart losartan and hydrochlorothiazide which she was taking prior to hospital stay. Defer to nephrology who is managing JO with creatinine up to 1.7.
Hemoglobin is 7.6. Defer management to hospitalist.
Apparently, surgical plan is long-term antibiotics with drainage with ultimate plan of surgery when stabilized
She will need to follow-up to cardiology as an outpatient and get a repeat echo. Suspect EF will normalize.
We will reevaluate tomorrow and if stable likely sign off.
HPI: Patient was admitted to [facility] on 07/23/2024 with acute cholecystitis and sepsis and cardiology is now consulted for an abnormal echocardiogram. Patient follows with Dr. Valdovinos and has been treated for DM 2 since 10/2022 on my review of [facility] records.
Patient had abdominal MRI 08/2023 that showed gallstones and choledocholithiasis and patient was referred to GI and saw them as a new patient 11/02/2023 and patient was recommended ERCP which was performed 12/29/2023 and showed cholelithiasis, but
normal bile duct without stone and patient had a biliary sphincterectomy. Patient was recommended to follow-up with surgeon for cholecystectomy. Patient came to [facility] ER on 07/06/2024 and was admitted with acute cholecystitis and JO. As noted
above patient had a robotic cholecystostomy tube placed and required transient HD for JO, but no need for long-term outpatient HD. Patient was discharged to home on 07/19/2024 with cholecystostomy tube in place plus antibiotics and reports that she
noticed spontaneous drainage from around the tube and returned to the ER on 07/23/2024 and was admitted with acute cholecystitis and sepsis. CT abdomen/pelvis indicated a possible pelvic abscess posterior to the uterus and moderate ascites. Patient
was seen in consultation by general surgery and it was recommended that patient have a new cholecystostomy tube placed and this was performed in IR with initial drainage and then catheter placement. General surgery feels that patient would almost
certainly need to be done in open fashion given where she is in this process and so plan is for IR drainage and antibiotics. Given ascites and echocardiogram was checked and as noted above the EF is down to 30 to 35% with new WMA suspicious for LAD
territory WMA. Patient denies CP or SOB, but reports diaphoresis more than expected with walking activity over the last 2 to 3 months. Patient was previously seen by a revenue collector out of [facility], but says that this was only for risk factor
modification and she has no previous cardiac testing. There is no FH of CAD.
Progress Note - Senior Game Advisor
Subjective
Date of Service: July 29, 2024:
49-year-old woman with cholecystitis and 2023 who underwent ERCP and sphincterotomy in December 2023. She returned in June 2024 with acute cholecystitis, JO and sepsis, was transiently on hemodialysis and had robotic cholecystostomy tube placed.
She was discharged to home July 19 with cholecystostomy tube. Patient readmitted July 23 with cholecystitis, sepsis and possible pelvic abscess, requiring revision of cholecystostomy tube. Echo at that time showed EF of 30 to 35%, with catheterization
showing only 30% mid LAD stenosis and EF of 40% consistent with Takotsubo cardiomyopathy. Patient reluctant to except most medications for cardiovascular indications, is willing to take metoprolol. Now with JO. At present she has no new
complaints. and daughter at bedside.
PMH: Hypertension, diabetes
Current medications: Lovenox 40 mg a day, Nexium, norethindrone, insulin, losartan on hold, aspirin refused, atorvastatin refused, dapagliflozin refused, Zosyn, metoprolol ER 50 mg twice daily
120/84, pulse 93, afebrile, no acute distress, few crackles in bases, regular rate and rhythm, no obvious murmurs JVD okay, abdomen obese, drains in place, not much edema
MRCP July 2024: Cholelithiasis, cholecystostomy tube trace ascites, no bile leak, hepatosplenomegaly
Hemoglobin 7.6, BUN/creatinine 19 and 1.7, potassium 4.1
Objective
Labs:
07/29/24 06:47
07/29/24 06:47
Labs
Hgb 7.6 g/dL (12.0-16.0) L 07/29/24 06:47
Hct 23.6 % (37.0-47.0) L 07/29/24 06:47
Plt Count 387 10^3/uL (130-400) 07/29/24 06:47
PT 18.8 Sec (11.4-14.6) H 07/24/24 00:31
INR 1.55 07/24/24 00:31
APTT 27.9 Sec (23.4-35.0) 07/24/24 00:31
Sodium 136 mmol/L (135-145) 07/29/24 06:47
Potassium 4.1 mmol/L (3.5-5.1) 07/29/24 06:47
BUN 19 mg/dl (7-17) H 07/29/24 06:47
Creatinine 1.7 mg/dL (0.6-1.0) H 07/29/24 06:47
Glucose 111 mg/dl (70-99) H 07/29/24 06:47
Vital Signs and I&O:
Vital Signs
Temp Pulse Resp BP Pulse Ox
36.8 C 93 18 120/84 95
07/29/24 10:57 07/29/24 10:57 07/29/24 10:57 07/29/24 10:57 07/29/24 10:57
Vital Signs
Temp Pulse Resp BP Pulse Ox
36.8 C 93 18 120/84 95
07/29/24 10:57 07/29/24 10:57 07/29/24 10:57 07/29/24 10:57 07/29/24 10:57
Intake & Output
07/27/24 07/28/24 07/29/24 07/30/24
07:59 07:59 07:59 07:59
Intake Total 480 / 480 800 / 800 2200 / 2200
Output Total 670 / 670 450 / 450 350 / 350
Balance -190 / -190 350 / 350 1850 / 1850
Physical Exam
Physical Exam
See above
[2024-07-29 15:09] VITALS: BP 121/83
[2024-07-29 15:51] LABS: Glucose - Point of Care 126 mg/dl (70-99)
[2024-07-29] MEDS: LOVENOX 40 MG SC (17:37)
[2024-07-29 20:57] VITALS: BP 119/79
[2024-07-29] MEDS: TOPROL XL 75 MG PO (20:57)
[2024-07-29 21:39] LABS: Glucose - Point of Care 116 mg/dl (70-99)
[2024-07-29 23:10] VITALS: BP 133/74
[2024-07-30] MEDS: ZOSYN 100 IV ×4 (04:20→22:21)
[2024-07-30 07:00] VITALS: BP 118/74
[2024-07-30 07:40] LABS: Hematocrit 23.3 % (37.0-47.0); Hemoglobin 7.3 g/dL (12.0-16.0); Mean Corp Hgb Conc. 31.3 g/dL (33.0-37.0); Mean Corpuscular Hgb 24.6 pg (27.0-31.0); Mean Corpuscular Volume 78.5 fL (81.0-99.0); Mean Platelet Volume 9.8 fL (7.4-10.4); Platelet Count 380 10^3/uL (130-400); Red Blood Cell Count 2.97 10^6/uL (4.20-5.40); Red Cell Dist. Width 20.1 % (11.5-14.5); White Blood Cell Count 9.5 10^3/uL (4.8-10.8)
[2024-07-30 07:51] LABS: Glucose - Point of Care 109 mg/dl (70-99)
[2024-07-30 08:12] LABS: Blood Urea Nitrogen 15 mg/dl (7-17); Calcium 8.2 mg/dl (8.4-10.2); Carbon Dioxide 22 mmol/L (22-30); Chloride 105 mmol/L (98-107); Estimated Creatinine Clearance 51 ml/min; Glucose 111 mg/dl (70-99); Potassium 4.4 mmol/L (3.5-5.1); Sodium 138 mmol/L (135-145); eGFR 42.19
--- NOTE | 2024-07-30 08:13 | PN.DE.MGMTRT ---
Insulin Management
- -
07/30/2024: Diabetes Management Follow up
Patient admitted 07/23 for fever, chills, recently discharged from after stay 07/09 to 07/19 for acute cholecystitis, cholecystomy tube. PMH HTN, diabetes. Recently started on Januvia 50 mg daily and given a Contour glucose monitor. States she has
been using the meter. A1C 07/07 10.2%, cr .9, eGFR > 60.
Patient is awake alert, oriented, sitting up in chair, offers no complaints, able to discuss diabetes care. and Dtr at bedside, very supportive.
ID recommended starting insulin. 10 units Lantus daily started 07/25 with AC NovoLog and moderate corrective insulin. AC NovoLog d/c'd on 07/27
S/P Cardiac Cath 07/26, EF 30 to 35%- started on Farxiga 10mg daily. 07/29 noted for worsening JO and Farxiga was discontinued
Glucose remains stable and in range 126 to 150, FBG 11 V, 109 POIC tis AM.
Will make no changes to current regimen: Lantus 10 units daily in AM and moderate corrective with meals.
Will cont to follow
Diabetes Nurse Educator provided insulin prep and administration instructions.
Diabetes History
- -
Type of Diabetes: 2 requiring insulin
Pre-Admission Diabetes Regimen
07/30/24
06:40
Creatinine 1.5 H
Insulin Pump Settings
IP Diabetes Regimen
07/29/24 07/29/24 07/29/24
11:43 15:50 21:38
Glucose
POC Glucose 135 H 126 H 116 H
07/30/24 07/30/24
06:40 07:49
Glucose 111 H
POC Glucose 109 H
Patient Education
--- NOTE | 2024-07-30 09:08 | W.PN.ID1 ---
Date of Service
Date of Service: July 30, 2024
Today's Communication
- follow renal function, may consider repeat abdominal US in the next few days to reassess if fluid collections remain and if becoming encapsulated
- continue zosyn, plan a home course of IV antibiotics if feasible
Assessment / Plan
Multiple intraabdominal abscesses
Cholcystostomy tube placement
JO improving - note recent requirement for temporary HD
Uncontrolled Dm2 - risk factor for relapse
- blood cultures x2 no growth to date
- 07/24 bile culture: Enterobacter and Enterococcus faecium
- sensitivities on the enterococcus -quinolones are intermediate but tetracycyline is sensitive as is linezolid; Enterobacter is sensitive to quinolones
- 07/07 bile cultures VGS and prevotella (BL neg)
- drains x2 into the gallbladder
- follow renal function, may consider repeat abdominal US in the next few days to reassess if fluid collections remain and if becoming encapsulated
- continue zosyn, plan a home course of IV antibiotics if feasible
Chief Complaint
-: Other (peritonitis, cholecystitis)
Subjective / Review of Systems
afebrile
bp stable
no abdominal pain
Vital Signs / Physical Exam
Vital Signs
Vital Signs
Temp Pulse Resp BP Pulse Ox
98.7 F 90 18 118/74 100
07/30/24 07:00 07/30/24 07:00 07/30/24 07:00 07/30/24 07:00 07/30/24 07:00
Physical Exam
Constitutional: No Acute Distress
Cardiovascular: Regular Rate and S1/S2; Negative Murmur or Rub
Pulmonary: Clear and Symmetric; Negative Wheezes or Rales
Gastrointestinal: Soft, Non Tender, Non Distended and Normal Bowel Sounds
Skin: Warm and Dry; Negative Rash or Jaundice
Objective Data
Lab Data
Lab Results
07/30/24 06:40
07/30/24 06:40
PT 18.8 Sec (11.4-14.6) H 07/24/24 00:31
INR 1.55 07/24/24 00:31
APTT 27.9 Sec (23.4-35.0) 07/24/24 00:31
Estimated Creat Clear 51 ml/min 07/30/24 06:40
Lactic Acid 0.9 mmol/L (0.7-2.0) 07/23/24 16:38
Total Bilirubin 0.6 mg/dl (0.2-1.3) 07/29/24 06:47
AST 18 U/L (14-36) 07/29/24 06:47
ALT < 10 U/L (0-35) 07/29/24 06:47
Alkaline Phosphatase 168 U/L (38-126) H 07/29/24 06:47
Most recent labs reviewed.
Micro Results:
07/23/24 16:56 Blood Culture - Final
Blood/Venous No Growth - Final Report
07/23/24 16:38 Blood Culture - Final
Blood/Venous No Growth - Final Report
07/24/24 16:15 Body Fluid Culture - Final
Bile Enterobacter cloacae
Enterococcus faecium
Gram Stain - Final
07/24/24 17:13 Nasal Screen MRSA (PCR) - Final
Nose MRSA not detected - performed by PCR methodology.
07/24/24 00:43 Streptococcus pneumoniae Antigen (M - Final
Urine Negative for Streptococcus pneumoniae antigen.
A negative result does not exclude infection with
Streptococcus pneumoniae. Clinical correlation is
recommended.
07/24/24 00:43 Legionella Urinary Antigen - Final
Urine Negative for Legionella pneumophila Serogroup 1 antigen.
A negative result does not rule out the possiblity of
Legionella infection due to other serogroups or species of
Legionella. Clinical correlation is recommended.
05/05/25 16:38 Influenza Types A & B (CLEOPATRA) - Final
Nasal Swab Negative for Influenza A & B, NAAT
Negative results must be combined with clinical observations
and patient history.
Nucleic Acid Amplification test (NAAT)performed on the
[employer] platform.
[2024-07-30] MEDS: NOVOLOG FLEXPEN-MODERATE RESISTANCE SC ×3 (09:09→17:24)
[2024-07-30] MEDS: NON-FORMULARY ITEM 20 MG PO (09:10)
[2024-07-30] MEDS: LANTUS 0.1 UNITS SC (09:11)
[2024-07-30] MEDS: TOPROL XL 75 MG PO ×2 (09:13→20:46)
[2024-07-30] MEDS: VISBIOME 1 CAP PO (09:14)
--- NOTE | 2024-07-30 09:28 | W.PN.PUL.V3 ---
Today's Communication / Plan
-
Oxygen weaned to room air
Check left chest ultrasound
Antibiotics per infectious disease
No significant pleural fluid and pulmonary will sign off
Assessment
-
Patient is a pleasant female who was diagnosed with cholecystitis in 2023 but due to severe inflammation, cholecystectomy could not be performed and it was managed instead with a cholecystostomy tube. Patient also has prior history of
choledocholithiasis s/p ERCP and biliary sphincterotomy in 2023. Her hospital stay was complicated with acute kidney injury requiring brief hemodialysis in 2023. Patient was subsequently discharged home with cholecystostomy tube in place with
prolonged antibiotics. Patient completed antibiotic couple of days prior to this admission and then presented here with diaphoresis, feeling poorly. Patient had a CT performed in the emergency room which was concerning for intra-abdominal
abscesses in addition to dense left lower lobe pneumonia and small left pleural effusion. Patient was hypotensive required pressors as well as supplemental oxygen which led to admission to the ICU. Reduction Furnace Operator service was subsequently contacted
for further input.
Respiratory status improved
Oxygen weaned to room air
Incentive spirometry
CT chest reviewed-left lower lobe airspace consolidation and small left parapneumonic pleural effusion
Left chest ultrasound-not enough fluid for thoracentesis.
Cultures reviewed
Urine Legionella and streptococcal antigen negative
No leukocytosis and afebrile
Infectious disease following-finite course
Chronic cholecystitis status post colostomy with now suspected intra-abdominal abscess
Cholecystostomy tube placed robotic-07/07/24 and then IR guided cholecystostomy tube 07/24/2024.
Abdominal collection shifted with changing positions felt not to be an abscess
Nephrology following for JO-correspondence reviewed
Cardiology following-correspondence reviewed-new diagnosis of acute [id number]-[id number]-[id number] most likely
Cardiac catheterization 08/05/2024-nonobstructive coronary disease, cardiomyopathy
Echocardiogram 07/25/2024-EF 30-35%
DVT prophylaxis-on Lovenox
Nutrition
Early mobilization/physical therapy
No significant pleural fluid and thus no further recommendations and pulmonary will sign off-please call with questions
Subjective Data
-
Date of Service:
Date of Service: July 30, 2024
Chief Complaint: Pulmonary Follow Up and Dyspnea Follow Up
Subjective:
Feels better, off oxygen, no shortness of breath, chest congestion, productive cough
Review of Systems
General: Other (Per HPI)
Objective Data
Data Reviewed
Vital Signs / I&O:
Vital Signs
Temp Pulse Resp BP Pulse Ox
98.7 F 90 18 118/74 100
07/30/24 07:00 07/30/24 07:00 07/30/24 07:00 07/30/24 07:00 07/30/24 07:00
Intake and Output
07/29/24 07/30/24 07/31/24
06:59 06:59 06:59
Intake Total 2200 / 2200 2260 / 2260
Output Total 350 / 350 110 / 110
Balance 1850 / 1850 2150 / 2150
SaO2: 100
Nasal Cannula flow liters per minute: 4
Physical Exam
General: Respiratory Distress (n) and Comfortable
HEENT: Normocephalic and Anicteric
Cardiovascular: Regular Rhythm
Respiratory: Wheeze (n), Crackles (n), Non-Labored Respirations and Accessory Resp Muscle Use (n)
GI: Soft and Non Distended
Neurology: Awake, Oriented and No Motor Deficits
Skin: Warm, Good Color and Cyanosis (n)
Labs/Micro/Reports
Lab Data
07/30/24 06:40
07/30/24 06:40
Microbiology
07/23/24 16:56 Blood/Venous Blood Culture - Final
No Growth - Final Report
07/23/24 16:38 Blood/Venous Blood Culture - Final
No Growth - Final Report
[2024-07-30 11:48] LABS: Glucose - Point of Care 126 mg/dl (70-99)
--- NOTE | 2024-07-30 13:04 | W.PN.HOSP.TC ---
Today's Communication/Plan
-
IV Zosyn with planning for home infusion
monitor BMP, renal function improving
appreciate consultants
Assessment / Plan
Assessment / Plan
Assessment:
Acute cholecystitis diagnosed last admission
- s/p robotic placement of cholecystostomy tube on 07/07; discontinued this AM
- s/p IV and oral Abx course and discharge 07/19/24
- returns to hospital for chills/fevers
- s/p IR guided cholecystostomy tube placed 07/24
- continue IV Zosyn
Septic shock
Intra-Abdominal Abscesses (R paracolic, pelvic +/- L paracolic)
- s/p sepsis protocol IVF
- Levophed was weaned off
- s/p IR guided cholecystostomy tube placed 07/24
- GS following
- ID following. Continue Zosyn per ID. GB culture with Enterobacter and Enterococcus
- blood cultures NGTD
- MRCP 07/27: no acute findings
New diagnosis acute cardiomyopathy, stress induced most likely
- Cath 07/26: Nonobstructive coronary disease. Cardiomyopathy with anterolateral wall motion and normality.
- Echo 07/25: EF 30 to 35%, anteroseptal, mid septal, anterior, and apical akinesis, mild TR with PAP 45 mmHg
- trop peaked at .369
- continue ASA/Statin/BB
- ARB/SGLT2 on hold for bump in renal function
new JO
Recent JO with transient HD between 07/09 and 07/19
- could be related to cardiac meds or contrast from cath
- s/p fluids
- holding TRIAGE CLINICIAN losartan, HCTZ, Farxiga for now
- FENA pre-renal
- Nephrology consult appreciated
Ascites
- Abd US: low volume, not enough for tap
Elevated Lipase, reactive to intra-abdominal pathology
- no evidence of pancreatitis by imaging
L sided pneumonia vs atelectasis
Small L parapneumonic effusion
Acute hypoxic respiratory failure on 6L NC
- pulm following
- continue Abx as above
- MRSA swab negative
- repeat CXR with improvement
- continue IS
Hyponatremia
- improving
Metabolic acidosis
- improved
Hypomagnesemia
Essential HTN
- continue ARB/BB
Chronic Microcytic Anemia, likely of chronic disease
- follow Hb, 7.6 today.
DM-II
- hold Januvia
- SSI
- continue Lantus
- recent A1c: 10.2%
- MOTOR AND GENERATOR ASSEMBLER following
Morbid Obesity due to excess calories
DVT ppx: Lovenox
Code: Full
Anticipated Discharge: 24 - 48 hours
Subjective/Interval History
-
Date of Service: July 30, 2024
no new complaints
one drain removed this morning
no abdominal pain
Objective Data
-
Labs:
Laboratory Results
07/30/24
06:40
WBC 9.5
Hgb 7.3 L
Hct 23.3 L
Plt Count 380
Sodium 138
Potassium 4.4
Chloride 105
Carbon Dioxide 22
BUN 15
Creatinine 1.5 H
Glucose 111 H
Calcium 8.2 L
Vital Signs:
Vital Signs
Temp Pulse Resp BP Pulse Ox
98.7 F 90 18 118/74 100
07/30/24 07:00 07/30/24 07:00 07/30/24 07:00 07/30/24 07:00 07/30/24 09:28
I&O
07/29/24 07/30/24 07/31/24
06:59 06:59 06:59
Intake Total 2200 / 2200 2260 / 2260
Output Total 350 / 350 110 / 110
Balance 1850 / 1850 2150 / 2150
Review of Systems
-
History Source: Patient
All other systems: Reviewed and negative
Physical Exam
-
General: No Apparent Distress
HEENT: Normocephalic and Atraumatic
Respiratory: Negative Wheezes
Cardiac: Regular Rhythm and S1/S2
GI: Soft, Nontender and Other (+ GB drain with serosanguinous output)
Genito-urinary: No Costovertebral Tender
Neuro: AO x 3
Psych: Calm
Data Reviewed
-
Diagnostic Radiology: Report Reviewed by me
Labs: Labs Reviewed by me
--- NOTE | 2024-07-30 14:25 | W.PN.NEPH.PH ---
Today's Communication / Plan
-
Follow BMP
Holding losartan hydrochlorothiazide and Farxiga
Assessment/Plan
-
IMP:
JO
cholecystitis with cholecystotomy tube
hx gall stones prior ERCP for choledocholithiasis in 12/2023
Abdominal abscess with drainage catheters x 2
essential hypertension
DM II
Morbid obesity
Plan:
Holding losartan and HCTZ
holding Farxiga for now as well
I agree that JO is most likely mediated by contrast exposure from cardiac catheterization
I reassured the patient that medications can ultimately be restarted
Creatinine now improving to 1.5 and remains nonoliguric
-
-
Date of Service: July 30, 2024
CC / HPI / ROS
-
Chief Complaint:
JO
History of Present Illness:
Severe cholecystitis
JO/Cr down to 1.5
Na up to 138
Hgb lower 7.3
BP stable
Review of Systems:
No shortness of breath
no cp
Nonoliguric
Labs
-
Labs:
WBC 9.5 10^3/uL (4.8-10.8) 07/30/24 06:40
RBC 2.97 10^6/uL (4.20-5.40) L 07/30/24 06:40
Hgb 7.3 g/dL (12.0-16.0) L 07/30/24 06:40
Hct 23.3 % (37.0-47.0) L 07/30/24 06:40
Plt Count 380 10^3/uL (130-400) 07/30/24 06:40
Sodium 138 mmol/L (135-145) 07/30/24 06:40
Potassium 4.4 mmol/L (3.5-5.1) 07/30/24 06:40
Chloride 105 mmol/L (98-107) 07/30/24 06:40
Carbon Dioxide 22 mmol/L (22-30) 07/30/24 06:40
BUN 15 mg/dl (7-17) 07/30/24 06:40
Creatinine 1.5 mg/dL (0.6-1.0) H 07/30/24 06:40
eGFR 42.19 07/30/24 06:40
Glucose 111 mg/dl (70-99) H 07/30/24 06:40
Calcium 8.2 mg/dl (8.4-10.2) L 07/30/24 06:40
Phosphorus 3.5 mg/dl (2.5-4.5) 07/24/24 00:31
Eej-C-Cafbbfjqxjc Pept 545 pg/ml 07/23/24 16:38
Albumin 3.0 g/dl (3.5-5.0) L 07/29/24 06:47
Physical Exam
-
Vital Signs:
Vital Signs
Temp Pulse Resp BP Pulse Ox
98.7 F 90 18 118/74 100
07/30/24 07:00 07/30/24 07:00 07/30/24 07:00 07/30/24 07:00 07/30/24 09:28
Cardiovascular:: Regular rate and rhythm
Respiratory:: Bilateral: Coarse
Lung Excursion:: Normal
Abdomen:: Nontender and Soft
Bowel Sounds:: Normal
Extremity Edema:: None: Bilateral:
Adler Catheter: No
--- NOTE | 2024-07-30 14:52 | W.PN.UPDATE ---
Addendum entered and electronically signed by Esau Hair MD 07/30/24 17:35:
49-year-old woman with recent hospital stays for cholecystitis sepsis, multisystem organ failure, transient hemodialysis now with recurrent biliary sepsis, status post revision of cholecystostomy tube, and presumed Takotsubo cardiomyopathy currently
without any complaints, sitting up and eating
PMH: Diabetes, hypertension
Current medications: Enoxaparin 40 mg daily, norethindrone, Lantus, losartan 25 mg a day, Zosyn, metoprolol ER 75 twice daily
118/74, pulse 90, respiratory 18, morbidly obese, drains in place, no distress, lungs clear, regular rate rhythm, no obvious murmurs, JVD okay, not much edema
Hemoglobin 7.3, BUN/creatinine 15.5, creatinine 1.5
Impression:
Admitted with acute cholecystitis, sepsis 07/23/24
Recent admission for acute cholecystitis, DM 2 and JO with transient HD 07/09/24 until 07/19/24
Takotsubo CM, EF 30-35% by echo 07/25/2024
Nonobstructive CAD by cath 07/26/2024
Ascites
Acute cholecystitis
s/p ERCP with cholelithiasis, biliary sphincterectomy 12/28/24
s/p robotic cholecystostomy tube 07/07/24
s/p IR gallbladder drainage and catheter placement 07/24/24h/o JO with transient HD in the setting of acute cholecystitis 06/2024
Sepsis and shock
Possible left-sided PNA
HTN
DM 2
PCP managing DM 2 since 10/2022
Plan:
From cardiac standpoint, she appears stable despite what we presume to be Takotsubo cardiomyopathy.
She is tolerating current dose of metoprolol. Blood pressure and pulse are acceptable. She has no cardiac symptoms.
She will need an echo in 3 months and outpatient cardiac follow-up.
Anticipate she could undergo cholecystectomy in 4 to 8 weeks.
Continue metoprolol. Other cardiac medications currently discontinued related to patient preference.
Cardiac follow-up to be arranged. We will sign off, please call if questions.
Original Note:
Update Note
Progress Note Update
CM and hospitalist attending figuring out how to send patient with home infusion for antibiotics and no insurance. Nephrology following along for JO and losartan/HCTZ is on hold. Patient had JO and needed transient HD last admission. From a
cardiac standpoint, patient had nonobstructive CAD by cath 07/26/24 and will ne managed as a Takotsubo CM based on echo imaging. Cont Toprol XL 75 mg BID. Check echo in 90 days with medical therapy. Cardiology f/u being arranged.
[2024-07-30 15:00] VITALS: BP 129/91
--- NOTE | 2024-07-30 15:35 | CON.GI ---
Consultation
-
Date/Time Consultation Performed: 07/30/24
Performing Provider: Pipo Dubois MD
Reason for Consultation: cholecystitis
Medical History
Chief Complaint / HPI
Chief Complaint: fever, chills
History of Present Illness:
The patient is a 49-year-old female with past medical history as noted who is admitted on July 23 with fevers and chills. She has a complicated past history including cholecystitis with CBD stone, status post ERCP with sphincterotomy and stone
removal in December and had cholecystostomy tube placed in June due to severely inflamed and distended gallbladder which precluded a safe resection. On admission now she had CT scan that showed several fluid collections initially had significant
leukocytosis. Contrast through the initial cholecystostomy tube drain through the cystic duct, bile duct and the duodenum. MRCP showed no CBD stones, nor were seen on cholangiogram. She had cholecystostomy tube placed by IR on July 24. She had her
original Adler/cholecystostomy tube removed today. Overall she is feeling much better, with really no significant abdominal pain now. Denies any fever, chills. Her stools are dark brown. Has been eating well without difficulty. We are consulted
for significant biliary output from her cholecystostomy tubes. During this hospitalization she had a catheterization that showed no significant coronary artery disease. After removal of her original cholecystostomy tube she did have 1 bandage that
was soaked with bile though has not had any further.
Past Medical History
Past Medical History: Other (Hypertension, cholelithiasis, choledocholithiasis, JO, morbid obesity, DM)
Past Surgical History: Other (ERCP 01/11, robotic aborted cholecystectomy, cholecystostomy tube 07/07/2024)
Social History
Tobacco: Non-Smoker
Alcohol: None
Family History
Family History: Reviewed & Not Pertinent
Allergies / Home Medications
Allergy/AdvReac Type Severity Reaction Status Date / Time
No Known Allergies Allergy Verified 07/23/24 13:54
�Medication �Instructions �Recorded
metoprolol succinate 100 mg 50 mg PO DAILYPRN PRN high pulse 12/29/23
tablet,extended release 24 hr
cholecalciferol (vitamin D3) 125 125 mcg PO DAILY Supplement 07/06/24
mcg (5,000 unit) tablet (Vitamin
D3)
losartan 100 1 tab PO DAILY Blood Pressure 07/06/24
mg-hydrochlorothiazide 25 mg tablet
norethindrone acetate 5 mg tablet 5 mg PO DIRECTED Hormonal Agent 07/06/24
nifedipine 30 mg tablet,extended 30 mg PO DAILY #30 tabs 07/19/24
release
polyethylene glycol 3350 17 gram 17 g PO DAILYPRN PRN constipation 07/19/24
oral powder packet #14 ea
sitagliptin phosphate 50 mg tablet 50 mg PO DAILY #30 tabs 07/19/24
(Januvia)
esomeprazole magnesium 20 mg 20 mg PO DAILY Gastrointestinal 07/23/24
capsule,delayed release (Nexium) Issue
Review of Systems
-
All other systems: A 12 pt ROS was Negative except as stated above in HPI
Vital Signs
Temp Pulse Resp BP Pulse Ox
98.7 F 90 18 118/74 100
07/30/24 07:00 07/30/24 07:00 07/30/24 07:00 07/30/24 07:00 07/30/24 09:28
Physical Exam
Exam
General: NAD, obese
HEENT: MMM, anicteric, no lymphadenopathy
Heart: Regular, no murmurs
Lungs: CTA bilaterally
Abdomen: normal bowel sounds, soft, no tenderness, no rebound or guarding, no masses, bruits or ascites, light yellow bile in cholecystostomy tube, clean bandage at site of previous cholecystostomy tube
Extremeties: no edema
Skin: no rashes
Results
WBC 9.5 10^3/uL (4.8-10.8) 07/30/24 06:40
Hgb 7.3 g/dL (12.0-16.0) L 07/30/24 06:40
Hct 23.3 % (37.0-47.0) L 07/30/24 06:40
MCV 78.5 fL (81.0-99.0) L 07/30/24 06:40
Plt Count 380 10^3/uL (130-400) 07/30/24 06:40
Absolute Neuts (auto) 12.4 10^3/uL (1.4-6.5) H 07/24/24 00:31
PT 18.8 Sec (11.4-14.6) H 07/24/24 00:31
INR 1.55 07/24/24 00:31
APTT 27.9 Sec (23.4-35.0) 07/24/24 00:31
Sodium 138 mmol/L (135-145) 07/30/24 06:40
Potassium 4.4 mmol/L (3.5-5.1) 07/30/24 06:40
Chloride 105 mmol/L (98-107) 07/30/24 06:40
Carbon Dioxide 22 mmol/L (22-30) 07/30/24 06:40
BUN 15 mg/dl (7-17) 07/30/24 06:40
Creatinine 1.5 mg/dL (0.6-1.0) H 07/30/24 06:40
Calcium 8.2 mg/dl (8.4-10.2) L 07/30/24 06:40
Total Bilirubin 0.6 mg/dl (0.2-1.3) 07/29/24 06:47
AST 18 U/L (14-36) 07/29/24 06:47
ALT < 10 U/L (0-35) 07/29/24 06:47
Alkaline Phosphatase 168 U/L (38-126) H 07/29/24 06:47
Lipase 220 U/L (23-300) 07/25/24 04:08
Diagnostic Image Results:
MRCP:
Impression:
1. Cholelithiasis without overt MR evidence for acute inflammatory change. Cholecystostomy tube in place.
2. Trace abdominal ascites.
3. No overt evidence for bile leak.
4. Hepatosplenomegaly.
CT:
IMPRESSION:
1. 7.7 cm ABSCESS in the RIGHT PARACOLIC GUTTER.
2. 7.6 cm PELVIC ABSCESS posterior to the uterus.
3. Moderate ascites in the left paracolic gutter.
4. Severe irregular gallbladder wall thickening and surrounding inflammation consistent with ACUTE CHOLECYSTITIS.
5. Percutaneous cholecystostomy tube in position.
6. Moderate hepatosplenomegaly.
7. Moderate diffuse hepatic steatosis.
8. Mild intrahepatic biliary dilatation.
9. Severe wall thickening in the gastric antrum and duodenal bulb which could be reactive secondary to acute cholecystitis or inflammatory from peptic ulcer disease.
10. MODERATE LEFT LOWER LOBE PNEUMONIA.
11. Small left parapneumonic pleural effusion.
12. Mild cardiomegaly.
13. Grade 1 anterolisthesis of L5 on S1 secondary to bilateral L5 pars interarticularis spondylolysis.
ADDENDUM:
The contrast material injected through the percutaneous cholecystostomy tube passes through the cystic duct, through the common bile duct, and into the duodenum which confirms patency of the cystic duct.
Prior GI Procedures:
EGD:
Colonoscopy:
Assessment / Plan
-
1. Cholecystitis: Initially with CBD stone, status post ERCP with sphincterotomy and stone removal, with percutaneous cholecystostomy tube placed surgically in June, with poorly functioning tube, now status post replacement in IR. There was a
question about the amount of bile via cholecystostomy tubes, around 300 cc/day. Her stools are not acholic, so is still having a significant amount of bile into her bowels, and there is a very low concern for fat malabsorption or malabsorption of
fat-soluble vitamins. She did have some bile soaking the bandage from her original cholecystostomy tube, and there could be concern for ongoing bile leak given original site, now with different cholecystostomy tube, though she is feeling very well
with no significant tenderness and having good output from her new cholecystostomy tube. At this point there is no GI indication for ERCP, as she does have good drainage, still having bile within her bowels given no acholic stools, and plans for
surgery at some point in the next couple of months. If there were to be more signs of a bile leak from the site of previous cholecystostomy tube then ERCP with stent may be helpful, but will hold on this for now.
We will sign off for now, please call back with any further questions.
-
-
Thank you for consultation and allowing me to participate in the patient's care. Please call the inspector material disposition GI physician during the after hours with any questions or concerns.
[2024-07-30 17:11] LABS: Glucose - Point of Care 117 mg/dl (70-99)
[2024-07-30] MEDS: LOVENOX 40 MG SC (17:24)
[2024-07-30 20:45] VITALS: BP 130/83
[2024-07-30 22:29] LABS: Glucose - Point of Care 137 mg/dl (70-99)
[2024-07-30 23:25] VITALS: BP 147/83
[2024-07-31] MEDS: ZOSYN 100 IV ×4 (04:40→22:32)
[2024-07-31 07:11] VITALS: BP 137/91
[2024-07-31 07:46] LABS: Blood Urea Nitrogen 13 mg/dl (7-17); Calcium 8.6 mg/dl (8.4-10.2); Carbon Dioxide 20 mmol/L (22-30); Chloride 110 mmol/L (98-107); Estimated Creatinine Clearance 63 ml/min; Glucose 101 mg/dl (70-99); Magnesium 1.3 mg/dl (1.6-2.3); Potassium 5.3 mmol/L (3.5-5.1); Sodium 140 mmol/L (135-145); eGFR 55.15
--- NOTE | 2024-07-31 08:06 | W.PN.GS2 ---
Today's Communication / Plan
-
-- No major changes from surgical standpoint
-- Coordinating plan of care as it relates to timing of repeat imaging
Assessment / Plan
-
Patient is a 49 yo F s/p robotic jr tube placement on 07/07/24
P/w sepsis this admission likely secondary to bile leakage from the gallbladder seeding the peritoneal cavity s/p CT guided jr tube in IR on 07/24/2024
Cardiology following for work up of CM with EF of 30-35% s/p cardiac cath with nonobstructive coronary dz
MRCP on 07/27 with well positioned tubes, no abscess
IR cx with Enterobacter and enterococcus species
Prior OR cx with Prevotella and Viridans Strep
IR drain with bilious outputs, operative jr tube removed on 07/30
AVSS
WBC normal, repeat pending
BMP notable for downtrending Cr and electrolyte abnormalities including hyperkalemia
Slow recovery following IV antibiotics and more durable IR drainage of gallbladder. Her previous operative Velazquez catheter cholecystostomy tube was removed yesterday (07/30) due to minimal outputs. Would continue to monitor in the hospital setting
for at least the next 24 to 48 hours for worsening pain, fevers, and elevations in WBC that might indicate persistent drainage from her prior jr tube site seeding the peritoneal cavity. Pending this recovery she will need repeat CT scan imaging
to confirm resolution of the previously noted abdominal fluid collections and lack of leakage around the GB, this will also help with guiding antibiotic duration. Options for later this week as an inpatient almost 1 week after MRI and almost 1 week
from Velazquez removal versus next week as an outpatient; will touch base with ID if any preference.
-- Diet as per primary team
-- C/W IR drain
-- Abx as per ID, anticipate home on IV abx
-- Eventual scheduled cholecystectomy with timing TBD pending overall clinical course
-- DVT ppx
-- All other care as per primary team
Subjective Data
-
Date of Service: July 31, 2024
No complaints. Denies any abdominal pain. No nausea or vomiting. No fevers.
Objective Data
-
Intake and Output
07/30/24 07/31/24 08/01/24
06:59 06:59 06:59
Intake Total 2260 / 2260 680 / 680
Output Total 110 / 110 425 / 425
Balance 2150 / 2150 255 / 255
Intake:
Oral fluids 1800 / 1800 480 / 480
IV piggybacks 200 / 200 200 / 200
Amount instilled into Drain ( 260 / 260
Total)
Right Middle Abdomen Biliary 250 / 250
Right Middle Abdomen Biliary B 10 / 10
Placed in IR
Output:
Drain Output (Total) 110 / 110 225 / 225
Right Middle Abdomen Biliary 10 / 10
Right Middle Abdomen Biliary B 100 / 100 225 / 225
Placed in IR
Urine, Voided 200 / 200
Other:
Number of approximated MODERATE 2 1
amounts of urine
Number of approximated LARGE 1 2
amounts of urine
Vital Signs
Temp Pulse Resp BP Pulse Ox
98.6 F 105 20 147/83 97
07/30/24 23:25 07/30/24 23:25 07/30/24 23:25 07/30/24 23:25 07/30/24 23:25
Lab Results
07/31/24 05:57
Calcium 8.6 mg/dl (8.4-10.2) 07/31/24 05:57
Phosphorus 3.5 mg/dl (2.5-4.5) 07/24/24 00:31
Magnesium 1.3 mg/dl (1.6-2.3) L 07/31/24 05:57
Total Bilirubin 0.6 mg/dl (0.2-1.3) 07/29/24 06:47
AST 18 U/L (14-36) 07/29/24 06:47
ALT < 10 U/L (0-35) 07/29/24 06:47
Alkaline Phosphatase 168 U/L (38-126) H 07/29/24 06:47
Total Protein 6.0 g/dl (6.3-8.2) L 07/29/24 06:47
Albumin 3.0 g/dl (3.5-5.0) L 07/29/24 06:47
Physical Exam
-
Gen: NAD
Abd: soft, obese, minimal tenderness overlying RUQ and drain site, no diffuse abdominal pain, non-peritoneal, IR drain with bilious output
Patient has a velazquez catheter: No
Patient has a central line: No
[2024-07-31 08:16] LABS: Hematocrit 24.9 % (37.0-47.0); Hemoglobin 7.8 g/dL (12.0-16.0); Mean Corp Hgb Conc. 31.3 g/dL (33.0-37.0); Mean Corpuscular Hgb 24.9 pg (27.0-31.0); Mean Corpuscular Volume 79.6 fL (81.0-99.0); Mean Platelet Volume 10.1 fL (7.4-10.4); Platelet Count 470 10^3/uL (130-400); Red Blood Cell Count 3.13 10^6/uL (4.20-5.40); Red Cell Dist. Width 20.4 % (11.5-14.5); White Blood Cell Count 10.9 10^3/uL (4.8-10.8)
--- NOTE | 2024-07-31 08:30 | PN.DE.MGMTRT ---
Insulin Management
- -
07/31/2024: Diabetes Management Follow up
Patient admitted 07/23 for fever, chills, recently discharged from after stay 07/09 to 07/19 for acute cholecystitis, cholecystomy tube. PMH HTN, diabetes. Recently started on Januvia 50 mg daily and given a Contour glucose monitor. States she has
been using the meter. A1C 07/07 10.2%, cr .9, eGFR > 60.
Patient is awake alert, oriented, sitting up in chair, offers no complaints, able to discuss diabetes care. and Dtr at bedside, very supportive.
ID recommended starting insulin. 10 units Lantus daily started 07/25 with AC NovoLog and moderate corrective insulin. AC NovoLog d/c'd on 07/27
S/P Cardiac Cath 07/26, EF 30 to 35%- started on Farxiga 10mg daily. 07/29 noted for worsening JO and Farxiga was discontinued
Glucose remains stable and in range 109 to 126, FBG 101 V, 112 POC this AM.
Will make no changes to current regimen: Lantus 10 units daily in AM and moderate corrective with meals.
Will cont to follow. Diabetes Nurse Educator provided insulin prep and administration instructions. Pt states she feels confident and able to self adm insulin injection
Diabetes History
- -
Type of Diabetes: 2 requiring insulin
Pre-Admission Diabetes Regimen
07/31/24
05:57
Creatinine 1.2 H
Insulin Pump Settings
IP Diabetes Regimen
07/30/24 07/30/24 07/30/24
11:46 17:10 22:27
Glucose
POC Glucose 126 H 117 H 137 H
07/31/24
05:57
Glucose 101 H
POC Glucose
Patient Education
[2024-07-31] MEDS: NON-FORMULARY ITEM 20 MG PO (08:34)
[2024-07-31 08:40] LABS: Glucose - Point of Care 112 mg/dl (70-99)
[2024-07-31] MEDS: VISBIOME 1 CAP PO (08:40)
[2024-07-31] MEDS: NOVOLOG FLEXPEN-MODERATE RESISTANCE SC ×3 (08:40→17:10)
[2024-07-31] MEDS: TOPROL XL 75 MG PO ×2 (08:41→20:17)
[2024-07-31] MEDS: LANTUS 0.1 UNITS SC (09:51)
[2024-07-31 11:03] LABS: Glucose - Point of Care 138 mg/dl (70-99)
[2024-07-31] MEDS: MAGNESIUM SULFATE 50 IV (11:42)
--- NOTE | 2024-07-31 12:12 | W.PN.HOSP.TC ---
Today's Communication/Plan
-
see plan
Assessment / Plan
Assessment / Plan
Septic shock
Intra-Abdominal Abscesses (R paracolic, pelvic +/- L paracolic)
Acute cholecystitis diagnosed last admission
- s/p robotic placement of cholecystostomy tube on 07/07; discontinued morning of 07/30
- s/p IV and oral Abx course and discharge 07/19/24
- s/p IR guided cholecystostomy tube placed 07/24
- Levophed was weaned off
- s/p IR guided cholecystostomy tube placed 07/24
- MRCP 07/27: no acute findings
-Enterobacter and Enterococcus seen in bile culture
- GS following
- ID following.
-continue IV Zosyn
-patient will need repeat imaging to assess for abscess formation, follow up recommendations from GS and ID
- blood cultures NGTD
New diagnosis acute cardiomyopathy, stress induced most likely
- Cath 07/26: Nonobstructive coronary disease. Cardiomyopathy with anterolateral wall motion and normality.
- Echo 07/25: EF 30 to 35%, anteroseptal, mid septal, anterior, and apical akinesis, mild TR with PAP 45 mmHg
- trop peaked at .369
- continue ASA/Statin/BB
- ARB/SGLT2 on hold for bump in renal function
new JO
Recent JO with transient HD between 07/09 and 07/19
- could be related to cardiac meds or contrast from cath
- s/p fluids
- holding OCC THERAPY ASST losartan, HCTZ, Farxiga for now
- FENA pre-renal
- Nephrology consult appreciated
-low K diet today
Elevated Lipase, reactive to intra-abdominal pathology
- no evidence of pancreatitis by imaging
L sided pneumonia vs atelectasis
Small L parapneumonic effusion
Acute hypoxic respiratory failure on 6L NC
-appreciate Pulmonary
-s/p left Chest US with 'very small left pleural effusion' insufficient for thoracentesis
Hyponatremia
- improving
Metabolic acidosis
- improved
Hypomagnesemia
Essential HTN
- holding ARB in Jo/ continue BB
Chronic Microcytic Anemia, likely of chronic disease
- follow Hb, 7.6 today.
DM-II
- hold Januvia
- SSI
- continue Lantus
- recent A1c: 10.2%
- appreciate [employer] eval
Hypomagnesemia
-replete
Morbid Obesity due to excess calories
DVT ppx: Lovenox
Code: Full
Anticipated Discharge: 24 - 48 hours
Subjective/Interval History
-
Date of Service: July 31, 2024
denies pain
seen with family at bedside
no fevers/chills overnight
Objective Data
-
Labs:
Laboratory Results
07/31/24
05:57
WBC 10.9 H
Hgb 7.8 L
Hct 24.9 L
Plt Count 470 H D
Sodium 140
Potassium 5.3 H
Chloride 110 H
Carbon Dioxide 20 L
BUN 13
Creatinine 1.2 H
Glucose 101 H
Calcium 8.6
Vital Signs:
Vital Signs
Temp Pulse Resp BP Pulse Ox
98.2 F 92 20 137/91 97
07/31/24 07:11 07/31/24 07:11 07/31/24 07:11 07/31/24 07:11 07/31/24 08:30
I&O
07/30/24 07/31/24 08/01/24
06:59 06:59 06:59
Intake Total 2260 / 2260 680 / 680
Output Total 110 / 110 425 / 425
Balance 2150 / 2150 255 / 255
Review of Systems
-
History Source: Patient
All other systems: Reviewed and negative
Physical Exam
-
General: No Apparent Distress
HEENT: Normocephalic and Atraumatic
Respiratory: Negative Wheezes
Cardiac: Regular Rhythm and S1/S2
GI: Soft, Nontender and Other (+ GB drain with serosanguinous output)
Genito-urinary: No Costovertebral Tender
Neuro: AO x 3
Psych: Calm
Data Reviewed
-
Diagnostic Radiology: Report Reviewed by me
Labs: Labs Reviewed by me
--- NOTE | 2024-07-31 14:57 | W.PN.NEPH.PH ---
Today's Communication / Plan
-
Follow BMP
Holding ARB and hydrochlorothiazide and SGLT2 inhibitor
Assessment/Plan
-
IMP:
JO
cholecystitis with cholecystotomy tube
hx gall stones prior ERCP for choledocholithiasis in 12/2023
Abdominal abscess with drainage catheters x 2
essential hypertension
DM II
Morbid obesity
Plan:
Holding losartan and HCTZ
holding Farxiga for now as well
creatinine improved to 1.2, metabolic acidosis persists
I agree that JO is most likely mediated by contrast exposure from cardiac catheterization and or SGLT 2
-
-
Date of Service: July 31, 2024
CC / HPI / ROS
-
Chief Complaint:
JO
History of Present Illness:
Severe cholecystitis
JO/Cr down to 1.2
Na up to 140
Hgb lower 7.8
BP stable
Review of Systems:
No shortness of breath
no cp
Nonoliguric
Labs
-
Labs:
WBC 10.9 10^3/uL (4.8-10.8) H 07/31/24 05:57
RBC 3.13 10^6/uL (4.20-5.40) L 07/31/24 05:57
Hgb 7.8 g/dL (12.0-16.0) L 07/31/24 05:57
Hct 24.9 % (37.0-47.0) L 07/31/24 05:57
Plt Count 470 10^3/uL (130-400) H D 07/31/24 05:57
Sodium 140 mmol/L (135-145) 07/31/24 05:57
Potassium 5.3 mmol/L (3.5-5.1) H 07/31/24 05:57
Chloride 110 mmol/L (98-107) H 07/31/24 05:57
Carbon Dioxide 20 mmol/L (22-30) L 07/31/24 05:57
BUN 13 mg/dl (7-17) 07/31/24 05:57
Creatinine 1.2 mg/dL (0.6-1.0) H 07/31/24 05:57
eGFR 55.15 07/31/24 05:57
Glucose 101 mg/dl (70-99) H 07/31/24 05:57
Calcium 8.6 mg/dl (8.4-10.2) 07/31/24 05:57
Phosphorus 3.5 mg/dl (2.5-4.5) 07/24/24 00:31
Shr-L-Bppjfohbssm Pept 545 pg/ml 07/23/24 16:38
Albumin 3.0 g/dl (3.5-5.0) L 07/29/24 06:47
Physical Exam
-
Vital Signs:
Vital Signs
Temp Pulse Resp BP Pulse Ox
98.2 F 92 20 137/91 97
07/31/24 07:11 07/31/24 07:11 07/31/24 07:11 07/31/24 07:11 07/31/24 08:30
Cardiovascular:: Regular rate and rhythm
Respiratory:: Bilateral: Coarse
Lung Excursion:: Normal
Abdomen:: Nontender and Soft
Bowel Sounds:: Normal
Extremity Edema:: None: Bilateral:
Adler Catheter: No
--- NOTE | 2024-07-31 16:11 | W.PN.ID1 ---
Date of Service
Date of Service: July 31, 2024
Today's Communication
- MRI abdomen to reassess abdominal fluid on Tuesday - discussed with surgery Dr Molina; prefer to avoid further contrast given recent JO with temp HD requirement
- continue zosyn, plan a home course of IV antibiotics pending MRI tuesday if feasible
Assessment / Plan
Multiple intraabdominal abscesses
Cholcystostomy tube placement
JO improving - note recent requirement for temporary HD
Uncontrolled Dm2 - risk factor for relapse
- blood cultures x2 no growth to date
- 07/24 bile culture: Enterobacter and Enterococcus faecium
- sensitivities on the enterococcus -quinolones are intermediate but tetracycyline is sensitive as is linezolid; Enterobacter is sensitive to quinolones
- 07/07 bile cultures VGS and prevotella (BL neg)
- drains x2 into the gallbladder
- MRI abdomen to reassess abdominal fluid on Tuesday - discussed with surgery Dr Molina; prefer to avoid further contrast given recent JO with temp HD requirement
- continue zosyn, plan a home course of IV antibiotics pending MRI tuesday if feasible
Chief Complaint
-: Other (peritonitis, cholecystitis)
Subjective / Review of Systems
afebrile
bp stable
tolerating current therapies
Vital Signs / Physical Exam
Vital Signs
Vital Signs
Temp Pulse Resp BP Pulse Ox
98.2 F 92 20 137/91 97
07/31/24 07:11 07/31/24 07:11 07/31/24 07:11 07/31/24 07:11 07/31/24 08:30
Physical Exam
Constitutional: No Acute Distress
Cardiovascular: Regular Rate and S1/S2; Negative Murmur or Rub
Pulmonary: Clear and Symmetric; Negative Wheezes or Rales
Gastrointestinal: Soft, Non Tender, Non Distended and Normal Bowel Sounds
Skin: Warm and Dry; Negative Rash or Jaundice
Objective Data
Lab Data
Lab Results
07/31/24 05:57
07/31/24 05:57
PT 18.8 Sec (11.4-14.6) H 07/24/24 00:31
INR 1.55 07/24/24 00:31
APTT 27.9 Sec (23.4-35.0) 07/24/24 00:31
Estimated Creat Clear 63 ml/min 07/31/24 05:57
Lactic Acid 0.9 mmol/L (0.7-2.0) 07/23/24 16:38
Total Bilirubin 0.6 mg/dl (0.2-1.3) 07/29/24 06:47
AST 18 U/L (14-36) 07/29/24 06:47
ALT < 10 U/L (0-35) 07/29/24 06:47
Alkaline Phosphatase 168 U/L (38-126) H 07/29/24 06:47
Most recent labs reviewed.
Micro Results:
07/23/24 16:56 Blood Culture - Final
Blood/Venous No Growth - Final Report
07/23/24 16:38 Blood Culture - Final
Blood/Venous No Growth - Final Report
07/24/24 16:15 Body Fluid Culture - Final
Bile Enterobacter cloacae
Enterococcus faecium
Gram Stain - Final
07/24/24 17:13 Nasal Screen MRSA (PCR) - Final
Nose MRSA not detected - performed by PCR methodology.
07/24/24 00:43 Streptococcus pneumoniae Antigen (M - Final
Urine Negative for Streptococcus pneumoniae antigen.
A negative result does not exclude infection with
Streptococcus pneumoniae. Clinical correlation is
recommended.
07/24/24 00:43 Legionella Urinary Antigen - Final
Urine Negative for Legionella pneumophila Serogroup 1 antigen.
A negative result does not rule out the possiblity of
Legionella infection due to other serogroups or species of
Legionella. Clinical correlation is recommended.
07/23/24 16:38 Influenza Types A & B (CLEOPATRA) - Final
Nasal Swab Negative for Influenza A & B, NAAT
Negative results must be combined with clinical observations
and patient history.
Nucleic Acid Amplification test (NAAT)performed on the
[email or web address] platform.
[2024-07-31 16:56] LABS: Glucose - Point of Care 110 mg/dl (70-99)
[2024-07-31 17:02] VITALS: BP 131/89
[2024-07-31] MEDS: LOVENOX 40 MG SC (17:17)
[2024-07-31 21:42] LABS: Glucose - Point of Care 130 mg/dl (70-99)
[2024-07-31 23:21] VITALS: BP 129/78
[2024-08-01] MEDS: ZOSYN 100 IV ×4 (04:44→21:07)
[2024-08-01 08:02] VITALS: BP 135/80
[2024-08-01 08:06] LABS: Glucose - Point of Care 121 mg/dl (70-99)
[2024-08-01] MEDS: NON-FORMULARY ITEM 20 MG PO (08:07)
[2024-08-01] MEDS: NOVOLOG FLEXPEN-MODERATE RESISTANCE SC ×3 (08:07→16:55)
[2024-08-01] MEDS: VISBIOME 1 CAP PO (08:08)
[2024-08-01] MEDS: TOPROL XL 75 MG PO ×2 (08:09→21:07)
[2024-08-01] MEDS: LANTUS 0.1 UNITS SC (08:10)
[2024-08-01 08:31] LABS: Hematocrit 25.1 % (37.0-47.0); Hemoglobin 7.9 g/dL (12.0-16.0); Mean Corp Hgb Conc. 31.5 g/dL (33.0-37.0); Mean Corpuscular Hgb 24.6 pg (27.0-31.0); Mean Corpuscular Volume 78.2 fL (81.0-99.0); Mean Platelet Volume 9.5 fL (7.4-10.4); Platelet Count 406 10^3/uL (130-400); Red Blood Cell Count 3.21 10^6/uL (4.20-5.40); Red Cell Dist. Width 20.5 % (11.5-14.5); White Blood Cell Count 9.5 10^3/uL (4.8-10.8)
[2024-08-01 08:51] LABS: Blood Urea Nitrogen 15 mg/dl (7-17); Calcium 8.7 mg/dl (8.4-10.2); Carbon Dioxide 20 mmol/L (22-30); Chloride 107 mmol/L (98-107); Estimated Creatinine Clearance 69 ml/min; Glucose 115 mg/dl (70-99); Magnesium 1.4 mg/dl (1.6-2.3); Potassium 4.9 mmol/L (3.5-5.1); Sodium 137 mmol/L (135-145); eGFR > 60.00
--- NOTE | 2024-08-01 10:29 | PN.DE.MGMTRT ---
Insulin Management
- -
08/01/2024: Diabetes Management Follow up
Patient admitted 07/23 for fever, chills, recently discharged from after stay 07/09 to 07/19 for acute cholecystitis, cholecystomy tube. PMH HTN, diabetes. Recently started on Januvia 50 mg daily and given a Contour glucose monitor. States she has
been using the meter. A1C 07/07 10.2%, Cr .9, eGFR > 60.
Patient is awake alert, oriented, resting in bed, offers no complaints, able to discuss diabetes care. and Dtr at bedside, very supportive.
ID recommended starting insulin. 10 units Lantus daily started 07/25 with AC NovoLog and moderate corrective insulin. AC NovoLog d/c'd on 07/27
S/P Cardiac Cath 07/26, EF 30 to 35%- started on Farxiga 10mg daily. 07/29 noted for worsening JO and Farxiga was discontinued
Glucose remains stable and in range 110 to 138, FBG 115 V, 121 POC this AM.
Will make no changes to current regimen: Lantus 10 units daily in AM and moderate corrective with meals.
Will cont to follow. Diabetes Nurse Educator provided insulin prep and administration instructions. Pt states she feels confident and able to self adm insulin injection
Diabetes History
- -
Type of Diabetes: 2 requiring insulin
Pre-Admission Diabetes Regimen
08/01/24
06:31
Creatinine 1.1 H
Insulin Pump Settings
IP Diabetes Regimen
07/31/24 07/31/24 07/31/24
11:01 16:49 21:40
Glucose
POC Glucose 138 H 110 H 130 H
08/01/24 08/01/24
06:31 08:04
Glucose 115 H
POC Glucose 121 H
Meal type: Breakfast
Amount consumed: 100%
Patient Education
--- NOTE | 2024-08-01 11:19 | W.PN.HOSP.TC ---
Today's Communication/Plan
-
see plan
Assessment / Plan
Assessment / Plan
Septic shock
Intra-Abdominal Abscesses (R paracolic, pelvic +/- L paracolic)
Acute cholecystitis diagnosed last admission
- s/p robotic placement of cholecystostomy tube on 07/07; discontinued morning of 07/30
- s/p IV and oral Abx course and discharge 07/19/24
- s/p IR guided cholecystostomy tube placed 07/24
- Levophed was weaned off
- MRCP 07/27: no acute findings
-Enterobacter and Enterococcus seen in bile culture
- GS following
- ID following.
-continue IV Zosyn; plan for repeat imaging with MRI on Tuesday
- blood cultures NGTD
New diagnosis acute cardiomyopathy, stress induced most likely
- Cath 07/26: Nonobstructive coronary disease. Cardiomyopathy with anterolateral wall motion and normality.
- Echo 07/25: EF 30 to 35%, anteroseptal, mid septal, anterior, and apical akinesis, mild TR with PAP 45 mmHg
- trop peaked at .369
- continue ASA/Statin/BB
- ARB/SGLT2 on hold for bump in renal function
new JO
Recent JO with transient HD between 07/09 and 07/19
- could be related to cardiac meds or contrast from cath
- s/p fluids
- holding DIRECTOR CLIENT losartan, HCTZ, Farxiga for now
- FENA pre-renal
- Nephrology consult appreciated
-liberalize diet
Elevated Lipase, reactive to intra-abdominal pathology
- no evidence of pancreatitis by imaging
L sided pneumonia vs atelectasis
Small L parapneumonic effusion
Acute hypoxic respiratory failure on 6L NC
-appreciate Pulmonary
-s/p left Chest US with 'very small left pleural effusion' insufficient for thoracentesis
Hyponatremia
- improving
Metabolic acidosis
- improved
Hypomagnesemia
Essential HTN
- holding ARB in Jo/ continue BB
Chronic Microcytic Anemia, likely of chronic disease
- Hg stable
DM-II
- hold Januvia
- SSI
- continue Lantus
- recent A1c: 10.2%
- appreciate AUTOM[employer]BI[employer] SERV[employer]ATION ATTENDANT eval
Hypomagnesemia
-replete
Morbid Obesity due to excess calories
DVT ppx: Lovenox
Code: Full
Anticipated Discharge: > 48 hours
Subjective/Interval History
-
Date of Service: August 01, 2024
no significant abdominal pain
no fevers
Objective Data
-
Labs:
Laboratory Results
08/01/24
06:31
WBC 9.5
Hgb 7.9 L
Hct 25.1 L
Plt Count 406 H
Sodium 137
Potassium 4.9
Chloride 107
Carbon Dioxide 20 L
BUN 15
Creatinine 1.1 H
Glucose 115 H
Calcium 8.7
Vital Signs:
Vital Signs
Temp Pulse Resp BP Pulse Ox
97.9 F 86 18 135/80 96
08/01/24 08:02 08/01/24 08:09 08/01/24 08:02 08/01/24 08:09 08/01/24 08:02
I&O
07/31/24 08/01/24 08/02/24
06:59 06:59 06:59
Intake Total 680 / 680 730 / 730
Output Total 425 / 425 200 / 200
Balance 255 / 255 530 / 530
Review of Systems
-
History Source: Patient
All other systems: Reviewed and negative
Physical Exam
-
General: No Apparent Distress
HEENT: Normocephalic and Atraumatic
Respiratory: Negative Wheezes
Cardiac: Regular Rhythm and S1/S2
GI: Soft, Nontender and Other (+ GB drain with serosanguinous output)
Genito-urinary: No Costovertebral Tender
Neuro: AO x 3
Psych: Calm
Data Reviewed
-
Diagnostic Radiology: Report Reviewed by me
Labs: Labs Reviewed by me
[2024-08-01] MEDS: MAGNESIUM SULFATE 50 IV (11:25)
[2024-08-01 11:43] LABS: Glucose - Point of Care 105 mg/dl (70-99)
--- NOTE | 2024-08-01 12:21 | W.PN.NEPH.PH ---
Today's Communication / Plan
-
losartan
Assessment/Plan
-
IMP:
JO
cholecystitis with cholecystotomy tube
hx gall stones prior ERCP for choledocholithiasis in 12/2023
Abdominal abscess with drainage catheters x 2
essential hypertension
DM II
Morbid obesity
Plan:
can restart losartan 25mg daily
no HCTZ given low Mg
would consider starting Farxiga (never been on before according to pt) given low mag
follow BMP
MRI ok from renal standpoint
-
-
Date of Service: August 01, 2024
CC / HPI / ROS
-
Chief Complaint:
JO
History of Present Illness:
Severe cholecystitis
JO/Cr down to 1.1
Mag low 1.4
BP stable
Review of Systems:
No shortness of breath
no cp
Nonoliguric
Labs
-
Labs:
WBC 9.5 10^3/uL (4.8-10.8) 08/01/24 06:31
RBC 3.21 10^6/uL (4.20-5.40) L 08/01/24 06:31
Hgb 7.9 g/dL (12.0-16.0) L 08/01/24 06:31
Hct 25.1 % (37.0-47.0) L 08/01/24 06:31
Plt Count 406 10^3/uL (130-400) H 08/01/24 06:31
Sodium 137 mmol/L (135-145) 08/01/24 06:31
Potassium 4.9 mmol/L (3.5-5.1) 08/01/24 06:31
Chloride 107 mmol/L (98-107) 08/01/24 06:31
Carbon Dioxide 20 mmol/L (22-30) L 08/01/24 06:31
BUN 15 mg/dl (7-17) 08/01/24 06:31
Creatinine 1.1 mg/dL (0.6-1.0) H 08/01/24 06:31
eGFR > 60.00 08/01/24 06:31
Glucose 115 mg/dl (70-99) H 08/01/24 06:31
Calcium 8.7 mg/dl (8.4-10.2) 08/01/24 06:31
Phosphorus 3.5 mg/dl (2.5-4.5) 07/24/24 00:31
Pwg-D-Dqrqhawfcye Pept 545 pg/ml 07/23/24 16:38
Albumin 3.0 g/dl (3.5-5.0) L 07/29/24 06:47
Physical Exam
-
Vital Signs:
Vital Signs
Temp Pulse Resp BP Pulse Ox
97.9 F 86 18 135/80 96
08/01/24 08:02 08/01/24 08:09 08/01/24 08:02 08/01/24 08:09 08/01/24 08:02
Cardiovascular:: Regular rate and rhythm
Respiratory:: Bilateral: Coarse
Lung Excursion:: Normal
Abdomen:: Nontender and Soft
Bowel Sounds:: Normal
Extremity Edema:: +1: Bilateral:
--- NOTE | 2024-08-01 12:53 | W.PN.GS2 ---
Today's Communication / Plan
-
Cot current mgmt, MRI Tuesday
Assessment / Plan
-
Patient is a 49 yo F s/p robotic jr tube placement on 07/07/24
P/w sepsis this admission likely secondary to bile leakage from the gallbladder seeding the peritoneal cavity s/p CT guided jr tube in IR on 07/24/2024
Cardiology following for work up of CM with EF of 30-35% s/p cardiac cath with nonobstructive coronary dz
MRCP on 07/27 with well positioned tubes, no abscess
IR cx with Enterobacter and enterococcus species
Prior OR cx with Prevotella and Viridans Strep
IR drain with bilious outputs, operative jr tube removed on 07/30
AVSS
WBC normal today
BMP notable for downtrending Cr and hypomagnesemia
Slow recovery following IV antibiotics and more durable IR drainage of gallbladder. Her previous operative Velazquez catheter cholecystostomy tube was removed yesterday (07/30) due to minimal outputs. Would continue to monitor in the hospital setting
for at least the next 24 to 48 hours for worsening pain, fevers, and elevations in WBC that might indicate persistent drainage from her prior jr tube site seeding the peritoneal cavity. Pending this recovery she will need repeat CT scan imaging
to confirm resolution of the previously noted abdominal fluid collections and lack of leakage around the GB, this will also help with guiding antibiotic duration. Options for later this week as an inpatient almost 1 week after MRI and almost 1 week
from Velazquez removal versus next week as an outpatient; will touch base with ID if any preference.
-- Plan for MRI Tuesday
-- Diet as per primary team
-- C/W IR drain
-- Abx as per ID, anticipate home on IV abx
-- Eventual scheduled cholecystectomy with timing TBD pending overall clinical course
-- DVT ppx
-- All other care as per primary team
Subjective Data
-
Date of Service: August 01, 2024
AFVSS, denies abd pain, denies n/v, ambulating, voiding
Objective Data
-
Intake and Output
07/31/24 08/01/24 08/02/24
06:59 06:59 06:59
Intake Total 680 / 680 730 / 730
Output Total 425 / 425 200 / 200
Balance 255 / 255 530 / 530
Intake:
Oral fluids 480 / 480 480 / 480
IV piggybacks 200 / 200 250 / 250
Output:
Drain Output (Total) 225 / 225 200 / 200
Right Middle Abdomen Biliary B 225 / 225 200 / 200
Placed in IR
Urine, Voided 200 / 200
Other:
Number of approximated MODERATE 1 2
amounts of urine
Number of approximated LARGE 2 1 1
amounts of urine
Vital Signs
Temp Pulse Resp BP Pulse Ox
97.9 F 86 18 135/80 96
08/01/24 08:02 08/01/24 08:09 08/01/24 08:02 08/01/24 08:09 08/01/24 08:02
Lab Results
08/01/24 06:31
08/01/24 06:31
Calcium 8.7 mg/dl (8.4-10.2) 08/01/24 06:31
Phosphorus 3.5 mg/dl (2.5-4.5) 07/24/24 00:31
Magnesium 1.4 mg/dl (1.6-2.3) L 08/01/24 06:31
Total Bilirubin 0.6 mg/dl (0.2-1.3) 07/29/24 06:47
AST 18 U/L (14-36) 07/29/24 06:47
ALT < 10 U/L (0-35) 07/29/24 06:47
Alkaline Phosphatase 168 U/L (38-126) H 07/29/24 06:47
Total Protein 6.0 g/dl (6.3-8.2) L 07/29/24 06:47
Albumin 3.0 g/dl (3.5-5.0) L 07/29/24 06:47
Physical Exam
-
Gen: NAD
Abd: sodft, nt, obese, drain with bilious output
Patient has a velazquez catheter: No
Patient has a central line: No
[2024-08-01 13:14] VITALS: BP 126/83
[2024-08-01] MEDS: COZAAR 25 MG PO (13:16)
--- NOTE | 2024-08-01 15:15 | CM ---
Chart reviewed. Care ongoing.
Spoke w/ [facility], at this time patient is not eligible for MA, however, if patient's hospital bill reaches over a certain amount, she may be able to qualify.
Patient is needing IV abx at d/c, if feasible, as patient does not have insurance, spouse recently loss his job and insurance coverage. No [employer] benefits.
TT Dr. Orlando to inquire about abx frequency, dose and end date to try and woodruff check w/ home infusion company to see what the out of pocket cost would be and if patient is able to afford this.
Repeat MRI Tuesday
Plan: Home. Unsure of patient's ability to private pay for home abx
[2024-08-01 15:52] VITALS: BP 123/74
[2024-08-01 16:52] LABS: Glucose - Point of Care 101 mg/dl (70-99)
[2024-08-01] MEDS: LOVENOX 40 MG SC (17:28)
--- NOTE | 2024-08-01 17:33 | W.PN.ID1 ---
Date of Service
Date of Service: August 01, 2024
Today's Communication
- continue zosyn, plan a home course of IV antibiotics pending Tuesday if feasible
Assessment / Plan
Multiple intraabdominal abscesses
Cholcystostomy tube placement
JO improving - note recent requirement for temporary HD
Uncontrolled Dm2 - risk factor for relapse
- blood cultures x2 no growth to date
- 07/24 bile culture: Enterobacter and Enterococcus faecium
- sensitivities on the enterococcus -quinolones are intermediate but tetracycyline is sensitive as is linezolid; Enterobacter is sensitive to quinolones
- 07/07 bile cultures VGS and prevotella (BL neg)
- drains x2 into the gallbladder
- MRI abdomen to reassess abdominal fluid on Tuesday - discussed with surgery Dr Molina; prefer to avoid further contrast given recent JO with temp HD requirement
- continue zosyn, plan a home course of IV antibiotics pending MRI tuesday if feasible
Chief Complaint
-: Other (peritonitis, cholecystitis)
Subjective / Review of Systems
afebrile
bp stable
tolerating current therapies
no current abdominal pain
Vital Signs / Physical Exam
Vital Signs
Vital Signs
Temp Pulse Resp BP Pulse Ox
98.2 F 85 18 123/74 95
08/01/24 15:52 08/01/24 15:52 08/01/24 15:52 08/01/24 15:52 08/01/24 15:52
Physical Exam
Constitutional: No Acute Distress
Cardiovascular: Regular Rate and S1/S2; Negative Murmur or Rub
Pulmonary: Clear and Symmetric; Negative Wheezes or Rales
Gastrointestinal: Soft, Non Tender, Non Distended and Normal Bowel Sounds
Skin: Warm and Dry; Negative Rash or Jaundice
Objective Data
Lab Data
Lab Results
08/01/24 06:31
08/01/24 06:31
PT 18.8 Sec (11.4-14.6) H 07/24/24 00:31
INR 1.55 07/24/24 00:31
APTT 27.9 Sec (23.4-35.0) 07/24/24 00:31
Estimated Creat Clear 69 ml/min 08/01/24 06:31
Lactic Acid 0.9 mmol/L (0.7-2.0) 07/23/24 16:38
Total Bilirubin 0.6 mg/dl (0.2-1.3) 07/29/24 06:47
AST 18 U/L (14-36) 07/29/24 06:47
ALT < 10 U/L (0-35) 07/29/24 06:47
Alkaline Phosphatase 168 U/L (38-126) H 07/29/24 06:47
Most recent labs reviewed.
Micro Results:
07/23/24 16:56 Blood Culture - Final
Blood/Venous No Growth - Final Report
07/23/24 16:38 Blood Culture - Final
Blood/Venous No Growth - Final Report
07/24/24 16:15 Body Fluid Culture - Final
Bile Enterobacter cloacae
Enterococcus faecium
Gram Stain - Final
07/24/24 17:13 Nasal Screen MRSA (PCR) - Final
Nose MRSA not detected - performed by PCR methodology.
07/24/24 00:43 Streptococcus pneumoniae Antigen (M - Final
Urine Negative for Streptococcus pneumoniae antigen.
A negative result does not exclude infection with
Streptococcus pneumoniae. Clinical correlation is
recommended.
07/24/24 00:43 Legionella Urinary Antigen - Final
Urine Negative for Legionella pneumophila Serogroup 1 antigen.
A negative result does not rule out the possiblity of
Legionella infection due to other serogroups or species of
Legionella. Clinical correlation is recommended.
07/23/24 16:38 Influenza Types A & B (CLEOPATRA) - Final
Nasal Swab Negative for Influenza A & B, NAAT
Negative results must be combined with clinical observations
and patient history.
Nucleic Acid Amplification test (NAAT)performed on the
[employer] platform.
[2024-08-01 21:32] LABS: Glucose - Point of Care 182 mg/dl (70-99)
[2024-08-01 23:15] VITALS: BP 128/73
[2024-08-02] MEDS: ZOSYN 100 IV ×4 (04:38→21:19)
[2024-08-02 07:25] VITALS: BP 130/79
[2024-08-02 07:36] LABS: Glucose - Point of Care 122 mg/dl (70-99)
[2024-08-02 08:05] LABS: Hematocrit 26.4 % (37.0-47.0); Hemoglobin 8.2 g/dL (12.0-16.0); Mean Corp Hgb Conc. 31.1 g/dL (33.0-37.0); Mean Corpuscular Hgb 24.6 pg (27.0-31.0); Mean Platelet Volume 9.3 fL (7.4-10.4); Platelet Count 420 10^3/uL (130-400); Red Blood Cell Count 3.34 10^6/uL (4.20-5.40); Red Cell Dist. Width 20.7 % (11.5-14.5); White Blood Cell Count 10.1 10^3/uL (4.8-10.8)
--- NOTE | 2024-08-02 08:31 | PN.DE.MGMTRT ---
Insulin Management
- -
08/02/2024: Diabetes Management Follow up
Patient admitted 07/23 for fever, chills, recently discharged from after stay 07/09 to 07/19 for acute cholecystitis, cholecystomy tube. PMH HTN, diabetes. Recently started on Januvia 50 mg daily and given a Contour glucose monitor. States she has
been using the meter. A1C 07/07 10.2%, Cr .9, eGFR > 60.
Patient is awake alert, oriented, resting in bed, offers no complaints, able to discuss diabetes care. and Dtr at bedside, very supportive.
ID recommended starting insulin. 10 units Lantus daily started 07/25 with AC NovoLog and moderate corrective insulin. AC NovoLog d/c'd on 07/27
S/P Cardiac Cath 07/26, EF 30 to 35%- started on Farxiga 10mg daily. 07/29 noted for worsening JO and Farxiga was discontinued
Glucose remains stable and in range 101 to 121, FBG 117 V, 122 POC this AM.
Will make no changes to current regimen: Lantus 10 units daily in AM and moderate corrective with meals.
Will cont to follow. Diabetes Nurse Educator provided insulin prep and administration instructions. Pt states she feels confident and able to self adm insulin injection
Diabetes History
- -
Type of Diabetes: 2 requiring insulin
Pre-Admission Diabetes Regimen
08/01/24
06:31
Creatinine 1.1 H
Insulin Pump Settings
IP Diabetes Regimen
08/01/24 08/01/24 08/01/24
06 11:42 16:48
Glucose 115 H
POC Glucose 105 H 101 H
08/01/24 08/02/24
21:25 07:29
Glucose
POC Glucose 182 H 122 H
Meal type: Breakfast
Amount consumed: 100%
Patient Education
[2024-08-02] MEDS: NOVOLOG FLEXPEN-MODERATE RESISTANCE SC ×3 (08:34→16:38)
[2024-08-02] MEDS: TOPROL XL 75 MG PO ×2 (08:35→21:18)
[2024-08-02] MEDS: COZAAR 25 MG PO (08:35)
[2024-08-02] MEDS: VISBIOME 1 CAP PO (08:35)
[2024-08-02] MEDS: NON-FORMULARY ITEM 20 MG PO (08:36)
[2024-08-02 08:41] LABS: Blood Urea Nitrogen 20 mg/dl (7-17); Calcium 9.1 mg/dl (8.4-10.2); Carbon Dioxide 22 mmol/L (22-30); Chloride 106 mmol/L (98-107); Estimated Creatinine Clearance 69 ml/min; Glucose 117 mg/dl (70-99); Potassium 4.9 mmol/L (3.5-5.1); Sodium 137 mmol/L (135-145); eGFR > 60.00
[2024-08-02] MEDS: LANTUS 0.1 UNITS SC (08:41)
--- NOTE | 2024-08-02 11:13 | W.PN.HOSP.TC ---
Today's Communication/Plan
-
MRI Abdomen tomorrow AM
Assessment / Plan
Assessment / Plan
Septic shock
Intra-Abdominal Abscesses (R paracolic, pelvic +/- L paracolic)
Acute cholecystitis diagnosed last admission
- s/p robotic placement of cholecystostomy tube on 07/07; discontinued morning of 07/30
- s/p IV and oral Abx course and discharge 07/19/24
- s/p IR guided cholecystostomy tube placed 07/24
- Levophed was weaned off
- MRCP 07/27: no acute findings
-Enterobacter and Enterococcus seen in bile culture
- GS following
- ID following.
-continue IV Zosyn; plan for repeat imaging with MRI on Tuesday
-home infusion therapy to be arranaged - CM working with ID
- blood cultures NGTD
New diagnosis acute cardiomyopathy, stress induced most likely
- Cath 07/26: Nonobstructive coronary disease. Cardiomyopathy with anterolateral wall motion and normality.
- Echo 07/25: EF 30 to 35%, anteroseptal, mid septal, anterior, and apical akinesis, mild TR with PAP 45 mmHg
- trop peaked at .369
- continue ASA/Statin/BB
- Losartan resumed on 08/01
new JO
Recent ARF with transient HD between 07/09 and 07/19
- could be related to cardiac meds or contrast from cath
- s/p fluids
- Holding HCTZ, Farxiga for now
- FENA pre-renal
- Nephrology consult appreciated
- Losartan resumed, renal function stable with creatinine 1.1
Elevated Lipase, reactive to intra-abdominal pathology
- no evidence of pancreatitis by imaging
L sided pneumonia vs atelectasis
Small L parapneumonic effusion
Acute hypoxic respiratory failure on 6L NC
-appreciate Pulmonary
-s/p left Chest US with 'very small left pleural effusion' insufficient for thoracentesis
Hyponatremia
-resolved
Metabolic acidosis
- improved
Hypomagnesemia
Essential HTN
- continue Losartan
-continue BB
Chronic Microcytic Anemia, likely of chronic disease
- Hg stable
DM-II
- hold Januvia
- SSI
- continue Lantus
- recent A1c: 10.2%
- appreciate AMF MECHANIC eval
Hypomagnesemia
-replete
Morbid Obesity due to excess calories
DVT ppx: Lovenox
Code: Full
Anticipated Discharge: 24 - 48 hours
Subjective/Interval History
-
Date of Service: August 02, 2024
no new complaints
I encouraged her to ambulate more
Objective Data
-
Labs:
Laboratory Results
08/02/24
07:33
WBC 10.1
Hgb 8.2 L
Hct 26.4 L
Plt Count 420 H
Sodium 137
Potassium 4.9
Chloride 106
Carbon Dioxide 22
BUN 20 H
Creatinine 1.1 H
Glucose 117 H
Calcium 9.1
Vital Signs:
Vital Signs
Temp Pulse Resp BP Pulse Ox
97.7 F 77 20 130/79 96
08/02/24 07:25 08/02/24 07:25 08/02/24 07:25 08/02/24 08:35 08/02/24 07:25
I&O
08/01/24 08/02/24 08/03/24
06:59 06:59 06:59
Intake Total 730 / 730 700 / 700
Output Total 200 / 200 105 / 105
Balance 530 / 530 595 / 595
Review of Systems
-
History Source: Patient
All other systems: Reviewed and negative
Physical Exam
-
General: No Apparent Distress
HEENT: Normocephalic and Atraumatic
Respiratory: Negative Wheezes
Cardiac: Regular Rhythm and S1/S2
GI: Soft, Nontender and Other (+ GB drain with serosanguinous output)
Genito-urinary: No Costovertebral Tender
Neuro: AO x 3
Psych: Calm
Data Reviewed
-
Diagnostic Radiology: Report Reviewed by me
Labs: Labs Reviewed by me
[2024-08-02 11:49] LABS: Glucose - Point of Care 115 mg/dl (70-99)
[2024-08-02 12:07] LABS: Magnesium 1.6 mg/dl (1.6-2.3)
--- NOTE | 2024-08-02 12:16 | W.PN.NEPH.PH ---
Today's Communication / Plan
-
Follow BMP
Assessment/Plan
-
IMP:
JO
cholecystitis with cholecystotomy tube
hx gall stones prior ERCP for choledocholithiasis in 12/2023
Abdominal abscess with drainage catheters x 2
essential hypertension
DM II
Morbid obesity
Plan:
Continue losartan 25mg daily
no HCTZ given low Mg
no nifedipine for now
follow BMP
MRI ok from renal standpoint
-
-
Date of Service: August 02, 2024
CC / HPI / ROS
-
Chief Complaint:
JO
History of Present Illness:
Severe cholecystitis
JO/Cr down to 1.1 and stable
Mag improved 1.6
BP stable
Review of Systems:
No shortness of breath
no cp
Nonoliguric
Labs
-
Labs:
WBC 10.1 10^3/uL (4.8-10.8) 08/02/24 07:33
RBC 3.34 10^6/uL (4.20-5.40) L 08/02/24 07:33
Hgb 8.2 g/dL (12.0-16.0) L 08/02/24 07:33
Hct 26.4 % (37.0-47.0) L 08/02/24 07:33
Plt Count 420 10^3/uL (130-400) H 08/02/24 07:33
Sodium 137 mmol/L (135-145) 08/02/24 07:33
Potassium 4.9 mmol/L (3.5-5.1) 08/02/24 07:33
Chloride 106 mmol/L (98-107) 08/02/24 07:33
Carbon Dioxide 22 mmol/L (22-30) 08/02/24 07:33
BUN 20 mg/dl (7-17) H 08/02/24 07:33
Creatinine 1.1 mg/dL (0.6-1.0) H 08/02/24 07:33
eGFR > 60.00 08/02/24 07:33
Glucose 117 mg/dl (70-99) H 08/02/24 07:33
Calcium 9.1 mg/dl (8.4-10.2) 08/02/24 07:33
Phosphorus 3.5 mg/dl (2.5-4.5) 07/24/24 00:31
Xou-T-Iocguhjipkx Pept 545 pg/ml 07/23/24 16:38
Albumin 3.0 g/dl (3.5-5.0) L 07/29/24 06:47
Physical Exam
-
Vital Signs:
Vital Signs
Temp Pulse Resp BP Pulse Ox
97.7 F 77 20 130/79 96
08/02/24 07:25 08/02/24 07:25 08/02/24 07:25 08/02/24 08:35 08/02/24 07:25
Cardiovascular:: Regular rate and rhythm
Respiratory:: Bilateral: CTA
Lung Excursion:: Normal
Abdomen:: Nontender and Soft
Bowel Sounds:: Normal
Extremity Edema:: None: Bilateral:
--- NOTE | 2024-08-02 14:24 | W.PN.GS2 ---
Today's Communication / Plan
-
MRI tomorrow
Assessment / Plan
-
Patient is a 49 yo F s/p robotic jr tube placement on 07/07/24
P/w sepsis this admission likely secondary to bile leakage from the gallbladder seeding the peritoneal cavity s/p CT guided jr tube in IR on 07/24/2024
Cardiology following for work up of CM with EF of 30-35% s/p cardiac cath with nonobstructive coronary dz
MRCP on 07/27 with well positioned tubes, no abscess
IR cx with Enterobacter and enterococcus species
Prior OR cx with Prevotella and Viridans Strep
IR drain with bilious outputs, operative jr tube removed on 07/30
-- Plan for MRI tomorrow
-- Diet as per primary team
-- C/W IR drain
-- Abx as per ID, anticipate home on IV abx
-- Eventual scheduled cholecystectomy with timing TBD pending overall clinical course
-- DVT ppx
-- All other care as per primary team
Subjective Data
-
Date of Service: August 02, 2024
Improving, diane PO, no complaints
Objective Data
-
Intake and Output
08/01/24 08/02/24 08/03/24
06:59 06:59 06:59
Intake Total 730 / 730 700 / 700
Output Total 200 / 200 105 / 105
Balance 530 / 530 595 / 595
Intake:
Oral fluids 480 / 480 700 / 700
IV piggybacks 250 / 250
Output:
Drain Output (Total) 200 / 200 105 / 105
Right Middle Abdomen Biliary B 200 / 200 105 / 105
Placed in IR
Other:
Number of approximated MODERATE 2 3
amounts of urine
Number of approximated LARGE 1 1
amounts of urine
Vital Signs
Temp Pulse Resp BP Pulse Ox
97.7 F 77 20 130/79 96
08/02/24 07:25 08/02/24 07:25 08/02/24 07:25 08/02/24 08:35 08/02/24 07:25
Lab Results
08/02/24 07:33
08/02/24 07:33
Calcium 9.1 mg/dl (8.4-10.2) 08/02/24 07:33
Phosphorus 3.5 mg/dl (2.5-4.5) 07/24/24 00:31
Magnesium 1.6 mg/dl (1.6-2.3) 08/02/24 07:33
Total Bilirubin 0.6 mg/dl (0.2-1.3) 07/29/24 06:47
AST 18 U/L (14-36) 07/29/24 06:47
ALT < 10 U/L (0-35) 07/29/24 06:47
Alkaline Phosphatase 168 U/L (38-126) H 07/29/24 06:47
Total Protein 6.0 g/dl (6.3-8.2) L 07/29/24 06:47
Albumin 3.0 g/dl (3.5-5.0) L 07/29/24 06:47
Physical Exam
-
Gen: NAD
Abd: soft, obese, drain cdi with thin julien fluid
Patient has a velazquez catheter: No
Patient has a central line: No
[2024-08-02 15:05] VITALS: BP 123/74
[2024-08-02 16:37] LABS: Glucose - Point of Care 110 mg/dl (70-99)
[2024-08-02] MEDS: LOVENOX 40 MG SC (17:06)
[2024-08-02 21:36] LABS: Glucose - Point of Care 116 mg/dl (70-99)
[2024-08-02 23:10] VITALS: BP 125/69
[2024-08-03] MEDS: ZOSYN 100 IV ×2 (04:31→10:46)
[2024-08-03 07:00] VITALS: BP 122/77
[2024-08-03 07:28] LABS: Blood Urea Nitrogen 22 mg/dl (7-17); Calcium 9.1 mg/dl (8.4-10.2); Carbon Dioxide 20 mmol/L (22-30); Chloride 107 mmol/L (98-107); Estimated Creatinine Clearance 69 ml/min; Glucose 112 mg/dl (70-99); Magnesium 1.3 mg/dl (1.6-2.3); Potassium 4.5 mmol/L (3.5-5.1); Sodium 138 mmol/L (135-145); eGFR > 60.00
--- NOTE | 2024-08-03 07:58 | PN.DE.MGMTRT ---
Insulin Management
- -
08/03/2024: Diabetes Management Follow up
Patient admitted 07/23 for fever, chills, recently discharged from after stay 07/09 to 07/19 for acute cholecystitis, cholecystomy tube. PMH HTN, diabetes. Recently started on Januvia 50 mg daily and given a Contour glucose monitor. States she has
been using the meter. A1C 07/07 10.2%, Cr .9, eGFR > 60.
Patient is awake alert, oriented, resting in bed, offers no complaints, able to discuss diabetes care. no Family at bedside.
ID recommended starting insulin. 10 units Lantus daily started 07/25 with AC NovoLog and moderate corrective insulin. AC NovoLog d/c'd on 07/27
S/P Cardiac Cath 07/26, EF 30 to 35%- started on Farxiga 10mg daily. 07/29 noted for worsening JO and Farxiga was discontinued
Glucose remains stable and in range 129 to 166, requiring no corrective insulin with meals. FBG 112 V this AM.
Will make no changes to current regimen: Lantus 10 units daily in AM and moderate corrective with meals.
Will cont to follow. Diabetes Nurse Educator provided insulin prep and administration instructions. Pt states she feels confident and able to self adm insulin injection
Diabetes History
- -
Type of Diabetes: 2 requiring insulin
Pre-Admission Diabetes Regimen
08/02/24 08/03/24
07:33 05:27
Creatinine 1.1 H 1.1 H
Insulin Pump Settings
IP Diabetes Regimen
08/02/24 08/02/24 08/02/24
07:33 11:48 16:35
Glucose 117 H
POC Glucose 115 H 110 H
08/02/24 08/03/24
21:30 05:27
Glucose 112 H
POC Glucose 116 H
Meal type: Lunch
Amount consumed: 80%
Patient Education
--- NOTE | 2024-08-03 10:26 | CM ---
Addendum entered by Gracie Morales 08/03/24 16:02:
Per [facility], cost of self pay would be $735 a week. CM reviewed with ID, patient transition to oral. Patient seen bedside with family, for discharge today. Patient declining VN at this time, family to transport home.
Plan; home with family
Addendum entered by Gracie Morales 08/03/24 13:08:
Spoke with Radha, faxed to [facility] for review to obtain private pay cost.
Original Note:
CM reviewed chart, call placed to Radha at [facility] to discuss cost of home IV antibiotics/option for payment plan. Script for IV antibiotics on chart. CM will continue to follow for all discharge planning needs.
Plan; TBD, checking cost of private pay home IV antibiotics
[2024-08-03] MEDS: MAGNESIUM SULFATE 50 IV (10:41)
[2024-08-03] MEDS: VISBIOME 1 CAP PO (10:41)
[2024-08-03] MEDS: TOPROL XL 75 MG PO (10:42)
[2024-08-03] MEDS: COZAAR 25 MG PO (10:42)
[2024-08-03] MEDS: NON-FORMULARY ITEM 20 MG PO (10:43)
[2024-08-03 10:50] LABS: Glucose - Point of Care 116 mg/dl (70-99)
[2024-08-03] MEDS: NOVOLOG FLEXPEN-MODERATE RESISTANCE SC ×2 (10:59)
[2024-08-03] MEDS: LANTUS 0.1 UNITS SC (11:00)
--- NOTE | 2024-08-03 12:49 | W.PN.NEPH.PH ---
Today's Communication / Plan
-
Magnesium repletion
Kidney function at baseline
Assessment/Plan
-
IMP:
JO
cholecystitis with cholecystotomy tube
hx gall stones prior ERCP for choledocholithiasis in 12/2023
Abdominal abscess with drainage catheters x 2
essential hypertension
DM II
Morbid obesity
Plan:
Creatinine at baseline 1.1
Continue losartan 25mg daily:bp stable
no HCTZ given low Mg
no nifedipine for now
Replete magnesium
follow BMP
MRI ok from renal standpoint
-
-
Date of Service: August 03, 2024
CC / HPI / ROS
-
Chief Complaint:
JO
History of Present Illness:
Severe cholecystitis
JO/Cr down to 1.1 and stable
mild metabolic acidosis persists
Magnesium down to 1 point
Review of Systems:
No shortness of breath
no cp
Nonoliguric
Labs
-
Labs:
WBC 10.1 10^3/uL (4.8-10.8) 08/02/24 07:33
RBC 3.34 10^6/uL (4.20-5.40) L 08/02/24 07:33
Hgb 8.2 g/dL (12.0-16.0) L 08/02/24 07:33
Hct 26.4 % (37.0-47.0) L 08/02/24 07:33
Plt Count 420 10^3/uL (130-400) H 08/02/24 07:33
Sodium 138 mmol/L (135-145) 08/03/24 05:27
Potassium 4.5 mmol/L (3.5-5.1) 08/03/24 05:27
Chloride 107 mmol/L (98-107) 08/03/24 05:27
Carbon Dioxide 20 mmol/L (22-30) L 08/03/24 05:27
BUN 22 mg/dl (7-17) H 08/03/24 05:27
Creatinine 1.1 mg/dL (0.6-1.0) H 08/03/24 05:27
eGFR > 60.00 08/03/24 05:27
Glucose 112 mg/dl (70-99) H 08/03/24 05:27
Calcium 9.1 mg/dl (8.4-10.2) 08/03/24 05:27
Phosphorus 3.5 mg/dl (2.5-4.5) 07/24/24 00:31
Sge-J-Oawdzylxuwd Pept 545 pg/ml 07/23/24 16:38
Albumin 3.0 g/dl (3.5-5.0) L 07/29/24 06:47
Physical Exam
-
Vital Signs:
Vital Signs
Temp Pulse Resp BP Pulse Ox
98.0 F 77 18 122/77 95
08/03/24 07:00 08/03/24 07:00 08/03/24 07:00 08/03/24 10:42 08/03/24 07:00
Cardiovascular:: Regular rate and rhythm
Respiratory:: Bilateral: CTA
Lung Excursion:: Normal
Abdomen:: Nontender and Soft
Bowel Sounds:: Normal
Extremity Edema:: None: Bilateral:
--- NOTE | 2024-08-03 14:16 | W.PN.ID1 ---
Date of Service
Date of Service: August 03, 2024
Today's Communication
- stopped zosyn, switched to doxycycline and augmentin to complete 5 more days
stable for dc from ID perspective
Assessment / Plan
Multiple intraabdominal abscesses
Cholcystostomy tube placement
JO resolved
Uncontrolled Dm2 - risk factor for relapse
- blood cultures x2 no growth to date
- 07/24 bile culture: Enterobacter and Enterococcus faecium
- sensitivities on the enterococcus -quinolones are intermediate but tetracycyline is sensitive as is linezolid; Enterobacter is sensitive to quinolones
- 07/07 bile cultures VGS and prevotella (BL neg)
- drains x2 into the gallbladder
- MRI abdomen - resolved fluid collections, some thickening of the fundus of the gallbladder possibly reactive, clear bile
- stopped zosyn, switched to doxycycline and augmentin to complete 5 more days
stable for dc from ID perspective
Chief Complaint
-: Other (peritonitis, cholecystitis)
Subjective / Review of Systems
afebrile
bp stable
resolved abdominal pain
some mild discomfort when lying in the right lateral decubitus position
drain with clear bile
Vital Signs / Physical Exam
Vital Signs
Vital Signs
Temp Pulse Resp BP Pulse Ox
98.0 F 77 18 122/77 95
08/03/24 07:00 08/03/24 07:00 08/03/24 07:00 08/03/24 10:42 08/03/24 07:00
Physical Exam
Constitutional: No Acute Distress
Cardiovascular: Regular Rate and S1/S2; Negative Murmur or Rub
Pulmonary: Clear and Symmetric; Negative Wheezes or Rales
Gastrointestinal: Soft, Non Tender, Non Distended and Normal Bowel Sounds
Skin: Warm and Dry; Negative Rash or Jaundice
Lines: Other (cholecystostomy tube - clear bile)
Objective Data
Lab Data
Lab Results
08/02/24 07:33
08/03/24 05:27
PT 18.8 Sec (11.4-14.6) H 07/24/24 00:31
INR 1.55 07/24/24 00:31
APTT 27.9 Sec (23.4-35.0) 07/24/24 00:31
Estimated Creat Clear 69 ml/min 08/03/24 05:27
Lactic Acid 0.9 mmol/L (0.7-2.0) 07/23/24 16:38
Total Bilirubin 0.6 mg/dl (0.2-1.3) 07/29/24 06:47
AST 18 U/L (14-36) 07/29/24 06:47
ALT < 10 U/L (0-35) 07/29/24 06:47
Alkaline Phosphatase 168 U/L (38-126) H 07/29/24 06:47
Most recent labs reviewed.
Micro Results:
07/23/24 16:56 Blood Culture - Final
Blood/Venous No Growth - Final Report
07/23/24 16:38 Blood Culture - Final
Blood/Venous No Growth - Final Report
07/24/24 16:15 Body Fluid Culture - Final
Bile Enterobacter cloacae
Enterococcus faecium
Gram Stain - Final
07/24/24 17:13 Nasal Screen MRSA (PCR) - Final
Nose MRSA not detected - performed by PCR methodology.
07/24/24 00:43 Streptococcus pneumoniae Antigen (M - Final
Urine Negative for Streptococcus pneumoniae antigen.
A negative result does not exclude infection with
Streptococcus pneumoniae. Clinical correlation is
recommended.
07/24/24 00:43 Legionella Urinary Antigen - Final
Urine Negative for Legionella pneumophila Serogroup 1 antigen.
A negative result does not rule out the possiblity of
Legionella infection due to other serogroups or species of
Legionella. Clinical correlation is recommended.
07/23/24 16:38 Influenza Types A & B (CLEOPATRA) - Final
Nasal Swab Negative for Influenza A & B, NAAT
Negative results must be combined with clinical observations
and patient history.
Nucleic Acid Amplification test (NAAT)performed on the
[employer] platform.
Care Review
Plan reviewed with: Physician (Dr Earl - disposition, antibiotics)
[2024-08-03 15:00] VITALS: BP 108/67
--- NOTE | 2024-08-03 15:15 | W.PN.HOSP.TC ---
Addendum entered and electronically signed by Omid Earl MD 08/03/24 17:31:
Dictation- [id number]
Addendum entered and electronically signed by Omid Earl MD 08/03/24 16:08:
Per Candace Borden , patient was not able to afford Januvia and was not taking it.
Will start glipizide.
She will review labs next week to check the renal function
Addendum entered and electronically signed by Omid Earl MD 08/03/24 15:45:
Insulin glargine is not covered for the patient's insurance.
Discussed with infectious disease. Patient does not have any more contraindication for Januvia.
Therefore we will restart Januvia
Discussed with diabetes management CORPORATE ATTORNEY who will inform patient and family of the change.
D/W Case management
Original Note:
Today's Communication/Plan
-
Case management to check regarding insulin
Discharge planning
Assessment / Plan
Assessment / Plan
Pleasant 49-year-old with recent admission for cholecystitis status postcholecystectomy tube placement because of severely inflamed gallbladder and was discharged on antibiotics. Presented back with septic shock.
Feeling well. No complaints of abdominal pain. Tolerating diet
Cardiovascular system S1-S2 appreciated
Chest clear to auscultation
Abdomen soft and nontender, biliary drain
No pedal edema
# Septic shock secondary to intra-abdominal abscess-right paracolic, pelvic plus or minus left paracolic
Acute cholecystitis diagnosed last admission with robotic guided cholecystostomy tube placement 07/07/2024 secondary to severely inflamed gallbladder precluding the ability to operate safely
Status post IV and then oral antibiotic course through 07/22/2024
IR replaced drain on 07/24/2024
MRCP 07/27/2024 with no acute findings
Enterobacter and Enterococcus faecium in biliary culture, blood cultures negative
Patient is off Levophed
Continue Zosyn repeat MRI today without any acute changes except for mild gallbladder wall thickening
Reviewed this with surgery as well as infectious disease. Antibiotics changed to doxycycline and Augmentin to complete 5 more days, both okay for discharge today
Needs eventual cholecystectomy
# Acute cardiomyopathy-new diagnosis
Likely Takotsubo
Echo 07/25/2024-EF 30 to 35%, anteroseptal, mid septal, anterior and apical akinesis, mild TR, pulmonary artery pressure 45 mmHg
Troponin peaked at 0.369
Cath 07/26/2024-nonobstructive coronary disease, cardiomyopathy with anterolateral wall motion abnormality
Farxiga, aspirin, statin, were discontinued by cardiology per patient request
Continue beta-lorna, Losartan
Discussed with cardiology about discharge. Continue with current medicines and they will arrange for outpatient cardiology follow-up .
Echo in 3 months.
# Acute kidney injury with metabolic acidosis
Needed transient hemodialysis from 07/09/2024 to 07/19/2024
Possibly contrast-induced
Status post IV fluids.
Holding hydrochlorothiazide for discharge
Losartan resumed
# Elevated lipase without any evidence of pancreatitis
# Acute hypoxic respiratory failure on 6 L of oxygen
Left-sided pneumonia versus atelectasis with small left pleural effusion
Status post left chest ultrasound which showed very small left pleural effusion insufficient for thoracentesis
Patient has been off of oxygen
# Diabetes-hemoglobin A1c 10.2
Continue Lantus and sliding scale.
Holding Januvia ( was on it SOCIAL PSYCHOLOGIST)
Case management to check if Lantus insulin is covered
# Hypertension-continue beta-lorna and losartan
(Patient was on losartan hydrochlorothiazide, metoprolol, nifedipine as outpatient SOCIAL PSYCHOLOGIST)
# Chronic microcytic anemia
# Hyponatremia-resolved
# Hypomagnesemia-Replace
# Hypoalbuminemia
# Fatty liver
# Morbid obesity with a BMI of 41- weight loss advised
# DVT prophylaxis-Lovenox
# Full code
Discussed with infectious disease
Discussed with surgeon
Discussed with cardiology
Discussed with case management
Discussed with nephrology
Message sent to diabetes management CORPORATE ATTORNEY
Discussed with nursing
Discussed with family at bedside
Discharge coordination time 45 min
Part of this note was created using voice recognition system. Occasional wrong word or��sound alike� substitutions may have inadvertently occurred due to the inherent limitations of voice recognition software. If noted kindly bring it to my
attention for correction.
Anticipated Discharge: Today
Subjective/Interval History
-
Date of Service: August 03, 2024
Objective Data
-
Labs:
Laboratory Results
08/03/24
05:27
Sodium 138
Potassium 4.5
Chloride 107
Carbon Dioxide 20 L
BUN 22 H
Creatinine 1.1 H
Glucose 112 H
Calcium 9.1
Vital Signs:
Vital Signs
Temp Pulse Resp BP Pulse Ox
98.0 F 77 18 122/77 95
08/03/24 07:00 08/03/24 07:00 08/03/24 07:00 08/03/24 10:42 08/03/24 07:00
I&O
08/02/24 08/03/24 08/04/24
06:59 06:59 06:59
Intake Total 700 / 700 1560 / 1560
Output Total 105 / 105 75 / 75
Balance 595 / 595 1485 / 1485
--- NOTE | 2024-08-03 15:47 | W.DS.TRANS ---
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
-
Discharge Instructions:
Discharge Diagnosis/Procedures Intra-abdominal abscess
Septic shock
Acute cardiomyopathy
Acute kidney injury
Hyponatremia
Metabolic acidosis
Hypomagnesemia
Hypertension
Anemia
Diabetes
Diet Diabetic, Carb Controlled,2 Gram Sodium
Activity No strenuous activity
Additional Activity Avoid dislodging your drain, if it becomes
dislodged please come to the ER immediately to
be evaluated or call the number on your drain
handout
Driving Restrictions As prior to admission
Bathing Restrictions OK to Shower
Blood Work CBC, BMP in 1 week. HbA1C in 3 months
Others Tests Echo in 3 months
Wound Care See handout regarding caring for your drain.
Instructions:
Stand-Alone Forms:
Changes to Home Medications: Yes
Discharge Medications:
DC Medications w/original date entered in [facility]
cholecalciferol (vitamin D3) 125 mcg (5,000 unit) tablet (Vitamin D3) 125 mcg PO DAILY Supplement 07/06/24
norethindrone acetate 5 mg tablet 5 mg PO DIRECTED Hormonal Agent 07/06/24
esomeprazole magnesium 20 mg capsule,delayed release (Nexium) 20 mg PO DAILY Gastrointestinal Issue 07/23/24
amoxicillin 875 mg-potassium clavulanate 125 mg tablet 1 tab PO Q12 Infection #11 tabs 08/03/24
doxycycline hyclate 100 mg capsule 100 mg PO Q12 Infection #11 caps 08/03/24
losartan 25 mg tablet 25 mg PO DAILY Blood pressure #30 tabs 08/03/24
magnesium oxide 500 mg PO DAILY low mag #0 tabs 08/03/24
metoprolol succinate 50 mg tablet,extended release 24 hr 75 mg (1.5 x 50 mg) PO BID Blood pressure #100 tabs 08/03/24
polyethylene glycol 3350 17 gram oral powder packet 17 g PO QPM Constipation #0 ea 08/03/24
sitagliptin phosphate 50 mg tablet (Januvia) 50 mg PO DAILY Diabetes #30 tabs 08/03/24
Home Medication Changes
Stopped hydrochlorothiazide
Pending Results: No
--- NOTE | 2024-08-03 16:04 | W.PN.GS2 ---
Addendum entered and electronically signed by Israel Molina MD 08/03/24 16:33:
Patient seen and examined.
No complaints. Denies any worsening abdominal pain. No nausea or vomiting. No fevers.
Gen: NAD
Abd: soft, obese, mild tenderness at IR drain, ND, non-peritoneal, IR jr tube with bilious output
Patient is a 49 yo F s/p robotic jr tube placement on 07/07/24
P/w sepsis this admission likely secondary to bile leakage from the gallbladder seeding the peritoneal cavity s/p CT guided jr tube in IR on 07/24/2024
Cardiology following for work up of CM with EF of 30-35% s/p cardiac cath with nonobstructive coronary dz
MRCP (07/27) with well positioned tubes, no abscess
MRI (08/03) without abscess/fluid collections. Cholecystostomy tube in good position. Wall thickening of the gallbladder fundus present as expected.
IR cx with Enterobacter and enterococcus species
Prior OR cx with Prevotella and Viridans Strep
IR drain with bilious outputs, operative jr tube removed on 07/30
Clinical and radiographic improvement. ID consult noted, appreciate help, plan for additional outpatient oral antibiotics. She will need close General Surgery follow-up for monitoring of symptoms off abx and coordination of care.
-- Continue current diet
-- C/W IR drain upon d/c
-- Abx as per ID
-- DVT ppx
-- Eventual scheduled cholecystectomy with timing TBD pending overall clinical course. Will plan OP follow up in 1-2 weeks.
-- OK for D/C from surgical standpoint
Original Note:
Today's Communication / Plan
-
dispo planning
Assessment / Plan
-
Patient is a 49 yo F s/p robotic jr tube placement on 07/07/24
P/w sepsis this admission likely secondary to bile leakage from the gallbladder seeding the peritoneal cavity s/p CT guided jr tube in IR on 07/24/2024
Cardiology following for work up of CM with EF of 30-35% s/p cardiac cath with nonobstructive coronary dz
MRCP on 07/27 with well positioned tubes, no abscess
MRI today without abscess/fluid collections. Cholecystostomy tube in good position. Wall thickening of the gallbladder fundus present as expected.
IR cx with Enterobacter and enterococcus species
Prior OR cx with Prevotella and Viridans Strep
IR drain with bilious outputs, operative jr tube removed on 07/30
-- Continue current diet
-- C/W IR drain upon d/c
-- Abx as per ID
-- Eventual scheduled cholecystectomy with timing TBD pending overall clinical course. Will plan OP follow up in 1-2 weeks.
-- DVT ppx
-- OK for D/C from surgical standpoing
Subjective Data
-
Date of Service: August 03, 2024
Patient seen and examined at bedside with spouse present. Denies n/v. Tolerating diet. Denies pain.
Objective Data
-
Intake and Output
08/02/24 08/03/24 08/04/24
06:59 06:59 06:59
Intake Total 700 / 700 1560 / 1560
Output Total 105 / 105 75 / 75
Balance 595 / 595 1485 / 1485
Intake:
Oral fluids 700 / 700 1560 / 1560
Output:
Drain Output (Total) 105 / 105 75 / 75
Right Middle Abdomen Biliary B 105 / 105 75 / 75
Placed in IR
Other:
Number of approximated MODERATE 3 3
amounts of urine
Number of approximated LARGE 1 2
amounts of urine
Vital Signs
Temp Pulse Resp BP Pulse Ox
98.4 F 79 20 108/67 96
08/03/24 15:00 08/03/24 15:00 08/03/24 15:00 08/03/24 15:00 08/03/24 15:00
Lab Results
08/02/24 07:33
08/03/24 05:27
Calcium 9.1 mg/dl (8.4-10.2) 08/03/24 05:27
Phosphorus 3.5 mg/dl (2.5-4.5) 07/24/24 00:31
Magnesium 1.3 mg/dl (1.6-2.3) L 08/03/24 05:27
Total Bilirubin 0.6 mg/dl (0.2-1.3) 07/29/24 06:47
AST 18 U/L (14-36) 07/29/24 06:47
ALT < 10 U/L (0-35) 07/29/24 06:47
Alkaline Phosphatase 168 U/L (38-126) H 07/29/24 06:47
Total Protein 6.0 g/dl (6.3-8.2) L 07/29/24 06:47
Albumin 3.0 g/dl (3.5-5.0) L 07/29/24 06:47
Physical Exam
-
Gen: NAD
Abd: soft, obese, drain cdi with bilious output
Prior OR drain site with old bile on dressing, changed
Incisions clear, dry, intact
Patient has a velazquez catheter: No
Patient has a central line: No
--- NOTE | 2024-08-03 16:08 | W.DS.TRANS ---
DC Summary - Intensive Care Unit Nurse
-
Discharge Instructions:
Discharge Diagnosis/Procedures Intra-abdominal abscess
Septic shock
Acute cardiomyopathy
Acute kidney injury
Hyponatremia
Metabolic acidosis
Hypomagnesemia
Hypertension
Anemia
Diabetes
Diet Diabetic, Carb Controlled,2 Gram Sodium
Activity No strenuous activity
Additional Activity Avoid dislodging your drain, if it becomes
dislodged please come to the ER immediately to
be evaluated or call the number on your drain
handout
Driving Restrictions As prior to admission
Bathing Restrictions OK to Shower
Blood Work CBC, BMP in 1 week. HbA1C in 3 months
Others Tests Echo in 3 months
Wound Care See handout regarding caring for your drain.
Place dry gauze dressing over prior drain site
and change daily. Ok to remove for showers
Instructions:
Stand-Alone Forms:
Changes to Home Medications: Yes
Discharge Medications:
DC Medications w/original date entered in [facility]
cholecalciferol (vitamin D3) 125 mcg (5,000 unit) tablet (Vitamin D3) 125 mcg PO DAILY Supplement 07/06/24
norethindrone acetate 5 mg tablet 5 mg PO DIRECTED Hormonal Agent 07/06/24
esomeprazole magnesium 20 mg capsule,delayed release (Nexium) 20 mg PO DAILY Gastrointestinal Issue 07/23/24
amoxicillin 875 mg-potassium clavulanate 125 mg tablet 1 tab PO Q12 Infection #11 tabs 08/03/24
doxycycline hyclate 100 mg capsule 100 mg PO Q12 Infection #11 caps 08/03/24
glipizide 2.5 mg tablet, extended release 24 hr 2.5 mg PO DAILY Diabetes #30 tabs 08/03/24
losartan 25 mg tablet 25 mg PO DAILY Blood pressure #30 tabs 08/03/24
magnesium oxide 500 mg PO DAILY low mag #0 tabs 08/03/24
metoprolol succinate 50 mg tablet,extended release 24 hr 75 mg (1.5 x 50 mg) PO BID Blood pressure #100 tabs 08/03/24
polyethylene glycol 3350 17 gram oral powder packet 17 g PO QPM Constipation #0 ea 08/03/24
Home Medication Changes
Januvia discontinued, nifedipine discontinued, hydrochlorothiazide discontinued
Glipizide is new
Pending Results: No
[2024-08-03 16:39] LABS: Glucose - Point of Care 111 mg/dl (70-99)
--- NOTE | 2024-08-03 17:38 | VATNOTE ---
right midline removed per protocol. Pt instructed to remove dsg. tomorrow.
== END 2024-08-03 18:23 | disposition home or self-care (01) | DRG 871 ==
LOC: 4 WEST ACU 21:00
PROVIDERS: Internal Medicine; Internal Medicine Interventional Cardiology; Nurse Practitioner Family; Physician Assistant; Physician Assistant Medical; Radiology Diagnostic Radiology; Student in an Organized Health Care Education/Training Program; ADMITTING PHYSICIAN Hospitalist; ATTENDING PHYSICIAN Hospitalist; CONSULT PHYSICIAN Internal Medicine; CONSULT PHYSICIAN Internal Medicine Cardiovascular Disease; CONSULT PHYSICIAN Internal Medicine Gastroenterology; CONSULT PHYSICIAN Specialist; EMERGENCY PHYSICIAN Emergency Medicine; OTHER PHYSICIAN Student in an Organized Health Care Education/Training Program; OTHER PHYSICIAN Surgery
PROC: 0F9430Z Drainage of Gallbladder with Drainage Device, Percutaneous Approach (ICD-10-PCS; 2024-07-24)
PROC: B2151ZZ Fluoroscopy of Left Heart using Low Osmolar Contrast (ICD-10-PCS; 2024-07-26)
PROC: 4A023N7 Measurement of Cardiac Sampling and Pressure, Left Heart, Percutaneous Approach (ICD-10-PCS; 2024-07-26)
PROC: B2111ZZ Fluoroscopy of Multiple Coronary Arteries using Low Osmolar Contrast (ICD-10-PCS; 2024-07-26)
DX: A41.9 Sepsis, unspecified organism (principal); J96.01 Acute respiratory failure with hypoxia; K65.1 Peritoneal abscess; R65.21 Severe sepsis with septic shock; N17.9 Acute kidney failure, unspecified; E87.1 Hypo-osmolality and hyponatremia; E87.20 Acidosis, unspecified; I50.22 Chronic systolic (congestive) heart failure; I51.81 Takotsubo syndrome; Z68.41 Body mass index [BMI] 40.0-44.9, adult; R18.8 Other ascites; E83.42 Hypomagnesemia; I11.0 Hypertensive heart disease with heart failure; E11.9 Type 2 diabetes mellitus without complications; K81.9 Cholecystitis, unspecified; D50.9 Iron deficiency anemia, unspecified; K76.0 Fatty (change of) liver, not elsewhere classified; E66.01 Morbid (severe) obesity due to excess calories; I25.10 Atherosclerotic heart disease of native coronary artery without angina pectoris; M43.17 Spondylolisthesis, lumbosacral region; N73.9 Female pelvic inflammatory disease, unspecified; Z79.899 Other long term (current) drug therapy; Z80.0 Family history of malignant neoplasm of digestive organs; Z82.0 Family history of epilepsy and other diseases of the nervous system; Z82.49 Family history of ischemic heart disease and other diseases of the circulatory system; Z11.52 Encounter for screening for COVID-19
CPT/HCPCS: 36600; 49406; 71045; 71046; 71250; 74177; 74181; 74183; 76604; 76705; 80048; 80053; 80061; 81003; 81015; 81099; 82570; 82607; 82728; 82746; 82805; 82962; 83540; 83550; 83605; 83690; 83735; 83880; 84100; 84300; 84484; 85025; 85027; 85347; 85610; 85730; 86850; 86900; 86901; 87015; 87040; 87070; 87077; 87186; 87205; 87449; 87502; 87641; 87811; 87899; 93005; 93306; 96361; 96365; 96375; 99152; 99153; 99285; A9575; C1894; Q9950; Q9967

== ENCOUNTER → 2024-08-10 12:53 | Outpatient (REF) | payer OTHER, SELFPAY ==
[2024-08-10 14:07] LABS: Blood Urea Nitrogen 14 mg/dl (7-17); Calcium 9.9 mg/dl (8.4-10.2); Carbon Dioxide 22 mmol/L (22-30); Chloride 107 mmol/L (98-107); Glucose 121 mg/dl (70-99); Potassium 4.5 mmol/L (3.5-5.1); Sodium 140 mmol/L (135-145); eGFR > 60.00
[2024-08-10 14:34] LABS: % Basophils 0.6 % (0-2); % Eosinophils 1.6 % (0-6); % Immature Granulocytes 1.2 % (0-0.5); % Lymphocytes 25.3 % (20.5-51.1); % Monocytes 6.6 % (1.7-9.3); % Neutrophils 64.7 % (42.2-75.2); Absolute Basophils 0.1 10^3/uL (0-0.2); Absolute Eosinophils 0.1 10^3/uL (0-0.7); Absolute Immature Granulocytes 0.1 10^3/uL (0-0.05); Absolute Lymphocytes 2.2 10^3/uL (1.2-3.4); Absolute Monocytes 0.6 10^3/uL (0.1-0.6); Absolute Neutrophils 5.5 10^3/uL (1.4-6.5); Anisocytosis 1+; Hemoglobin 10.4 g/dL (12.0-16.0); Hypochromasia 1+; Mean Corp Hgb Conc. 31.5 g/dL (33.0-37.0); Mean Corpuscular Hgb 25.9 pg (27.0-31.0); Mean Corpuscular Volume 82.3 fL (81.0-99.0); Mean Platelet Volume 9.6 fL (7.4-10.4); Normal RBC Morphology No; Nucleated Red Blood Cells % 0.2 %; Platelet Count 299 10^3/uL (130-400); Polychromasia 1+; Red Blood Cell Count 4.01 10^6/uL (4.20-5.40); Red Cell Dist. Width 22.2 % (11.5-14.5); White Blood Cell Count 8.5 10^3/uL (4.8-10.8)
== END ==
LOC: REG 12:53
PROVIDERS: ATTENDING PHYSICIAN Surgery
DX: K81.9 Cholecystitis, unspecified (principal)
CPT/HCPCS: 36415; 80048; 85025

== ENCOUNTER → 2024-08-15 17:59 | Outpatient (REF) | payer OTHER, SELFPAY | LOC: RAD 17:59 | PROVIDERS: ATTENDING PHYSICIAN Surgery | DX: K65.1 Peritoneal abscess (principal); K81.9 Cholecystitis, unspecified | CPT/HCPCS: 74177; Q9967 ==

== ENCOUNTER → 2024-09-10 12:28 | Outpatient (REF) | payer OTHER, SELFPAY ==
[2024-09-10 12:45] VITALS: BP 157/100; BP_SYST 92
[2024-09-10 13:15] VITALS: BP 161/101; BP_SYST 91
[2024-09-10 13:26] VITALS: BP 161/101
== END ==
LOC: RADI 12:28
PROVIDERS: ATTENDING PHYSICIAN Surgery
DX: Z43.4 Encounter for attention to other artificial openings of digestive tract (principal); K81.0 Acute cholecystitis
CPT/HCPCS: 47531

== ENCOUNTER → 2024-09-24 15:57 | Outpatient (REF) | payer OTHER, SELFPAY | LOC: HWRAD 15:57 | PROVIDERS: ATTENDING PHYSICIAN Student in an Organized Health Care Education/Training Program | DX: R06.02 Shortness of breath (principal) | CPT/HCPCS: 71046 ==

== ENCOUNTER 2024-09-25 17:13 | Emergency (ER) | payer OTHER, SELFPAY ==
[2024-09-25 17:23] VITALS: BP 163/104
[2024-09-25 17:39] LABS: Hematocrit 40.1 % (37.0-47.0); Hemoglobin 12.6 g/dL (12.0-16.0); Mean Corp Hgb Conc. 31.4 g/dL (33.0-37.0); Mean Corpuscular Volume 82.9 fL (81.0-99.0); Nucleated Red Blood Cells % 0 %; Platelet Count 353 10^3/uL (130-400); Red Cell Dist. Width 16.4 % (11.5-14.5)
[2024-09-25 17:49] LABS: HCG, Serum Qualitative Screen Negative
[2024-09-25 17:57] LABS: ALT (SGPT) 28 U/L (0-35); AST (SGOT) 29 U/L (14-36); Albumin 4.7 g/dl (3.5-5.0); Alkaline Phosphatase 113 U/L (38-126); Blood Urea Nitrogen 27 mg/dl (7-17); Calcium 10.7 mg/dl (8.4-10.2); Carbon Dioxide 18 mmol/L (22-30); Chloride 109 mmol/L (98-107); Glucose 139 mg/dl (70-99); Potassium 4.7 mmol/L (3.5-5.1); Sodium 138 mmol/L (135-145); Total Protein 8.5 g/dl (6.3-8.2); eGFR > 60.00
[2024-09-25 18:11] LABS: Troponin I < 0.012 ng/ml
[2024-09-25 20:04] VITALS: BP 154/92
[2024-09-25 20:10] VITALS: BMI 41.4
[2024-09-25 21:00] VITALS: BP 139/80
--- NOTE | 2024-09-25 21:04 | ED.GENMED ---
History of Present Illness
<PAULINA Rucker - Last Filed: 09/27/24 15:11>
General
Chief Complaint: Abnormal Lab Value
Source: patient
Exam Limitations: none
Time Seen by Provider: 09/25/24 21:01
Nursing documentation reviewed up to this point in time: agreed with
History of Present Illness
History of Present Illness:
Patient is a 49-year-old female with past medical history of cholecystitis recent admission July 2024 for intra-abdominal abscess and septic shock, cardiomyopathy, acute kidney injury (requiring dialysis ) ,hyponatremia, hypertension anemia diabetes
Takotsubo cardiomyopathy presents to the ER for evaluation. She has had increasing swelling of her ankles and feet and on Tuesday was seen by her family doctor and placed on Lasix 20 mg daily. She also had blood work Tuesday and was sent today for
an elevated troponin. She has had no associated chest pain she does note that she does feel winded only with exertion.
She did have cath during recent admission July 26, 2024 which showed nonobstructive coronary artery disease and cardiomyopathy.
Past History
<PAULINA Rucker - Last Filed: 09/27/24 15:11>
Past History
ED Past Medical History: HTN and Other (cholecystitis)
ED Past Surgical History: Tonsilectomy
Social History
Tobacco: Non-smoker
Alcohol: None
Drug: None
Personal:
Living: with family
Review of Systems
<Edie Garcia PA-C - Last Filed: 09/26/24 01:00>
Review of Systems
All Other Systems: ROS reviewed and negative except as documented in HPI and ROS
Phy Exam
<Edie Garcia PA-C - Last Filed: 09/26/24 01:00>
Physical Exam
Physical Exam:
General: Patient is well appearing and in no acute distress; non-toxic
Skin: Warm and dry, no rashes or lesions
Head: Normocephalic, atraumatic
Eyes: Sclera non-icteric. EOMs intact.
Cardiac: Regular rate and rhythm, no murmurs and rhythm
Peripheral Vascular: No bilateral lower extremity edema
Pulm: Normal respiratory effort, no wheezes, rales, rhonchi
Neuro: CN II-XII intact, no focal neurologic deficits.
Psychiatric: Appropriate mood and affect.
Course
<PAULINA Rucker - Last Filed: 09/27/24 15:11>
Orders/Labs/Results
Orders:
Orders
09/25/24 17:26
Electrocardiogram (*1) Urgent
Reason for Study: Other
Other Reason for Exam: Respiratory Distress
Cardiac Monitoring- Treatment ONCE
EKG- Treatment ONCE
IV Insert/Care/Rem.- Treatment PRN
Test Result ONCE
CR Chest - 2 Views Urgent
Comment:
Reason For Exam: respiratory distress
O2 Therapy [RESP] Urgent
Titrate/Wean O2 to maintain O2 sat greater than (%): 93
Special Instructions: TO MAINTAIN CONTINUOUS O2 SATS >/= 93%
Pulse Ox/cont/shift [RESP] Urgent
Quantity: 1
Special Instructions: continuous pulse ox
09/25/24 17:30
Comprehensive Metabolic Panel Urgent
HCG, Serum Qualitative Screen Urgent
09/25/24 17:31
Complete Blood Count/With Diff Urgent
NT-proBNP Urgent
Troponin I Urgent
09/25/24 22:10
DDimer [D-Dimer] Urgent
09/25/24 22:50
CT Chest PE Study Urgent
Comment:
Reason For Exam: sob
Abnormal Lab Results
09/25/24 09/25/24 09/25/24
17:30 17:31 22:10
MCH 26.0 L pg
(27.0-31.0)
MCHC 31.4 L g/dL
(33.0-37.0)
RDW 16.4 H %
(11.5-14.5)
Abs Immat Gran (auto) 0.1 H 10^3/uL
(0-0.05)
Absolute Neuts (auto) 6.9 H 10^3/uL
(1.4-6.5)
Immature Gran % 0.6 H %
(0-0.5)
D-Dimer 1.97 H ug/mlFEU
(0.00-0.50)
Chloride 109 H mmol/L
(98-107)
Carbon Dioxide 18 L mmol/L
(22-30)
BUN 27 H mg/dl
(7-17)
Glucose 139 H mg/dl
(70-99)
Calcium 10.7 H mg/dl
(8.4-10.2)
Total Protein 8.5 H g/dl
(6.3-8.2)
09/25/24 17:31
09/25/24 17:30
Vital Signs
Initial and Last Documented VS:
Initial Vital Signs
Temp Pulse Resp BP Pulse Ox
98.1 F 90 20 163/104 99
09/25/24 17:23 09/25/24 17:23 09/25/24 17:23 09/25/24 17:23 09/25/24 17:23
Last Documented Vital Signs
Temp Pulse Resp BP Pulse Ox
98.2 F 73 14 155/87 92
09/25/24 20:04 09/26/24 01:30 09/25/24 21:45 09/26/24 01:00 09/26/24 00:45
<Edie Garcia PA-C - Last Filed: 09/26/24 01:00>
Orders/Labs/Results
Orders:
Orders
09/25/24 17:26
Electrocardiogram (*1) Urgent
Reason for Study: Other
Other Reason for Exam: Respiratory Distress
Cardiac Monitoring- Treatment ONCE
EKG- Treatment ONCE
IV Insert/Care/Rem.- Treatment PRN
Test Result ONCE
CR Chest - 2 Views Urgent
Comment:
Reason For Exam: respiratory distress
O2 Therapy [RESP] Urgent
Titrate/Wean O2 to maintain O2 sat greater than (%): 93
Special Instructions: TO MAINTAIN CONTINUOUS O2 SATS >/= 93%
Pulse Ox/cont/shift [RESP] Urgent
Quantity: 1
Special Instructions: continuous pulse ox
09/25/24 17:30
Comprehensive Metabolic Panel Urgent
HCG, Serum Qualitative Screen Urgent
09/25/24 17:31
Complete Blood Count/With Diff Urgent
NT-proBNP Urgent
Troponin I Urgent
09/25/24 22:10
DDimer [D-Dimer] Urgent
09/25/24 22:50
CT Chest PE Study Urgent
Comment:
Reason For Exam: sob
Abnormal Lab Results
09/25/24 09/25/24 09/25/24
17:30 17:31 22:10
MCH 26.0 L pg
(27.0-31.0)
MCHC 31.4 L g/dL
(33.0-37.0)
RDW 16.4 H %
(11.5-14.5)
Abs Immat Gran (auto) 0.1 H 10^3/uL
(0-0.05)
Absolute Neuts (auto) 6.9 H 10^3/uL
(1.4-6.5)
Immature Gran % 0.6 H %
(0-0.5)
D-Dimer 1.97 H ug/mlFEU
(0.00-0.50)
Chloride 109 H mmol/L
(98-107)
Carbon Dioxide 18 L mmol/L
(22-30)
BUN 27 H mg/dl
(7-17)
Glucose 139 H mg/dl
(70-99)
Calcium 10.7 H mg/dl
(8.4-10.2)
Total Protein 8.5 H g/dl
(6.3-8.2)
09/25/24 17:31
09/25/24 17:30
Vital Signs
Initial and Last Documented VS:
Initial Vital Signs
Temp Pulse Resp BP Pulse Ox
98.1 F 90 20 163/104 99
09/25/24 17:23 09/25/24 17:23 09/25/24 17:23 09/25/24 17:23 09/25/24 17:23
Last Documented Vital Signs
Temp Pulse Resp BP Pulse Ox
98.2 F 73 14 155/87 92
09/25/24 20:04 09/26/24 01:30 09/25/24 21:45 09/26/24 01:00 09/26/24 00:45
<PAULINA Rucker - Last Filed: 09/27/24 15:11>
MDM/Problems Addressed
MDM/Problems Addressed:
As documented patient is a 49-year-old female with past medical history of, cholecystitisseptic shock intra-abdominal abscess presently with drains in place, renal failure requiring dialysis during previous admission along with Takotsubo
cardiomyopathy presents for evaluation. She has had increasing swelling her lower extremity symptoms started on Lasix by her PCP but sent here for elevated troponin. She had no chest pain. Her troponin here is negative however with recent
swelling and complaints of feeling shortness of breath at times and' winded,' troponin checked and elevated. Will check CT to ensure no PE. She denies any recent fever chills cough. White count normal her lungs are clear.She is in no acute
distress with unremarkable BNP and negative troponin if CT negative will plan for discharge home. She may continue lasix for for lower extremity swelling and have close outpatient follow with PCP
Case d/c w/ Dr Lujan.
2315:CAre of pt at this time signed out to MATILDE Sorensen.
<PAULINA Rucker - Last Filed: 09/27/24 15:11>
*Pulse Oximetry
SaO2: 99
Oxygen Mode of Delivery: Room air
<Edie Garcia PA-C - Last Filed: 09/26/24 01:00>
*Pulse Oximetry
Patient hypoxic: no
*Critical Care Note
Total Time (30-74mins, 75-104mins- exclusive of procedures): Not Applicable
<Edie Garcia PA-C - Last Filed: 09/26/24 01:00>
Update Note
Update Note:
I received patient in signout.
I reviewed results of CTA with patient. Patient is asymptomatic at this time. She denies chest pain, shortness of breath. She is well-appearing on exam. She has patient stable for discharge.
ED Attending Note
<PAULINA Rucker - Last Filed: 09/27/24 15:11>
-
Portions of this chart may have been created with voice recognition software.� Occasional wrong word or��sound alike� substitutions may have occurred due to the inherent limitations of voice recognition software.
Discharge Plan
Departure
Patient Disposition: Home (Routine Discharge)
Date of Disposition: 09/26/24
Time of Disposition: 01:08
Patient with high blood pressure during this ER visit?: Yes
Condition: Fair
Covid-19: Not Applicable
Discharge Problem:
Bilateral edema of lower extremity
Instructions: BLOOD PRESSURE
Prescriptions:
No Action
norethindrone acetate 5 mg Tablet
5 mg PO DIRECTED
Patient Comments:
09/25/2024, last day of cycle was Tuesday (09/23/2024) per pt.
Rx Instructions:
take on day 10 through 25 of cycle
cholecalciferol (vitamin D3) [Vitamin D3] 125 mcg (5,000 unit) Tablet
125 mcg PO DAILY
losartan 25 mg Tablet
25 mg PO DAILY Qty: 30 0RF
glipizide 2.5 mg tablet extended release 24hr
2.5 mg PO DAILY Qty: 30 0RF
furosemide 20 mg Tablet
40 mg PO DAILY
Patient Comments:
09/25/2024, doctor raised her dose yesterday (09/24/2024) to 2 tablets daily per pt.
amoxicillin-pot clavulanate 500-125 mg tablet
1 tab PO BID
Patient Comments:
09/25/2024, filled on 09/22/2024 and instructed to take 1 tablet BID for 7 days.
metoprolol succinate 50 mg tablet extended release 24 hr
50 mg PO TID
magnesium oxide 500 mg magnesium tablet
500 mg PO HS
Referrals:
Fabienne Ramírez MD, Resident [Family Provider, General]
Activity Restrictions/Additional Instructions:
For dependent edema: You may continue your Lasix. Closely follow-up with your family doctor for reevaluation in the next several days. Your troponin was negative here in the ER
Please follow-up with your cardiology appointment.
PLEASE RETURN EMERGENCY DEPARTMENT SHOULD YOU DEVELOP CHEST PAIN, SHORTNESS OF BREATH, LIGHTHEADEDNESS, DIZZINESS, FAINTING SPELLS, OR ANY OTHER SIGNS OR SYMPTOMS WORRISOME TO YOU.
Interventions
Interventions:
*Risk Screen - Suicide Last Done: 09/25/24 17:23
*General Assessment Last Done: 09/25/24 20:05
*Neglect/Abuse Screening Last Done: 09/25/24 17:23
*ED- Fall Risk Assessment Last Done: 09/25/24 20:05
*ED COVID-19 Vaccine History Last Done: 09/25/24 20:05
*Nursing Disposition Last Done: 09/26/24 01:36
Discharge Date and Time
Discharge Date/Time: 09/26/24 01:40
Print Language: KINYARWANDA
[2024-09-25 22:00] VITALS: BP 144/88
[2024-09-25 22:45] LABS: D-Dimer 1.97 ug/mlFEU (0.00-0.50)
[2024-09-25 23:20] VITALS: BP 148/86
[2024-09-26] VITALS: BP 140/77
[2024-09-26 01:00] VITALS: BP 155/87
== END 2024-09-26 01:40 | disposition home or self-care (01) ==
LOC: EMR 17:13
PROVIDERS: Emergency Medicine; Nurse Practitioner; EMERGENCY PHYSICIAN Emergency Medicine; FAMILY PHYSICIAN Student in an Organized Health Care Education/Training Program
DX: R60.0 Localized edema (principal); I25.10 Atherosclerotic heart disease of native coronary artery without angina pectoris; I42.9 Cardiomyopathy, unspecified; Z79.899 Other long term (current) drug therapy
CPT/HCPCS: 99285; 71046; 71275; 80053; 83880; 84484; 84703; 85025; 85379; 93005; Q9967

== ENCOUNTER → 2024-10-10 08:22 | Outpatient (REF) | payer OTHER, SELFPAY ==
[2024-10-10 09:09] LABS: Glucose - Point of Care 120 mg/dl (70-99)
[2024-10-10 09:15] VITALS: BP 131/70; BP_SYST 80
[2024-10-10] MEDS: ATIVAN 0.5 MG PO (09:25)
[2024-10-10 10:24] VITALS: BP 143/79; BP_SYST 78
[2024-10-10 10:30] VITALS: BP 143/79; BP_SYST 72
[2024-10-10 10:35] VITALS: BP 134/70; BP_SYST 71
== END ==
LOC: RADI 08:22
PROVIDERS: ATTENDING PHYSICIAN Surgery
DX: Z43.4 Encounter for attention to other artificial openings of digestive tract (principal); K80.20 Calculus of gallbladder without cholecystitis without obstruction
CPT/HCPCS: 47536; 82962; C1729; C1769

== ENCOUNTER 2024-12-20 06:19 | Day surgery (SDC) | payer OTHER, SELFPAY ==
--- NOTE | 2024-12-14 12:50 | PTCARENOTE ---
Patients 7/8 ECG abnormal- reviewed by Dr. Rees- no additional interventions required
[2024-12-20] VITALS (12 sets, daily range): BP systolic 107–170; BP diastolic 45–82; BMI 44.5
[2024-12-20] MEDS: TYLENOL 1000 MG PO (13:29)
--- NOTE | 2024-12-20 14:34 | W.SUR.PREOP ---
Pre-Operative Surgical Note
-
I have examined this patient prior to the performance of the scheduled procedure.
The patient's condition is unchanged from the time of the current History and
Physical and the patient is able to undergo the scheduled procedure.
--- NOTE | 2024-12-20 14:34 | HP.FOC2 ---
Focused History & Physical
Chief Complaint
HPI:
Chief Complaint: History of acute cholecystitis
HPI / Indication for Planned Procedure: This is a 49-year-old female who presented to our hospital with acute cholecystitis status post aborted robotic cholecystectomy status post percutaneous drain now upsized to a 14 Nepali here for percutaneous
endoscopic biliary lithotripsy.
Relevant Past Medical History: Negative
Relevant Social History: Negative
Relevant Family History: Negative
Relevant Past Surgical History: Positive for (Previous aborted robotic cholecystectomy)
Review of Systems
Review of Pertinent Systems: All Systems Negative
Medication
See Medication form for detailed medications: Yes
Medication List (including Herbals & OTC):
cholecalciferol (vitamin D3) 125 mcg (5,000 unit) tablet (Vitamin D3) 125 mcg PO DAILY Supplement 07/06/24
norethindrone acetate 5 mg tablet 5 mg PO DIRECTED Hormonal Agent 07/06/24
glipizide 2.5 mg tablet, extended release 24 hr 2.5 mg PO DAILY Diabetes #30 tabs 08/03/24
losartan 25 mg tablet 25 mg PO DAILY Blood pressure #30 tabs 08/03/24
furosemide 20 mg tablet 40 mg PO DAILY 09/25/24
metoprolol succinate 50 mg tablet,extended release 24 hr 50 mg PO TID Blood pressure 09/25/24
biotin 10,000 mcg disintegrating tablet 10,000 mcg PO DAILY 12/19/24
evening primrose oil 1,300 mg capsule 1,300 mg PO DAILY 12/19/24
fish, borage, flaxseed oils-omega 3,6,9 comb no.1 1,200 mg capsule ([place] 3-6-9) 1 cap PO DAILY 12/19/24
Medications Reviewed: Yes
Allergies and Reactions
Patient has Allergies: Yes
Noted Allergies and Reactions:
Allergy/AdvReac Type Severity Reaction Status Date / Time
No Known Allergies Allergy Verified 12/20/24 13:19
Pertinent Physical Exam
All Other Systems: Negative
Head/Neck: Normal
Diagnosis / Assessment
This is a 49-year-old female who presented to our hospital with acute cholecystitis status post aborted robotic cholecystectomy status post percutaneous drain now upsized to a 14 Nepali here for percutaneous endoscopic biliary lithotripsy.
Plan / Procedure
This is a 49-year-old female who presented to our hospital with acute cholecystitis status post aborted robotic cholecystectomy status post percutaneous drain now upsized to a 14 Nepali here for percutaneous endoscopic biliary lithotripsy.
Anesthesia/Sedation to be done by Anesthesia Provider: Yes
[2024-12-20] MEDS: NORMOSOL-R/PLASMALYTE-A 1000 IV (14:47)
[2024-12-20 16:48] LABS: Glucose - Point of Care 212 mg/dl (70-99)
[2024-12-20 18:41] LABS: Glucose - Point of Care 208 mg/dl (70-99)
--- NOTE | 2024-12-20 18:53 | W.IMMPOSTOP ---
Surgical Immed Post Op Note
-
Primary Surgeon: Warner Casillas MD
Assisting Surgeon: Shad Villela MD
Pre-op Diagnosis: Acute cholecystitis, cholelithiasis, presence of cholecystostomy tube
Post-op Diagnosis: Same
Procedure Performed:
1. Percutaneous endoscopic biliary lithotripsy
2. Percutaneous endoscopic common bile duct exploration
Anesthesia Type: General
Specimen / Cultures: None
Estimated Blood Loss: 3 cc
Complications: None
Operative Findings: Initial access through the 14 Bangladeshi percutaneous catheter gained this access into the first part of the gallbladder/abscess cavity where a large 2.5 cm cholesterol gallstone was pulverized using laser lithotripsy. The larger
pieces were flushed back through our access sheath were removed with the help of a basket. Initial fluoroscopic pictures showed no obvious connection to the cystic duct but visual exploration identified a thin area of wall which was accessed to
enter the proximal portion of the gallbladder which appeared much healthier and also contained a 2 cm mixed gallstone which was also broken up into pieces using laser lithotripsy. We are then able to carefully advance the wire into the cystic duct,
common bile duct and ultimately into the duodenum. There was an additional fragment of a gallstone in the common bile duct which was lithotripsied and carefully advanced into the duodenum. Subsequent passes confirmed no residual large stone
disease in the proximal portion of the gallbladder, or common bile duct. A 14 Bangladeshi pigtail catheter was advanced into the proximal portion of the gallbladder and secured under fluoroscopic guidance. The tube was capped.
POST OP PLAN:
Imaging: None
Labs: Routine AM
Diet: Advance to Regular as tolerated
Analgesia: Tylenol 650mg q6 Ria, morphine 2 mg q2h PRN
Neuro/vascular checks: Per unit protocol
AC/AP: Hold Therapeutic AC, Ok for DVT PPx
Activity: Ad Ana Luisa
Wound/Incisions/Drains: Routine
Abx: None
Dispo: RNF, anticipate discharge home tomorrow on ursodiol and plan for drain removal in the office on Tuesday.
[2024-12-20 18:55] LABS: Glucose - Point of Care 191 mg/dl (70-99)
[2024-12-20] MEDS: NOVOLOG vial 1 UNITS SC (19:08)
[2024-12-20] MEDS: TYLENOL 650 MG PO ×2 (19:47→23:20)
[2024-12-20 21:09] LABS: Glucose - Point of Care 164 mg/dl (70-99)
[2024-12-20] MEDS: TOPROL XL 50 MG PO (21:23)
[2024-12-21] MEDS: TYLENOL 650 MG PO ×2 (03:15→08:23)
[2024-12-21 03:52] VITALS: BP 142/75
--- NOTE | 2024-12-21 05:47 | PTCARENOTE ---
Pt 49 y/o F admitted from PACU at 20:10 post Percutaneous endoscopic biliary lithotripsy & Percutaneous endoscopic common bile duct exploration, PMH Cholecystectomy with tube placement (08/12), DM oral agents, PNA, Dyspnea, Pleural Effusion, Edema,
HTN, frequent UTIs, Anemia, Sepsis,
Ovarian Cysts. Pt AOx3, bed in a low position, pt denies need for pain mgmt, call light in reach.
[2024-12-21 07:11] LABS: Glucose - Point of Care 121 mg/dl (70-99)
[2024-12-21 07:17] VITALS: BP 136/60
[2024-12-21 07:21] LABS: ALT (SGPT) 90 U/L (0-35); AST (SGOT) 81 U/L (14-36); Albumin 4.0 g/dl (3.5-5.0); Alkaline Phosphatase 148 U/L (38-126); Blood Urea Nitrogen 14 mg/dl (7-17); Calcium 9.7 mg/dl (8.4-10.2); Carbon Dioxide 24 mmol/L (22-30); Chloride 107 mmol/L (98-107); Estimated Creatinine Clearance > 125 ml/min; Glucose 131 mg/dl (70-99); Potassium 4.4 mmol/L (3.5-5.1); Sodium 138 mmol/L (135-145); Total Protein 6.8 g/dl (6.3-8.2); eGFR > 60.00
[2024-12-21 07:37] LABS: Hematocrit 39.8 % (37.0-47.0); Hemoglobin 12.7 g/dL (12.0-16.0); Mean Corp Hgb Conc. 31.9 g/dL (33.0-37.0); Mean Corpuscular Volume 80.2 fL (81.0-99.0); Platelet Count 273 10^3/uL (130-400); Red Cell Dist. Width 16.2 % (11.5-14.5)
[2024-12-21] MEDS: TOPROL XL 50 MG PO (08:23)
[2024-12-21] MEDS: ACTIGALL 300 MG PO (08:23)
--- NOTE | 2024-12-21 09:09 | W.PN.GS2 ---
Today's Communication / Plan
-
Dispo planning
Assessment / Plan
-
49 yo female with acute cholecystitis, cholelithiasis, presence of cholecystostomy tube presenting for operative management
POD #1 Percutaneous endoscopic biliary lithotripsy. Percutaneous endoscopic common bile duct exploration
AFVSS
No leukocytosis
Bilirubin normal, mild transaminitis
Plan:
Continue regular diet
Continue Ursodiol
Continue ABX x7 days with doxycycline and Augmentin
Continue with cholecystostomy tube capped, d/c with drain in place for tentative removal next week in clinic
Dispo planning
Subjective Data
-
Date of Service: December 21, 2024
Pt seen and examined at bedside with Dr. Casillas. Denies pain. Denies n/v. Tolerating diet.
Objective Data
-
Intake and Output
12/20/24 12/21/24 12/22/24
06:59 06:59 06:59
Intake Total 440 / 440
Output Total 400 / 400
Balance 40 / 40
Intake:
Oral fluids 240 / 240
IV fluids (Total) 200 / 200
Normosal 200 / 200
Output:
Urine, Voided 400 / 400
Other:
How many times incontinent 1
MODERATE amount urine
Vital Signs
Temp Pulse Resp BP Pulse Ox
98.8 F 70 18 136/60 96
12/21/24 07:17 12/21/24 08:23 12/21/24 07:17 12/21/24 08:23 12/21/24 07:17
Lab Results
12/21/24 06:30
12/21/24 06:30
Calcium 9.7 mg/dl (8.4-10.2) 12/21/24 06:30
Total Bilirubin 0.7 mg/dl (0.2-1.3) 12/21/24 06:30
AST 81 U/L (14-36) H 12/21/24 06:30
ALT 90 U/L (0-35) H 12/21/24 06:30
Alkaline Phosphatase 148 U/L (38-126) H 12/21/24 06:30
Total Protein 6.8 g/dl (6.3-8.2) 12/21/24 06:30
Albumin 4.0 g/dl (3.5-5.0) 12/21/24 06:30
Physical Exam
-
NAD
ABD soft, nd, nt
Drain to RUQ capped, dressing intact without drainage noted
--- NOTE | 2024-12-21 09:14 | W.DS.TRANS ---
Addendum entered and electronically signed by PAULINA Matias 12/21/24 10:44:
dictated #[id number]
Original Note:
DC Summary - [employer]
-
Discharge Instructions:
Sleep Apnea Risk Intermediate
Discharge Diagnosis/Procedures Acute cholecystitis with cholelithiasis status
post percutaneous endoscopic biliary lithotripsy
and CBD exploration
Diet As tolerated
Activity No strenuous activity
Driving Restrictions No driving for 24hours after anesthesia
Bathing Restrictions OK to Shower
Wound Care Keep drain capped. Change dressing as needed.
Drain will be removed next week in clinic;
however, please notify your surgeon if you have
drainage or leaking around your catheter before
that time.
Instructions:
Stand-Alone Forms:
Changes to Home Medications: No
Discharge Medications:
DC Medications w/original date entered in [employer]
cholecalciferol (vitamin D3) 125 mcg (5,000 unit) tablet (Vitamin D3) 125 mcg PO DAILY Supplement 07/06/24
norethindrone acetate 5 mg tablet 5 mg PO DIRECTED Hormonal Agent 07/06/24
glipizide 2.5 mg tablet, extended release 24 hr 2.5 mg PO DAILY Diabetes #30 tabs 08/03/24
losartan 25 mg tablet 25 mg PO DAILY Blood pressure #30 tabs 08/03/24
furosemide 20 mg tablet 40 mg PO DAILY 09/25/24
metoprolol succinate 50 mg tablet,extended release 24 hr 50 mg PO TID Blood pressure 09/25/24
biotin 10,000 mcg disintegrating tablet 10,000 mcg PO DAILY 12/19/24
evening primrose oil 1,300 mg capsule 1,300 mg PO DAILY 12/19/24
fish, borage, flaxseed oils-omega 3,6,9 comb no.1 1,200 mg capsule ([place] 3-6-9) 1 cap PO DAILY 12/19/24
amoxicillin 875 mg-potassium clavulanate 125 mg tablet 1 tab PO Q12 antibiotic #14 tabs 12/21/24
doxycycline hyclate 100 mg capsule 100 mg PO BID #14 caps 12/21/24
ursodiol 300 mg capsule 300 mg PO BID #60 caps 12/21/24
Home Medication Changes
Pending Results: No
--- NOTE | 2024-12-21 09:32 | CM ---
Patient for d/c today. Initial assessment completed. Patient is a 49-year-old female who presented to our hospital with acute cholecystitis status post aborted robotic cholecystectomy status post percutaneous drain now upsized to a 14 Yi here
for percutaneous endoscopic biliary lithotripsy.
Patient resides w/ spouse in a 2 story town home, 2 steps to enter from the outside. Independent in all areas, no DME reported. No therapy hx reported.
PCP: [facility]
Pharmacy: [facility]
Plan: Home today, no needs. Spouse will transport
[2024-12-21] MEDS: VIBRAMYCIN 100 MG PO (10:16)
[2024-12-21] MEDS: AUGMENTIN 875 MG/125 MG 1 TABLET PO (10:16)
[2024-12-21 11:00] VITALS: BP 121/56
[2024-12-21] MEDS: TYLENOL PO (12:00)
[2024-12-21 15:00] VITALS: BP 146/77
--- NOTE | 2024-12-21 16:26 | OR.RPT ---
Operative Report
Operative Report
DATE OF OPERATION: 12/20/2024
SURGEON: Warner Casillas MD
DIRECTOR OF GROUP COUNSELING PROGRAM: Dr. Shad Villela.
PREOPERATIVE DIAGNOSES:
1. Acute cholecystitis
2. Cholelithiasis.
3. Presence of cholecystostomy tube
POSTOPERATIVE DIAGNOSES:
Same
4. Choledocholithiasis
PROCEDURE PERFORMED:
1. Percutaneous endoscopic biliary lithotripsy (CPT 65975)
2. Cholangiogram (CPT 55936)
3. Transcystic common bile duct exploration (58234)
4. Percutaneous cholecystostomy tube exchange suggested
ANESTHESIA: GETA
ESTIMATED BLOOD LOSS: 3
COMPLICATIONS: None.
SPECIMENS TAKEN: None
DRAINS PLACED: Fourteen-Georgian percutaneous cholecystostomy tube.
INDICATION FOR PROCEDURE:
This is a 49-year-old female with morbid obesity (BMI 44), Who presented to our hospital in mid June with acute cholecystitis which was managed with an aborted robotic cholecystectomy and subsequent percutaneous drainage. She has had mild
persistent symptoms and residual stone disease precluding removal of her drain. Given her obesity and the degree of inflammation encountered she was counseled on a percutaneous endoscopic approach which she agreed to. Her drain was upsized to a 14
Georgian catheter and after allowing this to mature we proceeded with a percutaneous endoscopic biliary lithotripsy.
Operative Findings: Initial access through the 14 Georgian percutaneous catheter gained this access into the first part of the gallbladder/abscess cavity where a large 2.5 cm cholesterol gallstone was pulverized using laser lithotripsy. The larger
pieces were flushed back through our access sheath were removed with the help of a basket. Initial fluoroscopic pictures showed no obvious connection to the cystic duct but visual exploration identified a thin area of wall which was accessed to
enter the proximal portion of the gallbladder which appeared much healthier and also contained a 2 cm mixed gallstone which was also broken up into pieces using laser lithotripsy. We are then able to carefully advance the wire into the cystic duct,
common bile duct and ultimately into the duodenum. There was an additional fragment of a gallstone in the common bile duct which was lithotripsied and carefully advanced into the duodenum. Subsequent passes confirmed no residual large stone
disease in the proximal portion of the gallbladder, or common bile duct. A 14 Georgian pigtail catheter was advanced into the proximal portion of the gallbladder and secured under fluoroscopic guidance. The tube was capped.
PROCEDURE IN DETAIL: Patient was encountered in the preop area and was signed in before being taken to the operating room where she was prepped and draped in supine position. Antibiotic prophylaxis was given. The patient was induced under general
anesthesia. The previously placed cholecystostomy tube was prepped into the field. The tube was uncapped, and contrast was instilled to delineate the borders of gallbladder. A dual-lumen catheter was used to exchange the cholecystostomy tube for two
guidewires, which were successfully guided into the gallbladder. One wire was banked on the patient drape. Over the other wire, a 14-Georgian 25 cm ureteral access sheath was placed under live fluoroscopy into the gallbladder. The inner sheath was
removed. A flexible ureteroscope was then advanced via the access sheath into the gallbladder.
Cholecystoscopy was performed, which showed a large gallstone. A 270 nanometer laser fiber was used to fragment the stone into small fragments, which took some time as the stone measured roughly 2.5 cm. These fragments were then extracted via the
ureteral access sheath using a stone basket and flushing. Extraction of all significant gallstone fragments was
performed. At conclusion of stone extraction, there were only small stone particles and dust fragments too small to grasp remaining all of which were under 1 mm in size. Injection of contrast did not show visualization of the cystic duct which was
somewhat unexpected. Initial cursory examination of the remnant of the gallbladder could not find the cystic duct but there was an area of scar tissue which we punctured and entered the proximal gallbladder indicating that the previous space we had
been in was more likely an abscess cavity with a large stone and it versus a necrosis distal gallbladder. Here we identified an additional 2 cm stone consistent with her preoperative imaging. The stone appeared more mixed compared to the previous
one which was more of a cholesterol stone in nature. This stone, as the first was fragmented using a 270 nm laser fiber and the pieces were pulled back using either a basket and or flushing until only small 1 mm remnants remained. The ureteroscope
was then advanced into the cystic duct which was readily identified but somewhat tortuous so making that turn into the common duct was initially quite difficult. An 035 hydrophilic soft tip wire was advanced through the scope into the cystic duct
and advanced successfully into the common duct and eventually into the duodenum under fluoroscopic guidance. The scope was then advanced over this wire successfully into the common bile duct. Here we encountered an additional nonobstructing 1 cm
mixed gallstone which also was pulverized using the 270 nm laser fiber. These fragments were then carefully advanced into the duodenum. Subsequent passes with the scope visually confirmed no residual significant stone disease in the gallbladder
and no stone disease in the cystic or common bile ducts. A completion cholangiogram was performed as well. Satisfied, over the remaining wire, a 14-Georgian percutaneous cholecystostomy tube was replaced. The tube was advanced into the gallbladder
under fluoroscopy, and the curl of the tube was developed in the standard fashion, and the suture was secured. Omnipaque contrast was used to confirm proper position of the tube within the gallbladder. Clear and free drainage of bile was noted from
the tube. The tube was capped.
The procedure was complete. The patient was awoken from anesthesia without difficulty and was transported to the PACU in stable condition.
Dr. Villela's assistance was instrumental in this procedure particularly for laser lithotripsy and scope manipulation. This was a challenging procedure which required two surgeons to break up and extract these stones in an expedient manner. I was
present for all portions of the procedure.
Warner Casillas MD
== END 2024-12-21 15:00 | disposition home or self-care (01) ==
LOC: SDS 06:19
PROVIDERS: ATTENDING PHYSICIAN Surgery
DX: K80.62 Calculus of gallbladder and bile duct with acute cholecystitis without obstruction (principal); Z96.89 Presence of other specified functional implants
CPT/HCPCS: 47554; 47564; 47536; 74018; 76000; 80053; 82962; 85027; C1758; C1769; C1894; J1610